=== PATIENT | female | born 1960 | race Caucasian/White ===

== ENCOUNTER 2020-10-01 12:59 | Inpatient (IN) ==
[2020-10-01] MEDS ORDERED: IOPAMIDOL 100 ML BOTTLE IV ONE (13:00)
--- NOTE | 2020-10-01 13:47 | Emergency Department Note ---
HPI <Marguerite Breaux PA-C - Last Filed: 10/01/20 21:28> General Chief complaint: Abdominal Pain Stated complaint: Abdominal Pain Time Seen by Provider: 10/01/20 13:38 Source: patient Mode of arrival: wheelchair Limitations: no limitations History of Present Illness HPI Narrative: Narrative: This patient presents with a complaint of right upper abdominal pain beginning this morning. She reports she woke up this morning and noted the discomfort. She is not had anything to eat or drink today and is unsure if it would worsen with eating or drinking. Is been persistently in the right upper quadrant. Pain does not radiate. She has not been nauseated or had vomiting. She does endorse some constipation but was able to have 2 small bowel movements today. She reports they were very firm stools. She is not had any blood in her stool. She been without fevers or chills. She has experienced this pain intermittently in the past but it is only been brief and has resolved. Related Data Home Medications Medication Instructions Recorded Confirmed gabapentin 600 mg tablet 600 mg PO TID 05/09/20 10/01/20 buprenorphine 8 mg-naloxone 2 mg 1 tab SUBLINGUAL QDAY 07/01/20 10/01/20 sublingual tablet phentermine 15 mg capsule 15 mg PO QDAY 07/01/20 10/01/20 duloxetine [Cymbalta] 60 mg PO DAILY 10/01/20 10/01/20 meloxicam 15 mg PO DAILY 10/01/20 10/01/20 omeprazole 20 mg PO DAILY 10/01/20 10/01/20 Allergies Allergy/AdvReac Type Severity Reaction Status Date / Time No Known Drug Allergies Allergy Unverified 10/02/20 01:57 Review of Systems <Marguerite Breaux PA-C - Last Filed: 10/01/20 21:28> ROS ROS Narrative: Narrative: Pertinent positives and negatives as noted in HPI. All other systems reviewed and negative. PFSH <Marguerite Breaux PA-C - Last Filed: 10/01/20 21:28> Narrative Patient History Narrative: Narrative: Medical/Surgical/Family History All Active Problems (Updated 10/02/20 @ 16:56 by Genoveva Casper MD) Cholelithiasis with cholecystitis (Acute) Acute pancreatitis (Acute) Radiculopathy of lumbar region (Acute) Spondylosis without myelopathy or radiculopathy, lumbosacral region (Acute) Spondylosis without myelopathy or radiculopathy, lumbar region (Acute) Lumbar spondylosis (Chronic) Leg pain, bilateral (Chronic) Chronic pain (Chronic) Hepatitis C (Chronic) Depression (Chronic) Anxiety (Chronic) Difficulty walking (Chronic) Fracture (Chronic) Painful swelling of joint (Chronic) Arthritis (Chronic) Heart burn (Chronic) SOB (shortness of breath) (Chronic) Chronic cough (Chronic) Ringing in ears (Chronic) Acid reflux (Chronic) RLS (restless legs syndrome) (Chronic) COPD (chronic obstructive pulmonary disease) (Chronic) Low back pain (Chronic) Back pain (Chronic) Medical History Acid reflux Anxiety Arthritis Back pain Chronic cough Chronic pain COPD (chronic obstructive pulmonary disease) Depression Difficulty walking Fracture Heart burn Hepatitis C Leg pain, bilateral Low back pain Lumbar spondylosis Painful swelling of joint Ringing in ears RLS (restless legs syndrome) SOB (shortness of breath) Spondylosis without myelopathy or radiculopathy, lumbar region Spondylosis without myelopathy or radiculopathy, lumbosacral region Surgical History History of hysterectomy Family History Mother High blood pressure Father Arthritis Brother Chronic pain Drug abuse Sister Chronic pain Family/Other Alcohol abuse Social History Smoking Status: Current every day smoker Alcohol Intake Frequency: a few times a week Substance Use: other Exam <Marguerite Breaux PA-C - Last Filed: 10/01/20 21:28> Narrative Narrative: Narrative: General Limitations: no limitations Course <Marguerite Breaux PA-C - Last Filed: 10/01/20 21:28> Course Course Narrative: Labs ordered and reviewed EKG shows sinus rhythm at a rate of 75. Crest complexes are narrow and irregular nose. No ST elevation or depression. T waves are noted to be inverted in V1, V3 and flattened in lead III. There is no comparison EKG. Chest x-ray is without acute changes to my review. Radiology does note an 11 mm nodule in the left upper chest and recommends follow-up CT as an outpatient. Lipase elevated above 3000 Troponin negative Ultrasound of the gallbladder is significant for gallstones with some dilation of common bile duct at 1.2 cm. No stone is seen in the common bile duct. No pericholecystic fluid or findings consistent with cholecystitis. CT the abdomen pelvis with contrast are significant for common bile duct measuring 1.2 cm with distention at the ampulla Vater of 1.3 cm. No stone is seen within the common bile duct, however there are also not stone seen in the gallbladder. Patient's work-up thus far is concerning for gallstone pancreatitis. There are no gastroenterology services at this hospital and consult is made with administrative support assistant Dr. Gibbs at [facility]. He advises that he will take the patient to his service, however he would not perform an ERCP unless there was indication after 48 hours. He would monitor the patient in conjunction with the hospitalist service for pancreatitis symptoms and improvement before determining if ERCP was necessary. He would then consult with surgery regarding cholecystectomy after the pancreatitis has improved. Given that information it seems unnecessary to transfer the patient all the way to [place] at this time. I discussed the patient at that time with Dr. Casper, general surgeon here at [facility], to his service to observe her for her pancreatitis. In the event she develops symptoms concerning for obstruction of the common bile duct, he will reach out to gastroenterology for an ERCP if necessary. Tech and orders are placed for the patient to be transferred to [facility]Sur unit for observation of pancreatitis. Patient does take Suboxone chronically. She did have her Suboxone with her and is given her typical dose while here in the emergency department. She and family are counseled that she will be treated with medications from the inpatient pharmacy after she is transferred out of the emergency department. She does have some increase in discomfort and is given Levsin in addition to her home Suboxone as well as her gabapentin which she typically takes 3 times daily. Vital Signs Vital signs: Vital Signs Temperature 97.7 F 10/01/20 13:00 Pulse Rate 66 10/01/20 13:00 Respiratory Rate 18 10/01/20 13:00 Blood Pressure 135/75 10/01/20 13:00 Pulse Oximetry (%) 96 10/01/20 13:00 Temperature 98.1 F 10/02/20 23:53 Pulse Rate 104 H 10/02/20 23:53 Respiratory Rate 24 H 10/02/20 23:53 Blood Pressure 91/67 10/02/20 23:53 Pulse Oximetry (%) 90 10/02/20 23:53 <Modesto Hernandez MD - Last Filed: 10/03/20 01:06> Vital Signs Vital signs: Vital Signs Temperature 97.7 F 10/01/20 13:00 Pulse Rate 66 10/01/20 13:00 Respiratory Rate 18 10/01/20 13:00 Blood Pressure 135/75 10/01/20 13:00 Pulse Oximetry (%) 96 10/01/20 13:00 Temperature 98.1 F 10/02/20 23:53 Pulse Rate 104 H 10/02/20 23:53 Respiratory Rate 24 H 10/02/20 23:53 Blood Pressure 91/67 10/02/20 23:53 Pulse Oximetry (%) 90 10/02/20 23:53 MDM <Marguerite Breaux PA-C - Last Filed: 10/01/20 21:28> MDM Narrative Medical decision making narrative: Narrative: Lab Data Result diagrams: 10/02/20 05:08 10/02/20 05:08 Labs: Lab Results 10/01/20 10/01/20 10/01/20 Range/Units 13:48 13:48 13:48 WBC 10.0 (4.5-11.0) K/mcL RBC 4.67 (3.59-5.38) M/mcL Hgb 14.7 (11.2-15.7) g/dL Hct 43.2 (34.1-44.9) % POC Hct 45 (36-48) % MCV 92.5 (80.0-100.0) fL MCH 31.5 (26.0-34.0) pg MCHC 34.0 (31.0-36.0) g/dL RDW 12.9 (11.5-14.5) % Plt Count 208 (140-440) K/mcL MPV 12.5 H (7.4-10.4) fL Neut % (Auto) 77.9 (38.0-78.0) % Lymph % (Auto) 13.8 L (15.5-49.0) % [place] % (Auto) 5.7 (1.0-12.0) % Eos % (Auto) 2.3 (0.0-7.0) % Baso % (Auto) 0.3 (0.0-2.0) % Lymph # (Auto) 1.38 L (1.50-4.80) K/mcL [place] # (Auto) 0.57 (0.10-0.90) K/mcL Eos # (Auto) 0.23 (0.00-0.70) K/mcL Baso # (Auto) 0.03 (0.00-0.30) K/mcL Absolute Neutrophils 7.78 (1.80-8.00) K/mcL POC Sodium 139 (133-145) mEq/L Sodium 135 (133-145) mmol/L POC Potassium 4.0 (3.3-5.1) mEql/L Potassium 3.9 (3.3-5.1) mmol/L POC Chloride 101 (96-108) mEq/L Chloride 98 (96-108) mmol/L Carbon Dioxide 27 (22-30) mmol/L POC Total CO2 29 (22-30) mmol/L Anion Gap 10.0 (8.0-16.0) POC BUN 13 (6-20) mg/dL BUN 12 (6-20) mg/dL Creatinine 0.8 (0.6-1.1) mg/dL POC Creatinine 0.7 (0.6-1.2) mg/dL GFR Calculation 81 Glucose 139 H (70-105) mg/dL POC Glucose 138 H (70-105) mg/dL Calcium 9.3 (8.6-10.4) mg/dL POC WB Ioniz Calcium 1.20 (1.16-1.32) mmEq/L Total Bilirubin 0.5 (0.1-1.0) mg/dL AST 62 H (<32) U/L ALT 48 H (<40) U/L Alkaline Phosphatase 71 (39-117) U/L Troponin T < 0.01 (<0.03) ng/mL Total Protein 7.1 (5.9-8.4) gm/dL Albumin 4.1 (3.2-5.2) gm/dL Globulin 3.0 (2.2-3.7) gm/dL Albumin/Globulin Ratio 1.4 (1.0-2.3) Lipase > 3000 H (7-60) U/L ED POC Tests ED POC Tests: HUYEN - SARS Antigen Negative <Modesto Hernandez MD - Last Filed: 10/03/20 01:06> Lab Data Labs: Lab Results 10/01/20 10/01/20 10/01/20 Range/Units 13:48 13:48 13:48 WBC 10.0 (4.5-11.0) K/mcL RBC 4.67 (3.59-5.38) M/mcL Hgb 14.7 (11.2-15.7) g/dL Hct 43.2 (34.1-44.9) % POC Hct 45 (36-48) % MCV 92.5 (80.0-100.0) fL MCH 31.5 (26.0-34.0) pg MCHC 34.0 (31.0-36.0) g/dL RDW 12.9 (11.5-14.5) % Plt Count 208 (140-440) K/mcL MPV 12.5 H (7.4-10.4) fL Neut % (Auto) 77.9 (38.0-78.0) % Lymph % (Auto) 13.8 L (15.5-49.0) % [place] % (Auto) 5.7 (1.0-12.0) % Eos % (Auto) 2.3 (0.0-7.0) % Baso % (Auto) 0.3 (0.0-2.0) % Lymph # (Auto) 1.38 L (1.50-4.80) K/mcL [place] # (Auto) 0.57 (0.10-0.90) K/mcL Eos # (Auto) 0.23 (0.00-0.70) K/mcL Baso # (Auto) 0.03 (0.00-0.30) K/mcL Absolute Neutrophils 7.78 (1.80-8.00) K/mcL POC Sodium 139 (133-145) mEq/L Sodium 135 (133-145) mmol/L POC Potassium 4.0 (3.3-5.1) mEql/L Potassium 3.9 (3.3-5.1) mmol/L POC Chloride 101 (96-108) mEq/L Chloride 98 (96-108) mmol/L Carbon Dioxide 27 (22-30) mmol/L POC Total CO2 29 (22-30) mmol/L Anion Gap 10.0 (8.0-16.0) POC BUN 13 (6-20) mg/dL BUN 12 (6-20) mg/dL Creatinine 0.8 (0.6-1.1) mg/dL POC Creatinine 0.7 (0.6-1.2) mg/dL GFR Calculation 81 Glucose 139 H (70-105) mg/dL POC Glucose 138 H (70-105) mg/dL Calcium 9.3 (8.6-10.4) mg/dL POC WB Ioniz Calcium 1.20 (1.16-1.32) mmEq/L Total Bilirubin 0.5 (0.1-1.0) mg/dL AST 62 H (<32) U/L ALT 48 H (<40) U/L Alkaline Phosphatase 71 (39-117) U/L Troponin T < 0.01 (<0.03) ng/mL Total Protein 7.1 (5.9-8.4) gm/dL Albumin 4.1 (3.2-5.2) gm/dL Globulin 3.0 (2.2-3.7) gm/dL Albumin/Globulin Ratio 1.4 (1.0-2.3) Lipase > 3000 H (7-60) U/L ED POC Tests ED POC Tests: HUYEN - SARS Antigen Negative Discharge Plan Patient/Caregiver Discharge Instructions Pt seen by [employer]ATIONS SPECIALIST/PA only: Yes Clinical Impression: Acute pancreatitis Qualifiers: Pancreatitis type: unspecified pancreatitis type Acute pancreatitis complication: no infection or necrosis Qualified Code(s): K85.90 - Acute pancreatitis without necrosis or infection, unspecified Patient Disposition: Xfer As Outpt/Obs ([facility]) Condition: Fair Discharge Date/Time: 10/01/20 21:30
[2020-10-01 14:10] LABS: POC Blood Urea Nitrogen 13 mg/dL (6-20); POC CO2 29 mmol/L (22-30); POC Chloride 101 mEq/L (96-108); POC Creatinine 0.7 mg/dL (0.6-1.2); POC Glucose, Random 138 mg/dL (70-105); POC Hematocrit 45 % (36-48); POC Sodium 139 mEq/L (133-145)
--- NOTE | 2020-10-01 14:21 | XRay Report ---
HISTORY: Smoker, right upper quadrant pain FINDINGS: There is an 11 mm nodule in the left upper thorax, lateral to the left upper hilum. The lungs are otherwise clear and normally expanded. There is no evidence of emphysema, pneumonia or pleural effusion. No adenopathy is detected. The heart size is normal. IMPRESSION: Left upper lobe nodule. Chest CT is recommended for further workup. Interpreted and Authenticated by: Maynor Cheema 10/01/20
--- NOTE | 2020-10-01 14:39 | Ultrasound Report ---
History: Right upper quadrant pain for one day FINDINGS: The liver is normal in size and homogeneous. Layering posteriorly within the lumen of the gallbladder there are two contiguous calcified stones. They measure six and 7 mm in greatest dimension. Gallbladder wall is 2 mm in thickness and the patient was nontender while scanning over the gallbladder. Intrahepatic ducts are nondilated. Proximal common bile duct is 12 mm. This tapers to 8 mm the distal end. There is no obvious stone or mass in or adjacent to the distal common bile duct. The head and body of the pancreas are normal without evidence of inflammation or dilatation of the duct. The tail is obscured. No ascites is present. IMPRESSION: Cholelithiasis Abnormally dilated extrahepatic bile ducts. This raises the possibility of a nonvisualized stone in the distal duct. Interpreted and Authenticated by: Maynor Cheema 10/01/20
[2020-10-01 14:46] LABS: Basophils # (Auto) 0.03 K/mcL (0.00-0.30); Basophils % (Auto) 0.3 % (0.0-2.0); Eosinophils # (Auto) 0.23 K/mcL (0.00-0.70); Eosinophils % (Auto) 2.3 % (0.0-7.0); Hematocrit 43.2 % (34.1-44.9); Hemoglobin 14.7 g/dL (11.2-15.7); Lymphocytes # (Auto) 1.38 K/mcL (1.50-4.80); Lymphocytes % (Auto) 13.8 % (15.5-49.0); Mean Cell Volume 92.5 fL (80.0-100.0); Mean Platelet Volume 12.5 fL (7.4-10.4); Monocytes # (Auto) 0.57 K/mcL (0.10-0.90); Monocytes % (Auto) 5.7 % (1.0-12.0); Neutrophils % (Auto) 77.9 % (38.0-78.0); Platelet Count 208 K/mcL (140-440); RBC 4.67 M/mcL (3.59-5.38); Red Cell Distribution Width 12.9 % (11.5-14.5)
[2020-10-01 15:11] LABS: ALT/SGPT 48 U/L (<40); AST/SGOT 62 U/L (<32); Albumin 4.1 gm/dL (3.2-5.2); Albumin/Globulin Ratio 1.4 (1.0-2.3); Alkaline Phosphatase 71 U/L (39-117); Bilirubin,Total 0.5 mg/dL (0.1-1.0); Blood Urea Nitrogen 12 mg/dL (6-20); Calcium 9.3 mg/dL (8.6-10.4); Carbon Dioxide 27 mmol/L (22-30); Chloride 98 mmol/L (96-108); Glomerular Filtration Rate 81; Glucose 139 mg/dL (70-105)
--- NOTE | 2020-10-01 17:21 | Cat Scan Report ---
History: Right upper quadrant pain TECHNIQUE: The patient was imaged following injection of intravenous nonionic contrast scanning during the portal venous phase from the diaphragm through the symphysis pubis. Sagittal and coronal reformats were created. The radiation exposure was limited using dose reduction technology. FINDINGS: There are small linear opacities inferiorly medially in the lingula and right middle lobe. These may be scar or discoid atelectasis. The lung bases are otherwise clear. The liver is normal in size. There is moderate dilatation of both the intra and extrahepatic bile ducts. Common hepatic duct measures 1.2 cm. In the head of the pancreas, bile duct is 8 mm. There is no evidence of a stone or mass in or adjacent to the distal common bile duct. On the preceding ultrasound there are two small echogenic structures within the lumen of the gallbladder. These are not seen on CT indicating they are cholesterol stones. Mild fatty infiltration is present in the liver. There is no evidence of a liver mass. Gallbladder is mildly distended but the wall is thin and there is no surrounding inflammation. There are no gallstones. Superior to the neck of the pancreas there is a small pocket of fluid which measures 7 x 14 mm in size. The adjacent pancreas appears normal without evidence of acute pancreatitis. There is no pancreatic mass or dilatation of the duct. Spleen is normal in size and homogeneous. The adrenals and kidneys are normal. Aorta is normal in caliber. Moderate amount calcified plaque is present in the distal aorta and common iliac arteries. Inferior vena cava is normal. There is no adenopathy or ascites in the abdomen or pelvis. The bowel pattern is normal. The appendix is noninflamed. There are old mild compression fractures involving the superior endplates from T9 through L1. IMPRESSION: Dilated intra and extrahepatic bile ducts are of undetermined etiology. Mildly distended gallbladder but without evidence of calcified gallstones or inflammation Small nonspecific pocket of fluid above the neck of the pancreas. Although this could be due to pancreatitis, the pancreatic parenchyma does not appear edematous. Marguerite Breaux was called with the results Interpreted and Authenticated by: Maynor Cheema 10/01/20
[2020-10-01] MEDS ORDERED: KETOROLAC 15 MG/ML VIAL IV ONE (18:55)
[2020-10-01] MEDS ORDERED: NICOTINE 21 MG PATCH TOPICAL ONE (19:40)
[2020-10-01] MEDS ORDERED: ONDANSETRON 4 MG/2 ML VIAL IV PRN ×2 (21:04→21:38)
[2020-10-01] MEDS ORDERED: 0.9 % SODIUM CHLORIDE 1,000 ML BAG IV SCH (21:15)
[2020-10-01] MEDS ORDERED: HYDROmorphone 0.5 MG/0.5 ML SYRINGE IV PRN (21:17)
[2020-10-01] MEDS ORDERED: HYOSCYAMINE SULFATE 0.125 MG TABLET SL ONE (21:20)
[2020-10-01] MEDS ORDERED: ZOLPIDEM 5 MG TABLET PO PRN (21:38)
[2020-10-01] MEDS ORDERED: PROMETHAZINE 25 MG/ML VIAL IV PRN (21:38)
[2020-10-01] MEDS ORDERED: ACETAMINOPHEN 1,000 MG/100 ML BAG IV PRN (21:44)
[2020-10-01] MEDS: HYDROmorphone 1 MG/ML SYRINGE IV PRN (21:52)
[2020-10-01] MEDS: 0.9 % SODIUM CHLORIDE 1,000 ML IV SCH (21:52)
[2020-10-01] MEDS: GABAPENTIN 300 MG CAPSULE PO ONE ×2 (21:53→21:57)
[2020-10-01] MEDS: 0.9 % SODIUM CHLORIDE 10 ML SYRINGE IV SCH (21:54)
[2020-10-02] MEDS: HYDROmorphone 1 MG/ML SYRINGE IV PRN ×6 (01:26→15:53)
[2020-10-02] MEDS: 0.9 % SODIUM CHLORIDE 1,000 ML IV SCH ×2 (05:56→15:17)
[2020-10-02] MEDS: 0.9 % SODIUM CHLORIDE 10 ML SYRINGE IV SCH ×3 (05:57→21:00)
[2020-10-02 06:55] LABS: Hemoglobin 14.7 g/dL (11.2-15.7); Mean Cell Volume 94.5 fL (80.0-100.0); Mean Corpuscular HGB Conc 32.7 g/dL (31.0-36.0); Mean Platelet Volume 12.5 fL (7.4-10.4); Platelet Count 173 K/mcL (140-440); RBC 4.76 M/mcL (3.59-5.38); Red Cell Distribution Width 13.2 % (11.5-14.5); WBC 8.6 K/mcL (4.5-11.0)
[2020-10-02 07:12] LABS: ALT/SGPT 127 U/L (<40); AST/SGOT 150 U/L (<32); Albumin 3.4 gm/dL (3.2-5.2); Albumin/Globulin Ratio 1.1 (1.0-2.3); Alkaline Phosphatase 84 U/L (39-117); Bilirubin,Direct 3.3 mg/dL (<0.3); Blood Urea Nitrogen 16 mg/dL (6-20); Calcium 8.8 mg/dL (8.6-10.4); Carbon Dioxide 21 mmol/L (22-30); Chloride 103 mmol/L (96-108); Globulin 3.2 gm/dL (2.2-3.7); Glomerular Filtration Rate 81; Glucose 123 mg/dL (70-105); Lactate Dehydrogenase 295 U/L (135-225); Phosphorous 0.9 mg/dL (2.5-4.5); Triglycerides 69 mg/dL (<150); Uric Acid 6.1 mg/dL (2.5-8.0)
[2020-10-02] MEDS: PANTOPRAZOLE 40 MG TABLET PO SCH (07:37)
[2020-10-02 07:47] LABS: Band Neutrophils % 25 % (0-10); Lymphocytes % 3 % (15-49); Monocytes % (Manual) 2 % (1-12); Platelet Estimate NORMAL (Normal); RBC Morphology NORMAL (Normal); Segmented Neutrophils % 70 % (38-78)
[2020-10-02] MEDS: DOCUSATE SODIUM 100 MG CAPSULE PO SCH ×2 (09:25→20:55)
[2020-10-02] MEDS ORDERED: LORazepam 2 MG/ML VIAL IV PRN (11:53)
[2020-10-02] MEDS ORDERED: KETOROLAC 30 MG/ML VIAL IV ONE (11:54)
--- NOTE | 2020-10-02 13:21 | Magnetic Resonance Report ---
History: Right upper quadrant pain, dilated bile ducts and possible pancreatitis TECHNIQUE: Multiplanar imaging was performed using multiple pulse sequences. 3-D reconstructions of the bile ducts was created. FINDINGS: There is mild dilatation of the intrahepatic ducts. Common hepatic duct measures up to 11 mm. In the head of the pancreas the common bile duct ranges from 6 to 7 mm. This tapers to normal caliber at the ampulla. There is no evidence of stone or tumor at the ampulla. Bile ducts have a smooth contour with no thickening of the wall. The gallbladder appears normal with no wall thickening or stone. There may be a small right-sided pleural effusion. This was not seen on yesterday's CT scan. On the axial fat sat T2-weighted views there appears to be fluid in the peritoneal space around the liver, epigastrium right anterior pararenal space and anterior to the pancreas. Small right-sided pleural effusion has developed. No fluid was seen in these locations on yesterday's CT scan. There is mild edema in the mid body of the pancreas. The pancreatic duct is nondilated. IMPRESSION: Pancreatitis IMPRESSION: Stable dilatation of the intra and extrahepatic bile ducts. Etiology is undetermined. Interpreted and Authenticated by: Maynor Cheema 10/02/20
[2020-10-02] MEDS: GABAPENTIN 300 MG CAPSULE PO SCH ×2 (15:32→20:55)
--- NOTE | 2020-10-02 16:49 | General Surg History&Physical ---
HPI History of Present Illness Patient information: Note initiated : 10/02/20 at 4:42 pm Service Date, if different from initiated Date: [10/01/2020] Patient: Elida Russell 60 y/o F admitted on 10/01/20 for Abdominal Pain. Chief Complaint: [] Chief complaint: Acute pancreatitis History of present illness: Ms. Russell is a 60 year old F admitted for evaluation of acute onset of right upper quadrant epigastric and left upper quadrant pain. She had associated nausea but no vomiting. Pain persisted at home for few hours before she was seen in the emergency room. When evaluated in the emergency room she was in severe distress and had a lipase of 3000. Her bilirubin and alkaline phosphatase were normal and her BUN and creatinine were also normal. Upper abdominal ultrasound showed 2 intraluminal gallstones with mild gallbladder distention but without thickening of the gallbladder wall or pericholecystic fluid. On CT there was a suggestion of peripancreatic fluid with dilation of the common hepatic ducts and intrahepatic ducts however the intrahepatic ducts and common bile duct were normal on ultrasound. Patient is admitted and will have follow-up MRCP while we wait for her amylase and lipase to trend down. She has not had similar symptoms in the past. She denies elevated lipids and she does not use alcohol. Constitutional Constitutional: Present excessive sweating, fatigue, malaise and weight gain Respiratory Respiratory: Present cough, dyspnea on exertion, wheezing and chest congestion Gastrointestinal Gastrointestinal: Present abdominal pain, constipation, cramping, heartburn and nausea Hematologic/Lymphatic Hematologic/Lymphatic: Absent easy bleeding, easy bruising and lymphadenopathy PFSH PFSH All Active Problems (Updated 10/02/20 @ 16:56 by Genoveva Casper MD) Cholelithiasis with cholecystitis (Acute) Acute pancreatitis (Acute) Radiculopathy of lumbar region (Acute) Spondylosis without myelopathy or radiculopathy, lumbosacral region (Acute) Spondylosis without myelopathy or radiculopathy, lumbar region (Acute) Lumbar spondylosis (Chronic) Leg pain, bilateral (Chronic) Chronic pain (Chronic) Hepatitis C (Chronic) Depression (Chronic) Anxiety (Chronic) Difficulty walking (Chronic) Fracture (Chronic) Painful swelling of joint (Chronic) Arthritis (Chronic) Heart burn (Chronic) SOB (shortness of breath) (Chronic) Chronic cough (Chronic) Ringing in ears (Chronic) Acid reflux (Chronic) RLS (restless legs syndrome) (Chronic) COPD (chronic obstructive pulmonary disease) (Chronic) Low back pain (Chronic) Back pain (Chronic) Medical History Acid reflux Anxiety Arthritis Back pain Chronic cough Chronic pain COPD (chronic obstructive pulmonary disease) Depression Difficulty walking Fracture Heart burn Hepatitis C Leg pain, bilateral Low back pain Lumbar spondylosis Painful swelling of joint Ringing in ears RLS (restless legs syndrome) SOB (shortness of breath) Spondylosis without myelopathy or radiculopathy, lumbar region Spondylosis without myelopathy or radiculopathy, lumbosacral region Surgical History History of hysterectomy Family History Mother High blood pressure Father Arthritis Brother Chronic pain Drug abuse Sister Chronic pain Family/Other Alcohol abuse Social History household members: spouse marital status: education level: high school occupational status: retired smoking status: Current every day smoker tobacco type: cigarettes per day: 20 p ack-years: 50 alcohol intake frequency: a few times a week substance use type: other MEDS/ALLERGIES Home Medications and Allergies Home Medications Medication Instructions Recorded Confirmed Type gabapentin 600 mg tablet 600 mg PO TID 05/09/20 10/01/20 History buprenorphine 8 mg-naloxone 2 mg 1 tab SUBLINGUAL QDAY 07/01/20 10/01/20 History sublingual tablet phentermine 15 mg capsule 15 mg PO QDAY 07/01/20 10/01/20 History duloxetine [Cymbalta] 60 mg PO DAILY 10/01/20 10/01/20 History meloxicam 15 mg PO DAILY 10/01/20 10/01/20 History omeprazole 20 mg PO DAILY 10/01/20 10/01/20 History Allergies Allergy/AdvReac Type Severity Reaction Status Date / Time No Known Drug Allergies Allergy Unverified 10/02/20 01:57 Physical Examination Vital Signs Vital signs: Temp Pulse Resp BP Pulse Ox 98.9 F 101 H 20 104/66 90 10/02/20 15:59 10/02/20 15:59 10/02/20 15:59 10/02/20 15:59 10/02/20 15:59 General physical appearance General physical exam: severe distress, severe pain and obese Eyes Eye exam: PERRL and normal ocular movement; negative icteric ENT ENT exam: normal mucosa and no hearing loss Head Head exam IM: Present atraumatic, normal inspection and normocephalic Neck Neck exam: no masses, no bruits, trachea midline, no lymphadenopathy and no venous distension Cardiovascular Cardiovascular exam IM: Present normal rate and rhythm, RRR, +S1 and +S2; Absent JVD and tachycardia Respiratory Respiratory exam: other (Coarse tubular breath sounds with decreased air movement at bases) Abdomen Abdomen: Present tender (Tender in bilateral upper quadrants and epigastrium), guarding (Tenderness to palpation in upper abdomen diffusely) and distended (Moderate diffuse distention) Results Labs Result diagrams: 10/02/20 05:08 10/02/20 05:08 Labs: Abnormal lab results 10/02/20 10/02/20 10/02/20 Range/Units 05:08 05:08 05:23 Hct 45.0 H (34.1-44.9) % MPV 12.5 H (7.4-10.4) fL Band Neutrophils % 25 H (0-10) % Lymphocytes % 3 L (15-49) % Carbon Dioxide 21 L (22-30) mmol/L Glucose 123 H (70-105) mg/dL Phosphorus 0.9 L (2.5-4.5) mg/dL Total Bilirubin 4.0 H (0.1-1.0) mg/dL Direct Bilirubin 3.3 H (<0.3) mg/dL GGT 175 H (5-36) U/L AST 150 H (<32) U/L ALT 127 H (<40) U/L Lactate Dehydrogenase 295 H (135-225) U/L Amylase 1114 H (28-100) U/L Lipase 2083 H (7-60) U/L Diabetes panel 10/02/20 Range/Units 05:08 Sodium 138 (133-145) mmol/L Potassium 4.0 (3.3-5.1) mmol/L Chloride 103 (96-108) mmol/L Carbon Dioxide 21 L (22-30) mmol/L BUN 16 (6-20) mg/dL Creatinine 0.8 (0.6-1.1) mg/dL Glucose 123 H (70-105) mg/dL Calcium 8.8 (8.6-10.4) mg/dL AST 150 H (<32) U/L ALT 127 H (<40) U/L Alkaline Phosphatase 84 (39-117) U/L Total Protein 6.6 (5.9-8.4) gm/dL Albumin 3.4 (3.2-5.2) gm/dL Triglycerides 69 (<150) mg/dL Calcium panel 10/02/20 Range/Units 05:08 Calcium 8.8 (8.6-10.4) mg/dL Phosphorus 0.9 L (2.5-4.5) mg/dL Albumin 3.4 (3.2-5.2) gm/dL Pituitary panel 10/02/20 Range/Units 05:08 Sodium 138 (133-145) mmol/L Potassium 4.0 (3.3-5.1) mmol/L Chloride 103 (96-108) mmol/L Carbon Dioxide 21 L (22-30) mmol/L BUN 16 (6-20) mg/dL Creatinine 0.8 (0.6-1.1) mg/dL Glucose 123 H (70-105) mg/dL Calcium 8.8 (8.6-10.4) mg/dL Adrenal panel 10/02/20 Range/Units 05:08 Sodium 138 (133-145) mmol/L Potassium 4.0 (3.3-5.1) mmol/L Chloride 103 (96-108) mmol/L Carbon Dioxide 21 L (22-30) mmol/L BUN 16 (6-20) mg/dL Creatinine 0.8 (0.6-1.1) mg/dL Glucose 123 H (70-105) mg/dL Calcium 8.8 (8.6-10.4) mg/dL Total Bilirubin 4.0 H (0.1-1.0) mg/dL AST 150 H (<32) U/L ALT 127 H (<40) U/L Alkaline Phosphatase 84 (39-117) U/L Total Protein 6.6 (5.9-8.4) gm/dL Albumin 3.4 (3.2-5.2) gm/dL All other labs normal. A/P Assessment and plan (1) Acute pancreatitis: Status: Acute Qualifiers: Acute pancreatitis complication: no infection or necrosis Pancreatitis type: unspecified pancreatitis type Qualified Code(s): K85.90 - Acute pancreatitis without necrosis or infection, unspecified (2) Cholelithiasis with cholecystitis: Status: Acute (3) Chronic pain: Status: Chronic (4) COPD (chronic obstructive pulmonary disease): Status: Chronic (5) Depression: Status: Chronic Narrative A/P Narrative: Patient is admitted with plans for expectant treatment of her pancreatitis. Present findings do not support common bile duct stone but she will be scheduled for MRCP on 02 October 2020. If MRCP is normal without evidence of common bile duct stone she will continue on nonoperative management. Her gallbladder will be removed after her pancreatitis has improved. She does not need antibiotics at this time. Time Spent With Patient Time: Total time spent is greater than 50% in coordination of care (as documented) at patient's floor/unit and/or counseling patient:
--- NOTE | 2020-10-02 16:59 | General Surgery Progress Note ---
SUBJECTIVE Subjective Patient information: Note initiated : 10/02/20 at 4:58 pm Service Date, if different from initiated Date: [] Patient: Elida Russell 60 y/o F admitted on 10/01/20 for Abdominal Pain. Chief Complaint: [] Principal diagnosis: Acute pancreatitis Interval history: Patient states that her pain is slightly better. She still has nausea and moderate diffuse pain. An MRCP was done earlier and this does not confirm any common bile duct stones. She has had a bump in her bilirubin but her alkaline phosphatase looks okay. She has developed some peritoneal fluid compatible with her severe pancreatitis. Her lipase is 2083 and serum calcium is 8.8. Constitutional Vitals: Vital Signs Temp Pulse Resp BP Pulse Ox 98.9 F 101 H 20 104/66 90 10/02/20 15:59 10/02/20 15:59 10/02/20 15:59 10/02/20 15:59 10/02/20 15:59 Period Temp Pulse Resp BP Sys/Bryant Pulse Ox Last 24 Hr 97.4 F-98.9 F 67-101 18-26 91-144/63-93 90-98 Intake and Output 10/02/20 10/02/20 10/02/20 05:59 13:59 21:59 Intake Total 1000 1000 240 Output Total 375 750 Balance 625 1000 -510 Weight 245 lb 5 oz Patient Weight 10/03/20 05:59 Weight 245 lb 5 oz Intake & Output: Intake & Output 10/02/20 10/02/20 10/02/20 05:59 13:59 21:59 Intake Total 1000 1000 240 Output Total 375 750 Balance 625 1000 -510 Weight 245 lb 5 oz Intake: IV 1000 1000 Sodium Chloride 0.9% 1,000 ml @ 1000 1000 125 mls/hr IV .Q8H [facility] Rx#: [id number] Oral 240 Output: Void Amount 375 750 Other: Urine Appearance Clear Urine Color Dark Twyla Tea Colored Urine Odor Normal Head Head exam: Present atraumatic, normal inspection and normocephalic Eye Eye exam: Present EOMI and scleral icterus (Mild icterus that was not present on yesterday) ENT ENT exam: Present mucous membranes moist, normal exam and normal oropharynx Neck Neck exam: Present full ROM and normal inspection; Absent lymphadenopathy and tenderness Respiratory Respiratory exam: Present rales, rhonchi and wheezes Additional comments: Coarse tubular breath sounds with rhonchi and coarse wheezes; productive cough of clear sputum Cardiovascular Cardiovascular exam: Present RRR, +S1 and +S2; Absent gallop and JVD GI/Abdominal GI/Abdominal exam: Present normal bowel sounds, distended (Moderate diffuse distention) and tenderness (Tenderness with guarding in upper abdomen; slightly improved compared to yesterday) Extremities Exam Extremities exam: Present full ROM and neurovascular intact; Absent normal inspection and pedal edema Neurological Exam Neurological exam: Present alert, normal gait, oriented X3 and reflexes normal Psychiatric Psychiatric exam: Present anxious and flat affect Skin Skin exam: Present intact; Absent petechiae and rash A/P Assessment and plan (1) Acute pancreatitis: Status: Acute Qualifiers: Acute pancreatitis complication: no infection or necrosis Pancreatitis type: unspecified pancreatitis type Qualified Code(s): K85.90 - Acute pancreatitis without necrosis or infection, unspecified (2) Cholelithiasis with cholecystitis: Status: Acute (3) COPD (chronic obstructive pulmonary disease): Status: Chronic Narrative A/P Narrative: Continue present therapy Monitor amylase and lipase LFTs and calcium in the morning Time Spent With Patient Time: Total time spent is greater than 50% in coordination of care (as documented) at patient's floor/unit and/or counseling patient:
[2020-10-02] MEDS: ACETAMINOPHEN 1,000 MG/100 ML BAG IV PRN (19:33)
[2020-10-02] MEDS: fentaNYL 100 MCG/2 ML VIAL IV PRN (20:27)
[2020-10-02] MEDS ORDERED: IPRATROPIUM/ALBUTEROL 3 ML AMPUL.NEB NEB PRN (20:51)
[2020-10-02] MEDS: SENNOSIDES 1 TABLET PO SCH (20:55)
[2020-10-02] MEDS: NICOTINE 21 MG PATCH TOPICAL SCH (20:56)
--- NOTE | 2020-10-02 21:48 | Emergency Department Note ---
ED Note Addendum <Marguerite Breaux PA-C - Last Filed: 10/02/20 21:53> Note Addendum: Vital signs noted General: mild distress. Skin: Warm. Dry. No rash. Normal color. Eyes: PERRL. EOMI. Mouth: Membranes moist. Normal inspection. Neck: Good ROM. No meningeal signs. Supple. Cardiovascular: Regular rate and rhythm. No murmur. Respiratory: No respiratory distress. Breath sounds equal. No wheezing/rales/rhonchi. Gastrointestinal: Abdomen soft. Tenderness to the right upper quadrant. Positive Cali sign. No distention. Normal bowel sounds. No rebound tenderness or guarding. Back: Normal inspection. Extremities: No tenderness. No swelling. No erythema. No edema. Good peripheral pulses x 4 Neurological: No focal neurological deficits observed. Alert. Oriented x 3
[2020-10-03] MEDS: 0.9 % SODIUM CHLORIDE 1,000 ML IV SCH ×4 (01:21→21:29)
[2020-10-03] MEDS: fentaNYL 100 MCG/2 ML VIAL IV PRN (04:07)
[2020-10-03] MEDS: ACETAMINOPHEN 1,000 MG/100 ML BAG IV PRN ×2 (04:09→20:33)
[2020-10-03] MEDS ORDERED: IPRATROPIUM/ALBUTEROL 3 ML AMPUL.NEB NEB ONE (05:29)
[2020-10-03] MEDS: 0.9 % SODIUM CHLORIDE 10 ML SYRINGE IV SCH ×3 (06:10→21:33)
[2020-10-03] MEDS: IPRATROPIUM/ALBUTEROL 3 ML AMPUL.NEB NEB SCH ×5 (06:50→23:04)
[2020-10-03 06:55] LABS: ALT/SGPT 154 U/L (<40); AST/SGOT 146 U/L (<32); Albumin 2.8 gm/dL (3.2-5.2); Albumin/Globulin Ratio 0.8 (1.0-2.3); Alkaline Phosphatase 80 U/L (39-117); Amylase 437 U/L (28-100); Bilirubin,Direct 0.9 mg/dL (<0.3); Bilirubin,Total 1.5 mg/dL (0.1-1.0); Blood Urea Nitrogen 36 mg/dL (6-20); Calcium 8.6 mg/dL (8.6-10.4); Carbon Dioxide 18 mmol/L (22-30); Chloride 101 mmol/L (96-108); Globulin 3.4 gm/dL (2.2-3.7); Glomerular Filtration Rate 38; Glucose 87 mg/dL (70-105); Lactate Dehydrogenase 250 U/L (135-225); Phosphorous 3.3 mg/dL (2.5-4.5); Triglycerides 119 mg/dL (<150)
[2020-10-03] MEDS ORDERED: IPRATROPIUM/ALBUTEROL 3 ML AMPUL.NEB NEB SCH ×2 (07:00)
[2020-10-03] MEDS: PANTOPRAZOLE 40 MG TABLET PO SCH (07:37)
--- NOTE | 2020-10-03 08:05 | XRay Report ---
HISTORY: Severe shortness of breath FINDINGS: Lung volumes are small due to poor inspiration. There are bands of atelectasis bilaterally. There is also a vague alveolar infiltrate in the right lower lobe, extending up to the hilum. No pleural effusion is seen. The heart size is normal. The 11 mm nodule seen in the left upper thorax on the prior chest x-ray done on 10/01/20 is not seen on the current exam. IMPRESSION: Mild right lower lobe pneumonia and discoid atelectasis bilaterally Interpreted and Authenticated by: Maynor Cheema 10/03/20
[2020-10-03 08:49] LABS: Basophils # (Auto) 0.02 K/mcL (0.00-0.30); Basophils % (Auto) 0.2 % (0.0-2.0); Eosinophils # (Auto) 0.23 K/mcL (0.00-0.70); Eosinophils % (Auto) 2.1 % (0.0-7.0); Hematocrit 44.8 % (34.1-44.9); Hemoglobin 14.4 g/dL (11.2-15.7); Lymphocytes # (Auto) 0.69 K/mcL (1.50-4.80); Lymphocytes % (Auto) 6.3 % (15.5-49.0); Mean Cell Volume 95.3 fL (80.0-100.0); Mean Corpuscular HGB Conc 32.1 g/dL (31.0-36.0); Monocytes # (Auto) 0.64 K/mcL (0.10-0.90); Monocytes % (Auto) 5.8 % (1.0-12.0); Neutrophils % (Auto) 85.6 % (38.0-78.0); Platelet Count 129 K/mcL (140-440); Red Cell Distribution Width 13.7 % (11.5-14.5)
[2020-10-03] MEDS: DOCUSATE SODIUM 100 MG CAPSULE PO SCH ×2 (09:22→20:34)
[2020-10-03] MEDS: NICOTINE 21 MG PATCH TOPICAL SCH (09:22)
[2020-10-03] MEDS: DULoxetine 30 MG CAPSULE PO SCH (09:22)
[2020-10-03] MEDS: MELOXICAM 7.5 MG TABLET PO SCH (09:22)
[2020-10-03] MEDS: GABAPENTIN 300 MG CAPSULE PO SCH ×3 (09:22→20:34)
[2020-10-03] MEDS: PHENTERMINE 15 MG PO SCH (09:27)
[2020-10-03] MEDS: BUPRENORPHINE NALOXONE PO SCH (09:55)
--- NOTE | 2020-10-03 16:39 | General Surgery Progress Note ---
SUBJECTIVE Subjective Patient information: Note initiated : 10/03/20 at 4:34 pm Service Date, if different from initiated Date: [] Patient: Elida Russell 60 y/o F admitted on 10/01/20 for Abdominal Pain. Chief Complaint: [] Principal diagnosis: Acute pancreatitis Interval history: Patient is clinically improved. Her pain is much better. She does not have nausea. She has been afebrile. White blood count 11, hemoglobin 14.4, hematocrit 44.8, potassium 5.4, BUN 36, creatinine 1.5, bilirubin 1.5, amylase 437, lipase 262. Chest x-ray shows basilar atelectasis with possible segmental pneumonitis on the right Constitutional Vitals: Vital Signs Temp Pulse Resp BP Pulse Ox 97.7 F 102 H 18 95/63 90 10/03/20 15:47 10/03/20 15:47 10/03/20 15:47 10/03/20 15:47 10/03/20 15:47 Period Temp Pulse Resp BP Sys/Bryant Pulse Ox Last 24 Hr 96.9 F-98.1 F 92-114 16-27 82-109/56-73 90-94 Intake and Output 10/03/20 10/03/20 10/03/20 05:59 13:59 21:59 Intake Total 1400 Balance 1400 Intake & Output: Intake & Output 10/03/20 10/03/20 10/03/20 05:59 13:59 21:59 Intake Total 1400 Balance 1400 Intake: IV 1100 Sodium Chloride 0.9% 1,000 ml @ 1000 125 mls/hr IV .Q8H [facility] Rx#: [id number] Oral 300 Other: Urine Color Uretheral (Servin) Tea Colored Head Head exam: Present atraumatic, normal inspection and normocephalic Eye Eye exam: Present EOMI and scleral icterus (Mild icterus that was not present on yesterday) ENT ENT exam: Present mucous membranes moist, normal exam and normal oropharynx Neck Neck exam: Present full ROM and normal inspection; Absent lymphadenopathy and tenderness Respiratory Respiratory exam: Present rales, rhonchi and wheezes Additional comments: Coarse tubular breath sounds with rhonchi and coarse wheezes; productive cough of clear sputum Cardiovascular Cardiovascular exam: Present RRR, +S1 and +S2; Absent gallop and JVD GI/Abdominal GI/Abdominal exam: Present normal bowel sounds, distended (Moderate diffuse distention) and tenderness (Tenderness with guarding in upper abdomen; slightly improved compared to yesterday) Extremities Exam Extremities exam: Present full ROM and neurovascular intact; Absent normal inspection and pedal edema Neurological Exam Neurological exam: Present alert, normal gait, oriented X3 and reflexes normal Psychiatric Psychiatric exam: Present anxious and flat affect Skin Skin exam: Present intact; Absent petechiae and rash A/P Assessment and plan (1) Acute pancreatitis: Status: Acute Qualifiers: Acute pancreatitis complication: no infection or necrosis Pancreatitis type: unspecified pancreatitis type Qualified Code(s): K85.90 - Acute pancreatitis without necrosis or infection, unspecified (2) Cholelithiasis with cholecystitis: Status: Acute (3) COPD (chronic obstructive pulmonary disease): Status: Chronic (4) Atelectasis of both lungs: Status: Acute Narrative A/P Narrative: Continue on present therapy Chest x-ray in the morning Continue to follow-up labs Time Spent With Patient Time: Total time spent is greater than 50% in coordination of care (as documented) at patient's floor/unit and/or counseling patient:
[2020-10-03] MEDS: SENNOSIDES 1 TABLET PO SCH (20:34)
[2020-10-04] MEDS: ACETAMINOPHEN 1,000 MG/100 ML BAG IV PRN ×2 (03:12→22:22)
[2020-10-04] MEDS: IPRATROPIUM/ALBUTEROL 3 ML AMPUL.NEB NEB SCH ×6 (03:38→22:58)
[2020-10-04] MEDS: 0.9 % SODIUM CHLORIDE 1,000 ML IV SCH ×4 (05:57→21:11)
[2020-10-04] MEDS: 0.9 % SODIUM CHLORIDE 10 ML SYRINGE IV SCH ×3 (05:57→21:09)
[2020-10-04 07:15] LABS: Basophils # (Auto) 0.09 K/mcL (0.00-0.30); Basophils % (Auto) 1.2 % (0.0-2.0); Eosinophils # (Auto) 0.05 K/mcL (0.00-0.70); Eosinophils % (Auto) 0.7 % (0.0-7.0); Hematocrit 35.7 % (34.1-44.9); Hemoglobin 12.3 g/dL (11.2-15.7); Lymphocytes # (Auto) 0.58 K/mcL (1.50-4.80); Lymphocytes % (Auto) 7.9 % (15.5-49.0); Mean Cell Volume 91.5 fL (80.0-100.0); Mean Corpuscular HGB Conc 34.5 g/dL (31.0-36.0); Mean Platelet Volume 13.1 fL (7.4-10.4); Monocytes # (Auto) 0.38 K/mcL (0.10-0.90); Monocytes % (Auto) 5.2 % (1.0-12.0); Platelet Count 98 K/mcL (140-440); Red Cell Distribution Width 13.9 % (11.5-14.5); WBC 7.3 K/mcL (4.5-11.0)
[2020-10-04 07:38] LABS: ALT/SGPT 92 U/L (<40); AST/SGOT 66 U/L (<32); Albumin 2.4 gm/dL (3.2-5.2); Albumin/Globulin Ratio 0.8 (1.0-2.3); Alkaline Phosphatase 117 U/L (39-117); Bilirubin,Direct 0.5 mg/dL (<0.3); Bilirubin,Total 0.8 mg/dL (0.1-1.0); Blood Urea Nitrogen 36 mg/dL (6-20); Calcium 8.3 mg/dL (8.6-10.4); Carbon Dioxide 21 mmol/L (22-30); Chloride 99 mmol/L (96-108); Globulin 3.2 gm/dL (2.2-3.7); Glomerular Filtration Rate 62; Glucose 85 mg/dL (70-105); Lactate Dehydrogenase 259 U/L (135-225); Phosphorous 3.2 mg/dL (2.5-4.5); Triglycerides 158 mg/dL (<150)
[2020-10-04] MEDS: PANTOPRAZOLE 40 MG TABLET PO SCH (07:55)
[2020-10-04] MEDS: GABAPENTIN 300 MG CAPSULE PO SCH ×3 (09:54→21:09)
[2020-10-04] MEDS: MELOXICAM 7.5 MG TABLET PO SCH (09:55)
[2020-10-04] MEDS: DOCUSATE SODIUM 100 MG CAPSULE PO SCH ×2 (09:55→21:09)
[2020-10-04] MEDS: DULoxetine 30 MG CAPSULE PO SCH (09:55)
[2020-10-04] MEDS: BUPRENORPHINE NALOXONE PO SCH (09:55)
[2020-10-04] MEDS: NICOTINE 21 MG PATCH TOPICAL SCH (09:55)
[2020-10-04] MEDS: PHENTERMINE 15 MG PO SCH (09:56)
[2020-10-04] MEDS ORDERED: BUTALB/ACETAMINOPHEN/CAFFEINE 1 TABLET PO PRN (12:57)
--- NOTE | 2020-10-04 13:09 | General Surgery Progress Note ---
SUBJECTIVE Subjective Patient information: Note initiated : 10/04/20 at 1:01 pm Service Date, if different from initiated Date: [] Patient: Elida Russell 60 y/o F admitted on 10/01/20 for Abdominal Pain. Chief Complaint: [] Principal diagnosis: Acute pancreatitis Interval history: Patient continues to improve. She has minimal discomfort at this time though she does have some epigastric and left upper quadrant tenderness to palpation. She is having flatus. She denies nausea and is tolerating liquids without difficulty. White blood count 7.3, hemoglobin 12.3, hematocrit 35.7, BUN 36, creatinine 1, calcium 8.3, bilirubin 0.5, alkaline phosphatase 117. Constitutional Vitals: Vital Signs Temp Pulse Resp BP Pulse Ox 97 F 71 18 104/70 93 10/04/20 11:46 10/04/20 11:59 10/04/20 11:59 10/04/20 11:46 10/04/20 11:59 Period Temp Pulse Resp BP Sys/Bryant Pulse Ox Last 24 Hr 97 F-98.5 F 71-102 16-20 80-108/54-70 90-95 Intake and Output 10/03/20 10/04/20 10/04/20 21:59 05:59 13:59 Intake Total 407 600 Output Total 600 750 Balance -193 -150 Weight 255 lb 4.8 oz Intake & Output: Intake & Output 10/03/20 10/04/20 10/04/20 21:59 05:59 13:59 Intake Total 407 600 Output Total 600 750 Balance -193 -150 Weight 255 lb 4.8 oz Intake: IV 407 100 Sodium Chloride 0.9% 1,000 ml @ 307 125 mls/hr IV .Q8H [facility] Rx#: [id number] Oral 500 Output: Urine Catheter Amount 600 750 Other: Urine Appearance Clear Clear Uretheral (Servin) Clear Urine Color Light Twyla Light Twyla Uretheral (Servin) Dark Yellow Urine Odor Uretheral (Servin) Normal Head Head exam: Present atraumatic, normal inspection and normocephalic Eye Eye exam: Present EOMI ENT ENT exam: Present mucous membranes moist, normal exam and normal oropharynx Neck Neck exam: Present full ROM and normal inspection; Absent lymphadenopathy and tenderness Respiratory Respiratory exam: Present rales, rhonchi and wheezes Additional comments: Coarse tubular breath sounds with rhonchi and coarse wheezes; productive cough of clear sputum Cardiovascular Cardiovascular exam: Present RRR, +S1 and +S2; Absent gallop and JVD GI/Abdominal GI/Abdominal exam: Present normal bowel sounds, distended (Moderate diffuse distention) and tenderness (Tenderness with guarding in upper abdomen; slightly improved compared to yesterday) Extremities Exam Extremities exam: Present full ROM and neurovascular intact; Absent normal inspection and pedal edema Neurological Exam Neurological exam: Present alert, normal gait, oriented X3 and reflexes normal Psychiatric Psychiatric exam: Present anxious and flat affect Skin Skin exam: Present intact; Absent petechiae and rash A/P Assessment and plan (1) Acute pancreatitis: Status: Acute Qualifiers: Acute pancreatitis complication: no infection or necrosis Pancreatitis type: unspecified pancreatitis type Qualified Code(s): K85.90 - Acute pancreatitis without necrosis or infection, unspecified (2) Cholelithiasis with cholecystitis: Status: Acute (3) COPD (chronic obstructive pulmonary disease): Status: Chronic (4) Atelectasis of both lungs: Status: Acute Narrative A/P Narrative: Repeat lipase and inpatient panel in a.m. Chest x-ray for follow-up of pneumonia and atelectasis Time Spent With Patient Time: Total time spent is greater than 50% in coordination of care (as documented) at patient's floor/unit and/or counseling patient:
[2020-10-04] MEDS: SENNOSIDES 1 TABLET PO SCH (21:09)
[2020-10-05] MEDS: 0.9 % SODIUM CHLORIDE 10 ML SYRINGE IV SCH ×3 (04:07→21:19)
[2020-10-05] MEDS: IPRATROPIUM/ALBUTEROL 3 ML AMPUL.NEB NEB SCH ×6 (04:27→23:25)
[2020-10-05] MEDS: PANTOPRAZOLE 40 MG TABLET PO SCH (06:55)
[2020-10-05] MEDS: 0.9 % SODIUM CHLORIDE 1,000 ML IV SCH ×2 (06:58→21:15)
[2020-10-05 07:23] LABS: Basophils # (Auto) 0.04 K/mcL (0.00-0.30); Basophils % (Auto) 0.5 % (0.0-2.0); Eosinophils # (Auto) 0.07 K/mcL (0.00-0.70); Eosinophils % (Auto) 0.9 % (0.0-7.0); Hematocrit 35.2 % (34.1-44.9); Hemoglobin 11.8 g/dL (11.2-15.7); Lymphocytes % (Auto) 9.3 % (15.5-49.0); Mean Cell Volume 91.4 fL (80.0-100.0); Mean Corpuscular HGB Conc 33.5 g/dL (31.0-36.0); Mean Platelet Volume 12.7 fL (7.4-10.4); Monocytes # (Auto) 0.69 K/mcL (0.10-0.90); Monocytes % (Auto) 9.1 % (1.0-12.0); Platelet Count 117 K/mcL (140-440); RBC 3.85 M/mcL (3.59-5.38); Red Cell Distribution Width 14.1 % (11.5-14.5); WBC 7.6 K/mcL (4.5-11.0)
[2020-10-05 08:10] LABS: ALT/SGPT 57 U/L (<40); AST/SGOT 35 U/L (<32); Albumin 2.2 gm/dL (3.2-5.2); Albumin/Globulin Ratio 0.6 (1.0-2.3); Alkaline Phosphatase 107 U/L (39-117); Bilirubin,Direct 0.5 mg/dL (<0.3); Bilirubin,Total 0.7 mg/dL (0.1-1.0); Blood Urea Nitrogen 21 mg/dL (6-20); Calcium 8.1 mg/dL (8.6-10.4); Carbon Dioxide 23 mmol/L (22-30); Chloride 100 mmol/L (96-108); Globulin 3.4 gm/dL (2.2-3.7); Glomerular Filtration Rate 70; Glucose 79 mg/dL (70-105); Lactate Dehydrogenase 207 U/L (135-225); Phosphorous 2.5 mg/dL (2.5-4.5); Triglycerides 168 mg/dL (<150); Uric Acid 6.1 mg/dL (2.5-8.0)
[2020-10-05 08:39] LABS: Neutrophils % (Auto) 80.2 % (38.0-78.0)
--- NOTE | 2020-10-05 09:36 | XRay Report ---
HISTORY: Follow-up right-sided pneumonia and atelectasis FINDINGS: There is a moderate-sized alveolar infiltrate in the right lower lobe. There is volume loss and mild elevation of the right diaphragm. A thick band of discoid atelectasis has developed along the left upper heart border. These have both become worse since 10/03/20. This also a subtle infiltrate around the right upper hilum which has improved. Left upper lobe is clear. The heart size is normal. IMPRESSION: Worsening pneumonia/atelectasis in right lower lobe and enlarging band of discoid atelectasis in the left mid thorax Interpreted and Authenticated by: Maynor Cheema 10/05/20
[2020-10-05] MEDS: methylPREDNISolone SOD SUCC 125 MG/2 ML VIAL IV SCH ×2 (09:55→21:17)
[2020-10-05] MEDS: MELOXICAM 7.5 MG TABLET PO SCH (09:56)
[2020-10-05] MEDS: NICOTINE 21 MG PATCH TOPICAL SCH (09:56)
[2020-10-05] MEDS: DOCUSATE SODIUM 100 MG CAPSULE PO SCH ×2 (09:56→21:17)
[2020-10-05] MEDS: DULoxetine 30 MG CAPSULE PO SCH (09:56)
[2020-10-05] MEDS: GABAPENTIN 300 MG CAPSULE PO SCH ×3 (09:56→21:17)
[2020-10-05] MEDS: PHENTERMINE 15 MG PO SCH (09:57)
[2020-10-05] MEDS ORDERED: FUROSEMIDE 40 MG/4 ML VIAL IV ONE (10:04)
--- NOTE | 2020-10-05 10:15 | General Surgery Progress Note ---
SUBJECTIVE Subjective Patient information: Note initiated : 10/05/20 at 10:08 am Service Date, if different from initiated Date: [] Patient: Elida Russell 60 y/o F admitted on 10/01/20 for Abdominal Pain. Chief Complaint: [] Principal diagnosis: Acute pancreatitis Interval history: Patient states that she feels better. She has minimal abdominal pain at this time. She has been afebrile. She denies nausea. She still has chronic cough productive of thick sputum. Her lipase is 15. BNP 3093, white blood count 7.6, hemoglobin 11.8, hematocrit 35.2, potassium 3.7, BUN 21, creatinine 0.9. Constitutional Vitals: Vital Signs Temp Pulse Resp BP Pulse Ox 97 F 82 24 H 90/67 93 10/05/20 08:00 10/05/20 08:00 10/05/20 08:00 10/05/20 08:00 10/05/20 08:00 Period Temp Pulse Resp BP Sys/Bryant Pulse Ox Last 24 Hr 97 F-99.1 F 71-103 14-24 90-104/57-72 90-94 Intake and Output 10/04/20 10/05/20 10/05/20 21:59 05:59 13:59 Intake Total 1600 700 734 Output Total 1750 1000 Balance -150 -300 734 Intake & Output: Intake & Output 10/04/20 10/05/20 10/05/20 21:59 05:59 13:59 Intake Total 1600 700 734 Output Total 1750 1000 Balance -150 -300 734 Intake: IV 1000 100 734 Sodium Chloride 0.9% 1,000 ml @ 1000 734 75 mls/hr IV .[id number] [facility] Rx#: [id number] Oral 200 600 GI Tube Flush 400 Output: Urine Catheter Amount 1750 1000 Other: Urine Appearance Clear Clear Uretheral (Servin) Clear Urine Color Light Twyla Light Twyla Uretheral (Servin) Light Twyla Urine Odor Normal Normal Uretheral (Servin) Normal Stool Size Moderate Stool Color Brown Stool Consistency Dry and Hard # Bowel Movements 1 General appearance: cooperative, no acute distress and obese Head Head exam: Present atraumatic, normal inspection and normocephalic Eye Eye exam: Present EOMI ENT ENT exam: Present mucous membranes moist, normal exam and normal oropharynx Neck Neck exam: Present full ROM and normal inspection; Absent lymphadenopathy and tenderness Respiratory Respiratory exam: Present rales, rhonchi and wheezes Additional comments: Coarse tubular breath sounds with rhonchi and coarse wheezes; productive cough of clear sputum Cardiovascular Cardiovascular exam: Present RRR, +S1 and +S2; Absent gallop and JVD GI/Abdominal GI/Abdominal exam: Present normal bowel sounds, soft and tenderness (No significant tenderness in upper quadrants; mild tenderness in the epigastrium); Absent guarding and rebound Extremities Exam Extremities exam: Present full ROM and neurovascular intact; Absent pedal edema and tenderness Back Exam Back exam: Present full ROM and normal inspection Neurological Exam Neurological exam: Present alert, normal gait and oriented X3; Absent motor sensory deficit Psychiatric Psychiatric exam: Present anxious and flat affect A/P Assessment and plan (1) Acute gallstone pancreatitis: Assessment and plan: Acute pancreatitis has resolved Status: Acute (2) Atelectasis of both lungs: Status: Acute (3) Cholelithiasis with cholecystitis: Status: Acute (4) COPD (chronic obstructive pulmonary disease): Status: Chronic (5) Pneumonitis: Status: Acute Narrative A/P Narrative: Saline lock IV Lasix 40 mg IV x1 Scheduled for laparoscopic cholecystectomy tomorrow Time Spent With Patient Time: Total time spent is greater than 50% in coordination of care (as documented) at patient's floor/unit and/or counseling patient:
[2020-10-05] MEDS: BUDESONIDE 0.5 MG/2 ML AMPUL.NEB NEB SCH ×2 (11:14→20:09)
[2020-10-05] MEDS: BUPRENORPHINE NALOXONE PO SCH (11:56)
[2020-10-05] MEDS ORDERED: BUPRENORPHINE NALOXONE PO SCH (21:00)
[2020-10-05] MEDS: ACETAMINOPHEN 1,000 MG/100 ML BAG IV PRN (21:15)
[2020-10-05] MEDS: SENNOSIDES 1 TABLET PO SCH (21:17)
[2020-10-06] MEDS: IPRATROPIUM/ALBUTEROL 3 ML AMPUL.NEB NEB SCH ×6 (03:57→23:00)
[2020-10-06] MEDS: 0.9 % SODIUM CHLORIDE 10 ML SYRINGE IV SCH ×3 (03:59→21:08)
[2020-10-06] MEDS: BUDESONIDE 0.5 MG/2 ML AMPUL.NEB NEB SCH ×2 (07:16→19:41)
[2020-10-06 08:04] LABS: ALT/SGPT 44 U/L (<40); AST/SGOT 26 U/L (<32); Albumin 2.5 gm/dL (3.2-5.2); Albumin/Globulin Ratio 0.6 (1.0-2.3); Alkaline Phosphatase 93 U/L (39-117); Bilirubin,Direct 0.3 mg/dL (<0.3); Bilirubin,Total 0.5 mg/dL (0.1-1.0); Blood Urea Nitrogen 24 mg/dL (6-20); Calcium 8.8 mg/dL (8.6-10.4); Carbon Dioxide 23 mmol/L (22-30); Chloride 100 mmol/L (96-108); Globulin 3.9 gm/dL (2.2-3.7); Glomerular Filtration Rate 81; Glucose 130 mg/dL (70-105); Lactate Dehydrogenase 255 U/L (135-225); Phosphorous 2.7 mg/dL (2.5-4.5); Triglycerides 177 mg/dL (<150); Uric Acid 7.2 mg/dL (2.5-8.0)
[2020-10-06] MEDS: MELOXICAM 7.5 MG TABLET PO SCH (08:46)
[2020-10-06] MEDS: DOCUSATE SODIUM 100 MG CAPSULE PO SCH ×2 (08:46→21:07)
[2020-10-06] MEDS: GABAPENTIN 300 MG CAPSULE PO SCH ×2 (08:46→16:35)
[2020-10-06] MEDS: PANTOPRAZOLE 40 MG TABLET PO SCH (08:46)
[2020-10-06] MEDS: methylPREDNISolone SOD SUCC 125 MG/2 ML VIAL IV SCH ×2 (08:47→21:07)
[2020-10-06] MEDS: DULoxetine 30 MG CAPSULE PO SCH (08:47)
[2020-10-06] MEDS: PHENTERMINE 15 MG PO SCH (08:50)
[2020-10-06] MEDS ORDERED: SCOPOLAMINE 1 PATCH PATCH TOPICAL PRN ×2 (12:00→16:11)
[2020-10-06] MEDS: 0.9 % SODIUM CHLORIDE 1,000 ML IV SCH ×2 (13:21→16:43)
[2020-10-06] MEDS: NICOTINE 21 MG PATCH TOPICAL SCH (13:21)
[2020-10-06] MEDS ORDERED: PHENYLephrine 1 MG/10 ML SYRINGE (ANEST) ONE (13:37)
[2020-10-06] MEDS ORDERED: MAGNESIUM SULFATE 2 GM/50 ML BAG IV ONE (13:37)
[2020-10-06] MEDS ORDERED: SUGAMMADEX SODIUM 200 MG/2 ML VIAL IV ONE (13:37)
[2020-10-06] MEDS ORDERED: ROCURONIUM 10 MG/ML ML IV ONE (13:37)
[2020-10-06] MEDS ORDERED: KETAMINE 50 MG/ML Syringe (ANEST) ONE (13:37)
[2020-10-06] MEDS ORDERED: GLYCOPYRROLATE 0.2 MG/ML VIAL IV ONE (13:37)
[2020-10-06] MEDS ORDERED: ONDANSETRON 4 MG/2 ML VIAL ONE (13:37)
[2020-10-06] MEDS ORDERED: DEXAMETHASONE 10 MG/ML VIAL ONE (13:37)
[2020-10-06] MEDS ORDERED: LIDOCAINE HCL/PF 100 MG/5 ML SYRINGE IV ONE (13:37)
[2020-10-06] MEDS ORDERED: ceFAZolin 2 GM in DEXTROSE 5% IN WATER 50 ML IV SCH (13:45)
[2020-10-06] MEDS ORDERED: ePHEDrine 50 MG/ML AMPUL IV PRN ×2 (14:10→16:11)
[2020-10-06] MEDS ORDERED: BENZOCAINE/MENTHOL 1 LOZENGE PO PRN (14:10)
[2020-10-06] MEDS ORDERED: METHOCARBAMOL 1,000 MG/10 ML VIAL IV PRN (14:10)
[2020-10-06] MEDS ORDERED: MEPERIDINE 25 MG/ML VIAL IV PRN ×2 (14:10→16:11)
[2020-10-06] MEDS ORDERED: MEPERIDINE 50 MG/ML VIAL IM PRN (14:10)
[2020-10-06] MEDS ORDERED: ONDANSETRON 4 MG/2 ML VIAL IV PRN ×3 (14:10→16:11)
[2020-10-06] MEDS ORDERED: PROMETHAZINE 25 MG/ML VIAL IM PRN (14:10)
[2020-10-06] MEDS ORDERED: IPRATROPIUM/ALBUTEROL 3 ML AMPUL.NEB NEB PRN (14:10)
[2020-10-06] MEDS ORDERED: LACTATED RINGERS 1,000 ML IV SCH (14:15)
[2020-10-06] MEDS: fentaNYL 100 MCG/2 ML VIAL IV PRN ×3 (14:34→14:41)
--- NOTE | 2020-10-06 14:40 | Brief Operative Note ---
Brief Operative Note Date of procedure: 10/06/20 Pre-op diagnosis: BILIARY PANCREATITIS Post-op diagnosis: other (BILIARY PANCREATITIS WITH ACUTE SEVERE CHOLECYSTITIS) Procedure: DIAGNOSTIC LAPAROSCOPY Grafts/Implants: No Anesthesia: GETA Findings: acute severe inflammation of entire upper abdomen with involvement of gallbladder,omentum,colon,stomach ,liver and small bowel;THE INFLAMMATION IS TOO SEVERE TO DO CHOLECYSTECYOMY OPEN OR LAPAROSCOPICALLY AT THIS TIME. HER PANCREATITIS HAS RESOLVED CLINICALLY AND SHE IS NOT SEPTIC SO IT WILL BE SAFER TO ALLOW HER TO CLEAR HER INFECTION AND HAVE A MORE CONTROLLED LAPAROSCOPIC PROCEDURE DONE IN 2-3 WEEK. SHE HAS POOR LUNG FUNCTION AT THIS TIME WITH SOME EARLY PNEUMONITIS. A MAJOR SUBCOSTAL INCISION AT THIS TIME WILL LEAD TO WORSENING PULMONARY FUNCTION AND DETERIOATION Complications: none Surgeon: Genoveva Casper Specimens Removed/Pathology: none sent Condition: stable Disposition: PACU
[2020-10-06] MEDS ORDERED: ACETAMINOPHEN 1,000 MG/100 ML BAG IV PRN (16:11)
[2020-10-06] MEDS ORDERED: BUTALB/ACETAMINOPHEN/CAFFEINE 1 TABLET PO PRN (16:11)
[2020-10-06] MEDS ORDERED: fentaNYL 100 MCG/2 ML VIAL IV PRN (16:11)
[2020-10-06] MEDS ORDERED: ZOLPIDEM 5 MG TABLET PO PRN (16:11)
[2020-10-06] MEDS ORDERED: LORazepam 2 MG/ML VIAL IV PRN (16:11)
[2020-10-06] MEDS ORDERED: IOPAMIDOL 100 ML BOTTLE IV ONE (16:11)
[2020-10-06] MEDS ORDERED: PROMETHAZINE 25 MG/ML VIAL IV PRN (16:11)
[2020-10-06] MEDS: PIPERACILLIN SODIUM/TAZOBACTAM 3.375 GM in DEXTROSE 5% IN WATER 50 ML IV SCH (17:36)
[2020-10-06] MEDS ORDERED: BUPRENORPHINE NALOXONE PO SCH (21:00)
[2020-10-06] MEDS ORDERED: SENNOSIDES 1 TABLET PO SCH (21:00)
[2020-10-06] MEDS ORDERED: GABAPENTIN 300 MG CAPSULE PO SCH (21:00)
[2020-10-06] MEDS ORDERED: 0.9 % SODIUM CHLORIDE 500 ML IV ONE (23:57)
[2020-10-06] MEDS ORDERED: NALOXONE HCL 0.4 MG/ML VIAL IV ONE (23:59)
[2020-10-07] MEDS ORDERED: NALOXONE HCL 0.4 MG/ML VIAL ONE (00:09)
[2020-10-07] MEDS: PIPERACILLIN SODIUM/TAZOBACTAM 3.375 GM in DEXTROSE 5% IN WATER 50 ML IV SCH ×3 (00:58→11:50)
--- NOTE | 2020-10-07 02:02 | XRay Report ---
CLINICAL INFORMATION: INCREASE DROWSY decreased mental status COMPARISON: 10/05/2020 FINDINGS: Heart size, mediastinum and pulmonary vessels are normal. Subsegmental atelectasis again noted in the left midlung. Consolidated atelectasis of the right middle lobe has progressed. Patchy infiltrate in both lower lobes has improved. Small right pleural effusion noted. IMPRESSION: Consolidated atelectasis-right middle lobe. Consider mucous plug in the right middle lobe bronchus Near complete resolution of mild bilateral lower lobe infiltrates Discoid atelectasis left midlung Interpreted and Authenticated by: Teofilo Watt 10/07/20
[2020-10-07] MEDS: IPRATROPIUM/ALBUTEROL 3 ML AMPUL.NEB NEB SCH ×5 (03:25→19:19)
[2020-10-07] MEDS: 0.9 % SODIUM CHLORIDE 10 ML SYRINGE IV SCH ×3 (06:00→20:39)
[2020-10-07] MEDS: 0.9 % SODIUM CHLORIDE 1,000 ML IV SCH ×3 (06:00→22:15)
--- NOTE | 2020-10-07 07:29 | Internal Medicine Consult Note ---
HPI Data of Consult Consult date: 10/07/20 Primary Care Provider: Soo Mcneill Consult Narrative cc:: CC: Genoveva Casper MD Who presented to the ED on the for upper right quadrant and left upper quadrant pain nausea vomiting. Patient was admitted for pancreatitis and concern for gallbladder etiology. On the she had a diagnostic laparoscopy with the findings of severe inflammation of the entire upper abdomen and gallbladder omentum: Stomach liver small bowel inflammation was too severe to do cholecystectomy open or laparoscopically. Is felt that because of the inflammation it was best to allow that to clear and then do a laparoscopic cholecystectomy at a later time. She was noted to have some early pneumonitis. Postprocedural she was anxious and restless in bed. She received 1 mg of Ativan and since then been extremely lethargic and slow to respond temperature is 100.0. He was given Narcan with no response. Chest x-ray was read as atelectasis and mucous plug in the right lobe. Patient noted be wheezy and poor inspiratory effort. Radiology report x-ray shows consolidated atelectasis right middle lobe and to consider mucous plug and that right middle lobe of the bronchus. Report also shows near complete resolution of mild bilateral lower lobe infiltrates. Discoid atelectasis left midlung. Patient now waking up and clinical bed. She is oriented but appears like she is coming out of anesthesia. Denies cough. She has COPD but does not wear oxygen at home. Review of Systems: Pertinent positives as above. Denies headache/fever/chills/nausea/vomiting/chest or abdominal pain/cough/dyspnea/diarrhea. Remaining 10 point review of system reviewed negative PFSH PFSH All Active Problems (Updated 10/05/20 @ 10:13 by Genoveva Casper MD) Pneumonitis (Acute) Acute gallstone pancreatitis (Acute) Atelectasis of both lungs (Acute) Cholelithiasis with cholecystitis (Acute) Acute pancreatitis (Acute) Radiculopathy of lumbar region (Acute) Spondylosis without myelopathy or radiculopathy, lumbosacral region (Acute) Spondylosis without myelopathy or radiculopathy, lumbar region (Acute) Lumbar spondylosis (Chronic) Leg pain, bilateral (Chronic) Chronic pain (Chronic) Hepatitis C (Chronic) Depression (Chronic) Anxiety (Chronic) Difficulty walking (Chronic) Fracture (Chronic) Painful swelling of joint (Chronic) Arthritis (Chronic) Heart burn (Chronic) SOB (shortness of breath) (Chronic) Chronic cough (Chronic) Ringing in ears (Chronic) Acid reflux (Chronic) RLS (restless legs syndrome) (Chronic) COPD (chronic obstructive pulmonary disease) (Chronic) Low back pain (Chronic) Back pain (Chronic) Medical History Acid reflux Anxiety Arthritis Back pain Chronic cough Chronic pain COPD (chronic obstructive pulmonary disease) Depression Difficulty walking Fracture Heart burn Hepatitis C Leg pain, bilateral Low back pain Lumbar spondylosis Painful swelling of joint Ringing in ears RLS (restless legs syndrome) SOB (shortness of breath) Spondylosis without myelopathy or radiculopathy, lumbar region Spondylosis without myelopathy or radiculopathy, lumbosacral region Surgical History History of hysterectomy Family History Mother High blood pressure Father Arthritis Brother Chronic pain Drug abuse Sister Chronic pain Family/Other Alcohol abuse Social History household members: spouse marital status: education level: high school occupational status: retired smoking status: Current every day smoker tobacco type: cigarettes per day: 20 pack-years: 50 alcohol intake frequency: a few times a week substance use type: other MEDS/ALLERGIES Home Medications and Allergies Home Medications Medication Instructions Recorded Confirmed Type gabapentin 600 mg tablet 600 mg PO TID 05/09/20 10/01/20 History buprenorphine 8 mg-naloxone 2 mg 1 tab SUBLINGUAL QDAY 07/01/20 10/01/20 History sublingual tablet phentermine 15 mg capsule 15 mg PO QDAY 07/01/20 10/01/20 History duloxetine [Cymbalta] 60 mg PO DAILY 10/01/20 10/01/20 History meloxicam 15 mg PO DAILY 10/01/20 10/01/20 History omeprazole 20 mg PO DAILY 10/01/20 10/01/20 History Allergies Allergy/AdvReac Type Severity Reaction Status Date / Time No Known Drug Allergies Allergy Unverified 10/02/20 01:57 EXAM Constitutional Vitals: Temp Pulse Resp BP Pulse Ox 98.5 F 92 H 12 97/68 91 10/07/20 06:54 10/07/20 06:54 10/07/20 06:54 10/07/20 06:54 10/07/20 06:54 Exam: General: Awake, appears little agitated and trying to get out of bed, obese Eyes/N/T: EOMI, PERRL, Head/Neck: neck supple, normocephalic atraumatic CV: RRR, No murmurs, normal s1/s2 Pulm: Diminished b/l with mild rales/rhonchi, no wheezing Abd: soft, nontender, +BS x4 Ext: no clubbing/cyanosis, b/l LE edema Neuro: alert, no focal deficits, moves all extremities, CN 2-12 grossly intact, symmetrical strength b/l upper/lower, sensations intact b/l upper/lower Skin: warm/dry DATA Data Completed and Pending Labs: Labs from last 24 hours 10/07/20 10/06/20 05:49 05:56 Sodium 133 Potassium 3.7 Chloride 100 Carbon Dioxide 23 Anion Gap 10.0 BUN 24 H Creatinine 0.8 GFR Calculation 81 Glucose 130 H Uric Acid 7.2 Calcium 8.8 Phosphorus 2.7 Magnesium 2.2 Total Bilirubin 0.5 Direct Bilirubin 0.3 H GGT 64 H AST 26 ALT 44 H Alkaline Phosphatase 93 Lactate Dehydrogenase 255 H Total Protein 6.4 Albumin 2.5 L Globulin 3.9 H Albumin/Globulin Ratio 0.6 L Triglycerides 177 H Lipase Pending A/P Narrative A/P Narrative: A: *Acute hypoxic respitory failure: 2/2 atelectasis/possible mucous plug/poor respiratory effort -on 3-4L NC *Atelectasis/possible mucous plugging right, improvement in bilateral lower lobe infiltrate: - *Encephalopathy (lethargy): 2/2 anesthesia from procedure and overnight Ativan + other -no co2 retention on abg *Biliary pancreatitis: *COPD (not on home O2): *Depression: *GERD: *Obesity: P: -Hold sedation, pulmonary toilet / cpt -IS/Acapella, IH's, nebs, RT -hold sedation, -hold gabapentin for now given sedation and restart when pt alert and awake -Surgery for eventual laparoscopic cholecystectomy, on zosyn -lasix x1, hold IVF for now - -ppx: scd / ppi Time Spent With Patient Time: Total time spent is greater than 50% in coordination of care (as documented) at patient's floor/unit and/or counseling patient:
[2020-10-07] MEDS ORDERED: PANTOPRAZOLE 40 MG TABLET PO SCH (07:30)
[2020-10-07] MEDS: 0.9 % SODIUM CHLORIDE 250 ML IV ONE ×2 (07:44→08:05)
[2020-10-07] MEDS: BUDESONIDE 0.5 MG/2 ML AMPUL.NEB NEB SCH ×2 (08:01→19:19)
[2020-10-07 08:28] LABS: ALT/SGPT 31 U/L (<40); AST/SGOT 29 U/L (<32); Albumin 2.6 gm/dL (3.2-5.2); Albumin/Globulin Ratio 0.7 (1.0-2.3); Alkaline Phosphatase 97 U/L (39-117); Bilirubin,Direct 0.3 mg/dL (<0.3); Bilirubin,Total 0.6 mg/dL (0.1-1.0); Blood Urea Nitrogen 32 mg/dL (6-20); Calcium 8.6 mg/dL (8.6-10.4); Carbon Dioxide 23 mmol/L (22-30); Chloride 98 mmol/L (96-108); Globulin 3.8 gm/dL (2.2-3.7); Glomerular Filtration Rate 55; Glucose 126 mg/dL (70-105); Lactate Dehydrogenase 265 U/L (135-225); Phosphorous 3.3 mg/dL (2.5-4.5); Triglycerides 152 mg/dL (<150); Uric Acid 7.1 mg/dL (2.5-8.0)
[2020-10-07 08:34] LABS: Hematocrit 37.6 % (34.1-44.9); Hemoglobin 12.7 g/dL (11.2-15.7); Mean Cell Volume 90.6 fL (80.0-100.0); Mean Corpuscular HGB Conc 33.8 g/dL (31.0-36.0); Platelet Count 171 K/mcL (140-440); RBC 4.15 M/mcL (3.59-5.38); WBC 22.3 K/mcL (4.5-11.0)
[2020-10-07] MEDS: DOCUSATE SODIUM 100 MG CAPSULE PO SCH ×2 (08:44→20:37)
[2020-10-07] MEDS ORDERED: MELOXICAM 7.5 MG TABLET PO SCH (09:00)
[2020-10-07] MEDS ORDERED: DULoxetine 30 MG CAPSULE PO SCH (09:00)
[2020-10-07] MEDS ORDERED: PHENTERMINE 15 MG PO SCH (09:00)
--- NOTE | 2020-10-07 09:46 | Ultrasound Report ---
CLINICAL INFORMATION: Bilateral leg swelling COMPARISON: None. FINDINGS: The entire deep venous system, in both lower extremities including the common femoral, superficial femoral, popliteal and paired trifurcation calf veins are easily compressible and show normal venous blood flow on color and spectral Doppler. No evidence of thrombus IMPRESSION: Negative exam - no evidence of deep vein thrombosis in both lower extremities. Interpreted and Authenticated by: Teofilo Watt 10/07/20
[2020-10-07 09:54] LABS: Anisocytosis 1+ (None Seen); Band Neutrophils % 40 % (0-10); Lymphocytes % 5 % (15-49); Monocytes % (Manual) 4 % (1-12); Myelocytes % 1 %; Platelet Estimate NORMAL (Normal); RBC Morphology ABNORMAL (Normal); Segmented Neutrophils % 50 % (38-78)
[2020-10-07 09:55] LABS: Appearance,Urine HAZY (Clear); Bilirubin,Urine Negative (Negative); Color,Urine YELLOW; Culture Indicated,Urine No; Glucose,Urine (UA) Negative (Negative); Ketones,Urine Negative (Negative); Leukocyte Esterase,Urine Negative /ug (Negative); Nitrate,Urine Negative (Negative); Protein,Urine Negative (Negative); Specific Gravity,Urine 1.026 (1.000-1.035); Urine Blood Negative (Negative); Urobilinogen,Urine Negative
[2020-10-07] MEDS ORDERED: NICOTINE 21 MG PATCH TOPICAL SCH (10:00)
[2020-10-07] MEDS ORDERED: FUROSEMIDE 40 MG/4 ML VIAL IV ONE (10:15)
[2020-10-07] MEDS ORDERED: ALBUMIN HUMAN 12.5 GM/50 ML BAG IV ONE (10:15)
[2020-10-07] MEDS: methylPREDNISolone SOD SUCC 125 MG/2 ML VIAL IV SCH ×2 (11:12→20:37)
--- NOTE | 2020-10-07 13:38 | General Surgery Progress Note ---
SUBJECTIVE Subjective Patient information: Note initiated : 10/07/20 at 1:31 pm Service Date, if different from initiated Date: [] Patient: Elida Russell 60 y/o F admitted on 10/01/20 for Abdominal Pain. Chief Complaint: [] Principal diagnosis: Acute pancreatitis;Respiratory failure Interval history: Patient has had progressive respiratory insufficiency. She is still very somnolent and resistant to participating in her care. She is requiring increasing FiO2 in order to maintain her sats above 88%. She is informed she may need to have intubation to improve pulmonary toilet but she is doesn't seem to be too concerned about this. White blood count 22.3, hemoglobin 12.7, hematocrit 37.6, potassium 3.7, creatinine 1.1, BUN 32, phosphorus 3.3. Lipase is 21. Earlier today blood gas showed pH 7.36, PCO2 47, PO2 69. Lower extremity ultrasound was done for DVT and this is negative for DVT. Constitutional Vitals: Vital Signs Temp Pulse Resp BP Pulse Ox 98.2 F 86 20 113/75 90 10/07/20 12:00 10/07/20 12:10 10/07/20 12:10 10/07/20 12:00 10/07/20 12:52 Period Temp Pulse Resp BP Sys/Bryant Pulse Ox Last 24 Hr 97.0 F-100 F 66-104 - 95-180/64-151 78-100 Intake and Output 10/06/20 10/07/20 10/07/20 21:59 05:59 13:59 Intake Total 1000 50 1500 Output Total 405 550 15 Balance 595 -500 1485 Weight 260 lb 6 oz Intake & Output: Intake & Output 10/06/20 10/07/20 10/07/20 21:59 05:59 13:59 Intake Total 1000 50 1500 Output Total 405 550 15 Balance 595 -500 1485 Weight 260 lb 6 oz Intake: IV 442 23 3017 Sodium Chloride 0.9% 1,000 ml @ 1000 75 mls/hr IV .[id number] SAVANAH Rx#: [id number] Sodium Chloride 0.9% 250 ml @ 250 Wide Open IV BOLUS ONE Rx#: [id number] Zosyn 3.375 gm In Dextrose 5% 50 50 100 in Water 50 ml @ 100 mls/hr IV Q6H SAVANAH Rx#:[id number] Ancef 2 gm In Dextrose 5% in 50 Water 50 ml @ 100 mls/hr IV PREOP SAVANAH Rx#:[id number] Oral 200 IV - Manual Only 700 Output: Urine Catheter Amount 400 550 15 Estimated Blood Loss 5 Other: Meal Dinner Percent of Meal Consumed 0% Feeding Ability Assist with Tray Set Up Urine Appearance Clear Clear Clear Uretheral (Servin) Clear Clear Urine Color Bright Yellow Dark Yellow Bright Yellow Uretheral (Servin) Dark Yellow Bright Yellow Urine Odor Normal Strong ENT ENT exam: Present normal exam, normal external ear exam and normal oropharynx Neck Neck exam: Present full ROM and normal inspection; Absent tenderness Respiratory Respiratory exam: Present decreased breath sounds, rales, rhonchi and wheezes Additional comments: Patient has significant hypoventilation. She has significant coarse rhonchi and coarse wheezes in both lung [place]. Ventilatory effort is very poor. Cardiovascular Cardiovascular exam: Present RRR, +S1 and +S2; Absent gallop and JVD Extremities Exam Extremities exam: Present full ROM and neurovascular intact; Absent pedal edema and tenderness Neurological Exam Neurological exam: Present alert, normal gait and oriented X3; Absent motor sensory deficit A/P Assessment and plan (1) Acute gallstone pancreatitis: Assessment and plan: Acute pancreatitis has resolved Status: Acute (2) Atelectasis of both lungs: Status: Acute (3) Cholelithiasis with cholecystitis: Status: Acute (4) COPD (chronic obstructive pulmonary disease): Status: Chronic (5) Pneumonitis: Status: Acute Narrative A/P Narrative: Increase chest physiotherapy May need BiPAP or possible intubation for better pulmonary toilet to try to relieve atelectasis and lung collapse from mucous plugging This was discussed with her and he states that he understands Time Spent With Patient Time: Total time spent is greater than 50% in coordination of care (as documented) at patient's floor/unit and/or counseling patient:
[2020-10-07] MEDS ORDERED: 0.9 % SODIUM CHLORIDE 1,000 ML IV SCH (14:45)
[2020-10-07] MEDS ORDERED: ALBUMIN HUMAN 25 GM/100 ML BAG IV SCH (15:00)
[2020-10-07] MEDS ORDERED: PROMETHAZINE 25 MG/ML VIAL IV PRN (16:32)
[2020-10-07] MEDS ORDERED: ACETAMINOPHEN 1,000 MG/100 ML BAG IV PRN (16:32)
[2020-10-07] MEDS ORDERED: DEXAMETHASONE 10 MG/ML VIAL ONE (16:32)
[2020-10-07] MEDS ORDERED: PHENYLephrine 1 MG/10 ML SYRINGE (ANEST) ONE (16:32)
[2020-10-07] MEDS ORDERED: IOPAMIDOL 100 ML BOTTLE IV ONE ×2 (16:32→18:13)
[2020-10-07] MEDS ORDERED: ONDANSETRON 4 MG/2 ML VIAL IV PRN (16:32)
[2020-10-07] MEDS ORDERED: GLYCOPYRROLATE 0.2 MG/ML VIAL IV ONE (16:32)
[2020-10-07] MEDS ORDERED: PIPERACILLIN SODIUM/TAZOBACTAM 3.375 GM in DEXTROSE 5% IN WATER 50 ML IV SCH (18:00)
[2020-10-07] MEDS: ALBUMIN HUMAN 25 GM/100 ML BAG IV SCH ×2 (18:38→20:36)
[2020-10-07] MEDS ORDERED: ALBUMIN HUMAN 25 GM/100 ML BAG IV ONE ×3 (18:40→20:00)
--- NOTE | 2020-10-07 18:48 | Cat Scan Report ---
CLINICAL INFORMATION: Elevated white blood cell count. Recent attempted cholecystectomy COMPARISON: Abdomen and pelvic CT 10/01/2020 TECHNIQUE: Enteric contrast was utilized. 80 cc of Isovue-370 were injected intravenously, and 50 seconds later, 0.625 mm helical slices were obtained from the lung apices through the subtrochanteric regions of the femurs. Following reconstruction, 2.5 mm sagittal, coronal and axial reformatted images were processed and reviewed at multiple windows and levels. 7 mm MIP reconstructions were obtained through the lungs to optimize nodule detection.The exam was performed using radiation dose optimization techniques including, but not limited to, automated exposure control, adjustment of the mA and/or kV according to patient size and use of iterative reconstruction technique. FINDINGS: Pulmonary parenchymal windows show moderate groundglass infiltrate in the left upper lobe. A 12 mm nodule seen in the superior segment left lower lobe on image 66. There is densely consolidated atelectasis of the entire right lower lobe. The central portion of the atelectatic lung is low-attenuation which could indicate necrosis. Mild patchy infiltrate is seen throughout the left lower lobe Small right pleural effusion is noted. Mediastinal windows show the heart is grossly normal in size and configuration. Fibrofatty plaque present in the visualized coronary arteries. The central pulmonary arteries are mildly enlarged: The main pulmonary diameter 3.4 cm suggesting pulmonary hypertension. There is no evidence of pulmonary embolus. Thoracic aorta is also normal diameter and well-opacified. There is no adenopathy in the mediastinal, hilar or axillary regions. Esophagus is grossly normal. The thyroid is unremarkable. Abdominal images show 3.1 cm low-attenuation lesion in the medial segment of the left hepatic lobe and 1.4 cm lesion in the lateral segment left hepatic lobe which are both new from the preoperative CT one week ago. Given the rapid development, these could represent abscesses. The gallbladder is intact with mild diffuse wall thickening digesting cholecystitis. Moderate inflammation or edema in the periportal fat with a small amount of ascites in the perihepatic region. Minimal free air is also noted within the ascites-presumably related to recent surgery. Both kidneys, adrenal glands, spleen, pancreas and aorta, including aortic branches are normal in size, configuration and attenuation without focal lesion. Pelvic images show normal urinary bladder. Hysterectomy changes noted. Right ovary is grossly normal. Small amount of free fluid also noted in the deep true pelvis. The stomach, small bowel, appendix region and large bowel are grossly normal. Bone windows show no osseous abnormality throughout the chest, abdomen or pelvis. IMPRESSION: Moderate groundglass infiltrate-left upper lobe likely pneumonia. Small patchy infiltrate posterior left lower lobe. Complete densely consolidated right lower lobe atelectasis with low-attenuation centrally which may indicate necrosis.. Small right pleural effusion noted. 12 mm pulmonary nodule in the superior segment left lower lobe. Chronicity unknown. Consider CT-guided biopsy the patient will return the acute illness Mild gallbladder wall thickening and fluid in the pericholecystic region including the kayce hepatis. A small amount of ascites in the perihepatic region. This could all be stigmata of persistent cholecystitis. Minimal free intraperitoneal air likely reflects recent surgery New 3.1 cm low-attenuation lesion in the medial segment left hepatic lobe and a new 14 mm lesion lateral segment left hepatic lobe. Given the acute development over the past week, these could represent small abscesses. Interpreted and Authenticated by: Teofilo Watt 10/07/20
[2020-10-07] MEDS ORDERED: SENNOSIDES 1 TABLET PO SCH (21:00)
[2020-10-07] MEDS ORDERED: BUPRENORPHINE NALOXONE PO SCH (21:00)
[2020-10-07] MEDS: MEROPENEM 1 GM in 0.9 % SODIUM CHLORIDE 50 ML IV SCH (22:14)
[2020-10-08] MEDS: metroNIDAZOLE 500 MG/100 ML BAG IV SCH ×4 (00:10→18:08)
[2020-10-08] MEDS: IPRATROPIUM/ALBUTEROL 3 ML AMPUL.NEB NEB SCH ×4 (00:44→11:01)
[2020-10-08] MEDS: MEROPENEM 1 GM in 0.9 % SODIUM CHLORIDE 50 ML IV SCH ×3 (05:13→22:40)
[2020-10-08] MEDS: 0.9 % SODIUM CHLORIDE 10 ML SYRINGE IV SCH (05:52)
[2020-10-08] MEDS ORDERED: PANTOPRAZOLE 40 MG TABLET PO SCH (07:30)
[2020-10-08] MEDS: BUDESONIDE 0.5 MG/2 ML AMPUL.NEB NEB SCH (08:35)
[2020-10-08 08:36] LABS: ALT/SGPT 19 U/L (<40); AST/SGOT 22 U/L (<32); Alkaline Phosphatase 61 U/L (39-117); Bilirubin,Direct < 0.2 mg/dL (0-0.3); Bilirubin,Total 0.4 mg/dL (0.1-1.0); Blood Urea Nitrogen 26 mg/dL (6-20); Calcium 8.6 mg/dL (8.6-10.4); Carbon Dioxide 26 mmol/L (22-30); Chloride 105 mmol/L (96-108); Glomerular Filtration Rate 95; Glucose 109 mg/dL (70-105); Lactate Dehydrogenase 237 U/L (135-225); Phosphorous 2.8 mg/dL (2.5-4.5); Triglycerides 106 mg/dL (<150); Uric Acid 5.6 mg/dL (2.5-8.0)
[2020-10-08] MEDS ORDERED: DULoxetine 30 MG CAPSULE PO SCH (09:00)
[2020-10-08] MEDS ORDERED: PHENTERMINE 15 MG PO SCH (09:00)
[2020-10-08 09:30] LABS: Hematocrit 32.6 % (34.1-44.9); Hemoglobin 10.7 g/dL (11.2-15.7); Mean Cell Volume 91.1 fL (80.0-100.0); Mean Corpuscular HGB Conc 32.8 g/dL (31.0-36.0); Platelet Count 98 K/mcL (140-440); RBC 3.58 M/mcL (3.59-5.38); Red Cell Distribution Width 14.9 % (11.5-14.5); WBC 18.6 K/mcL (4.5-11.0)
[2020-10-08] MEDS: DOCUSATE SODIUM 100 MG CAPSULE PO SCH (09:53)
[2020-10-08] MEDS: methylPREDNISolone SOD SUCC 125 MG/2 ML VIAL IV SCH (09:54)
[2020-10-08] MEDS ORDERED: NICOTINE 21 MG PATCH TOPICAL SCH (10:00)
[2020-10-08 10:18] LABS: Band Neutrophils % 11 % (0-10); Lymphocytes % 9 % (15-49); Monocytes % (Manual) 4 % (1-12); Platelet Estimate DECREASED (Normal); RBC Morphology NORMAL (Normal); Segmented Neutrophils % 76 % (38-78); Toxic Granulation 2+ (None Seen)
--- NOTE | 2020-10-08 11:23 | Internal Med Progress Note ---
SUBJECTIVE Subjective Patient information: Note initiated : 10/08/20 at 11:18 am Service Date, if different from initiated Date: [] Patient: Elida Russell 60 y/o F admitted on 10/01/20 for Abdominal Pain. Chief Complaint: [Acute biliary pancreatitis, acute respiratory failure] Who presented to the ED on the for upper right quadrant and left upper quadrant pain nausea vomiting. Patient was admitted for pancreatitis and concern for gallbladder etiology. On the she had a diagnostic laparoscopy with the findings of severe inflammation of the entire upper abdomen and gallbladder omentum: Stomach liver small bowel inflammation was too severe to do cholecystectomy open or laparoscop ically. Is felt that because of the inflammation it was best to allow that to clear and then do a laparoscopic cholecystectomy at a later time. She was noted to have some early pneumonitis. Postprocedural she was anxious and restless in bed. She received 1 mg of Ativan and since then been extremely lethargic and slow to respond temperature is 100.0. He was given Narcan with no response. Chest x-ray was read as atelectasis and mucous plug in the right lobe. Patient noted be wheezy and poor inspiratory effort. Radiology report x-ray shows consolidated atelectasis right middle lobe and to consider mucous plug and that right middle lobe of the bronchus. Report also shows near complete resolution of mild bilateral lower lobe infiltrates. Discoid atelectasis left midlung. Patient now waking up and clinical bed. She is oriented but appears like she is coming out of anesthesia. Denies cough. She has COPD but does not wear oxygen at home. 10/08: Being transferred to PCU with initiation of BiPAP overnight. Been switched to 2L nasal cannula oxygen tonight. Afebrile overnight. Denies confusion or pain currently. Denies nausea, vomiting, diarrhea, or constipation. Denies fever, chills, or sweating. Principal diagnosis: Acute pancreatitis;Respiratory failure Constitutional Vitals: Vital Signs Temp Pulse Resp BP Pulse Ox 36.6 C 76 16 109/68 96 10/08/20 08:01 10/08/20 11:12 10/08/20 10:02 10/08/20 10:02 10/08/20 11:12 Period Temp Pulse Resp BP Sys/Bryant Pulse Ox Last 24 Hr 35.9 C-36.8 C 53-89 10-28 91-113/58-77 78-99 Intake and Output 10/07/20 10/08/20 10/08/20 21:59 05:59 13:59 Intake Total 200 350 100 Output Total 1670 240 120 Balance -1470 110 -20 Weight 113.081 kg Intake & Output: Intake & Output 10/07/20 10/08/20 10/08/20 21:59 05:59 13:59 Intake Total 200 350 100 Output Total 1670 240 120 Balance -1470 110 -20 Weight 113.081 kg Intake: IV 200 350 100 Merrem 1 gm In Sodium Chloride 100 0.9% 50 ml @ 100 mls/hr IV Q8H [facility] Rx#:[id number] Zosyn 3.375 gm In Dextrose 5% 50 in Water 50 ml @ 100 mls/hr IV Q6H [facility] Rx#:[id number] Output: Urine Catheter Amount 1670 240 120 Other: Urine Appearance Clear Clear Clear Uretheral (Servin) Clear Urine Color Bright Yellow Dark Yellow Bright Yellow Uretheral (Servin) Bright Yellow General appearance: cooperative and no acute distress Head Head exam: Present atraumatic and normocephalic Eye Eye exam: Present EOMI and PERRL ENT ENT exam: Present mucous membranes moist, normal exam and normal external ear exam Additional comments: Nasal cannula in place. Neck Neck exam: Present normal inspection; Absent lymphadenopathy, tenderness and thyromegaly Respiratory Respiratory exam: Absent accessory muscle use, respiratory distress and wheezes Cardiovascular Cardiovascular exam: Present normal rate and rhythm; Absent JVD GI/Abdominal GI/Abdominal exam: Present normal bowel sounds and soft; Absent organomegaly and tenderness Extremities Exam Extremities exam: Present full ROM, normal capillary refill and normal inspection; Absent tenderness Neurological Exam Neurological exam: Present alert, CN II-XII intact and oriented X3; Absent motor sensory deficit Psychiatric Psychiatric exam: Present normal affect and normal mood; Absent anxious and depressed Skin Skin exam: Present dry and intact OBJ DATA Labs CBC & Chem 7: 10/08/20 04:53 10/08/20 07:48 Labs: Abnormal Lab Results 10/08/20 10/08/20 10/07/20 07:48 04:53 07:51 WBC 18.6 H RBC 3.58 L Hgb 10.7 L Hct 32.6 L RDW 14.9 H Plt Count 98 L MPV 13.0 H Band Neutrophils % 11 H Lymphocytes % 9 L Vacuolated Neuts 1+ A Toxic Granulation 2+ A Platelet Estimate Decreased A RBC Morphology Anisocytosis BUN 26 H Glucose 109 H Direct Bilirubin GGT 41 H ALT Lactate Dehydrogenase 237 H Albumin 3.0 L Globulin Albumin/Globulin Ratio Triglycerides Urine Appearance Hazy A 10/07/20 10/07/20 10/06/20 05:49 05:49 05:56 WBC 22.3 H RBC Hgb Hct RDW 15.0 H Plt Count MPV 12.0 H Band Neutrophils % 40 H Lymphocytes % 5 L Vacuolated Neuts Toxic Granulation Platelet Estimate RBC Morphology Abnormal A Anisocytosis 1+ A BUN 32 H 24 H Glucose 126 H 130 H Direct Bilirubin 0.3 H 0.3 H GGT 64 H 64 H ALT 44 H Lactate Dehydrogenase 265 H 255 H Albumin 2.6 L 2.5 L Globulin 3.8 H 3.9 H Albumin/Globulin Ratio 0.7 L 0.6 L Triglycerides 152 H 177 H Urine Appearance Meds: Medications Albuterol/Ipratropium (Ipratropium/Albuterol 3 Ml Ampul.Neb) 3 ml NEB Q4 [facility] Last Admin: 10/08/20 11:01 Dose: 3 ml Documented by: Budesonide (Budesonide 0.5 Mg/2 Ml Ampul.Neb) 0.5 mg NEB Q12 [facility] Last Admin: 10/08/20 08:35 Dose: 0.5 mg Documented by: Docusate Sodium (Docusate Sodium 100 Mg Capsule) 100 mg PO BID [facility] [place] Last Admin: 10/08/20 09:53 Dose: 100 mg Documented by: Duloxetine HCl (Duloxetine 30 Mg Capsule) 60 mg PO DAILY [facility] Last Admin: 10/08/20 09:53 Dose: 60 mg Documented by: Acetaminophen (Ofirmev) 1,000 mg in 100 mls @ 200 mls/hr IV Q6HP PRN; Protocol PRN Reason: Per Pain Protocol/Fever > 101 Sodium Chloride (Sodium Chloride 0.9%) 1,000 mls @ 75 mls/hr IV .[id number] [facility] Last Admin: 10/07/20 22:15 Dose: 75 mls/hr Documented by: Meropenem 1 gm/ Sodium (Chloride) 50 mls @ 100 mls/hr IV Q8H [facility]; Protocol Last Infusion: 10/08/20 05:45 Dose: Infused Documented by: Metronidazole (Flagyl) 500 mg in 100 mls @ 100 mls/hr IV Q6H [facility]; Protocol Last Infusion: 10/08/20 06:55 Dose: Infused Documented by: Albumin Human (Buminate) 25 gm in 100 mls @ 200 mls/hr IV Q2 [facility] Methylprednisolone Sodium Succinate (Methylprednisolone Sod Succ 125 Mg/2 Ml Vial) 62.5 mg IV Q12 [facility] Last Admin: 10/08/20 09:54 Dose: 62.5 mg Documented by: Nicotine (Nicotine 21 Mg Patch) 21 mg TOPICAL DAILY@1000 [facility] Last Admin: 10/08/20 09:54 Dose: 21 mg Documented by: Ondansetron HCl (Ondansetron 4 Mg/2 Ml Vial) 4 mg IV Q6HP PRN PRN Reason: Nausea And Vomiting Pantoprazole Sodium (Pantoprazole 40 Mg Tablet) 40 mg PO QAMAC [facility] Last Admin: 10/08/20 07:54 Dose: 40 mg Documented by: Buprenorphine- Naloxone 8 Mg-2 Mg Sublingual Film 0.5 dose PO [facility] Last Admin: 10/07/20 20:39 Dose: Not Given Documented by: Phentermine 15 Mg (Capsule) 1 dose PO DAILY [facility] Last Admin: 10/08/20 09:53 Dose: Not Given Documented by: Promethazine HCl (Promethazine 25 Mg/Ml Vial) 12.5 mg IV Q6HP PRN PRN Reason: Nausea And Vomiting Senna (Sennosides 1 Tablet) 2 tab PO [facility] Last Admin: 10/07/20 20:37 Dose: Not Given Documented by: Sodium Chloride (0.9 % Sodium Chloride 10 Ml Syringe) 10 ml IV Q8 [facility] Last Admin: 10/08/20 05:52 Dose: 10 ml Documented by: A/P Assessment and plan (1) Acute gallstone pancreatitis: Status: Acute (2) Atelectasis of both lungs: Status: Acute (3) Cholelithiasis with cholecystitis: Status: Acute (4) COPD (chronic obstructive pulmonary disease): Status: Chronic (5) Depression: Status: Chronic (6) Anxiety: Status: Chronic Narrative A/P Narrative: Assessment and Plans: 1. Acute respiratory failure with hypercapnia and hypoxemia: Hold sedatives and narcotics for now Supplemental oxygen titrate to acvhieve spo2 >92% 2. Biliary pancreatitis: Dr. Casper primary team, no surgery for now. Antibiotics Flagyl and Meropenem for now. Consider elective surgery (laparoscopic vs open) cholecystectomy in a few weeks 3. h/o COPD, stable: Continue bronchodilators as needed for SOB or wheezing from home regimen Pulmicort 4. Depression: Continue Cymbalta 5. GERD: Continue oral PPI from home regimen GI ppx: Continue oral PPI from home regimen DVT ppx: SCDs Code status: Full Prognosis: guarded Disposition: inpatient med surg Time Spent With Patient Time: Total time spent is greater than 50% in coordination of care (as documented) at patient's floor/unit and/or counseling patient: Total time spent with greater than 50% in coordination of care (as documented) at patient's floor/unit and/or counseling patient:: 25 - 35 minutes
--- NOTE | 2020-10-08 11:28 | XRay Report ---
CLINICAL INFORMATION: Follow-up resp distres, somnolence, bipap COMPARISON: 10/07/[address] 10/07/2020 FINDINGS: Mild cardiomegaly is unchanged. Mediastinum is unremarkable. Consolidated right lower lobe atelectasis again appreciated. Moderate left mid and upper lung infiltrate unchanged CT yesterday. Moderate right perihilar infiltrate has progressed. Pulmonary vessels are difficult to assess are likely normal. Small right pleural effusion noted IMPRESSION: Moderate left/upper lung infiltrate new from prior plain film but unchanged from CT. Dense consolidated atelectasis in the entire right lower lobe. Small right perihilar infiltrate-new Small right pleural effusion Interpreted and Authenticated by: Teofilo Watt 10/08/20
[2020-10-08] MEDS: ALBUMIN HUMAN 25 GM/100 ML BAG IV SCH ×4 (11:32→18:08)
--- NOTE | 2020-10-08 12:45 | General Surgery Progress Note ---
SUBJECTIVE Subjective Patient information: Note initiated : 10/08/20 at 12:42 pm Service Date, if different from initiated Date: [] Patient: Elida Russell 60 y/o F admitted on 10/01/20 for Abdominal Pain. Chief Complaint: [] Principal diagnosis: Acute pancreatitis;Respiratory failure; mental status change. Interval history: Patient is clinically improved. She is much more alert. She answers questions appropriately. She is cooperating some with her care. Her oxygen saturations are stable on 1 L/min with pH 7.42, PCO2 43, PO2 66, oxygen saturation 93%. Her white blood count is down to 18.6. Hemoglobin is 10.7 and hematocrit 32.6. Chest x-ray still shows right lower lobe consolidation and hilar infiltrate and probable left upper lobe infiltrate. Constitutional Vitals: Vital Signs Temp Pulse Resp BP Pulse Ox 97.8 F 76 16 109/68 96 10/08/20 08:01 10/08/20 11:12 10/08/20 10:02 10/08/20 10:02 10/08/20 11:12 Period Temp Pulse Resp BP Sys/Bryant Pulse Ox Last 24 Hr 96.7 F-98.0 F 53-89 10-28 91-113/58-77 90-99 Intake and Output 10/07/20 10/08/20 10/08/20 21:59 05:59 13:59 Intake Total 200 350 200 Output Total 1670 240 120 Balance -1470 110 80 Weight 249 lb 4.8 oz Intake & Output: Intake & Output 10/07/20 10/08/20 10/08/20 21:59 05:59 13:59 Intake Total 200 350 200 Output Total 1670 240 120 Balance -1470 110 80 Weight 249 lb 4.8 oz Intake: IV 200 350 200 Merrem 1 gm In Sodium Chloride 100 0.9% 50 ml @ 100 mls/hr IV Q8H [facility] Rx#:[id number] Zosyn 3.375 gm In Dextrose 5% 50 in Water 50 ml @ 100 mls/hr IV Q6H [facility] Rx#:[id number] Output: Urine Catheter Amount 1670 240 120 Other: Urine Appearance Clear Clear Clear Uretheral (Servin) Clear Urine Color Bright Yellow Dark Yellow Bright Yellow Uretheral (Servin) Bright Yellow Eye Eye exam: Present EOMI ENT ENT exam: Present mucous membranes moist, normal exam and normal external ear exam Additional comments: Nasal cannula in place. Neck Neck exam: Present normal inspection; Absent lymphadenopathy, tenderness and thyromegaly Respiratory Respiratory exam: Present decreased breath sounds, rales, rhonchi and wheezes Additional comments: Patient has better ventilatory effort with clear breath sounds. She still has some rhonchi and rales. Cardiovascular Cardiovascular exam: Present RRR, +S1 and +S2; Absent gallop and JVD Extremities Exam Extremities exam: Present full ROM, normal capillary refill and normal inspection; Absent tenderness Psychiatric Psychiatric exam: Present anxious and flat affect A/P Assessment and plan (1) Acute gallstone pancreatitis: Assessment and plan: Acute pancreatitis has resolved Status: Acute (2) Atelectasis of both lungs: Status: Acute (3) Cholelithiasis with cholecystitis: Status: Acute (4) COPD (chronic obstructive pulmonary disease): Status: Chronic (5) Pneumonitis: Status: Acute Narrative A/P Narrative: Patient will be continued on present therapy Follow-up chest x-ray in the morning Albumin 25 g every 6 hours x4 Continue IV antibiotics Continue vigorous pulmonary toilet including BiPAP Time Spent With Patient Time: Total time spent is greater than 50% in coordination of care (as documented) at patient's floor/unit and/or counseling patient:
[2020-10-08] MEDS: ACETAMINOPHEN 1,000 MG/100 ML BAG IV PRN (13:22)
[2020-10-08] MEDS ORDERED: ONDANSETRON 4 MG/2 ML VIAL IV PRN (13:35)
[2020-10-08] MEDS ORDERED: 0.9 % SODIUM CHLORIDE 50 ML IV SCH (13:45)
[2020-10-08] MEDS: 0.9 % SODIUM CHLORIDE 1,000 ML IV SCH (16:29)
[2020-10-08] MEDS ORDERED: methylPREDNISolone SOD SUCC 125 MG/2 ML VIAL IV SCH (21:00)
[2020-10-08] MEDS ORDERED: BUDESONIDE 0.5 MG/2 ML AMPUL.NEB NEB SCH (21:00)
[2020-10-08] MEDS ORDERED: SENNOSIDES 1 TABLET PO SCH (21:00)
[2020-10-08] MEDS ORDERED: LORazepam 2 MG/ML VIAL IV ONE (22:29)
[2020-10-08] MEDS ORDERED: GABAPENTIN 300 MG CAPSULE PO ONE (22:30)
[2020-10-08] MEDS ORDERED: diphenhydrAMINE 50 MG/ML VIAL IV ONE (22:30)
[2020-10-08] MEDS ORDERED: LORazepam 2 MG/ML VIAL ONE (22:35)
[2020-10-08] MEDS ORDERED: diphenhydrAMINE 50 MG/ML VIAL ONE (22:35)
[2020-10-08] MEDS ORDERED: GABAPENTIN 300 MG CAPSULE ONE (22:38)
[2020-10-09] MEDS: metroNIDAZOLE 500 MG/100 ML BAG IV SCH ×5 (00:23→23:32)
[2020-10-09] MEDS: ACETAMINOPHEN 1,000 MG/100 ML BAG IV PRN (02:08)
[2020-10-09] MEDS: MEROPENEM 1 GM in 0.9 % SODIUM CHLORIDE 50 ML IV SCH ×3 (05:47→21:49)
[2020-10-09] MEDS: 0.9 % SODIUM CHLORIDE 10 ML SYRINGE IV SCH (05:47)
--- NOTE | 2020-10-09 06:53 | XRay Report ---
CLINICAL INFORMATION: Pnemonitis and atelectasis COMPARISON: None. FINDINGS: Mild cardiomegaly is unchanged. Mediastinum is unremarkable. Completely consolidated right lower lobe atelectasis again noted. Moderate left mid and upper lung infiltrate is improved considerably. Moderate right perihilar infiltrate is also better aerated. Pulmonary vessels areunremarkable. Small right pleural effusion is unchanged. IMPRESSION: Marked improvement in left lung infiltrate-nearly resolved. Dense consolidated atelectasis of the entire right lower lobe-stable. Small right perihilar infiltrate-improved Small right pleural effusion Interpreted and Authenticated by: Teofilo Watt 10/09/20
[2020-10-09] MEDS ORDERED: PANTOPRAZOLE 40 MG TABLET PO SCH (07:30)
[2020-10-09 08:11] LABS: Basophils # (Auto) 0.12 K/mcL (0.00-0.30); Basophils % (Auto) 0.5 % (0.0-2.0); Eosinophils # (Auto) 0 K/mcL (0.00-0.70); Eosinophils % (Auto) 0 % (0.0-7.0); Hematocrit 32.3 % (34.1-44.9); Hemoglobin 10.4 g/dL (11.2-15.7); Lymphocytes # (Auto) 0.77 K/mcL (1.50-4.80); Lymphocytes % (Auto) 3.4 % (15.5-49.0); Mean Cell Volume 93.6 fL (80.0-100.0); Mean Corpuscular HGB Conc 32.2 g/dL (31.0-36.0); Monocytes % (Auto) 2.2 % (1.0-12.0); Platelet Count 159 K/mcL (140-440); RBC 3.45 M/mcL (3.59-5.38); Red Cell Distribution Width 15.2 % (11.5-14.5)
[2020-10-09] MEDS ORDERED: GLYCOPYRROLATE 0.2 MG/ML VIAL IV ONE (08:37)
[2020-10-09] MEDS ORDERED: IOPAMIDOL 100 ML BOTTLE IV ONE ×2 (08:37)
[2020-10-09] MEDS ORDERED: PHENYLephrine 1 MG/10 ML SYRINGE (ANEST) ONE (08:37)
[2020-10-09] MEDS ORDERED: ALBUMIN HUMAN 25 GM/100 ML BAG IV ONE ×2 (08:37)
[2020-10-09] MEDS ORDERED: DEXAMETHASONE 10 MG/ML VIAL ONE (08:37)
[2020-10-09] MEDS: DULoxetine 30 MG CAPSULE PO SCH (08:54)
[2020-10-09 08:56] LABS: ALT/SGPT 22 U/L (<40); AST/SGOT 34 U/L (<32); Albumin 3.7 gm/dL (3.2-5.2); Albumin/Globulin Ratio 1.3 (1.0-2.3); Alkaline Phosphatase 102 U/L (39-117); Bilirubin,Total 0.6 mg/dL (0.1-1.0); Blood Urea Nitrogen 26 mg/dL (6-20); Calcium 8.6 mg/dL (8.6-10.4); Carbon Dioxide 24 mmol/L (22-30); Chloride 104 mmol/L (96-108); Globulin 2.8 gm/dL (2.2-3.7); Glomerular Filtration Rate 95; Glucose 93 mg/dL (70-105)
[2020-10-09] MEDS ORDERED: methylPREDNISolone SOD SUCC 125 MG/2 ML VIAL IV SCH (09:00)
[2020-10-09 09:09] LABS: Neutrophils % (Auto) 93.9 % (38.0-78.0)
[2020-10-09] MEDS: BUDESONIDE 0.5 MG/2 ML AMPUL.NEB NEB SCH ×2 (09:45→19:18)
[2020-10-09] MEDS: ONDANSETRON 4 MG/2 ML VIAL IV PRN (09:57)
[2020-10-09] MEDS: 0.9 % SODIUM CHLORIDE 1,000 ML IV SCH ×2 (09:57→12:22)
[2020-10-09] MEDS: PHENTERMINE 15 MG PO SCH (12:03)
[2020-10-09] MEDS: NICOTINE 21 MG PATCH TOPICAL SCH (12:10)
--- NOTE | 2020-10-09 13:18 | General Surgery Progress Note ---
SUBJECTIVE Subjective Patient information: Note initiated : 10/09/20 at 1:08 pm Service Date, if different from initiated Date: [] Patient: Elida Russell 60 y/o F admitted on 10/01/20 for Abdominal Pain. Chief Complaint: [] Principal diagnosis: Acute pancreatitis;Respiratory failure; mental status change. Interval history: Patient is clinically better. She is much more alert and aware. She is somewhat agitated but is fully oriented and cooperates with all instructions. She has been afebrile. White blood count 23,000, hemoglobin 10.4, hematocrit 32.3, potassium 3.4, BUN 26, creatinine 0.7, albumin 3.7. Chest x-ray shows much improved aeration in the left lung field with persistent consolidation of the right lower lobe but clearing of the infiltrate in the right hilum. Constitutional Vitals: Vital Signs Temp Pulse Resp BP Pulse Ox 98.0 F 63 22 144/86 92 10/09/20 12:00 10/09/20 12:57 10/09/20 12:57 10/09/20 12:00 10/09/20 12:57 Period Temp Pulse Resp BP Sys/Bryant Pulse Ox Last 24 Hr 96.0 F-98.1 F 57-97 14-40 115-149/63-112 89-100 Intake and Output 10/08/20 10/09/20 10/09/20 21:59 05:59 13:59 Intake Total 1930 250 Output Total 950 510 Balance 980 -260 Weight 252 lb 14.4 oz Intake & Output: Intake & Output 10/08/20 10/09/20 10/09/20 21:59 05:59 13:59 Intake Total 1930 250 Output Total 950 510 Balance 980 -260 Weight 252 lb 14.4 oz Intake: IV 1450 250 Sodium Chloride 0.9% 1,000 ml @ 1000 75 mls/hr IV .[id number] [facility] Rx#: [id number] Merrem 1 gm In Sodium Chloride 50 50 0.9% 50 ml @ 100 mls/hr IV Q8H [facility] Rx#:[id number] Oral 480 Output: Urine Catheter Amount 950 510 Other: Meal Dinner Percent of Meal Consumed 0% Urine Appearance Clear Clear Uretheral (Servin) Clear Clear Urine Color Dark Yellow Dark Yellow Uretheral (Servin) Dark Yellow Bright Yellow Urine Odor Normal Stool Size Moderate Stool Color Brown Stool Consistency Formed Head Head exam: Present atraumatic, normal inspection and normocephalic Eye Eye exam: Present EOMI, normal appearance and PERRL Pupils: Present normal accommodation ENT ENT exam: Present mucous membranes moist, normal exam and normal external ear exam Neck Neck exam: Present full ROM; Absent tenderness Respiratory Additional comments: Decreased breath sounds bilaterally but much more diminished on the right lower lobe; volume of expansion on the left is very good. Bibasilar rales but decreased wheezes and rhonchi Cardiovascular Cardiovascular exam: Present normal rate and rhythm, RRR, +S1 and +S2; Absent JVD GI/Abdominal GI/Abdominal exam: Present normal bowel sounds and soft Extremities Exam Extremities exam: Present full ROM and neurovascular intact Neurological Exam Neurological exam: Present alert, normal gait and oriented X3 Psychiatric Psychiatric exam: Present agitated, anxious and depressed A/P Assessment and plan (1) Acute gallstone pancreatitis: Assessment and plan: Acute pancreatitis has resolved Status: Acute (2) Atelectasis of both lungs: Status: Acute (3) Cholelithiasis with cholecystitis: Status: Acute (4) COPD (chronic obstructive pulmonary disease): Status: Chronic (5) Pneumonitis: Status: Acute Narrative A/P Narrative: Patient will be continued on present medications. Her Cymbalta will be added to reduce her agitation. Chest x-ray will be repeated in the morning. Solu-Medrol is discontinued. The elevated white blood count is probably related to her IV steroid therapy. There is no evidence of ongoing sepsis at this time. Time Spent With Patient Time: Total time spent is greater than 50% in coordination of care (as documented) at patient's floor/unit and/or counseling patient:
--- NOTE | 2020-10-09 14:58 | Internal Med Progress Note ---
SUBJECTIVE Subjective Patient information: Note initiated : 10/09/20 at 2:57 pm Service Date, if different from initiated Date: [] Patient: Elida Russell 60 y/o F admitted on 10/01/20 for Abdominal Pain. Chief Complaint: [Acute biliary pancreatitis, acute respiratory failur] Principal diagnosis: Acute pancreatitis;Respiratory failure; mental status change. Interval history: Who presented to the ED on the for upper right quadrant and left upper quadrant pain nausea vomiting. Patient was admitted for pancreatitis and concern for gallbladder etiology. On the she had a diagnostic laparoscopy with the findings of severe inflammation of the entire upper abdomen and gallbladder omentum: Stomach liver small bowel inflammation was too severe to do cholecystectomy open or laparoscopically. Is felt that because of the inflammation it was best to allow that to clear and then do a laparoscopic cholecystectomy at a later time. She was noted to have some early pneumonitis. Postprocedural she was anxious and restless in bed. She received 1 mg of Ativan and since then been extremely lethargic and slow to respond temperature is 100.0. He was given Narcan with no response. Chest x-ray was read as atelectasis and mucous plug in the right lobe. Patient noted be wheezy and poor inspiratory effort. Radiology report x-ray shows consolidated atelectasis right middle lobe and to consider mucous plug and that right middle lobe of the bronchus. Report also shows near complete resolution of mild bilateral lower lobe infiltrates. Discoid atelectasis left midlung. Patient now waking up and clinical bed. She is oriented but appears like she is coming out of anesthesia. Denies cough. She has COPD but does not wear oxygen at home. 10/08: Being transferred to PCU with initiation of BiPAP overnight. Been switched to 2L nasal cannula oxygen tonight. Afebrile overnight. Denies confusion or pain currently. Denies nausea, vomiting, diarrhea, or constipation. Denies fever, chills, or sweating. 10/09: Being transferred back to med surg from PCU last night. Been on 2-3L oxygen via oxymask overnight and this morning. c/o restless leg. c/o anxiety. c/o SOB. c/o RUQ and LUQ abdominal pain. Denies fever or chills. Denies nausea or vomiting. Constitutional Vitals: Vital Signs Temp Pulse Resp BP Pulse Ox 36.7 C 63 22 144/86 92 10/09/20 12:00 10/09/20 12:57 10/09/20 12:57 10/09/20 12:00 10/09/20 12:57 Period Temp Pulse Resp BP Sys/Bryant Pulse Ox Last 24 Hr 35.6 C-36.7 C 57-97 18-40 124-149/63-112 89-100 Intake and Output 10/09/20 10/09/20 10/09/20 05:59 13:59 21:59 Intake Total 250 100 50 Output Total 510 Balance -260 100 50 Intake & Output: Intake & Output 10/09/20 10/09/20 10/09/20 05:59 13:59 21:59 Intake Total 250 100 50 Output Total 510 Balance -260 100 50 Intake: IV 250 100 50 Merrem 1 gm In Sodium Chloride 50 50 0.9% 50 ml @ 100 mls/hr IV Q8H [facility] Rx#:[id number] Output: Urine Catheter Amount 510 Other: Urine Appearance Clear Uretheral (Servin) Clear Urine Color Dark Yellow Uretheral (Servin) Bright Yellow General appearance: cooperative and mild distress Head Head exam: Present atraumatic and normocephalic Eye Eye exam: Present EOMI and PERRL ENT ENT exam: Present mucous membranes moist, normal exam and normal external ear exam Additional comments: Oxymask in place Neck Neck exam: Present normal inspection; Absent lymphadenopathy, tenderness and thyromegaly Respiratory Respiratory exam: Present rhonchi and wheezes; Absent accessory muscle use and respiratory distress Cardiovascular Cardiovascular exam: Present normal rate and rhythm; Absent JVD GI/Abdominal GI/Abdominal exam: Present normal bowel sounds, soft and tenderness; Absent or ganomegaly Extremities Exam Extremities exam: Present full ROM, normal capillary refill and normal inspection; Absent tenderness Neurological Exam Neurological exam: Present alert, CN II-XII intact and oriented X3; Absent motor sensory deficit Psychiatric Psychiatric exam: Present normal affect and normal mood; Absent anxious and depressed Skin Skin exam: Present dry and intact OBJ DATA Labs CBC & Chem 7: 10/09/20 05:07 10/09/20 05:07 Labs: Abnormal Lab Results 10/09/20 10/09/20 10/08/20 05:07 05:07 07:48 WBC 23.0 H RBC 3.45 L Hgb 10.4 L Hct 32.3 L RDW 15.2 H Plt Count MPV 12.0 H Neut % (Auto) 93.9 H Lymph % (Auto) 3.4 L Lymph # (Auto) 0.77 L Band Neutrophils % Lymphocytes % Absolute Neutrophils 21.57 H Vacuolated Neuts Toxic Granulation Platelet Estimate RBC Morphology Anisocytosis BUN 26 H 26 H Glucose 109 H Direct Bilirubin GGT 41 H AST 34 H Lactate Dehydrogenase 237 H Albumin 3.0 L Globulin Albumin/Globulin Ratio Triglycerides Urine Appearance 10/08/20 10/07/20 10/07/20 04:53 07:51 05:49 WBC 18.6 H RBC 3.58 L Hgb 10.7 L Hct 32.6 L RDW 14.9 H Plt Count 98 L MPV 13.0 H Neut % (Auto) Lymph % (Auto) Lymph # (Auto) Band Neutrophils % 11 H Lymphocytes % 9 L Absolute Neutrophils Vacuolated Neuts 1+ A Toxic Granulation 2+ A Platelet Estimate Decreased A RBC Morphology Anisocytosis BUN 32 H Glucose 126 H Direct Bilirubin 0.3 H GGT 64 H AST Lactate Dehydrogenase 265 H Albumin 2.6 L Globulin 3.8 H Albumin/Globulin Ratio 0.7 L Triglycerides 152 H Urine Appearance Hazy A 10/07/20 05:49 WBC 22.3 H RBC Hgb Hct RDW 15.0 H Plt Count MPV 12.0 H Neut % (Auto) Lymph % (Auto) Lymph # (Auto) Band Neutrophils % 40 H Lymphocytes % 5 L Absolute Neutrophils Vacuolated Neuts Toxic Granulation Platelet Estimate RBC Morphology Abnormal A Anisocytosis 1+ A BUN Glucose Direct Bilirubin GGT AST Lactate Dehydrogenase Albumin Globulin Albumin/Globulin Ratio Triglycerides Urine Appearance Meds: Medications Budesonide (Budesonide 0.5 Mg/2 Ml Ampul.Neb) 0.5 mg NEB Q12 [facility] Last Admin: 10/09/20 09:45 Dose: 0.5 mg Documented by: Duloxetine HCl (Duloxetine 30 Mg Capsule) 60 mg PO DAILY [facility] Last Admin: 10/09/20 08:54 Dose: 60 mg Documented by: Gabapentin (Gabapentin 300 Mg Capsule) 600 mg PO BID [facility] Sodium Chloride (Sodium Chloride 0.9%) 1,000 mls @ 75 mls/hr IV .[id number] [facility] Last Admin: 10/09/20 09:57 Dose: 75 mls/hr Documented by: Acetaminophen (Ofirmev) 1,000 mg in 100 mls @ 200 mls/hr IV Q6HP PRN; Protocol PRN Reason: Pain Stop: 10/12/20 12:45 Meropenem 1 gm/ Sodium (Chloride) 50 mls @ 100 mls/hr IV Q8H [facility]; Protocol Last Infusion: 10/09/20 14:34 Dose: Infused Documented by: Metronidazole (Flagyl) 500 mg in 100 mls @ 100 mls/hr IV Q6H [facility]; Protocol Last Infusion: 10/09/20 13:10 Dose: Infused Documented by: Nicotine (Nicotine 21 Mg Patch) 21 mg TOPICAL DAILY@1000 [facility] Last Admin: 10/09/20 12:10 Dose: 21 mg Documented by: Ondansetron HCl (Ondansetron 4 Mg/2 Ml Vial) 4 mg IV Q6HP PRN PRN Reason: Nausea And Vomiting Last Admin: 10/09/20 09:57 Dose: 4 mg Documented by: Pantoprazole Sodium (Pantoprazole 40 Mg Tablet) [facility] Phentermine 15 Mg (Capsule) 1 dose PO DAILY [facility] Last Admin: 10/09/20 12:03 Dose: Not Given Documented by: Senna (Sennosides 1 Tablet) 2 tab PO HS [facility] A/P Assessment and plan (1) Acute gallstone pancreatitis: Status: Acute (2) Atelectasis of both lungs: Status: Acute (3) Cholelithiasis with cholecystitis: Status: Acute (4) COPD (chronic obstructive pulmonary disease): Status: Chronic (5) Depression: Status: Chronic (6) Anxiety: Status: Chronic Narrative A/P Narrative: Assessment and Plans: 1. Acute respiratory failure with hypercapnia and hypoxemia: Hold sedatives and narcotics for now Supplemental oxygen titrate to acvhieve spo2 >92% DuoNEB NEB q4hr PRN wheezing or SOB Okay to give one time dose of Suboxone from home regimen and see how patient re spond 2. Biliary pancreatitis: Dr. Casper primary team, no surgery for now. Antibiotics Flagyl and Meropenem for now. Consider elective surgery (laparoscopic vs open) cholecystectomy in a few weeks 3. h/o COPD, stable: DuoNEB NEB q4hr PRN wheezing or SOB Pulmicort 4. Depression: Continue Cymbalta 5. GERD: Continue oral PPI from home regimen GI ppx: Continue oral PPI from home regimen DVT ppx: SCDs Code status: Full Prognosis: guarded Disposition: inpatient med surg Time Spent With Patient Time: Total time spent is greater than 50% in coordination of care (as documented) at patient's floor/unit and/or counseling patient: Total time spent with greater than 50% in coordination of care (as documented) at patient's floor/unit and/or counseling patient:: 25 - 35 minutes
[2020-10-09] MEDS ORDERED: BUPRENORPHINE/NALOXONE 4MG/1MG ORAL FILM SL ONE (15:31)
[2020-10-09] MEDS: SENNOSIDES 1 TABLET PO SCH (21:51)
[2020-10-09] MEDS: GABAPENTIN 300 MG CAPSULE PO SCH (21:52)
[2020-10-10] MEDS: 0.9 % SODIUM CHLORIDE 1,000 ML IV SCH ×3 (04:38→22:34)
[2020-10-10] MEDS: MEROPENEM 1 GM in 0.9 % SODIUM CHLORIDE 50 ML IV SCH ×3 (05:33→22:35)
[2020-10-10] MEDS: metroNIDAZOLE 500 MG/100 ML BAG IV SCH ×4 (06:06→23:41)
[2020-10-10 06:55] LABS: Basophils # (Auto) 0.09 K/mcL (0.00-0.30); Basophils % (Auto) 0.5 % (0.0-2.0); Eosinophils # (Auto) 0.03 K/mcL (0.00-0.70); Eosinophils % (Auto) 0.2 % (0.0-7.0); Hematocrit 33.5 % (34.1-44.9); Hemoglobin 11.4 g/dL (11.2-15.7); Lymphocytes # (Auto) 1.42 K/mcL (1.50-4.80); Lymphocytes % (Auto) 7.3 % (15.5-49.0); Mean Cell Volume 89.8 fL (80.0-100.0); Mean Platelet Volume 11.6 fL (7.4-10.4); Monocytes # (Auto) 1.18 K/mcL (0.10-0.90); Monocytes % (Auto) 6.1 % (1.0-12.0); Platelet Count 201 K/mcL (140-440); RBC 3.73 M/mcL (3.59-5.38); Red Cell Distribution Width 15.2 % (11.5-14.5); WBC 19.5 K/mcL (4.5-11.0)
[2020-10-10] MEDS: PANTOPRAZOLE 40 MG TABLET PO SCH (07:06)
[2020-10-10 07:39] LABS: ALT/SGPT 24 U/L (<40); AST/SGOT 29 U/L (<32); Albumin 3.1 gm/dL (3.2-5.2); Alkaline Phosphatase 59 U/L (39-117); Bilirubin,Total 0.5 mg/dL (0.1-1.0); Blood Urea Nitrogen 27 mg/dL (6-20); Calcium 8.6 mg/dL (8.6-10.4); Carbon Dioxide 28 mmol/L (22-30); Chloride 107 mmol/L (96-108); Glomerular Filtration Rate 81; Glucose 78 mg/dL (70-105)
[2020-10-10 07:50] LABS: Neutrophils % (Auto) 85.9 % (38.0-78.0)
[2020-10-10] MEDS: BUDESONIDE 0.5 MG/2 ML AMPUL.NEB NEB SCH ×2 (08:02→21:33)
[2020-10-10] MEDS: IPRATROPIUM/ALBUTEROL 3 ML AMPUL.NEB NEB PRN (08:03)
[2020-10-10] MEDS ORDERED: DULoxetine 30 MG CAPSULE PO SCH (09:00)
--- NOTE | 2020-10-10 09:03 | XRay Report ---
CLINICAL INFORMATION: Pnemonitis and atelectasis COMPARISON: None. FINDINGS: Mild cardiomegaly is unchanged. Mediastinum is unremarkable. Completely consolidated right lower lobe atelectasis again noted. Left lung infiltrates have resolved. Small right parahilar infiltrate continues to improve. Pulmonary are unremarkable. Small right pleural effusion is unchanged. IMPRESSION: Resolution of left lung infiltrate.. Dense consolidated atelectasis of the entire right lower lobe-stable. Small right perihilar infiltrate-improved Small right pleural effusion Interpreted and Authenticated by: Teofilo Watt 10/10/20
[2020-10-10] MEDS: GABAPENTIN 300 MG CAPSULE PO SCH ×2 (10:08→21:52)
[2020-10-10] MEDS: DULoxetine 30 MG CAPSULE PO SCH (10:08)
[2020-10-10] MEDS: PHENTERMINE 15 MG PO SCH (10:09)
[2020-10-10] MEDS: NICOTINE 21 MG PATCH TOPICAL SCH (10:10)
--- NOTE | 2020-10-10 13:39 | Internal Med Progress Note ---
SUBJECTIVE Subjective Patient information: Note initiated : 10/10/20 at 1:36 pm Service Date, if different from initiated Date: [] Patient: Elida Russell 60 y/o F admitted on 10/01/20 for Abdominal Pain. Chief Complaint: [] Principal diagnosis: Acute pancreatitis;Respiratory failure; mental status change. Interval history: Who presented to the ED on the for upper right quadrant and left upper quadrant pain nausea vomiting. Patient was admitted for pancreatitis and concern for gallbladder etiology. On the she had a diagnostic laparoscopy with the findings of severe inflammation of the entire upper abdomen and gallbladder omentum: Stomach liver small bowel inflammation was too severe to do cholecystectomy open or laparoscopically. Is felt that because of the inflammation it was best to allow that to clear and then do a laparoscopic cholecystectomy at a later time. She was noted to have some early pneumonitis. Postprocedural she was anxious and restless in bed. She received 1 mg of Ativan and since then been extremely lethargic and slow to respond temperature is 100.0. He was given Narcan with no response. Chest x-ray was read as atelectasis and mucous plug in the right lobe. Patient noted be wheezy and poor inspiratory effort. Radiology report x-ray shows consolidated atelectasis right middle lobe and to consider mucous plug and that right middle lobe of the bronchus. Report also shows near complete resolution of mild bilateral lower lobe infiltrates. Discoid atelectasis left midlung. Patient now waking up and clinical bed. She is oriented but appears like she is coming out of anesthesia. Denies cough. She has COPD but does not wear oxygen at home. 10/08: Being transferred to PCU with initiation of BiPAP overnight. Been switched to 2L nasal cannula oxygen tonight. Afebrile overnight. Denies confusion or pain currently. Denies nausea, vomiting, diarrhea, or constipation. Denies fever, chills, or sweating. 10/09: Being transferred back to med surg from PCU last night. Been on 2-3L oxygen via oxymask overnight and this morning. c/o restless leg. c/o anxiety. c/o SOB. c/o RUQ and LUQ abdominal pain. Denies fever or chills. Denies nausea or vomiting. 10/10: Been on 2L oxygen overnight. Tolerating Suboxone SL without overly sedated or dyspnea/respiratory failure. Denies SOB. Denies fever or chills. c/o mild RUQ and LUQ abdominal pain. Denies nausea or vomiting. Denies leg restless. Constitutional Vitals: Vital Signs Temp Pulse Resp BP Pulse Ox 36.2 C 63 16 135/83 97 10/10/20 11:55 10/10/20 11:55 10/10/20 11:55 10/10/20 11:55 10/10/20 11:55 Period Temp Pulse Resp BP Sys/Bryant Pulse Ox Last 24 Hr 35.5 C-36.7 C 52-72 13-24 112-147/70-90 91-100 Intake and Output 10/09/20 10/10/20 10/10/20 21:59 05:59 13:59 Intake Total 950 1700 150 Output Total 640 650 Balance 310 1050 150 Weight 115.031 kg Intake & Output: Intake & Output 10/09/20 10/10/20 10/10/20 21:59 05:59 13:59 Intake Total 950 1700 150 Output Total 640 650 Balance 310 1050 150 Weight 115.031 kg Intake: IV 150 1150 150 Sodium Chloride 0.9% 1,000 ml @ 1000 75 mls/hr IV .[id number] [facility] Rx#: [id number] Merrem 1 gm In Sodium Chloride 50 50 50 0.9% 50 ml @ 100 mls/hr IV Q8H [facility] Rx#:[id number] Oral 800 550 Output: Urine Catheter Amount 640 650 Other: Urine Appearance Clear Clear Uretheral (Servin) Clear Urine Color Dark Twyla Dark Yellow Uretheral (Servin) Bright Yellow General appearance: cooperative and no acute distress Head Head exam: Present atraumatic and normocephalic Eye Eye exam: Present EOMI and PERRL ENT ENT exam: Present mucous membranes moist, normal exam and normal external ear exam Additional comments: Oxygen mask in place Neck Neck exam: Present normal inspection; Absent lymphadenopathy, tenderness and thyromegaly Respiratory Respiratory exam: Absent accessory muscle use, respiratory distress and wheezes Cardiovascular Cardiovascular exam: Present normal rate and rhythm; Absent JVD GI/Abdominal GI/Abdominal exam: Present normal bowel sounds, soft and tenderness; Absent organomegaly Extremities Exam Extremities exam: Present full ROM, normal capillary refill and normal inspection; Absent tenderness Neurological Exam Neurological exam: Present alert, CN II-XII intact and oriented X3; Absent motor sensory deficit Psychiatric Psychiatric exam: Present normal affect and normal mood; Absent anxious and depressed Skin Skin exam: Present dry and intact OBJ DATA Labs CBC & Chem 7: 10/10/20 05:59 10/10/20 05:59 Labs: Abnormal Lab Results 10/10/20 10/10/20 10/09/20 05:59 05:59 05:07 WBC 19.5 H RBC Hgb Hct 33.5 L RDW 15.2 H Plt Count MPV 11.6 H Neut % (Auto) 85.9 H Lymph % (Auto) 7.3 L Lymph # (Auto) 1.42 L Cassia # (Auto) 1.18 H Band Neutrophils % Lymphocytes % Absolute Neutrophils 16.76 H Vacuolated Neuts Toxic Granulation Platelet Estimate BUN 27 H 26 H Glucose GGT AST 34 H Lactate Dehydrogenase Albumin 3.1 L 10/09/20 10/08/20 10/08/20 05:07 07:48 04:53 WBC 23.0 H 18.6 H RBC 3.45 L 3.58 L Hgb 10.4 L 10.7 L Hct 32.3 L 32.6 L RDW 15.2 H 14.9 H Plt Count 98 L MPV 12.0 H 13.0 H Neut % (Auto) 93.9 H Lymph % (Auto) 3.4 L Lymph # (Auto) 0.77 L Cassia # (Auto) Band Neutrophils % 11 H Lymphocytes % 9 L Absolute Neutrophils 21.57 H Vacuolated Neuts 1+ A Toxic Granulation 2+ A Platelet Estimate Decreased A BUN 26 H Glucose 109 H GGT 41 H AST Lactate Dehydrogenase 237 H Albumin 3.0 L Meds: Medications Albuterol/Ipratropium (Ipratropium/Albuterol 3 Ml Ampul.Neb) 3 ml NEB Q4HP PRN PRN Reason: Shortness Of Breath Last Admin: 10/10/20 08:03 Dose: 3 ml Documented by: Budesonide (Budesonide 0.5 Mg/2 Ml Ampul.Neb) 0.5 mg NEB Q12 [facility] Last Admin: 10/10/20 08:02 Dose: 0.5 mg Documented by: Duloxetine HCl (Duloxetine 30 Mg Capsule) 60 mg PO DAILY [facility] Last Admin: 10/10/20 10:08 Dose: 60 mg Documented by: Gabapentin (Gabapentin 300 Mg Capsule) 600 mg PO BID [facility] Last Admin: 10/10/20 10:08 Dose: 600 mg Documented by: Sodium Chloride (Sodium Chloride 0.9%) 1,000 mls @ 75 mls/hr IV .[id number] [facility] Last Admin: 10/10/20 04:38 Dose: 75 mls/hr Documented by: Acetaminophen (Ofirmev) 1,000 mg in 100 mls @ 200 mls/hr IV Q6HP PRN; Protocol PRN Reason: Pain Stop: 10/12/20 12:45 Meropenem 1 gm/ Sodium (Chloride) 50 mls @ 100 mls/hr IV Q8H [facility]; Protocol Last Infusion: 10/10/20 06:06 Dose: Infused Documented by: Metronidazole (Flagyl) 500 mg in 100 mls @ 100 mls/hr IV Q6H [facility]; Protocol Last Admin: 10/10/20 12:01 Dose: 100 mls/hr Documented by: Nicotine (Nicotine 21 Mg Patch) 21 mg TOPICAL DAILY@1000 [facility] Last Admin: 10/10/20 10:10 Dose: 21 mg Documented by: Ondansetron HCl (Ondansetron 4 Mg/2 Ml Vial) 4 mg IV Q6HP PRN PRN Reason: Nausea And Vomiting Last Admin: 10/09/20 09:57 Dose: 4 mg Documented by: Pantoprazole Sodium (Pantoprazole 40 Mg Tablet) 40 mg PO QAMAC [facility] Last Admin: 10/10/20 07:06 Dose: 40 mg Documented by: Phentermine 15 Mg (Capsule) 1 dose PO DAILY [facility] Last Admin: 10/10/20 10:09 Dose: Not Given Documented by: Senna (Sennosides 1 Tablet) 2 tab PO HS [facility] Last Admin: 10/09/20 21:51 Dose: 2 tab Documented by: A/P Assessment and plan (1) Acute gallstone pancreatitis: Status: Acute (2) Atelectasis of both lungs: Status: Acute (3) Cholelithiasis with cholecystitis: Status: Acute (4) COPD (chronic obstructive pulmonary disease): Status: Chronic (5) Depression: Status: Chronic (6) Anxiety: Status: Chronic Narrative A/P Narrative: Assessment and Plans: 1. Acute respiratory failure with hypercapnia and hypoxemia: Hold sedatives and narcotics for now Supplemental oxygen titrate to acvhieve spo2 >92% DuoNEB NEB q4hr PRN wheezing or SOB Okay to continue Suboxone from home regimen 2. Biliary pancreatitis: Dr. Casper primary team, no surgery for now. Antibiotics Flagyl and Meropenem for now. Consider elective surgery (laparoscopic vs open) cholecystectomy in a few weeks 3. h/o COPD, stable: DuoNEB NEB q4hr PRN wheezing or SOB Pulmicort 4. Depression: Continue Cymbalta 5. GERD: Continue oral PPI from home regimen GI ppx: Continue oral PPI from home regimen DVT ppx: SCDs Code status: Full Prognosis: stable Disposition: inpatient med surg Time Spent With Patient Time: Total time spent is greater than 50% in coordination of care (as documented) at patient's floor/unit and/or counseling patient:
--- NOTE | 2020-10-10 13:44 | Internal Med Progress Note ---
SUBJECTIVE Subjective Patient information: Note initiated : 10/09/20 at 8:30 am Service Date, if different from initiated Date: [] Patient: Elida Russell 60 y/o F admitted on 10/01/20 for Abdominal Pain. Chief Complaint: [] Principal diagnosis: Acute pancreatitis;Respiratory failure; mental status change. Interval history: Who presented to the ED on the for upper right quadrant and left upper quadrant pain nausea vomiting. Patient was admitted for pancreatitis and concern for gallbladder etiology. On the she had a diagnostic laparoscopy with the findings of severe inflammation of the entire upper abdomen and gallbladder omentum: Stomach liver small bowel inflammation was too severe to do cholecystectomy open or laparoscopically. Is felt that because of the inflammation it was best to allow that to clear and then do a laparoscopic cholecystectomy at a later time. She was noted to have some early pneumonitis. Postprocedural she was anxious and restless in bed. She received 1 mg of Ativan and since then been extremely lethargic and slow to respond temperature is 100.0. He was given Narcan with no response. Chest x-ray was read as atelectasis and mucous plug in the right lobe. Patient noted be wheezy and poor inspiratory effort. Radiology report x-ray shows consolidated atelectasis right middle lobe and to consider mucous plug and that right middle lobe of the bronchus. Report also shows near complete resolution of mild bilateral lower lobe infiltrates. Discoid atelectasis left midlung. Patient now waking up and clinical bed. She is oriented but appears like she is coming out of anesthesia. Denies cough. She has COPD but does not wear oxygen at home. 10/08: Being transferred to PCU with initiation of BiPAP overnight. Been switched to 2L nasal cannula oxygen tonight. Afebrile overnight. Denies confusion or pain currently. Denies nausea, vomiting, diarrhea, or constipation. Denies fever, chills, or sweating. 10/09: Being transferred back to med surg from PCU last night. Been on 2-3L oxygen via oxymask overnight and this morning. c/o restless leg. c/o anxiety. c/o SOB. c/o RUQ and LUQ abdominal pain. Denies fever or chills. Denies nausea or vomiting. 10/10: Been on 2L oxygen overnight. Tolerating Suboxone SL without overly sedated or dyspnea/respiratory failure. Denies SOB. Denies fever or chills. c/o mild RUQ and LUQ abdominal pain. Denies nausea or vomiting. Denies leg restless. Constitutional Vitals: Vital Signs Temp Pulse Resp BP Pulse Ox 36.3 C 60 25 H 142/98 99 10/09/20 04:01 10/09/20 04:48 10/09/20 04:48 10/09/20 04:33 10/09/20 04:48 Period Temp Pulse Resp BP Sys/Bryant Pulse Ox Last 24 Hr 36.1 C-36.7 C 60-97 14-40 101-149/61-112 89-100 Intake and Output 10/08/20 10/09/20 10/09/20 21:59 05:59 13:59 Intake Total 1930 250 Output Total 950 510 Balance 980 -260 Weight 114.714 kg Intake & Output: Intake & Output 10/08/20 10/09/20 10/09/20 21:59 05:59 13:59 Intake Total 1930 250 Output Total 950 510 Balance 980 -260 Weight 114.714 kg Intake: IV 1450 250 Sodium Chloride 0.9% 1,000 ml @ 1000 75 mls/hr IV .[id number] [facility] Rx#: [id number] Merrem 1 gm In Sodium Chloride 50 50 0.9% 50 ml @ 100 mls/hr IV Q8H [facility] Rx#:[id number] Oral 480 Output: Urine Catheter Amount 950 510 Other: Meal Dinner Percent of Meal Consumed 0% Urine Appearance Clear Clear Uretheral (Servin) Clear Urine Color Dark Yellow Dark Yellow Uretheral (Servin) Dark Yellow Urine Odor Normal Stool Size Moderate Stool Color Brown Stool Consistency Formed OBJ DATA Labs CBC & Chem 7: 10/10/20 05:59 10/10/20 05:59 Labs: Abnormal Lab Results 10/09/20 10/08/20 10/08/20 05:07 07:48 04:53 WBC 23.0 H 18.6 H RBC 3.45 L 3.58 L Hgb 10.4 L 10.7 L Hct 32.3 L 32.6 L RDW 15.2 H 14.9 H Plt Count 98 L MPV 12.0 H 13.0 H Neut % (Auto) 93.9 H Lymph % (Auto) 3.4 L Lymph # (Auto) 0.77 L Band Neutrophils % 11 H Lymphocytes % 9 L Absolute Neutrophils 21.57 H Vacuolated Neuts 1+ A Toxic Granulation 2+ A Platelet Estimate Decreased A RBC Morphology Anisocytosis BUN 26 H Glucose 109 H Direct Bilirubin GGT 41 H Lactate Dehydrogenase 237 H Albumin 3.0 L Globulin Albumin/Globulin Ratio Triglycerides Urine Appearance 10/07/20 10/07/20 10/07/20 07:51 05:49 05:49 WBC 22.3 H RBC Hgb Hct RDW 15.0 H Plt Count MPV 12.0 H Neut % (Auto) Lymph % (Auto) Lymph # (Auto) Band Neutrophils % 40 H Lymphocytes % 5 L Absolute Neutrophils Vacuolated Neuts Toxic Granulation Platelet Estimate RBC Morphology Abnormal A Anisocytosis 1+ A BUN 32 H Glucose 126 H Direct Bilirubin 0.3 H GGT 64 H Lactate Dehydrogenase 265 H Albumin 2.6 L Globulin 3.8 H Albumin/Globulin Ratio 0.7 L Triglycerides 152 H Urine Appearance Hazy A Meds: Medications Budesonide (Budesonide 0.5 Mg/2 Ml Ampul.Neb) 0.5 mg NEB Q12 [facility] Last Admin: 10/08/20 20:02 Dose: 0.5 mg Documented by: Duloxetine HCl (Duloxetine 30 Mg Capsule) 60 mg PO DAILY [facility] Last Admin: 10/08/20 09:53 Dose: 60 mg Documented by: Acetaminophen (Ofirmev) 1,000 mg in 100 mls @ 200 mls/hr IV Q6HP PRN; Protocol PRN Reason: Pain Stop: 10/12/20 12:45 Last Infusion: 10/09/20 04:26 Dose: Infused Documented by: Sodium Chloride (Sodium Chloride 0.9%) 1,000 mls @ 75 mls/hr IV .[id number] [facility] Last Admin: 10/08/20 16:29 Dose: 75 mls/hr Documented by: Metronidazole (Flagyl) 500 mg in 100 mls @ 100 mls/hr IV Q6H [facility]; Protocol Last Admin: 10/09/20 06:54 Dose: 100 mls/hr Documented by: Meropenem 1 gm/ Sodium (Chloride) 50 mls @ 100 mls/hr IV Q8H [facility]; Protocol Last Admin: 10/09/20 05:47 Dose: 100 mls/hr Documented by: Methylprednisolone Sodium Succinate (Methylprednisolone Sod Succ 125 Mg/2 Ml V ial) 62.5 mg IV Q12 [facility] Last Admin: 10/08/20 22:40 Dose: 62.5 mg Documented by: Nicotine (Nicotine 21 Mg Patch) 21 mg TOPICAL DAILY@1000 [facility] Last Admin: 10/08/20 09:54 Dose: 21 mg Documented by: Ondansetron HCl (Ondansetron 4 Mg/2 Ml Vial) 4 mg IV Q6HP PRN PRN Reason: Nausea And Vomiting Last Admin: 10/09/20 04:28 Dose: 4 mg Documented by: Pantoprazole Sodium (Pantoprazole 40 Mg Tablet) 40 mg PO QAMAC [facility] Last Admin: 10/09/20 06:54 Dose: 40 mg Documented by: Phentermine 15 Mg (Capsule) 1 dose PO DAILY [facility] Last Admin: 10/08/20 09:53 Dose: Not Given Documented by: Senna (Sennosides 1 Tablet) 2 tab PO HS [facility] Last Admin: 10/08/20 22:39 Dose: 2 tab Documented by: A/P Assessment and plan (1) Acute gallstone pancreatitis: Status: Acute (2) Atelectasis of both lungs: Status: Acute (3) Cholelithiasis with cholecystitis: Status: Acute (4) COPD (chronic obstructive pulmonary disease): Status: Chronic (5) Depression: Status: Chronic (6) Anxiety: Status: Chronic Narrative A/P Narrative: Assessment and Plans: 1. Acute respiratory failure with hypercapnia and hypoxemia: Hold sedatives and narcotics for now Supplemental oxygen titrate to acvhieve spo2 >92% DuoNEB NEB q4hr PRN wheezing or SOB Okay to continue Suboxone from home regimen 2. Biliary pancreatitis: Dr. Casper primary team, no surgery for now. Antibiotics Flagyl and Meropenem for now. Consider elective surgery (laparoscopic vs open) cholecystectomy in a few weeks 3. h/o COPD, stable: DuoNEB NEB q4hr PRN wheezing or SOB Pulmicort 4. Depression: Continue Cymbalta 5. GERD: Continue oral PPI from home regimen GI ppx: Continue oral PPI from home regimen DVT ppx: SCDs Code status: Full Prognosis: stable Disposition: inpatient med surg Time Spent With Patient Time: Total time spent is greater than 50% in coordination of care (as documented) at patient's floor/unit and/or counseling patient:
--- NOTE | 2020-10-10 13:55 | General Surgery Progress Note ---
SUBJECTIVE Subjective Patient information: Note initiated : 10/10/20 at 1:48 pm Service Date, if different from initiated Date: [] Patient: Elida Russell 60 y/o F admitted on 10/01/20 for Abdominal Pain. Chief Complaint: [] Principal diagnosis: Acute pancreatitis;Respiratory failure; mental status change. Interval history: Patient is significantly improved today. She is bright alert and aware. She answers questions appropriately. She complains of mild upper abdominal pain but she has not had nausea. Her ventilatory effort is much improved compared to yesterday. She still does not perform well on her inspirometer. Her O2 saturations have been about 93% on 3 L O2. White blood count 19.5, hemoglobin 11.4, hematocrit 33.5, potassium 4.8, BUN 27, creatinine 0.8, LFTs are normal Constitutional Vitals: Vital Signs Temp Pulse Resp BP Pulse Ox 97.1 F 63 16 135/83 97 10/10/20 11:55 10/10/20 11:55 10/10/20 11:55 10/10/20 11:55 10/10/20 11:55 Period Temp Pulse Resp BP Sys/Bryant Pulse Ox Last 24 Hr 96 F-98.1 F 52-72 13-24 112-147/70-90 91-100 Intake and Output 10/09/20 10/10/20 10/10/20 21:59 05:59 13:59 Intake Total 950 1700 250 Output Total 640 650 Balance 310 1050 250 Weight 253 lb 9.6 oz Intake & Output: Intake & Output 10/09/20 10/10/20 10/10/20 21:59 05:59 13:59 Intake Total 950 1700 250 Output Total 640 650 Balance 310 1050 250 Weight 253 lb 9.6 oz Intake: IV 150 1150 250 Sodium Chloride 0.9% 1,000 ml @ 1000 75 mls/hr IV .[id number] [facility] Rx#: [id number] Merrem 1 gm In Sodium Chloride 50 50 50 0.9% 50 ml @ 100 mls/hr IV Q8H [facility] Rx#:[id number] Oral 800 550 Output: Urine Catheter Amount 640 650 Other: Urine Appearance Clear Clear Uretheral (Servin) Clear Urine Color Dark Twyla Dark Yellow Uretheral (Servin) Bright Yellow Head Head exam: Present atraumatic, normal inspection and normocephalic Eye Eye exam: Present EOMI, normal appearance and PERRL Pupils: Present normal accommodation ENT ENT exam: Present mucous membranes moist, normal exam and normal external ear exam Neck Neck exam: Present full ROM; Absent tenderness Respiratory Respiratory exam: Present decreased breath sounds (Significant decreased breath sounds on the right base but full clear breath sounds on the left; no rhonchi wheezes or rales) Cardiovascular Cardiovascular exam: Present normal rate and rhythm, RRR, +S1 and +S2; Absent JVD GI/Abdominal GI/Abdominal exam: Present normal bowel sounds, soft, distended and tenderness (Very mild upper abdominal tenderness); Absent guarding Extremities Exam Extremities exam: Present full ROM and neurovascular intact; Absent calf tenderness, joint swelling, pedal edema and tenderness Neurological Exam Neurological exam: Present alert, normal gait and oriented X3; Absent motor sensory deficit Psychiatric Psychiatric exam: Present anxious and normal affect A/P Assessment and plan (1) Acute gallstone pancreatitis: Assessment and plan: Acute pancreatitis has resolved Status: Acute (2) Atelectasis of both lungs: Status: Acute (3) Cholelithiasis with cholecystitis: Status: Acute (4) COPD (chronic obstructive pulmonary disease): Status: Chronic (5) Pneumonitis: Status: Acute Narrative A/P Narrative: Gallstone pancreatitis has resolved Atelectasis of the left lung has resolved but she still has atelectasis of the right base Respiratory status is improved Time Spent With Patient Time: Total time spent is greater than 50% in coordination of care (as documented) at patient's floor/unit and/or counseling patient:
[2020-10-10] MEDS: SENNOSIDES 1 TABLET PO SCH (21:52)
[2020-10-10] MEDS: ACETAMINOPHEN 1,000 MG/100 ML BAG IV PRN (21:53)
[2020-10-10] MEDS: ONDANSETRON 4 MG/2 ML VIAL IV PRN (22:38)
[2020-10-11] MEDS: 0.9 % SODIUM CHLORIDE 1,000 ML IV SCH ×2 (00:42→16:00)
[2020-10-11] MEDS: MEROPENEM 1 GM in 0.9 % SODIUM CHLORIDE 50 ML IV SCH ×3 (05:59→22:10)
--- NOTE | 2020-10-11 07:03 | XRay Report ---
CLINICAL INFORMATION: Pnemonitis and atelectasis COMPARISON: None. FINDINGS: Mild cardiomegaly is unchanged. Pulmonary vasculature and mediastinum are unremarkable. Completely consolidated right lower lobe atelectasis again noted. Left lung infiltrate has completely resolved. Small right parahilar infiltrate Is unchanged from yesterday. Small right pleural effusion is unchanged. IMPRESSION: Complete resolution of left lung infiltrate.. Dense consolidated atelectasis of the entire right lower lobe-stable. Small right perihilar infiltrate-stable Small right pleural effusion Interpreted and Authenticated by: Teofilo Watt 10/11/20
[2020-10-11 08:17] LABS: Basophils % (Auto) 0.4 % (0.0-2.0); Eosinophils # (Auto) 0.12 K/mcL (0.00-0.70); Eosinophils % (Auto) 0.5 % (0.0-7.0); Hematocrit 33.9 % (34.1-44.9); Hemoglobin 11.1 g/dL (11.2-15.7); Lymphocytes # (Auto) 0.94 K/mcL (1.50-4.80); Lymphocytes % (Auto) 3.7 % (15.5-49.0); Mean Cell Volume 90.6 fL (80.0-100.0); Mean Corpuscular HGB Conc 32.7 g/dL (31.0-36.0); Mean Platelet Volume 11.4 fL (7.4-10.4); Monocytes # (Auto) 0.99 K/mcL (0.10-0.90); Monocytes % (Auto) 3.9 % (1.0-12.0); Neutrophils % (Auto) 91.5 % (38.0-78.0); Platelet Count 217 K/mcL (140-440); RBC 3.74 M/mcL (3.59-5.38); Red Cell Distribution Width 14.7 % (11.5-14.5); WBC 25.1 K/mcL (4.5-11.0)
[2020-10-11 08:38] LABS: ALT/SGPT 32 U/L (<40); AST/SGOT 45 U/L (<32); Albumin 2.7 gm/dL (3.2-5.2); Alkaline Phosphatase 63 U/L (39-117); Bilirubin,Total 0.5 mg/dL (0.1-1.0); Blood Urea Nitrogen 14 mg/dL (6-20); Calcium 7.7 mg/dL (8.6-10.4); Carbon Dioxide 26 mmol/L (22-30); Chloride 99 mmol/L (96-108); Globulin 2.8 gm/dL (2.2-3.7); Glomerular Filtration Rate 106; Glucose 88 mg/dL (70-105)
[2020-10-11] MEDS: BUDESONIDE 0.5 MG/2 ML AMPUL.NEB NEB SCH ×2 (09:40→20:38)
[2020-10-11] MEDS: IPRATROPIUM/ALBUTEROL 3 ML AMPUL.NEB NEB PRN ×2 (09:42→20:38)
--- NOTE | 2020-10-11 09:42 | General Surgery Progress Note ---
SUBJECTIVE Subjective Patient information: Note initiated : 10/11/20 at 9:40 am Service Date, if different from initiated Date: [] Patient: Elida Russell 60 y/o F admitted on 10/01/20 for Abdominal Pain. Chief Complaint: [] Principal diagnosis: Acute pancreatitis;Respiratory failure; mental status change. Interval history: Patient reports feeling much better today, she is alert, conversational and says that she is feeling better. She does report minimal continued right upper quadrant abdominal pain. She does report ambulating yesterday. Her white count is slightly elevated today. She has been maintaining saturations in the ninety on 4 L of nasal cannula Constitutional Vitals: Vital Signs Temp Pulse Resp BP Pulse Ox 96.8 F L 60 20 126/74 96 10/11/20 07:04 10/11/20 07:04 10/11/20 07:04 10/11/20 07:04 10/11/20 07:04 Period Temp Pulse Resp BP Sys/Bryant Pulse Ox Last 24 Hr 96.8 F-98.2 F 60-75 - 115-139/74-83 93-97 Intake and Output 10/10/20 10/11/20 10/11/20 21:59 05:59 13:59 Intake Total 1150 1550 Output Total 750 900 Balance 400 650 Weight 255 lb Intake & Output: Intake & Output 10/10/20 10/11/20 10/11/20 21:59 05:59 13:59 Intake Total 1150 1550 Output Total 750 900 Balance 400 650 Weight 255 lb Intake: IV 1150 250 Sodium Chloride 0.9% 1,000 ml @ 1000 75 mls/hr IV .[id number] [facility] Rx#: [id number] Merrem 1 gm In Sodium Chloride 50 50 0.9% 50 ml @ 100 mls/hr IV Q8H [facility] Rx#:[id number] Oral 1300 Output: Urine Catheter Amount 750 900 Other: Meal Breakfast Percent of Meal Consumed 75% Feeding Ability Independent Urine Appearance Clear Sediment Urine Color Dark Yellow Light Twyla Uretheral (Servin) Dark Yellow Dark Yellow Stool Size Copious Stool Color Brown Stool Consistency Loose # Bowel Movements 1 # of times incontinent of 1 Bowels General appearance: cooperative and no acute distress Respiratory Respiratory exam: Absent accessory muscle use, chest wall tenderness and respiratory distress GI/Abdominal GI/Abdominal exam: Present soft and tenderness (Mild tenderness in the right upp er quadrant); Absent distended A/P Narrative A/P Narrative: Slightly increased white blood cell count to twenty-five today, however chest x-ray shows stable right-sided consolidation, complete resolution of the left-sided consolidation. Patient reports she feels better. Encourage ambulation, continue to wean oxygen as possible. Aggressive pulmonary toilet. Time Spent With Patient Time: Total time spent is greater than 50% in coordination of care (as documented) at patient's floor/unit and/or counseling patient:
[2020-10-11] MEDS: DULoxetine 30 MG CAPSULE PO SCH (10:09)
[2020-10-11] MEDS: GABAPENTIN 300 MG CAPSULE PO SCH ×2 (10:09→20:31)
[2020-10-11] MEDS: metroNIDAZOLE 500 MG/100 ML BAG IV SCH ×4 (10:09→23:31)
[2020-10-11] MEDS: PHENTERMINE 15 MG PO SCH (10:10)
[2020-10-11] MEDS: PANTOPRAZOLE 40 MG TABLET PO SCH (10:10)
[2020-10-11] MEDS: NICOTINE 21 MG PATCH TOPICAL SCH (10:10)
--- NOTE | 2020-10-11 13:02 | Internal Med Progress Note ---
SUBJECTIVE Subjective Patient information: Note initiated : 10/11/20 at 12:59 pm Service Date, if different from initiated Date: [] Patient: Elida Russell 60 y/o F admitted on 10/01/20 for Abdominal Pain. Chief Complaint: [] Principal diagnosis: Acute pancreatitis;Respiratory failure; mental status change. Interval history: Who presented to the ED on the for upper right quadrant and left upper quadrant pain nausea vomiting. Patient was admitted for pancreatitis and concern for gallbladder etiology. On the she had a diagnostic laparoscopy with the findings of severe inflammation of the entire upper abdomen and gallbladder omentum: Stomach liver small bowel inflammation was too severe to do cholecystectomy open or laparoscopically. Is felt that because of the inflammation it was best to allow that to clear and then do a laparoscopic cholecystectomy at a later time. She was noted to have some early pneumonitis. Postprocedural she was anxious and restless in bed. She received 1 mg of Ativan and since then been extremely lethargic and slow to respond temperature is 100.0. He was given Narcan with no response. Chest x-ray was read as atelectasis and mucous plug in the right lobe. Patient noted be wheezy and poor inspiratory effort. Radiology report x-ray shows consolidated atelectasis right middle lobe and to consider mucous plug and that right middle lobe of the bronchus. Report also shows near complete resolution of mild bilateral lower lobe infiltrates. Discoid atelectasis left midlung. Patient now waking up and clinical bed. She is oriented but appears like she is coming out of anesthesia. Denies cough. She has COPD but does not wear oxygen at home. 10/08: Being transferred to PCU with initiation of BiPAP overnight. Been switched to 2L nasal cannula oxygen tonight. Afebrile overnight. Denies confusion or pain currently. Denies nausea, vomiting, diarrhea, or constipation. Denies fever, chills, or sweating. 10/09: Being transferred back to med surg from PCU last night. Been on 2-3L oxygen via oxymask overnight and this morning. c/o restless leg. c/o anxiety. c/o SOB. c/o RUQ and LUQ abdominal pain. Denies fever or chills. Denies nausea or vomiting. 10/10: Been on 2L oxygen overnight. Tolerating Suboxone SL without overly sedated or dyspnea/respiratory failure. Denies SOB. Denies fever or chills. c/o mild RUQ and LUQ abdominal pain. Denies nausea or vomiting. Denies leg restless. 10/11: Been on between 2-4L/min oxygen overnight. c/o abdominal distention and e xcessive gas. Denies abdominal pain. Denies nausea/vomiting. Had 2 episode of bowel incontinence this morning. Denies SOB. Denies anxiety. Constitutional Vitals: Vital Signs Temp Pulse Resp BP Pulse Ox 36.1 C 64 18 130/77 97 10/11/20 11:45 10/11/20 11:45 10/11/20 11:45 10/11/20 11:45 10/11/20 11:45 Period Temp Pulse Resp BP Sys/Bryant Pulse Ox Last 24 Hr 36.0 C-36.8 C 60-75 16-24 115-139/74-80 93-98 Intake and Output 10/10/20 10/11/20 10/11/20 21:59 05:59 13:59 Intake Total 1150 1550 150 Output Total 750 900 Balance 400 650 150 Weight 115.666 kg Intake & Output: Intake & Output 10/10/20 10/11/20 10/11/20 21:59 05:59 13:59 Intake Total 1150 1550 150 Output Total 750 900 Balance 400 650 150 Weight 115.666 kg Intake: IV 1150 250 150 Sodium Chloride 0.9% 1,000 ml @ 1000 75 mls/hr IV .[id number] [facility] Rx#: [id number] Merrem 1 gm In Sodium Chloride 50 50 50 0.9% 50 ml @ 100 mls/hr IV Q8H [facility] Rx#:[id number] Oral 1300 Output: Urine Catheter Amount 750 900 Other: Meal Breakfast Percent of Meal Consumed 75% Feeding Ability Independent Urine Appearance Clear Sediment Urine Color Dark Yellow Light Twyla Uretheral (Servin) Dark Yellow Dark Yellow Stool Size Copious Stool Color Brown Stool Consistency Loose # Bowel Movements 1 # of times incontinent of 1 Bowels General appearance: cooperative and no acute distress Head Head exam: Present atraumatic and normocephalic Eye Eye exam: Present EOMI and PERRL ENT ENT exam: Present mucous membranes moist, normal exam and normal external ear exam Additional comments: Nasal cannula in place Neck Neck exam: Present normal inspection; Absent lymphadenopathy, tenderness and thyromegaly Respiratory Respiratory exam: Absent accessory muscle use, respiratory distress and wheezes Cardiovascular Cardiovascular exam: Present normal rate and rhythm; Absent JVD GI/Abdominal GI/Abdominal exam: Present normal bowel sounds and soft; Absent organomegaly and tenderness Extremities Exam Extremities exam: Present full ROM, normal capillary refill and normal inspection; Absent tenderness Neurological Exam Neurological exam: Present alert, CN II-XII intact and oriented X3; Absent motor sensory deficit Psychiatric Psychiatric exam: Present normal affect and normal mood; Absent anxious and depressed Skin Skin exam: Present dry and intact OBJ DATA Labs CBC & Chem 7: 10/11/20 06:38 10/11/20 06:37 Labs: Abnormal Lab Results 10/11/20 10/11/20 10/10/20 06:38 06:37 05:59 WBC 25.1 H RBC Hgb 11.1 L Hct 33.9 L RDW 14.7 H MPV 11.4 H Neut % (Auto) 91.5 H Lymph % (Auto) 3.7 L Lymph # (Auto) 0.94 L [place] # (Auto) 0.99 H Absolute Neutrophils 22.94 H BUN 27 H Creatinine 0.5 L Calcium 7.7 L AST 45 H Total Protein 5.5 L Albumin 2.7 L 3.1 L 10/10/20 10/09/20 10/09/20 05:59 05:07 05:07 WBC 19.5 H 23.0 H RBC 3.45 L Hgb 10.4 L Hct 33.5 L 32.3 L RDW 15.2 H 15.2 H MPV 11.6 H 12.0 H Neut % (Auto) 85.9 H 93.9 H Lymph % (Auto) 7.3 L 3.4 L Lymph # (Auto) 1.42 L 0.77 L [place] # (Auto) 1.18 H Absolute Neutrophils 16.76 H 21.57 H BUN 26 H Creatinine Calcium AST 34 H Total Protein Albumin Meds: Medications Albuterol/Ipratropium (Ipratropium/Albuterol 3 Ml Ampul.Neb) 3 ml NEB Q4HP PRN PRN Reason: Shortness Of Breath Last Admin: 10/11/20 09:42 Dose: 3 ml Documented by: Budesonide (Budesonide 0.5 Mg/2 Ml Ampul.Neb) 0.5 mg NEB Q12 [facility] Last Admin: 10/11/20 09:40 Dose: 0.5 mg Documented by: Duloxetine HCl (Duloxetine 30 Mg Capsule) 60 mg PO DAILY [facility] Last Admin: 10/11/20 10:09 Dose: 60 mg Documented by: Gabapentin (Gabapentin 300 Mg Capsule) 600 mg PO BID [facility] Last Admin: 10/11/20 10:09 Dose: 600 mg Documented by: Sodium Chloride (Sodium Chloride 0.9%) 1,000 mls @ 75 mls/hr IV .[id number] [facility] Last Admin: 10/11/20 00:42 Dose: Not Given Documented by: Acetaminophen (Ofirmev) 1,000 mg in 100 mls @ 200 mls/hr IV Q6HP PRN; Protocol PRN Reason: Pain Stop: 10/12/20 12:45 Last Infusion: 10/10/20 22:25 Dose: Infused Documented by: Meropenem 1 gm/ Sodium (Chloride) 50 mls @ 100 mls/hr IV Q8H [facility]; Protocol Last Infusion: 10/11/20 06:29 Dose: Infused Documented by: Metronidazole (Flagyl) 500 mg in 100 mls @ 100 mls/hr IV Q6H [facility]; Protocol Last Infusion: 10/11/20 11:09 Dose: Infused Documented by: Nicotine (Nicotine 21 Mg Patch) 21 mg TOPICAL DAILY@1000 [facility] Last Admin: 10/11/20 10:10 Dose: 21 mg Documented by: Ondansetron HCl (Ondansetron 4 Mg/2 Ml Vial) 4 mg IV Q6HP PRN PRN Reason: Nausea And Vomiting Last Admin: 10/10/20 22:38 Dose: 4 mg Documented by: Pantoprazole Sodium (Pantoprazole 40 Mg Tablet) 40 mg PO QAMAC [facility] Last Admin: 10/11/20 10:10 Dose: 40 mg Documented by: Phentermine 15 Mg (Capsule) 1 dose PO DAILY [facility] Last Admin: 10/11/20 10:10 Dose: Not Given Documented by: Senna (Sennosides 1 Tablet) 2 tab PO HS [facility] Last Admin: 10/10/20 21:52 Dose: 2 tab Documented by: A/P Assessment and plan (1) Acute gallstone pancreatitis: Status: Acute (2) Atelectasis of both lungs: Status: Acute (3) Cholelithiasis with cholecystitis: Status: Acute (4) COPD (chronic obstructive pulmonary disease): Status: Chronic (5) Depression: Status: Chronic (6) Anxiety: Status: Chronic Narrative A/P Narrative: Assessment and Plans: 1. Acute respiratory failure with hypercapnia and hypoxemia: Hold sedatives and narcotics for now Supplemental oxygen titrate to acvhieve spo2 >92% DuoNEB NEB q4hr PRN wheezing or SOB Okay to continue Suboxone from home regimen 2. Biliary pancreatitis: Dr. Casper primary team, no surgery for now. Antibiotics Flagyl and Meropenem for now. Consider elective surgery (laparoscopic vs open) cholecystectomy in a few weeks 3. h/o COPD, stable: DuoNEB NEB q4hr PRN wheezing or SOB Pulmicort 4. Depression: Continue Cymbalta 5. GERD: Continue oral PPI from home regimen 6. Excessive bowel gas: Simethicone PRN excessive gas GI ppx: Continue oral PPI from home regimen DVT ppx: SCDs Code status: Full Prognosis: stable Disposition: inpatient med surg Time Spent With Patient Time: Total time spent is greater than 50% in coordination of care (as documented) at patient's floor/unit and/or counseling patient:
[2020-10-11] MEDS: ACETAMINOPHEN 1,000 MG/100 ML BAG IV PRN (19:07)
[2020-10-11] MEDS: SENNOSIDES 1 TABLET PO SCH (20:30)
[2020-10-12] MEDS: ACETAMINOPHEN 1,000 MG/100 ML BAG IV PRN (02:19)
[2020-10-12] MEDS: MEROPENEM 1 GM in 0.9 % SODIUM CHLORIDE 50 ML IV SCH ×3 (05:49→22:19)
[2020-10-12] MEDS: 0.9 % SODIUM CHLORIDE 1,000 ML IV SCH ×2 (05:59→14:42)
[2020-10-12] MEDS: metroNIDAZOLE 500 MG/100 ML BAG IV SCH ×4 (07:23→23:53)
[2020-10-12] MEDS: BUDESONIDE 0.5 MG/2 ML AMPUL.NEB NEB SCH ×2 (08:05→20:27)
--- NOTE | 2020-10-12 09:37 | General Surgery Progress Note ---
SUBJECTIVE Subjective Patient information: Note initiated : 10/12/20 at 9:35 am Service Date, if different from initiated Date: [] Patient: Elida Russell 60 y/o F admitted on 10/01/20 for Abdominal Pain. Chief Complaint: [] Principal diagnosis: Acute pancreatitis;Respiratory failure; mental status change. Interval history: Patient feels much better today, is maintaining sats in the 90% on 2 to 3 L of nasal cannula. She has been out of bed a little bit and is much more oriented. She is requesting to go home at this time. Constitutional Vitals: Vital Signs Temp Pulse Resp BP Pulse Ox 96.9 F L 75 20 125/80 97 10/12/20 07:24 10/12/20 08:07 10/12/20 08:07 10/12/20 07:24 10/12/20 09:09 Period Temp Pulse Resp BP Sys/Bryant Pulse Ox Last 24 Hr 96.9 F-98.4 F 64-75 14-24 109-130/70-81 91-98 Intake and Output 10/11/20 10/12/20 10/12/20 21:59 05:59 13:59 Intake Total 1350 1470 290 Output Total 900 1250 Balance 450 220 290 Weight 266 lb 4 oz Intake & Output: Intake & Output 10/11/20 10/12/20 10/12/20 21:59 05:59 13:59 Intake Total 1350 1470 290 Output Total 900 1250 Balance 450 220 290 Weight 266 lb 4 oz Intake: Nourishment/Supplement quantity 240 (ml) IV 1350 250 50 Sodium Chloride 0.9% 1,000 ml @ 1000 75 mls/hr IV .[id number] [facility] Rx#: [id number] Merrem 1 gm In Sodium Chloride 50 50 50 0.9% 50 ml @ 100 mls/hr IV Q8H [facility] Rx#:[id number] Oral 1220 Output: Urine Catheter Amount 900 1250 Other: Meal Breakfast Percent of Meal Consumed 75% Urine Appearance Clear Sediment Uretheral (Servin) Sediment Sediment Urine Color Dark Yellow Dark Yellow Uretheral (Servin) Dark Yellow Dark Yellow General appearance: cooperative and no acute distress Respiratory Additional comments: Patient is able speak full sentences without shortness of breath. GI/Abdominal GI/Abdominal exam: Present soft; Absent distended and tenderness A/P Narrative A/P Narrative: Patient is much improved from abdominal pain standpoint, her abdominal pain is essentially resolved. Pulmonary status is much improved, she is maintaining greater 90% O2 saturations on 2 to 3 L of nasal cannula. Patient is requesting to go home at this time. Plan: DC Servin catheter, encourage ambulation. Labs are still pending, will remove Servin and if she does well likely home tomorrow. Time Spent With Patient Time: Total time spent is greater than 50% in coordination of care (as documented) at patient's floor/unit and/or counseling patient:
[2020-10-12] MEDS: PANTOPRAZOLE 40 MG TABLET PO SCH (09:48)
[2020-10-12] MEDS: GABAPENTIN 300 MG CAPSULE PO SCH ×2 (09:48→21:04)
[2020-10-12] MEDS: DULoxetine 30 MG CAPSULE PO SCH (09:48)
[2020-10-12] MEDS: PHENTERMINE 15 MG PO SCH (09:49)
[2020-10-12] MEDS: NICOTINE 21 MG PATCH TOPICAL SCH (09:49)
[2020-10-12 10:08] LABS: Basophils # (Auto) 0.06 K/mcL (0.00-0.30); Basophils % (Auto) 0.3 % (0.0-2.0); Eosinophils # (Auto) 0.13 K/mcL (0.00-0.70); Eosinophils % (Auto) 0.7 % (0.0-7.0); Hematocrit 33.2 % (34.1-44.9); Hemoglobin 11.1 g/dL (11.2-15.7); Lymphocytes # (Auto) 1.02 K/mcL (1.50-4.80); Lymphocytes % (Auto) 5.4 % (15.5-49.0); Mean Cell Volume 90.2 fL (80.0-100.0); Mean Corpuscular HGB Conc 33.4 g/dL (31.0-36.0); Mean Platelet Volume 12.3 fL (7.4-10.4); Monocytes # (Auto) 1.07 K/mcL (0.10-0.90); Monocytes % (Auto) 5.7 % (1.0-12.0); Neutrophils % (Auto) 87.9 % (38.0-78.0); Platelet Count 231 K/mcL (140-440); RBC 3.68 M/mcL (3.59-5.38); Red Cell Distribution Width 14.6 % (11.5-14.5); WBC 18.8 K/mcL (4.5-11.0)
[2020-10-12 10:22] LABS: ALT/SGPT 34 U/L (<40); AST/SGOT 37 U/L (<32); Albumin 2.3 gm/dL (3.2-5.2); Albumin/Globulin Ratio 0.8 (1.0-2.3); Alkaline Phosphatase 103 U/L (39-117); Bilirubin,Total 0.5 mg/dL (0.1-1.0); Blood Urea Nitrogen 7 mg/dL (6-20); Calcium 7.6 mg/dL (8.6-10.4); Carbon Dioxide 29 mmol/L (22-30); Chloride 100 mmol/L (96-108); Globulin 2.8 gm/dL (2.2-3.7); Glomerular Filtration Rate 106; Glucose 98 mg/dL (70-105)
--- NOTE | 2020-10-12 12:31 | Internal Med Progress Note ---
SUBJECTIVE Subjective Patient information: Note initiated : 10/12/20 at 12:25 pm Service Date, if different from initiated Date: [] Patient: Elida Russell 60 y/o F admitted on 10/01/20 for Abdominal Pain. Chief Complaint: [acute respiratory failure with hypoxia] Principal diagnosis: Acute pancreatitis;Respiratory failure; mental status change. Interval history: Who presented to the ED on the for upper right quadrant and left upper quadrant pain nausea vomiting. Patient was admitted for pancreatitis and concern for gallbladder etiology. On the she had a diagnostic laparoscopy with the findings of severe inf lammation of the entire upper abdomen and gallbladder omentum: Stomach liver small bowel inflammation was too severe to do cholecystectomy open or laparoscopically. Is felt that because of the inflammation it was best to allow that to clear and then do a laparoscopic cholecystectomy at a later time. She was noted to have some early pneumonitis. Postprocedural she was anxious and restless in bed. She received 1 mg of Ativan and since then been extremely lethargic and slow to respond temperature is 100.0. He was given Narcan with no response. Chest x-ray was read as atelectasis and mucous plug in the right lobe. Patient noted be wheezy and poor inspiratory effort. Radiology report x-ray shows consolidated atelectasis right middle lobe and to consider mucous plug and that right middle lobe of the bronchus. Report also shows near complete resolution of mild bilateral lower lobe infiltrates. Discoid atelectasis left midlung. Patient now waking up and clinical bed. She is oriented but appears like she is coming out of anesthesia. Denies cough. She has COPD but does not wear oxygen at home. 10/08: Being transferred to PCU with initiation of BiPAP overnight. Been switched to 2L nasal cannula oxygen tonight. Afebrile overnight. Denies confusion or pain currently. Denies nausea, vomiting, diarrhea, or constipation. Denies fever, chills, or sweating. 10/09: Being transferred back to med surg from PCU last night. Been on 2-3L oxygen via oxymask overnight and this morning. c/o restless leg. c/o anxiety. c/o SOB. c/o RUQ and LUQ abdominal pain. Denies fever or chills. Denies nausea or vomiting. 10/10: Been on 2L oxygen overnight. Tolerating Suboxone SL without overly sedated or dyspnea/respiratory failure. Denies SOB. Denies fever or chills. c/o mild RUQ and LUQ abdominal pain. Denies nausea or vomiting. Denies leg restless. 10/11: Been on between 2-4L/min oxygen overnight. c/o abdominal distention and excessive gas. Denies abdominal pain. Denies nausea/vomiting. Had 2 episode of bowel incontinence this morning. Denies SOB. Denies anxiety. 10/12: Afebrile overnight. Been on between 2-3L/min oxygen overnight. c/o abdominal distention and excessive gas. c/o 8/10 RUQ and LUQ abdominal pain, sharp. Denies nausea/vomiting. Good appetite. Denies SOB. Denies anxiety. Constitutional Vitals: Vital Signs Temp Pulse Resp BP Pulse Ox 36.1 C 68 18 132/77 94 10/12/20 11:16 10/12/20 11:16 10/12/20 11:16 10/12/20 11:16 10/12/20 11:16 Period Temp Pulse Resp BP Sys/Bryant Pulse Ox Last 24 Hr 36.1 C-36.9 C 65-75 14-20 109-132/70-81 91-97 Intake and Output 10/11/20 10/12/20 10/12/20 21:59 05:59 13:59 Intake Total 1350 1470 390 Output Total 900 1250 Balance 450 220 390 Weight 120.769 kg Intake & Output: Intake & Output 10/11/20 10/12/20 10/12/20 21:59 05:59 13:59 Intake Total 1350 1470 390 Output Total 900 1250 Balance 450 220 390 Weight 120.769 kg Intake: Nourishment/Supplement quantity 240 (ml) IV 1350 250 150 Sodium Chloride 0.9% 1,000 ml @ 1000 75 mls/hr IV .[id number] [facility] Rx#: [id number] Merrem 1 gm In Sodium Chloride 50 50 50 0.9% 50 ml @ 100 mls/hr IV Q8H [facility] Rx#:[id number] Oral 1220 Output: Urine Catheter Amount 900 1250 Other: Meal Breakfast Percent of Meal Consumed 75% Urine Appearance Clear Sediment Uretheral (Servin) Sediment Sediment Urine Color Dark Yellow Dark Yellow Uretheral (Servin) Dark Yellow Dark Yellow General appearance: cooperative and no acute distress Head Head exam: Present atraumatic and normocephalic Eye Eye exam: Present EOMI and PERRL ENT ENT exam: Present mucous membranes moist, normal exam and normal external ear exam Additional comments: Nasal cannula in place Neck Neck exam: Present normal inspection; Absent lymphadenopathy, tenderness and thyromegaly Respiratory Respiratory exam: Absent accessory muscle use, respiratory distress and wheezes Cardiovascular Cardiovascular exam: Present normal rate and rhythm; Absent JVD GI/Abdominal GI/Abdominal exam: Present normal bowel sounds, soft and tenderness; Absent organomegaly Extremities Exam Extremities exam: Present full ROM, normal capillary refill and normal inspection; Absent tenderness Neurological Exam Neurological exam: Present alert, CN II-XII intact and oriented X3; Absent motor sensory deficit Psychiatric Psychiatric exam: Present normal affect and normal mood; Absent anxious and depressed Skin Skin exam: Present dry and intact OBJ DATA Labs CBC & Chem 7: 10/12/20 05:22 10/12/20 05:22 Labs: Abnormal Lab Results 10/12/20 10/12/20 10/11/20 05:22 05:22 06:38 WBC 18.8 H 25.1 H Hgb 11.1 L 11.1 L Hct 33.2 L 33.9 L RDW 14.6 H 14.7 H MPV 12.3 H 11.4 H Neut % (Auto) 87.9 H 91.5 H Lymph % (Auto) 5.4 L 3.7 L Lymph # (Auto) 1.02 L 0.94 L [place] # (Auto) 1.07 H 0.99 H Absolute Neutrophils 16.54 H 22.94 H Potassium 3.1 L BUN Creatinine 0.5 L Calcium 7.6 L AST 37 H Total Protein 5.1 L Albumin 2.3 L Albumin/Globulin Ratio 0.8 L 10/11/20 10/10/20 10/10/20 06:37 05:59 05:59 WBC 19.5 H Hgb Hct 33.5 L RDW 15.2 H MPV 11.6 H Neut % (Auto) 85.9 H Lymph % (Auto) 7.3 L Lymph # (Auto) 1.42 L [place] # (Auto) 1.18 H Absolute Neutrophils 16.76 H Potassium BUN 27 H Creatinine 0.5 L Calcium 7.7 L AST 45 H Total Protein 5.5 L Albumin 2.7 L 3.1 L Albumin/Globulin Ratio Meds: Medications Albuterol/Ipratropium (Ipratropium/Albuterol 3 Ml Ampul.Neb) 3 ml NEB Q4HP PRN PRN Reason: Shortness Of Breath Last Admin: 10/11/20 20:38 Dose: 3 ml Documented by: Budesonide (Budesonide 0.5 Mg/2 Ml Ampul.Neb) 0.5 mg NEB Q12 [facility] Last Admin: 10/12/20 08:05 Dose: 0.5 mg Documented by: Duloxetine HCl (Duloxetine 30 Mg Capsule) 60 mg PO DAILY [facility] Last Admin: 10/12/20 09:48 Dose: 60 mg Documented by: Gabapentin (Gabapentin 300 Mg Capsule) 600 mg PO BID [facility] Last Admin: 10/12/20 09:48 Dose: 600 mg Documented by: Sodium Chloride (Sodium Chloride 0.9%) 1,000 mls @ 75 mls/hr IV .[id number] [facility] Last Admin: 10/12/20 05:59 Dose: Not Given Documented by: Acetaminophen (Ofirmev) 1,000 mg in 100 mls @ 200 mls/hr IV Q6HP PRN; Protocol PRN Reason: Pain Stop: 10/12/20 12:45 Last Infusion: 10/12/20 02:50 Dose: Infused Documented by: Meropenem 1 gm/ Sodium (Chloride) 50 mls @ 100 mls/hr IV Q8H [facility]; Protocol Last Infusion: 10/12/20 06:19 Dose: Infused Documented by: Metronidazole (Flagyl) 500 mg in 100 mls @ 100 mls/hr IV Q6H [facility]; Protocol Last Admin: 10/12/20 12:12 Dose: 100 mls/hr Documented by: Potassium Chloride 20 meq/ (Dextrose) 260 mls @ 130 mls/hr IV ONCE ONE Stop: 10/12/20 14:59 Nicotine (Nicotine 21 Mg Patch) 21 mg TOPICAL DAILY@1000 [facility] Last Admin: 10/12/20 09:49 Dose: 21 mg Documented by: Ondansetron HCl (Ondansetron 4 Mg/2 Ml Vial) 4 mg IV Q6HP PRN PRN Reason: Nausea And Vomiting Last Admin: 10/10/20 22:38 Dose: 4 mg Documented by: Pantoprazole Sodium (Pantoprazole 40 Mg Tablet) 40 mg PO QAMAC [facility] Last Admin: 10/12/20 09:48 Dose: 40 mg Documented by: Phentermine 15 Mg (Capsule) 1 dose PO DAILY [facility] Last Admin: 10/12/20 09:49 Dose: Not Given Documented by: Senna (Sennosides 1 Tablet) 2 tab PO HS [facility] Last Admin: 10/11/20 20:30 Dose: 2 tab Documented by: Simethicone (Simethicone 80 Mg Tab.Chew) 80 mg CHEWED QIDP PRN PRN Reason: Dyspepsia A/P Assessment and plan (1) Acute gallstone pancreatitis: Status: Acute (2) Atelectasis of both lungs: Status: Acute (3) Cholelithiasis with cholecystitis: Status: Acute (4) COPD (chronic obstructive pulmonary disease): Status: Chronic (5) Depression: Status: Chronic (6) Anxiety: Status: Chronic (7) Hypokalemia: Status: Acute Narrative A/P Narrative: Assessment and Plans: 1. Acute respiratory failure with hypercapnia and hypoxemia: Hold sedatives and narcotics for now Supplemental oxygen titrate to acvhieve spo2 >92% DuoNEB NEB q4hr PRN wheezing or SOB Okay to continue Suboxone from home regimen 2. Biliary pancreatitis: Dr. Casper primary team, no surgery for now. Antibiotics Flagyl and Meropenem for now. Consider elective surgery (laparoscopic vs open) cholecystectomy in a few weeks 3. h/o COPD, stable: DuoNEB NEB q4hr PRN wheezing or SOB Pulmicort 4. Depression: Continue Cymbalta 5. GERD: Continue oral PPI from home regimen 6. Excessive bowel gas: Simethicone PRN excessive gas 7. Hypokalemia: Potassium replacement as per protocol CMP in the morning to trend serum potassium level, repeat replacement as needed Also check serum Mg level and replace as needed GI ppx: Continue oral PPI from home regimen DVT ppx: SCDs Code status: Full Prognosis: stable Disposition: inpatient med surg Time Spent With Patient Time: Total time spent is greater than 50% in coordination of care (as documented) at patient's floor/unit and/or counseling patient: Total time spent with greater than 50% in coordination of care (as documented) at patient's floor/unit and/or counseling patient:: 25 - 35 minutes
[2020-10-12] MEDS ORDERED: POTASSIUM CHLORIDE 20 MEQ in DEXTROSE 5% IN WATER 250 ML IV ONE (13:00)
--- NOTE | 2020-10-12 13:19 | XRay Report ---
CLINICAL INFORMATION: Pnemonitis and atelectasis COMPARISON: None. FINDINGS: Mild cardiomegaly is unchanged. Pulmonary vasculature and mediastinum are unremarkable. Completely consolidated right lower lobe atelectasis again noted. . Small right parahilar infiltrate is unchanged. The left lung is clear. Small right pleural effusion is unchanged. IMPRESSION: Dense consolidated atelectasis of the entire right lower lobe-stable. Small right perihilar infiltrate-stable Small right pleural effusion Interpreted and Authenticated by: Teofilo Watt 10/12/20
[2020-10-12] MEDS: SIMETHICONE 80 MG TAB.CHEW CHEWED PRN ×2 (15:43→21:03)
[2020-10-12] MEDS ORDERED: NON FORMULARY MEDICATION 1 DOSE MISCELL SL SCH (21:00)
[2020-10-12] MEDS: SENNOSIDES 1 TABLET PO SCH (21:03)
[2020-10-12] MEDS: IPRATROPIUM/ALBUTEROL 3 ML AMPUL.NEB NEB PRN (23:57)
[2020-10-13] MEDS: MEROPENEM 1 GM in 0.9 % SODIUM CHLORIDE 50 ML IV SCH ×3 (05:44→21:51)
[2020-10-13] MEDS: metroNIDAZOLE 500 MG/100 ML BAG IV SCH ×3 (06:30→18:05)
[2020-10-13 07:23] LABS: Basophils # (Auto) 0.05 K/mcL (0.00-0.30); Basophils % (Auto) 0.3 % (0.0-2.0); Eosinophils # (Auto) 0.25 K/mcL (0.00-0.70); Eosinophils % (Auto) 1.5 % (0.0-7.0); Hematocrit 34.6 % (34.1-44.9); Hemoglobin 11.8 g/dL (11.2-15.7); Lymphocytes # (Auto) 1.25 K/mcL (1.50-4.80); Lymphocytes % (Auto) 7.3 % (15.5-49.0); Mean Cell Volume 89.4 fL (80.0-100.0); Mean Corpuscular HGB Conc 34.1 g/dL (31.0-36.0); Mean Platelet Volume 11.5 fL (7.4-10.4); Monocytes # (Auto) 1.35 K/mcL (0.10-0.90); Monocytes % (Auto) 7.8 % (1.0-12.0); Neutrophils % (Auto) 83.1 % (38.0-78.0); Platelet Count 303 K/mcL (140-440); RBC 3.87 M/mcL (3.59-5.38); Red Cell Distribution Width 14.8 % (11.5-14.5); WBC 17.2 K/mcL (4.5-11.0)
[2020-10-13] MEDS: IPRATROPIUM/ALBUTEROL 3 ML AMPUL.NEB NEB PRN ×2 (08:03→20:08)
[2020-10-13] MEDS: BUDESONIDE 0.5 MG/2 ML AMPUL.NEB NEB SCH ×2 (08:03→20:08)
[2020-10-13 08:12] LABS: ALT/SGPT 30 U/L (<40); AST/SGOT 31 U/L (<32); Albumin 2.4 gm/dL (3.2-5.2); Albumin/Globulin Ratio 0.7 (1.0-2.3); Alkaline Phosphatase 93 U/L (39-117); Bilirubin,Total 0.5 mg/dL (0.1-1.0); Blood Urea Nitrogen 4 mg/dL (6-20); Calcium 7.9 mg/dL (8.6-10.4); Carbon Dioxide 32 mmol/L (22-30); Chloride 97 mmol/L (96-108); Globulin 3.4 gm/dL (2.2-3.7); Glomerular Filtration Rate 100; Glucose 120 mg/dL (70-105)
[2020-10-13] MEDS: PHENTERMINE 15 MG PO SCH (09:11)
[2020-10-13] MEDS: PANTOPRAZOLE 40 MG TABLET PO SCH (09:12)
[2020-10-13] MEDS: DULoxetine 30 MG CAPSULE PO SCH (09:12)
[2020-10-13] MEDS: GABAPENTIN 300 MG CAPSULE PO SCH ×2 (09:12→21:39)
[2020-10-13] MEDS ORDERED: MAGNESIUM SULFATE 2 GM/50 ML BAG IV ONE (09:46)
[2020-10-13] MEDS ORDERED: POTASSIUM CHLORIDE 20 MEQ TABLET PO ONE (09:47)
--- NOTE | 2020-10-13 10:57 | Internal Med Progress Note ---
SUBJECTIVE Subjective Patient information: Note initiated : 10/13/20 at 10:53 am Service Date, if different from initiated Date: [] Patient: Elida Russell 60 y/o F admitted on 10/01/20 for Abdominal Pain. Chief Complaint: [acute respiratory failure] Principal diagnosis: Acute pancreatitis;Respiratory failure; mental status change. Interval history: Who presented to the ED on the for upper right quadrant and left upper quadrant pain nausea vomiting. Patient was admitted for pancreatitis and concern for gallbladder etiology. On the she had a diagnostic laparoscopy with the findings of severe inflammation of the entire upper abdomen and gallbladder omentum: Stomach liver small bowel inflammation was too severe to do cholecystectomy open or laparoscopically. Is felt that because of the inflammation it was best to allow that to clear and then do a laparoscopic cholecystectomy at a later time. She was noted to have some early pneumonitis. Postprocedural she was anxious and restless in bed. She received 1 mg of Ativan and since then been extremely lethargic and slow to respond temperature is 100.0. He was given Narcan with no response. Chest x-ray was read as atelectasis and mucous plug in the right lobe. Patient noted be wheezy and poor inspiratory effort. Radiology report x-ray shows consolidated atelectasis right middle lobe and to consider mucous plug and that right middle lobe of the bronchus. Report also shows near complete resolution of mild bilateral lower lobe infiltrates. Disc oid atelectasis left midlung. Patient now waking up and clinical bed. She is oriented but appears like she is coming out of anesthesia. Denies cough. She has COPD but does not wear oxygen at home. 10/08: Being transferred to PCU with initiation of BiPAP overnight. Been switched to 2L nasal cannula oxygen tonight. Afebrile overnight. Denies confusion or pain currently. Denies nausea, vomiting, diarrhea, or constipation. Denies fever, chills, or sweating. 10/09: Being transferred back to med surg from PCU last night. Been on 2-3L oxygen via oxymask overnight and this morning. c/o restless leg. c/o anxiety. c/o SOB. c/o RUQ and LUQ abdominal pain. Denies fever or chills. Denies nausea or vomiting. 10/10: Been on 2L oxygen overnight. Tolerating Suboxone SL without overly sedated or dyspnea/respiratory failure. Denies SOB. Denies fever or chills. c/o mild RUQ and LUQ abdominal pain. Denies nausea or vomiting. Denies leg restless. 10/11: Been on between 2-4L/min oxygen overnight. c/o abdominal distention and excessive gas. Denies abdominal pain. Denies nausea/vomiting. Had 2 episode of bowel incontinence this morning. Denies SOB. Denies anxiety. 10/12: Afebrile overnight. Been on between 2-3L/min oxygen overnight. c/o abdominal distention and excessive gas. c/o 09/23 RUQ and LUQ abdominal pain, sharp. Denies nausea/vomiting. Good appetite. Denies SOB. Denies anxiety. 10/13: Afebrile overnight. Tolerating room air. Denies abdominal distention and excessive gas. Mild RUQ and LUQ abdominal pain. Denies nausea/vomiting. Good appetite. Denies SOB. Denies anxiety. Constitutional Vitals: Vital Signs Temp Pulse Resp BP Pulse Ox 36.7 C 90 16 115/68 92 10/13/20 08:00 10/13/20 08:04 10/13/20 08:04 10/13/20 08:00 10/13/20 08:04 Period Temp Pulse Resp BP Sys/Bryant Pulse Ox Last 24 Hr 35.9 C-37.0 C 65-90 16-24 113-132/68-77 92-97 Intake and Output 10/12/20 10/13/20 10/13/20 21:59 05:59 13:59 Intake Total 1210 350 150 Output Total 1150 750 Balance 1210 -800 -600 Weight 122.425 kg Intake & Output: Intake & Output 10/12/20 10/13/20 10/13/20 21:59 05:59 13:59 Intake Total 1210 350 150 Output Total 1150 750 Balance 1210 -800 -600 Weight 122.425 kg Intake: IV 410 150 150 Merrem 1 gm In Sodium Chloride 50 50 50 0.9% 50 ml @ 100 mls/hr IV Q8H [facility] Rx#:[id number] Potassium Chloride 20 Meq In 260 Dextrose 5% in Water 250 ml @ 130 mls/hr IV ONCE ONE Rx#: [id number] Oral 800 200 Output: Void Amount 1150 750 Other: Urine Appearance Clear Urine Color Dark Yellow Dark Yellow Dark Yellow Urine Odor Normal # Voids 1 General appearance: cooperative and no acute distress Head Head exam: Present atraumatic and normocephalic Eye Eye exam: Present EOMI and PERRL ENT ENT exam: Present mucous membranes moist, normal exam and normal external ear exam Neck Neck exam: Present normal inspection; Absent lymphadenopathy, tenderness and thyromegaly Respiratory Respiratory exam: Absent accessory muscle use, respiratory distress and wheezes Cardiovascular Cardiovascular exam: Present normal rate and rhythm; Absent JVD GI/Abdominal GI/Abdominal exam: Present normal bowel sounds, soft and tenderness; Absent organomegaly Extremities Exam Extremities exam: Present full ROM, normal capillary refill and normal in spection; Absent tenderness Neurological Exam Neurological exam: Present alert, CN II-XII intact and oriented X3; Absent motor sensory deficit Psychiatric Psychiatric exam: Present normal affect and normal mood; Absent anxious and depressed Skin Skin exam: Present dry and intact OBJ DATA Labs CBC & Chem 7: 10/13/20 06:19 10/13/20 06:19 Labs: Abnormal Lab Results 10/13/20 10/13/20 10/12/20 06:19 06:19 05:22 WBC 17.2 H Hgb Hct RDW 14.8 H MPV 11.5 H Neut % (Auto) 83.1 H Lymph % (Auto) 7.3 L Lymph # (Auto) 1.25 L [place] # (Auto) 1.35 H Absolute Neutrophils 14.33 H Potassium 3.0 L 3.1 L Carbon Dioxide 32 H Anion Gap 5.0 L BUN 4 L Creatinine 0.5 L Glucose 120 H Calcium 7.9 L 7.6 L AST 37 H Total Protein 5.8 L 5.1 L Albumin 2.4 L 2.3 L Albumin/Globulin Ratio 0.7 L 0.8 L 10/12/20 10/11/20 10/11/20 05:22 06:38 06:37 WBC 18.8 H 25.1 H Hgb 11.1 L 11.1 L Hct 33.2 L 33.9 L RDW 14.6 H 14.7 H MPV 12.3 H 11.4 H Neut % (Auto) 87.9 H 91.5 H Lymph % (Auto) 5.4 L 3.7 L Lymph # (Auto) 1.02 L 0.94 L [place] # (Auto) 1.07 H 0.99 H Absolute Neutrophils 16.54 H 22.94 H Potassium Carbon Dioxide Anion Gap BUN Creatinine 0.5 L Glucose Calcium 7.7 L AST 45 H Total Protein 5.5 L Albumin 2.7 L Albumin/Globulin Ratio Meds: Medications Albuterol/Ipratropium (Ipratropium/Albuterol 3 Ml Ampul.Neb) 3 ml NEB Q4HP PRN PRN Reason: Shortness Of Breath Last Admin: 10/13/20 08:03 Dose: 3 ml Documented by: Budesonide (Budesonide 0.5 Mg/2 Ml Ampul.Neb) 0.5 mg NEB Q12 [facility] Last Admin: 10/13/20 08:03 Dose: 0.5 mg Documented by: Duloxetine HCl (Duloxetine 30 Mg Capsule) 60 mg PO DAILY [facility] Last Admin: 10/13/20 09:12 Dose: 60 mg Documented by: Gabapentin (Gabapentin 300 Mg Capsule) 600 mg PO BID [facility] Last Admin: 10/13/20 09:12 Dose: 600 mg Documented by: Meropenem 1 gm/ Sodium (Chloride) 50 mls @ 100 mls/hr IV Q8H [facility]; Protocol Last Infusion: 10/13/20 06:35 Dose: Infused Documented by: Metronidazole (Flagyl) 500 mg in 100 mls @ 100 mls/hr IV Q6H [facility]; Protocol Last Infusion: 10/13/20 08:54 Dose: Infused Documented by: Magnesium Sulfate (Magnesium Sulfate) 2 gm in 50 mls @ 25 mls/hr IV ONCE ONE Stop: 10/13/20 11:45 Nicotine (Nicotine 21 Mg Patch) 21 mg TOPICAL DAILY@1000 [facility] Last Admin: 10/12/20 09:49 Dose: 21 mg Documented by: Ondansetron HCl (Ondansetron 4 Mg/2 Ml Vial) 4 mg IV Q6HP PRN PRN Reason: Nausea And Vomiting Last Admin: 10/10/20 22:38 Dose: 4 mg Documented by: Pantoprazole Sodium (Pantoprazole 40 Mg Tablet) 40 mg PO QAMAC [facility] Last Admin: 10/13/20 09:12 Dose: 40 mg Documented by: Phentermine 15 Mg (Capsule) 1 dose PO DAILY [facility] Last Admin: 10/13/20 09:11 Dose: Not Given Documented by: Buprenorphine- Naloxone 8 Mg-2 Mg Sublingual Film 0.5 dose PO HS [facility] Senna (Sennosides 1 Tablet) 2 tab PO HS [facility] Last Admin: 10/12/20 21:03 Dose: 2 tab Documented by: Simethicone (Simethicone 80 Mg Tab.Chew) 80 mg CHEWED QIDP PRN PRN Reason: Dyspepsia Last Admin: 10/12/20 21:03 Dose: 80 mg Documented by: A/P Assessment and plan (1) Acute gallstone pancreatitis: Status: Acute (2) Atelectasis of both lungs: Status: Acute (3) Cholelithiasis with cholecystitis: Status: Acute (4) COPD (chronic obstructive pulmonary disease): Status: Chronic (5) Depression: Status: Chronic (6) Anxiety: Status: Chronic (7) Hypokalemia: Status: Acute Narrative A/P Narrative: Assessment and Plans: 1. Acute respiratory failure with hypercapnia and hypoxemia: Hold sedatives and narcotics for now Now tolerating room air DuoNEB NEB q4hr PRN wheezing or SOB Okay to continue Suboxone from home regimen 2. Biliary pancreatitis: Dr. Casper primary team, no surgery for now. Antibiotics Flagyl and Meropenem for now. Consider elective surgery (laparoscopic vs open) cholecystectomy in a few weeks CT abdomen pelvis today 3. h/o COPD, stable: DuoNEB NEB q4hr PRN wheezing or SOB Pulmicort 4. Depression: Continue Cymbalta 5. GERD: Continue oral PPI from home regimen 6. Excessive bowel gas: Simethicone PRN excessive gas 7. Hypokalemia/hypomagnesemia: Potassium replacement as per protocol CMP in the morning to trend serum potassium level, repeat replacement as needed Also check serum Mg level and replace as needed GI ppx: Continue oral PPI from home regimen DVT ppx: SCDs Code status: Full Prognosis: stable Disposition: inpatient med surg SINCE RESPIRATORY FAILURE IS RESOLVED, WILL SIGN OFF AT THIS POINT. PLEASE FEEL FREE TO RECONSULT IF ANY NEW ISSUE(S) ARISE. Time Spent With Patient Time: Total time spent is greater than 50% in coordination of care (as documented) at patient's floor/unit and/or counseling patient:
[2020-10-13] MEDS: NICOTINE 21 MG PATCH TOPICAL SCH (10:59)
[2020-10-13] MEDS ORDERED: IOPAMIDOL 100 ML BOTTLE IV ONE (13:43)
--- NOTE | 2020-10-13 14:20 | Cat Scan Report ---
History: Abdominal pain, pulmonary infiltrate, inflammation the pancreas TECHNIQUE: The patient was imaged following oral and intravenous contrast scanning from the thoracic inlet to the symphysis pubis. Sagittal and coronal reformats were created of the chest and abdomen along with axial MIPS images of the chest. The radiation exposure was limited using dose reduction technology. FINDINGS:. CHEST: There is a large right-sided pleural effusion. There is complete atelectasis of the right lower lobe and the right middle lobe. These have become worse since prior CT done on 10/07/20. Minor compressive atelectasis is present posteriorly in the right upper lobe. There are small patchy groundglass alveolar infiltrates in the left upper lobe. The superior segment left lower lobe there is a stable 1.2 cm pulmonary nodule. Tiny left-sided pleural effusion is present. The heart size is normal. No pericardial effusion is present. The central pulmonary arteries are normal without evidence of emboli. Centrally within the liver near the boundary left and right lobes there is a 3.7 x 3.9 cm lesion. It has a low-attenuation peripheral component and a high attenuation 1 cm central component. This has enlarged since a prior CT done at 10/07/20. At that time it measured 3.1 cm. There is edema/fluid in the kayce hepatis. There small amount of ascites is present. There is fluid in the right upper quadrant and small amount of fluid deep in the pelvis. There is inflammation in or around the head and body and tail the pancreas. The pancreatitis has become worse since 10/07/20. Pancreatic duct is nondilated. The gallbladder is contracted. The bile ducts are nondilated. The spleen, adrenals and kidneys are normal. There is no hydronephrosis. Oral contrast has passed through stomach and small intestine to the distal ileum. The wall of the antrum of the stomach as well as the second portion the duodenum are thickened and inflamed. This may be secondary inflammation from the pancreatitis. There is air within the urinary bladder. Was the patient recently catheterized? Subcutaneous edema is present along the lateral abdominal wall bilaterally. This has become worse. Aorta and inferior vena cava are normal. There are scattered calcified plaques in the iliac arteries. No adenopathy is present.. IMPRESSION: Enlarging right-sided pleural effusion causing complete atelectasis of the right middle lobe and right lower lobe Subtle infiltrate in the left upper lobe Stable pulmonary nodule left lower lobe Enlarging low-attenuation lesion near the boundary between left and right lobes of the liver. This may be a liver abscess Worsening pancreatitis with secondary inflammation of the distal stomach and proximal duodenum Interpreted and Authenticated by: Maynor Cheema 10/13/20
[2020-10-13] MEDS ORDERED: diphenhydrAMINE 25 MG CAPSULE PO PRN (14:43)
--- NOTE | 2020-10-13 15:31 | General Surgery Progress Note ---
SUBJECTIVE Subjective Patient information: Note initiated : 10/13/20 at 3:23 pm Service Date, if different from initiated Date: [] Patient: Elida Russell 60 y/o F admitted on 10/01/20 for Abdominal Pain. Chief Complaint: [] Principal diagnosis: Acute pancreatitis;Respiratory failure; mental status change. Interval history: Patient continues to improve. She has much improved respiratory status and is able to maintain oxygen saturations above 90% on room air. She is able to ambulate to the area of the cafeteria with standby assistance without severe dyspnea. Mentally she is much more alert and aware. She carries on a normal conversation and answers questions appropriately. White blood count is down to 17,000. CT suggests that there is an inflammatory lesion of the medial aspect of the right lobe of the liver suspicious for possible abscess. There is the anticipated inflammation of the stomach and the head of the pancreas from previous pancreatitis. This appears to be stable. Patient's abdominal pain is much improved and she is not requiring any significant analgesics at this time. CT of the lung confirms atelectasis and right lower lobe consolidation from probable mucous plug. I have consulted Dr. Alva for possible diagnostic bronchoscopy. Hopefully this can be done within the next day or so. Constitutional Vitals: Vital Signs Temp Pulse Resp BP Pulse Ox 98.2 F 72 24 H 127/84 92 10/13/20 12:00 10/13/20 12:00 10/13/20 12:00 10/13/20 12:00 10/13/20 12:00 Period Temp Pulse Resp BP Sys/Bryant Pulse Ox Last 24 Hr 96.6 F-98.6 F 65-90 16-24 113-127/68-84 92-97 Intake and Output 10/13/20 10/13/20 10/13/20 05:59 13:59 21:59 Intake Total 350 1246 50 Output Total 1150 750 Balance -800 496 50 Intake & Output: Intake & Output 10/13/20 10/13/20 10/13/20 05:59 13:59 21:59 Intake Total 350 1246 50 Output Total 1150 750 Balance -800 496 50 Intake: IV 150 300 50 Merrem 1 gm In Sodium Chloride 50 50 50 0.9% 50 ml @ 100 mls/hr IV Q8H [facility] Rx#:[id number] Oral 200 946 Output: Void Amount 1150 750 Other: Urine Color Dark Yellow Dark Yellow Urine Odor Normal Head Head exam: Present atraumatic, normal inspection and normocephalic Eye Eye exam: Present EOMI, normal appearance and PERRL Pupils: Present normal accommodation ENT ENT exam: Present mucous membranes moist, normal exam and normal external ear exam Neck Neck exam: Present normal inspection; Absent lymphadenopathy, tenderness and thyromegaly Respiratory Respiratory exam: Present decreased breath sounds (Significant decreased breath sounds on the right base but full clear breath sounds on the left; no rhonchi wheezes or rales) Cardiovascular Cardiovascular exam: Present normal rate and rhythm, RRR, +S1 and +S2; Absent JVD GI/Abdominal GI/Abdominal exam: Present normal bowel sounds, soft, distended and tenderness (Very mild upper abdominal tenderness); Absent guarding Extremities Exam Extremities exam: Present full ROM and neurovascular intact; Absent calf tenderness, joint swelling, pedal edema and tenderness Neurological Exam Neurological exam: Present alert, normal gait and oriented X3; Absent motor sensory deficit Psychiatric Psychiatric exam: Present anxious and normal affect Skin Additional comments: Partially confluent erythematous patchy nonraised blanching rash primarily of the posterior trunk and flank regions. There is no pruritic component. A/P Assessment and plan (1) Acute gallstone pancreatitis: Status: Acute (2) Pneumonitis: Status: Acute (3) Cholelithiasis with cholecystitis: Status: Acute (4) Atelectasis of both lungs: Status: Acute (5) COPD (chronic obstructive pulmonary disease): Status: Chronic Narrative A/P Narrative: Continue present therapy with antibiotics Consult pulmonology for possible bronchoscopy Potential discharge in 1 to 2 days Time Spent With Patient Time: Total time spent is greater than 50% in coordination of care (as documented) at patient's floor/unit and/or counseling patient:
[2020-10-13] MEDS ORDERED: BUPRENORPHINE NALOXONE PO SCH ×2 (21:00)
[2020-10-13] MEDS ORDERED: BUPRENORPHINE/NALOXONE 4MG/1MG ORAL FILM SL SCH (21:00)
[2020-10-13] MEDS: SENNOSIDES 1 TABLET PO SCH (21:45)
[2020-10-14] MEDS: metroNIDAZOLE 500 MG/100 ML BAG IV SCH ×3 (00:09→11:45)
[2020-10-14] MEDS: MEROPENEM 1 GM in 0.9 % SODIUM CHLORIDE 50 ML IV SCH ×3 (06:24→21:27)
[2020-10-14 06:41] LABS: Basophils # (Auto) 0.06 K/mcL (0.00-0.30); Basophils % (Auto) 0.3 % (0.0-2.0); Eosinophils # (Auto) 0.24 K/mcL (0.00-0.70); Eosinophils % (Auto) 1.3 % (0.0-7.0); Hematocrit 37.6 % (34.1-44.9); Hemoglobin 12.7 g/dL (11.2-15.7); Lymphocytes # (Auto) 0.47 K/mcL (1.50-4.80); Lymphocytes % (Auto) 2.5 % (15.5-49.0); Mean Cell Volume 89.3 fL (80.0-100.0); Mean Corpuscular HGB Conc 33.8 g/dL (31.0-36.0); Mean Platelet Volume 11.3 fL (7.4-10.4); Monocytes # (Auto) 1.33 K/mcL (0.10-0.90); Monocytes % (Auto) 7.2 % (1.0-12.0); Neutrophils % (Auto) 88.7 % (38.0-78.0); Platelet Count 340 K/mcL (140-440); RBC 4.21 M/mcL (3.59-5.38); Red Cell Distribution Width 15.1 % (11.5-14.5); WBC 18.5 K/mcL (4.5-11.0)
[2020-10-14] MEDS: PANTOPRAZOLE 40 MG TABLET PO SCH (06:43)
[2020-10-14 07:32] LABS: ALT/SGPT 26 U/L (<40); AST/SGOT 29 U/L (<32); Albumin 2.7 gm/dL (3.2-5.2); Albumin/Globulin Ratio 0.7 (1.0-2.3); Alkaline Phosphatase 109 U/L (39-117); Bilirubin,Total 0.7 mg/dL (0.1-1.0); Blood Urea Nitrogen 4 mg/dL (6-20); Calcium 7.9 mg/dL (8.6-10.4); Carbon Dioxide 30 mmol/L (22-30); Chloride 94 mmol/L (96-108); Globulin 3.7 gm/dL (2.2-3.7); Glomerular Filtration Rate 100; Glucose 95 mg/dL (70-105)
[2020-10-14] MEDS ORDERED: ACETAMINOPHEN 500 MG TABLET PO PRN ×2 (08:56→09:00)
[2020-10-14] MEDS: BUDESONIDE 0.5 MG/2 ML AMPUL.NEB NEB SCH ×2 (09:05→19:24)
[2020-10-14] MEDS: IPRATROPIUM/ALBUTEROL 3 ML AMPUL.NEB NEB PRN ×3 (09:05→23:33)
[2020-10-14] MEDS: PHENTERMINE 15 MG PO SCH (10:04)
[2020-10-14] MEDS: DULoxetine 30 MG CAPSULE PO SCH ×2 (10:27→10:33)
[2020-10-14] MEDS: NICOTINE 21 MG PATCH TOPICAL SCH (10:32)
[2020-10-14] MEDS: HYDROCORTISONE CRM 1% TUBE 30GM TOPICAL SCH ×2 (10:33→21:28)
[2020-10-14] MEDS: GABAPENTIN 300 MG CAPSULE PO SCH ×2 (10:33→21:28)
--- NOTE | 2020-10-14 12:29 | General Surgery Progress Note ---
SUBJECTIVE Subjective Patient information: Note initiated : 10/14/20 at 12:25 pm Service Date, if different from initiated Date: [] Patient: Elida Russell 60 y/o F admitted on 10/01/20 for Abdominal Pain. Chief Complaint: [] Principal diagnosis: Acute pancreatitis;Respiratory failure; mental status change. Interval history: Patient is stable except for atelectasis right lower lobe. She had some fever today which was treated with Tylenol. She still has elevated white count at 18,000. She denies abdominal pain. Patient will be started on Mucomyst with albuterol every 6 hours to try to break up her mucus plugging. She will also receive humidified oxygen. Constitutional Vitals: Vital Signs Temp Pulse Resp BP Pulse Ox 99.9 F H 80 18 129/73 90 10/14/20 11:46 10/14/20 08:55 10/14/20 08:55 10/14/20 08:00 10/14/20 08:55 Period Temp Pulse Resp BP Sys/Bryant Pulse Ox Last 24 Hr 97.3 F-101.4 F 70-88 18-24 103-143/64-80 86-95 Intake and Output 10/13/20 10/14/20 10/14/20 21:59 05:59 13:59 Intake Total 550 1000 1840 Output Total 500 Balance 50 1000 1840 Weight 271 lb 9.6 oz Intake & Output: Intake & Output 10/13/20 10/14/20 10/14/20 21:59 05:59 13:59 Intake Total 550 1000 1840 Output Total 500 Balance 50 1000 1840 Weight 271 lb 9.6 oz Intake: IV 150 100 200 Merrem 1 gm In Sodium Chloride 50 100 0.9% 50 ml @ 100 mls/hr IV Q8H [facility] Rx#:[id number] Oral 051 580 7723 Output: Void Amount 500 Other: Meal Dinner Breakfast Percent of Meal Consumed 25% 100% Feeding Ability Assist with Tray Set Up Urine Color Dark Yellow Stool Size Small Small Moderate Stool Color Brown Brown Brown Yellow Stool Consistency Liquid Liquid Watery Loose Loose Loose # Voids 1 1 1 # Bowel Movements 1 1 1 Head Head exam: Present atraumatic, normal inspection and normocephalic Eye Eye exam: Present EOMI, normal appearance and PERRL Pupils: Present normal accommodation ENT ENT exam: Present mucous membranes moist and normal oropharynx Neck Neck exam: Present normal inspection; Absent lymphadenopathy, tenderness and thyromegaly Cardiovascular Cardiovascular exam: Present normal rate and rhythm, RRR, +S1 and +S2; Absent JVD GI/Abdominal GI/Abdominal exam: Present normal bowel sounds, soft, distended and tenderness (Very mild upper abdominal tenderness); Absent guarding Extremities Exam Extremities exam: Present full ROM and neurovascular intact; Absent calf tenderness, joint swelling, pedal edema and tenderness Back Exam Back exam: Present full ROM and normal inspection Neurological Exam Neurological exam: Present alert, normal gait and oriented X3; Absent motor sensory deficit Psychiatric Psychiatric exam: Present anxious and normal affect Skin Additional comments: Partially confluent erythematous patchy nonraised blanching rash primarily of the posterior trunk and flank regions. There is no pruritic component. A/P Assessment and plan (1) Acute gallstone pancreatitis: Status: Acute (2) Pneumonitis: Status: Acute (3) Cholelithiasis with cholecystitis: Status: Acute (4) Atelectasis of both lungs: Status: Acute (5) COPD (chronic obstructive pulmonary disease): Status: Chronic Narrative A/P Narrative: Add Mucomyst with albuterol every 6 hours Follow-up chest x-ray tomorrow Continue IV antibiotics Time Spent With Patient Time: Total time spent is greater than 50% in coordination of care (as documented) at patient's floor/unit and/or counseling patient:
[2020-10-14] MEDS ORDERED: ACETYLCYSTEINE 800 MG/4 ML VIAL NEB SCH ×4 (13:00→19:00)
[2020-10-14 13:56] LABS: INR 1.3 (0.9-1.1); Prothrombin Time 16.8 sec (11.9-14.5)
--- NOTE | 2020-10-14 14:56 | XRay Report ---
HISTORY: Post right-sided thoracentesis FINDINGS: There is no pneumothorax following the preceding right-side thoracentesis. There has been partial reaeration of the right lower lobe. The right middle lobe still appears consolidated. There is a residual small right-sided pleural effusion. Most but not all of fluid was drained. Left lung is clear. IMPRESSION: Improving aeration of the right lung following thoracentesis Interpreted and Authenticated by: Maynor Cheema 10/14/20
--- NOTE | 2020-10-14 15:22 | Ultrasound Report ---
CLINICAL INFORMATION: Right-sided pleural effusion, pancreatitis TECHNIQUE: The procedure and risks were explained and the patient consented. A moderate volume of pleural fluid was localized posteriorly in the right lower thorax. The overlying skin was prepped with ChloraPrep then anesthetized with 1% lidocaine. Using ultrasound guidance a multi sidehole drainage catheter was inserted into the pleural space. 1.2 L of dark brandi-colored fluid was removed. Fluid was sent to the laboratory for analysis. Most but not all the fluid was drained. She tolerated the procedure well without complication. IMPRESSION: Successful right-sided thoracentesis removing 1.2 L of fluid Interpreted and Authenticated by: Maynor Cheema 10/14/20
--- NOTE | 2020-10-14 16:46 | Consultation ---
DATE OF CONSULTATION: 10/14/2020 HISTORY OF PRESENT ILLNESS: The patient is a 60-year-old female who indicates that after a long time of back trouble she started having some abdominal discomfort and pains. She was subsequently evaluated in the emergency room on 10/02/2020 and admitted to observation. She was found by laboratory evaluations and imaging to have probable pancreatitis and biliary tree dilation. She was seen in consultation by Dr. Casper on 10/03/2020. The patient's condition was addressed with antibiotic therapy and conservative management initially. The patient had at presentation bilateral basilar atelectasis, plus/minus a right infiltrate. Subsequent inpatient hospitalization, required additional medical therapy of atelectasis and CT scan of the abdomen and subsequently abdomen, chest and pelvis demonstrated a large right pleural effusion with atelectasis of the right lower lobe. The patient has undergone thoracentesis earlier today with lab results pending at this time, but about 1.2 liters of pleural fluid were removed. At this time, the patient is having discomfort secondary to pleural reapproximation but is conversational. The patient reports smoking until the day prior to surgery, approximately 40 pack-years. She indicates that she has had her last cigarette and she is encouraged to follow through on that as she will likely be withdrawn from nicotine prior to her discharge from the hospital. She reports a well childhood. She denies known exposure to tuberculosis or previous PPD skin testing. 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 There is a lab cross in the home. She denies being a significantly allergic person. She describes chronic cough consistent with chronic bronchitis. I find no pulmonary function study testing in the record at this time. Systems review is negative for cardiac disease. She reports siblings with cardiac disease who are older. She reports that she had rheumatoid arthritis, previously affecting her proximal interphalangeal joints and ''knuckles.'' She has not had therapy for that in some time, and it has been relatively quiescent. Laboratory data demonstrates the presence of elevated amylase and lipase consistent with her diagnosis of pancreatitis. Imaging shows bibasilar atelectasis, worse on the right, which subsequently is known to have been due to a complicating effusion. ASSESSMENT AND PLAN: The initial impression is that of significant tobacco-related chronic obstructive pulmonary disease with pain-induced bilateral atelectasis of the lower lobes of the lungs and a sympathetic pleural effusion to her pancreatic/abdominal process. Results on that fluid are still pending at this time. Removal of pleural fluid, accompanied by rigorous flutter valve and incentive spirometry to help expand her right lower lung would seem prudent at this time, as well as cool mist high-flow oxygen and Mucomyst to try and keep any airway secretions thin. Agree with antibiotics to cover possible anaerobic bacterial infections in this process, although it is not clear that the lungs are primarily infected at this time. Unfortunately, I am leaving town through the holiday weekend, and hopefully the conservative measures will be able to keep her lungs open without need to consider bronchoscopy for a persistent mucus plug once compression under pleural fluid is improved. Usually aggressive conservative measures are adequate to keep the airways open with proper pain control, incentive spirometry, and flutter valve and as mentioned above. Thank you for the opportunity to participate in the care of this pleasant patient. KJShadi:nitin Job ID: [id number] Doc ID: [id number] Saji Alva MD Addendum 10/15/2020 11:20 AM: Remote computer review; The patient's pleural Fluid studies are available. . The findings are mixed with an elevated LDH but normal fluid protein ratio. The elevated LDH may be due to hemolysis ( 50K RBC in the fluid). Glucose reported 132. The fluid is likely transudative. Continued thoracentesis as required and appropriate antibiotic coverage for any organisms that might be identified would be prudent. I don't see initial culture report. . Continue airway clearance maneuvers such as flutter valve and IS and CPT (at least Q4 hours coordinated with pain control); along with cool mist high flow O2 and mucolytics are recommended and hopefully adequate to expand the lung... Saji SANCHEZ
[2020-10-14 17:54] LABS: Appearance,Pleural Fluid Hazy; Color,Pleural Fluid Yellow; Lymphocytes,Pleural Fluid 3 %; Monocytes,Pleural Fluid 10 %; Neutrophils,Pleural Fluid 87 %; Nucleated Cells,Pleural Fld 3033 /cumm; RBC,Pleural Fluid <50,000 /cumm
[2020-10-14 18:12] LABS: Amylase,Pleural Fluid 33 U/L; Glucose,Pleural Fluid 132 mg/dL
[2020-10-14 18:18] LABS: LDH,Pleural Fluid 369 U/L (<122)
[2020-10-14] MEDS: ACETYLCYSTEINE 800 MG/4 ML VIAL NEB SCH ×2 (19:25→23:33)
[2020-10-14] MEDS ORDERED: PATIENTS OWN MEDICATION 1 DOSE MISCELL PO SCH (21:00)
[2020-10-14] MEDS: SENNOSIDES 1 TABLET PO SCH (21:42)
[2020-10-15] MEDS: MEROPENEM 1 GM in 0.9 % SODIUM CHLORIDE 50 ML IV SCH ×3 (05:28→22:36)
[2020-10-15] MEDS: ACETYLCYSTEINE 800 MG/4 ML VIAL NEB SCH ×4 (05:56→22:34)
[2020-10-15] MEDS: PANTOPRAZOLE 40 MG TABLET PO SCH (07:42)
--- NOTE | 2020-10-15 08:12 | XRay Report ---
HISTORY: Short of breath, follow-up right sided pleural effusion and atelectasis FINDINGS: There is a small to moderate size right-sided pleural effusion. This has partially reaccumulated following yesterday's thoracentesis. There is still significant atelectasis in the right middle and right lower lobes. This has become somewhat worse following yesterday's thoracentesis but is less severe than it had been on 10/12/20. A nodule is again seen centrally in the left lung. This is a chronic finding. The left lung is otherwise clear. The heart size is normal. There is no pulmonary vascular congestion. IMPRESSION: Atelectasis in the right lower thorax with a slowly reaccumulating right-side pleural effusion Interpreted and Authenticated by: Maynor Cheema 10/15/20
[2020-10-15] MEDS: IPRATROPIUM/ALBUTEROL 3 ML AMPUL.NEB NEB PRN ×2 (08:20→12:22)
[2020-10-15] MEDS: BUDESONIDE 0.5 MG/2 ML AMPUL.NEB NEB SCH ×3 (08:20→22:33)
[2020-10-15] MEDS: DULoxetine 30 MG CAPSULE PO SCH (08:38)
[2020-10-15] MEDS: GABAPENTIN 300 MG CAPSULE PO SCH ×2 (08:39→22:34)
[2020-10-15] MEDS: HYDROCORTISONE CRM 1% TUBE 30GM TOPICAL SCH ×2 (08:39→22:34)
[2020-10-15] MEDS: PHENTERMINE 15 MG PO SCH (08:39)
[2020-10-15 08:48] LABS: Basophils # (Auto) 0.05 K/mcL (0.00-0.30); Basophils % (Auto) 0.3 % (0.0-2.0); Hematocrit 35.3 % (34.1-44.9); Hemoglobin 11.5 g/dL (11.2-15.7); Lymphocytes # (Auto) 0.94 K/mcL (1.50-4.80); Lymphocytes % (Auto) 6.4 % (15.5-49.0); Mean Cell Volume 90.7 fL (80.0-100.0); Mean Corpuscular HGB Conc 32.6 g/dL (31.0-36.0); Mean Platelet Volume 11.1 fL (7.4-10.4); Monocytes # (Auto) 1.48 K/mcL (0.10-0.90); Neutrophils % (Auto) 81.3 % (38.0-78.0); Platelet Count 362 K/mcL (140-440); RBC 3.89 M/mcL (3.59-5.38); Red Cell Distribution Width 14.9 % (11.5-14.5); WBC 14.8 K/mcL (4.5-11.0)
[2020-10-15] MEDS: NICOTINE 21 MG PATCH TOPICAL SCH (10:54)
--- NOTE | 2020-10-15 11:01 | General Surgery Progress Note ---
SUBJECTIVE Subjective Patient information: Note initiated : 10/15/20 at 10:50 am Service Date, if different from initiated Date: [] Patient: Elida Russell 60 y/o F admitted on 10/01/20 for Abdominal Pain. Chief Complaint: [] Principal diagnosis: Acute pancreatitis; right lung atelectasis; right pleural effusion Interval history: Patient continues to improve. She had thoracentesis yesterday with removal of 1200 cc of fluid. This fluid had white cells and red cells but no bacteria seen. Maximum temperature has been 99.3. She has much improved ventilation and decrease shortness of breath. White blood count is down to 14.8. Serum lipase is 31. Chest x-ray today shows some reaccumulation of fluid but still improved from previously. 61 Constitutional Vitals: Vital Signs Temp Pulse Resp BP Pulse Ox 99.3 F H 52 L 18 101/60 92 10/15/20 08:00 10/15/20 08:20 10/15/20 08:20 10/15/20 08:00 10/15/20 08:20 Period Temp Pulse Resp BP Sys/Bryant Pulse Ox Last 24 Hr 98.6 F-99.9 F 52-118 16-22 92-116/60-66 92-97 Intake and Output 10/14/20 10/15/20 10/15/20 21:59 05:59 13:59 Intake Total 1920 600 50 Balance 1920 600 50 Weight 271 lb 14.4 oz Intake & Output: Intake & Output 10/14/20 10/15/20 10/15/20 21:59 05:59 13:59 Intake Total 1920 600 50 Balance 1920 600 50 Weight 271 lb 14.4 oz Intake: IV 100 50 Merrem 1 gm In Sodium Chloride 100 50 0.9% 50 ml @ 100 mls/hr IV Q8H [facility] Rx#:[id number] Oral 1820 600 Other: Meal Dinner Percent of Meal Consumed 100% Feeding Ability Independent Urine Color Dark Yellow Urine Odor Normal Stool Size Moderate Stool Color Brown Stool Consistency Watery Loose # Voids 1 1 # Bowel Movements 1 Head Head exam: Present atraumatic, normal inspection and normocephalic Eye Eye exam: Present EOMI, normal appearance and PERRL Pupils: Present normal accommodation ENT ENT exam: Present mucous membranes moist and normal oropharynx Neck Neck exam: Present normal inspection; Absent lymphadenopathy, tenderness and thyromegaly Respiratory Respiratory exam: Present decreased breath sounds (Significant decreased breath sounds on the right base but full clear breath sounds on the left; no rhonchi wheezes or rales) Cardiovascular Cardiovascular exam: Present normal rate and rhythm, RRR, +S1 and +S2; Absent JVD GI/Abdominal GI/Abdominal exam: Present normal bowel sounds, soft, distended and tenderness (Very mild upper abdominal tenderness); Absent guarding Extremities Exam Extremities exam: Present full ROM and neurovascular intact; Absent calf tenderness, joint swelling, pedal edema and tenderness Neurological Exam Neurological exam: Present alert, normal gait and oriented X3; Absent motor sensory deficit Psychiatric Psychiatric exam: Present anxious and normal affect Skin Additional comments: Partially confluent erythematous patchy nonraised blanching rash primarily of the posterior trunk and flank regions. There is no pruritic component. A/P Assessment and plan (1) Pneumonitis: Status: Acute (2) Atelectasis of both lungs: Status: Acute (3) COPD (chronic obstructive pulmonary disease): Status: Chronic Narrative A/P Narrative: Continue Mucomyst with albuterol every 6 hours Follow-up chest x-ray tomorrow Continue IV antibiotics Time Spent With Patient Time: Total time spent is greater than 50% in coordination of care (as documented) at patient's floor/unit and/or counseling patient:
[2020-10-15 17:29] LABS: ALT/SGPT 21 U/L (<40); AST/SGOT 34 U/L (<32); Albumin 2.6 gm/dL (3.2-5.2); Albumin/Globulin Ratio 0.7 (1.0-2.3); Alkaline Phosphatase 69 U/L (39-117); Bilirubin,Direct < 0.2 mg/dL (0-0.3); Bilirubin,Total 0.5 mg/dL (0.1-1.0); Blood Urea Nitrogen 5 mg/dL (6-20); Calcium 7.8 mg/dL (8.6-10.4); Carbon Dioxide 30 mmol/L (22-30); Chloride 93 mmol/L (96-108); Globulin 3.5 gm/dL (2.2-3.7); Glomerular Filtration Rate 106; Glucose 101 mg/dL (70-105); Lactate Dehydrogenase 418 U/L (135-225); Phosphorous 2.1 mg/dL (2.5-4.5); Triglycerides 108 mg/dL (<150); Uric Acid 2.8 mg/dL (2.5-8.0)
[2020-10-15] MEDS ORDERED: METOPROLOL TARTRATE 5 MG/5 ML VIAL IV PRN (17:32)
[2020-10-15] MEDS ORDERED: IOPAMIDOL 100 ML BOTTLE IV ONE ×5 (19:50→23:30)
[2020-10-15] MEDS ORDERED: METOPROLOL TARTRATE 5 MG/5 ML VIAL IV ONE (20:20)
[2020-10-15] MEDS ORDERED: BUPRENORPHINE/NALOXONE 4MG/1MG ORAL FILM SL SCH (21:00)
[2020-10-15] MEDS ORDERED: ADENOSINE 3 MG/ML VIAL IV ONE ×2 (21:25→21:49)
[2020-10-15 21:31] LABS: Thyroid Stimulating Hormone 11.98 uIU/mL (0.27-5.01)
[2020-10-15] MEDS ORDERED: fentaNYL 100 MCG/2 ML VIAL IV ONE ×2 (22:04→22:12)
[2020-10-15] MEDS ORDERED: MIDAZOLAM 2 MG/2 ML VIAL IV ONE (22:05)
[2020-10-15] MEDS ORDERED: MIDAZOLAM 2 MG/2 ML VIAL ONE (22:13)
--- NOTE | 2020-10-15 22:14 | Event Note ---
Event Note Event Note: pt with persistent tachycardia 140's-150 today. ekg appeared to have some sinus tach complexes but was difficult to read given the rate and there were some suspicious findings on ekg. Pt has thus had several doses of IV lopressor without effect. We then gave adenosine 6mg which appeared to reveal atrial flutter. given the recent timeframe of the tachyarrhythmia and no history of the same we opted to make an attempt at converting her back to sinus since she is within the timeframe. We used conscious sedation with fentanyl and versed and she converted first time at 50 joules with synchronized cardioversion. We moved her back to the pcu for the night for close monitoring.
[2020-10-15] MEDS: SENNOSIDES 1 TABLET PO SCH (22:34)
[2020-10-15] MEDS ORDERED: HEPARIN 5,000 UNIT/ML VIAL SQ ONE (23:02)
[2020-10-15] MEDS ORDERED: HEPARIN 5,000 UNIT/ML VIAL ONE (23:09)
[2020-10-15] MEDS ORDERED: GLYCOPYRROLATE 0.2 MG/ML VIAL IV ONE (23:30)
[2020-10-15] MEDS ORDERED: ONDANSETRON 4 MG/2 ML VIAL IV PRN (23:30)
[2020-10-15] MEDS ORDERED: diphenhydrAMINE 25 MG CAPSULE PO PRN (23:30)
[2020-10-15] MEDS ORDERED: PHENYLephrine 1 MG/10 ML SYRINGE (ANEST) IV ONE (23:30)
[2020-10-15] MEDS ORDERED: DEXAMETHASONE 10 MG/ML VIAL IV ONE (23:30)
[2020-10-16] MEDS: ACETYLCYSTEINE 800 MG/4 ML VIAL NEB SCH ×4 (00:23→18:28)
[2020-10-16] MEDS: MEROPENEM 1 GM in 0.9 % SODIUM CHLORIDE 50 ML IV SCH ×4 (05:38→21:30)
[2020-10-16] MEDS: ACETAMINOPHEN 500 MG TABLET PO PRN ×2 (07:29→15:00)
[2020-10-16] MEDS: PANTOPRAZOLE 40 MG TABLET PO SCH (07:30)
--- NOTE | 2020-10-16 07:31 | Internal Med Progress Note ---
SUBJECTIVE Subjective Patient information: Note initiated : 10/16/20 at 7:22 am Service Date, if different from initiated Date: [] Patient: Elida Russell 60 y/o F admitted on 10/01/20 for Abdominal Pain. Chief Complaint: [] Principal diagnosis: Acute pancreatitis; right lung atelectasis; right pleural effusion Interval history: Who presented to the ED on the for upper right quadrant and left upper quadrant pain nausea vomiting. Patient was admitted for pancreatitis and concern for gallbladder etiology. On the she had a diagnostic laparoscopy with the findings of severe inflammation of the entire upper abdomen and gallbladder omentum: Stomach liver small bowel inflammation was too severe to do cholecystectomy open or laparoscopically. Is felt that because of the inflammation it was best to allow that to clear and then do a laparoscopic cholecystectomy at a later time. She was noted to have some early pneumonitis. Postprocedural she was anxious and restless in bed. She received 1 mg of Ativan and since then been extremely lethargic and slow to respond temperature is 100.0. He was given Narcan with no response. Chest x-ray was read as atelectasis and mucous plug in the right lobe. Patient noted be wheezy and poor inspiratory effort. Radiology report x-ray shows consolidated atelectasis right middle lobe and to consider mucous plug and that right middle lobe of the bronchus. Report also shows near complete resolution of mild bilateral lower lobe infiltrates. Discoid atelectasis left midlung. Patient now waking up and clinical bed. She is oriented but appears like she is coming out of anesthesia. Denies cough. She has COPD but does not wear oxygen at home. 10/08: Being transferred to PCU with initiation of BiPAP overnight. Been switched to 2L nasal cannula oxygen tonight. Afebrile overnight. Denies confusion or pain currently. Denies nausea, vomiting, diarrhea, or constipation. Denies fever, chills, or sweating. 10/09: Being transferred back to med surg from PCU last night. Been on 2-3L oxygen via oxymask overnight and this morning. c/o restless leg. c/o anxiety. c/o SOB. c/o RUQ and LUQ abdominal pain. Denies fever or chills. Denies nausea or vomiting. 10/10: Been on 2L oxygen overnight. Tolerating Suboxone SL without overly sedated or dyspnea/respiratory failure. Denies SOB. Denies fever or chills. c/o mild RUQ and LUQ abdominal pain. Denies nausea or vomiting. Denies leg restless. 10/11: Been on between 2-4L/min oxygen overnight. c/o abdominal distention and excessive gas. Denies abdominal pain. Denies nausea/vomiting. Had 2 episode of bowel incontinence this morning. Denies SOB. Denies anxiety. 10/12: Afebrile overnight. Been on between 2-3L/min oxygen overnight. c/o abdominal distention and excessive gas. c/o / RUQ and LUQ abdominal pain, sharp. Denies nausea/vomiting. Good appetite. Denies SOB. Denies anxiety. 10/13: Afebrile overnight. Tolerating room air. Denies abdominal distention and excessive gas. Mild RUQ and LUQ abdominal pain. Denies nausea/vomiting. Good appetite. Denies SOB. Denies anxiety. 10/15 Event Note: pt with persistent tachycardia 140's-150 today. ekg appeared to have some sinus tach complexes but was difficult to read given the rate and there were some suspicious findings on ekg. Pt has thus had several doses of IV lopressor without effect. We then gave adenosine 6mg which appeared to reveal atrial flutter. given the recent timeframe of the tachyarrhythmia and no history of the same we opted to make an attempt at converting her back to sinus since she is within the timeframe. We used conscious sedation with fentanyl and versed and she converted first time at 50 joules with synchronized cardioversion. We moved her back to the pcu for the night for close monitoring. 10/16 Patient is sinus rhythm and feeling fine today. No overnight events. Has occasional productive cough and shortness of breath Review of Systems: denies headache/fever/chills/nausea/vomiting/chest or abdominal pain/diarrhea. Otherwise see above. Constitutional Vitals: Vital Signs Temp Pulse Resp BP Pulse Ox 99.2 F H 82 20 121/71 96 10/16/20 06:01 10/16/20 05:01 10/16/20 06:01 10/16/20 06:01 10/16/20 05:01 Period Temp Pulse Resp BP Sys/Bryant Pulse Ox Last 24 Hr 97.9 F-99.4 F 52-149 16-31 96-123/56-80 92-96 Intake and Output 10/15/20 10/16/20 10/16/20 21:59 05:59 13:59 Intake Total 1090 450 150 Output Total 1650 325 175 Balance -560 125 -25 Weight 122.969 kg Intake & Output: Intake & Output 10/15/20 10/16/20 10/16/20 21:59 05:59 13:59 Intake Total 1090 450 150 Output Total 1650 325 175 Balance -560 125 -25 Weight 122.969 kg Intake: IV 50 50 50 Merrem 1 gm In Sodium Chloride 50 50 50 0.9% 50 ml @ 100 mls/hr IV Q8H [facility] Rx#:[id number] Oral 1040 400 100 Output: Void Amount 1650 325 175 Other: Meal Dinner Percent of Meal Consumed 75% Feeding Ability Independent Urine Appearance Clear Clear Clear Urine Color Bright Yellow Dark Yellow Dark Yellow Urine Odor Strong Strong # Voids 1 Exam: General: Awake, no acute distress, obese Eyes/N/T: EOMI, , Head/Neck: neck supple, CV: RRR, No murmurs, Pulm: Diminished b/l R>L with mild rales/rhonchi, no wheezing Abd: soft, nontender, +BS x4 Ext: no clubbing/cyanosis, b/l LE edema Neuro: alert, no focal deficits, moves all extremities, Skin: warm/dry Head Head exam: Present atraumatic and normal inspection Eye Eye exam: Present normal appearance ENT ENT exam: Present mucous membranes moist, normal exam and normal external ear exam Neck Neck exam: Present normal inspection Respiratory Respiratory exam: Present normal respiratory exam Cardiovascular Cardiovascular exam: Present normal rate and rhythm GI/Abdominal GI/Abdominal exam: Present normal bowel sounds Back Exam Back exam: Present normal inspection Neurological Exam Neurological exam: Present alert and oriented X3 Skin Skin exam: Present intact and warm OBJ DATA Labs CBC & Chem 7: 10/15/20 08:12 10/15/20 08:12 Labs: Abnormal Lab Results 10/15/20 10/15/20 10/15/20 20:06 08:12 08:12 WBC 14.8 H RDW 14.9 H MPV 11.1 H Neut % (Auto) 81.3 H Lymph % (Auto) 6.4 L Lymph # (Auto) 0.94 L [place] # (Auto) 1.48 H Absolute Neutrophils 12.03 H PT INR Potassium Chloride 93 L Carbon Dioxide Anion Gap BUN 5 L Creatinine 0.5 L Glucose Calcium 7.8 L Phosphorus 2.1 L GGT 63 H AST 34 H Lactate Dehydrogenase 418 H Total Protein Albumin 2.6 L Albumin/Globulin Ratio 0.7 L TSH 11.98 H Pleural LDH 10/14/20 10/14/20 10/14/20 15:00 13:10 05:49 WBC RDW MPV Neut % (Auto) Lymph % (Auto) Lymph # (Auto) [place] # (Auto) Absolute Neutrophils PT 16.8 H INR 1.3 H Potassium Chloride 94 L Carbon Dioxide Anion Gap BUN 4 L Creatinine Glucose Calcium 7.9 L Phosphorus GGT AST Lactate Dehydrogenase Total Protein Albumin 2.7 L Albumin/Globulin Ratio 0.7 L TSH Pleural LDH 369 H 10/14/20 10/13/20 10/13/20 05:49 06:19 06:19 WBC 18.5 H 17.2 H RDW 15.1 H 14.8 H MPV 11.3 H 11.5 H Neut % (Auto) 88.7 H 83.1 H Lymph % (Auto) 2.5 L 7.3 L Lymph # (Auto) 0.47 L 1.25 L Huntington # (Auto) 1.33 H 1.35 H Absolute Neutrophils 16.37 H 14.33 H PT INR Potassium 3.0 L Chloride Carbon Dioxide 32 H Anion Gap 5.0 L BUN 4 L Creatinine Glucose 120 H Calcium 7.9 L Phosphorus GGT AST Lactate Dehydrogenase Total Protein 5.8 L Albumin 2.4 L Albumin/Globulin Ratio 0.7 L TSH Pleural LDH Meds: Medications Acetaminophen (Acetaminophen 500 Mg Tablet) 1,000 mg PO Q6HP PRN; Protocol PRN Reason: Per Pain Protocol Acetylcysteine (Acetylcysteine 800 Mg/4 Ml Vial) 600 mg NEB Q6 [facility] Last Admin: 10/16/20 00:23 Dose: Not Given Documented by: Albuterol/Ipratropium (Ipratropium/Albuterol 3 Ml Ampul.Neb) 3 ml NEB Q4HP PRN PRN Reason: Shortness Of Breath Budesonide (Budesonide 0.5 Mg/2 Ml Ampul.Neb) 0.5 mg NEB Q12 [facility] Buprenorphine HCl (Buprenorphine/Naloxone 4mg/1mg Oral Film) 0.5 each SL HS [facility] Diphenhydramine HCl (Diphenhydramine 25 Mg Capsule) 50 mg PO Q6HP PRN PRN Reason: Allergic Symptoms Duloxetine HCl (Duloxetine 30 Mg Capsule) 60 mg PO DAILY [facility] Gabapentin (Gabapentin 300 Mg Capsule) 600 mg PO BID [facility] Hydrocortisone (Hydrocortisone Crm 1% Tube 30gm) 1 dose TOPICAL BID [facility] Meropenem 1 gm/ Sodium (Chloride) 50 mls @ 100 mls/hr IV Q8H [facility]; Protocol Last Infusion: 10/16/20 06:30 Dose: Infused Documented by: Metoprolol Tartrate (Metoprolol Tartrate 5 Mg/5 Ml Vial) 5 mg IV Q4HP PRN PRN Reason: Tachyarrhythmias Nicotine (Nicotine 21 Mg Patch) 21 mg TOPICAL DAILY@1000 [facility] Ondansetron HCl (Ondansetron 4 Mg/2 Ml Vial) 4 mg IV Q6HP PRN PRN Reason: Nausea And Vomiting Pantoprazole Sodium (Pantoprazole 40 Mg Tablet) 40 mg PO QAMAC [facility] Phentermine 15 Mg (Capsule) 1 dose PO DAILY [facility] Senna (Sennosides 1 Tablet) 2 tab PO HS [facility] Simethicone (Simethicone 80 Mg Tab.Chew) 80 mg CHEWED QIDP PRN PRN Reason: Dyspepsia A/P Narrative A/P Narrative: A: *Single episode of AFlutter 2:1 (10/15): converted with single shock 50j synchronized cardioversion -no history of same. *Acute hypoxic respitory failure: 2/2 atelectasis/mucous plug/poor respiratory effort/pleural effusion -on 2L NC *Atelectasis/mucous plugging right/Pleural effusion appearing transudative -Thora 1200cc (10/14) -seen by Dr. Alva *Biliary pancreatitis w/pseudocyst: per Dr. Casper, eventual surgery *COPD (not on home O2): *Depression: *GERD: *Obesity: *Electrolyte imbalance: Replete as needed P: -IS/Acapella/CPT per RT -caution with sedating meds -Surgery for eventual laparoscopic cholecystectomy, on abx -cont IH's - -ppx: heparin / ppi Time Spent With Patient Time: Total time spent is greater than 50% in coordination of care (as doc umented) at patient's floor/unit and/or counseling patient:
[2020-10-16] MEDS: HYDROCORTISONE CRM 1% TUBE 30GM TOPICAL SCH ×2 (07:46→21:30)
--- NOTE | 2020-10-16 08:02 | Cat Scan Report ---
History: Pancreatitis, tachycardia, abdominal pain, pleural effusion, atelectasis TECHNIQUE: Intravenous nonionic contrast was injected. Arterial phase images were acquired through the chest. Sagittal, coronal and axial MIPS images were created. Delayed excretory phase images were obtained of the abdomen and pelvis. Sagittal and coronal reformats were created. Radiation exposure was limited using dose reduction technology. FINDINGS: CHEST: The pulmonary arteries are normal without evidence of emboli. The aorta is normal in caliber with no plaque formation dissection. The heart is normal in size and contour. There are no coronary artery plaques. There is a small to moderate size layering pleural effusion on the right. There is also small amount of loculated fluid laterally in the right apex. There is moderate atelectasis in the right middle and right lower lobes. Underlying pneumonia cannot be excluded. There is no lung abscess. Tiny layering left-sided pleural effusion is present. Thin bands of discoid atelectasis are present in the posterior basal segment left lower lobe. There is a subtle streaky infiltrate anteriorly in the superior segment of the lingula. Several reactive lymph nodes are present in the mediastinum and both umair. The largest mediastinal lymph node is in the pretracheal retrocaval space and measures 9 x 14 mm. Abdomen and pelvis: Centrally in the liver near the boundary is left and right lobes there is a 3.5 x 4.2 cm low-attenuation lesion. Centrally there is a 1.3 cm solid structure with intermediate attenuation. This lesion measured 3.7 x 3.9 cm on 10/13/20 and was 3.1 cm on 10/07/20. There is edema in the portal hepatus. The spleen is normal in size and homogeneous. Patient still has active pancreatitis with inflammation and multiple pancreatic pseudocysts adjacent to the pancreas. There is an enlarging pseudocyst in the right upper quadrant below the liver and anterior to the hepatic flexure. It measures 6 x 15 cm. It measured 5 x 12 cm on 10/13/20. There is also significant inflammation of the adjacent omental fat to the right of midline in the epigastrium. The inflammation of the has also progressed. There is a moderate amount of fluid surrounding the gallbladder. The gallbladder is become more contracted. There are no stones. The bile ducts are nondilated. The adrenals and kidneys are normal. There is no inflammation of the kidneys and no hydronephrosis. There is retained oral contrast in the large intestine following the prior CT scan. Small intestine is nondistended. Patient has developed abnormal thickening of the wall of the descending and sigmoid colon. This causing narrowing and distortion of the lumen, most notably in the mid sigmoid colon. The wall measures up to 11 mm. There are no diverticula. There is no evidence of fistula or pericolonic abscess. Small amount of free fluid is seen deep in the pelvis. The uterus is been removed. Neither ovary is visualized. There is gas in the urinary bladder. Was the patient recently catheterized? Moderate subcutaneous edema is present in the abdominal wall bilaterally. This is stable. IMPRESSION: No evidence of pulmonary emboli Small to moderate size right-sided pleural effusion which is slowly reaccumulating following the recent thoracentesis. Moderate atelectasis in the right middle and right lower lobe Slowly enlarging low-attenuation lesion centrally in the liver which could be a liver abscess Acute pancreatitis with enlarging pseudocysts in the right upper quadrant and inflammation of the omental fat in the right epigastrium New onset colitis in the descending and sigmoid colon Dr. Weston was called with the report Interpreted and Authenticated by: Maynor Cheema 10/16/20
[2020-10-16] MEDS ORDERED: ALBUMIN HUMAN 12.5 GM/50 ML BAG IV ONE (08:12)
[2020-10-16] MEDS ORDERED: FUROSEMIDE 40 MG/4 ML VIAL IV ONE (08:12)
[2020-10-16] MEDS: BUDESONIDE 0.5 MG/2 ML AMPUL.NEB NEB SCH ×2 (08:36→18:28)
[2020-10-16] MEDS: IPRATROPIUM/ALBUTEROL 3 ML AMPUL.NEB NEB PRN ×2 (08:37→18:28)
[2020-10-16] MEDS ORDERED: GABAPENTIN 300 MG CAPSULE PO SCH (09:00)
[2020-10-16] MEDS: HEPARIN 5,000 UNIT/ML VIAL SQ SCH ×3 (09:35→21:53)
[2020-10-16] MEDS: DULoxetine 30 MG CAPSULE PO SCH (09:38)
[2020-10-16] MEDS: PHENTERMINE 15 MG PO SCH (09:57)
[2020-10-16] MEDS ORDERED: NICOTINE 21 MG PATCH TOPICAL SCH (10:00)
[2020-10-16 10:13] LABS: Basophils # (Auto) 0.04 K/mcL (0.00-0.30); Basophils % (Auto) 0.2 % (0.0-2.0); Eosinophils # (Auto) 0.06 K/mcL (0.00-0.70); Eosinophils % (Auto) 0.3 % (0.0-7.0); Hematocrit 32.3 % (34.1-44.9); Hemoglobin 11.2 g/dL (11.2-15.7); Lymphocytes % (Auto) 2.9 % (15.5-49.0); Mean Cell Volume 88.5 fL (80.0-100.0); Mean Corpuscular HGB Conc 34.7 g/dL (31.0-36.0); Mean Platelet Volume 11.5 fL (7.4-10.4); Monocytes # (Auto) 0.79 K/mcL (0.10-0.90); Monocytes % (Auto) 4.6 % (1.0-12.0); Platelet Count 362 K/mcL (140-440); RBC 3.65 M/mcL (3.59-5.38); Red Cell Distribution Width 14.9 % (11.5-14.5); WBC 17.2 K/mcL (4.5-11.0)
[2020-10-16 10:16] LABS: Free T4 (Free Thyroxine) 0.72 ng/dL (0.93-1.70)
--- NOTE | 2020-10-16 12:18 | General Surgery Progress Note ---
SUBJECTIVE Subjective Patient information: Note initiated : 10/16/20 at 12:04 pm Service Date, if different from initiated Date: [] Patient: Elida Russell 60 y/o F admitted on 10/01/20 for Abdominal Pain. Chief Complaint: [] Principal diagnosis: Acute pancreatitis; right lung atelectasis; right pleural effusion Interval history: Patient appears to be clinically stable. She had supraventricular tachycardia last evening. This was felt to be atrial flutter. It did not respond to medical management so she had sedation with cardioversion. This was successful and she is now in sinus rhythm with a heart rate of 76. She has had intermittent temperature elevations 101 degrees. Her white blood count is 17.2 and hemoglobin is 11.2. On the CT that was done last evening it shows that the fluid collection in the right upper quadrant liver lesion is larger. Discussed this with radiology and they will make arrangements to have both areas drain tomorrow after her heparin is held. Oxygenation has been good. She does not appear to be in any respiratory compromise. Constitutional Vitals: Vital Signs Temp Pulse Resp BP Pulse Ox 101.2 F H 75 16 87/56 92 10/16/20 08:01 10/16/20 10:01 10/16/20 10:01 10/16/20 10:01 10/16/20 10:01 Period Temp Pulse Resp BP Sys/Byrant Pulse Ox Last 24 Hr 97.9 F-101.2 F 60-149 16-31 87-152/56-108 89-96 Intake and Output 10/15/20 10/16/20 10/16/20 21:59 05:59 13:59 Intake Total 1090 450 200 Output Total 1650 325 875 Balance -560 125 -675 Weight 271 lb 1.6 oz Intake & Output: Intake & Output 10/15/20 10/16/20 10/16/20 21:59 05:59 13:59 Intake Total 1090 450 200 Output Total 1650 325 875 Balance -560 125 -675 Weight 271 lb 1.6 oz Intake: IV 50 50 100 Merrem 1 gm In Sodium Chloride 50 50 50 0.9% 50 ml @ 100 mls/hr IV Q8H [facility] Rx#:[id number] Oral 1040 400 100 Output: Void Amount 1650 325 875 Other: Meal Dinner Percent of Meal Consumed 75% Feeding Ability Independent Urine Appearance Clear Clear Clear Urine Color Bright Yellow Dark Yellow Pale Urine Odor Strong Strong # Voids 1 Head Head exam: Present atraumatic and normal inspection Eye Eye exam: Present EOMI, normal appearance and PERRL Pupils: Present normal accommodation ENT ENT exam: Present mucous membranes moist and normal oropharynx Neck Neck exam: Present normal inspection; Absent lymphadenopathy, tenderness and thyromegaly Respiratory Respiratory exam: Present decreased breath sounds (Significant decreased breath sounds on the right base but full clear breath sounds on the left; no rhonchi wheezes or rales) Cardiovascular Cardiovascular exam: Present normal rate and rhythm, RRR, +S1 and +S2; Absent JVD GI/Abdominal GI/Abdominal exam: Present normal bowel sounds, soft, distended and tenderness (Very mild upper abdominal tenderness); Absent guarding Extremities Exam Extremities exam: Present full ROM and neurovascular intact; Absent calf tenderness, joint swelling, pedal edema and tenderness Neurological Exam Neurological exam: Present alert, normal gait and oriented X3; Absent motor sensory deficit Psychiatric Psychiatric exam: Present anxious and normal affect Skin Additional comments: Partially confluent erythematous patchy nonraised blanching rash primarily of the posterior trunk and flank regions. There is no pruritic component. A/P Assessment and plan (1) Pneumonitis: Status: Acute (2) Acute gallstone pancreatitis: Status: Acute (3) Recurrent right pleural effusion: Status: Acute (4) Abscess, hepatic: Status: Acute (5) Cholelithiasis with cholecystitis: Status: Acute Narrative A/P Narrative: Continue present antibiotics Scheduled for aspiration of the right upper quadrant fluid collection in the hepatic fluid collection tomorrow Alter antibiotic regimen based on culture and sensitivity from the fluid colle ctions Time Spent With Patient Time: Total time spent is greater than 50% in coordination of care (as documented) at patient's floor/unit and/or counseling patient:
[2020-10-16 12:33] LABS: ALT/SGPT 18 U/L (<40); AST/SGOT 26 U/L (<32); Albumin 2.4 gm/dL (3.2-5.2); Albumin/Globulin Ratio 0.7 (1.0-2.3); Alkaline Phosphatase 69 U/L (39-117); Bilirubin,Direct < 0.2 mg/dL (0-0.3); Bilirubin,Total 0.5 mg/dL (0.1-1.0); Blood Urea Nitrogen 5 mg/dL (6-20); Carbon Dioxide 29 mmol/L (22-30); Chloride 92 mmol/L (96-108); Globulin 3.4 gm/dL (2.2-3.7); Glomerular Filtration Rate 106; Glucose 111 mg/dL (70-105); Lactate Dehydrogenase 311 U/L (135-225); Phosphorous 2.3 mg/dL (2.5-4.5); Triglycerides 137 mg/dL (<150); Uric Acid 2.6 mg/dL (2.5-8.0)
[2020-10-16] MEDS: ADENOSINE 3 MG/ML VIAL IV ONE ×2 (12:33→17:17)
[2020-10-16] MEDS: METOPROLOL TARTRATE 5 MG/5 ML VIAL IV PRN ×2 (12:35→12:41)
[2020-10-16] MEDS ORDERED: DILTIAZEM 25 MG/5 ML VIAL IV ONE (12:51)
[2020-10-16] MEDS ORDERED: POTASSIUM CHLORIDE 20 MEQ in DEXTROSE 5% IN WATER 250 ML IV ONE (12:56)
[2020-10-16] MEDS ORDERED: POTASSIUM CHLORIDE 20 MEQ TABLET PO ONE (12:56)
[2020-10-16] MEDS ORDERED: MAGNESIUM SULFATE 2 GM/50 ML BAG IV ONE ×2 (12:56→13:00)
[2020-10-16] MEDS ORDERED: DILTIAZEM 125 MG in DEXTROSE 5% IN WATER 100 ML IV SCH (13:00)
[2020-10-16] MEDS ORDERED: METOPROLOL TARTRATE 25 MG TABLET PO ONE (14:01)
[2020-10-16 15:34] LABS: Band Neutrophils % 15 % (0-10); Lymphocytes % 2 % (15-49); Monocytes % (Manual) 6 % (1-12); Platelet Estimate NORMAL (Normal); RBC Morphology NORMAL (Normal); Segmented Neutrophils % 77 % (38-78)
--- NOTE | 2020-10-16 15:49 | Non-GYN Cytology Report ---
Non Adoption Services Manager Cytology NG Diagnosis PLEURAL FLUID, RIGHT, THORACENTESIS: --- REACTIVE MESOTHELIAL CELLS WITH ACUTE INFLAMMATION. --- NO ATYPICAL OR MALIGNANT CELLS IDENTIFIED. (RLF) NG Micro Description ThinPrep, cytospin and cell block slides are examined and demonstrate reactive mesothelial cells, macrophages, numerous neutrophils and a few lymphocytes. No atypical or malignant cells are identified. NG Gross Description Received 1100 mL cloudy orange fluid. Electronically Signed Terra Manuel MD, FCAP Electronically Signed 10/16/2020 15:48
[2020-10-16] MEDS ORDERED: FUROSEMIDE 20 MG/2 ML VIAL IV ONE (16:31)
[2020-10-16] MEDS: SIMETHICONE 80 MG TAB.CHEW CHEWED PRN (19:11)
[2020-10-16] MEDS: METOPROLOL TARTRATE 25 MG TABLET PO SCH (21:29)
[2020-10-16] MEDS: SENNOSIDES 1 TABLET PO SCH (21:29)
[2020-10-16] MEDS: BUPRENORPHINE/NALOXONE 4MG/1MG ORAL FILM SL SCH (21:32)
[2020-10-16] MEDS: 0.9 % SODIUM CHLORIDE 10 ML SYRINGE IV SCH (21:35)
[2020-10-17] MEDS: ACETYLCYSTEINE 800 MG/4 ML VIAL NEB SCH ×6 (01:36→23:36)
[2020-10-17] MEDS: IPRATROPIUM/ALBUTEROL 3 ML AMPUL.NEB NEB PRN ×4 (01:36→23:35)
[2020-10-17] MEDS: 0.9 % SODIUM CHLORIDE 10 ML SYRINGE IV SCH ×4 (05:27→21:18)
[2020-10-17] MEDS: MEROPENEM 1 GM in 0.9 % SODIUM CHLORIDE 50 ML IV SCH ×3 (05:27→21:17)
[2020-10-17] MEDS: BUDESONIDE 0.5 MG/2 ML AMPUL.NEB NEB SCH ×3 (07:38→19:01)
[2020-10-17 07:49] LABS: ALT/SGPT 20 U/L (<40); AST/SGOT 29 U/L (<32); Albumin 2.3 gm/dL (3.2-5.2); Albumin/Globulin Ratio 0.7 (1.0-2.3); Alkaline Phosphatase 55 U/L (39-117); Bilirubin,Direct < 0.2 mg/dL (0-0.3); Bilirubin,Total 0.5 mg/dL (0.1-1.0); Blood Urea Nitrogen 6 mg/dL (6-20); Calcium 7.6 mg/dL (8.6-10.4); Carbon Dioxide 30 mmol/L (22-30); Chloride 90 mmol/L (96-108); Globulin 3.3 gm/dL (2.2-3.7); Glomerular Filtration Rate 100; Glucose 84 mg/dL (70-105); Lactate Dehydrogenase 351 U/L (135-225); Phosphorous 2.5 mg/dL (2.5-4.5); Triglycerides 139 mg/dL (<150); Uric Acid 2.7 mg/dL (2.5-8.0)
--- NOTE | 2020-10-17 08:00 | Internal Med Progress Note ---
SUBJECTIVE Subjective Patient information: Note initiated : 10/17/20 at 7:53 am Service Date, if different from initiated Date: [] Patient: Elida Russell 60 y/o F admitted on 10/01/20 for Abdominal Pain. Chief Complaint: [] Principal diagnosis: Acute pancreatitis; right lung atelectasis; right pleural effusion Interval history: Who presented to the ED on the for upper right quadrant and left upper quadrant pain nausea vomiting. Patient was admitted for pancreatitis and concern for gallbladder etiology. On the she had a diagnostic laparoscopy with the findings of severe inflammation of the entire upper abdomen and gallbladder omentum: Stomach liver small bowel inflammation was too severe to do cholecystectomy open or laparoscopically. Is felt that because of the inflammation it was best to allow that to clear and then do a laparoscopic cholecystectomy at a later time. She was noted to have some early pneumonitis. Postprocedural she was anxious and restless in bed. She received 1 mg of Ativan and since then been extremely lethargic and slow to respond temperature is 100.0. He was given Narcan with no response. Chest x-ray was read as atelectasis and mucous plug in the right lobe. Patient noted be wheezy and poor inspiratory effort. Radiology report x-ray shows consolidated atelectasis right middle lobe and to consider mucous plug and that right middle lobe of the bronchus. Report also shows near complete resolution of mild bilateral lower lobe infiltrates. Discoid atelectasis left midlung. Patient now waking up and clinical bed. She is oriented but appears like she is coming out of anesthesia. Denies cough. She has COPD but does not wear oxygen at home. 10/08: Being transferred to PCU with initiation of BiPAP overnight. Been switched to 2L nasal cannula oxygen tonight. Afebrile overnight. Denies confusion or pain currently. Denies nausea, vomiting, diarrhea, or constipation. Denies fever, chills, or sweating. 10/09: Being transferred back to med surg from PCU last night. Been on 2-3L oxygen via oxymask overnight and this morning. c/o restless leg. c/o anxiety. c/o SOB. c/o RUQ and LUQ abdominal pain. Denies fever or chills. Denies nausea or vomiting. 10/10: Been on 2L oxygen overnight. Tolerating Suboxone SL without overly sedated or dyspnea/respiratory failure. Denies SOB. Denies fever or chills. c/o mild RUQ and LUQ abdominal pain. Denies nausea or vomiting. Denies leg restless. 10/11: Been on between 2-4L/min oxygen overnight. c/o abdominal distention and excessive gas. Denies abdominal pain. Denies nausea/vomiting. Had 2 episode of bowel incontinence this morning. Denies SOB. Denies anxiety. 10/12: Afebrile overnight. Been on between 2-3L/min oxygen overnight. c/o abdominal distention and excessive gas. c/o / RUQ and LUQ abdominal pain, sharp. Denies nausea/vomiting. Good appetite. Denies SOB. Denies anxiety. 10/13: Afebrile overnight. Tolerating room air. Denies abdominal distention and excessive gas. Mild RUQ and LUQ abdominal pain. Denies nausea/vomiting. Good appetite. Denies SOB. Denies anxiety. 10/15 Event Note: pt with persistent tachycardia 140's-150 today. ekg appeared to have some sinus tach complexes but was difficult to read given the rate and there were some suspicious findings on ekg. Pt has thus had several doses of IV lopressor without effect. We then gave adenosine 6mg which appeared to reveal atrial flutter. given the recent timeframe of the tachyarrhythmia and no history of the same we opted to make an attempt at converting her back to sinus since she is within the timeframe. We used conscious sedation with fentanyl and versed and she converted first time at 50 joules with synchronized cardioversion. We moved her back to the pcu for the night for close monitoring. 10/16 Patient is sinus rhythm and feeling fine today. No overnight events. Has occasional productive cough and shortness of breath pt went into afib/flutter rvr, asymptomatic rates 140-170's. She flipped back and forth multiple times between sinus and tachyarrhythmia. Tried lopressor IV x2, then switched to dilt bolus/gtt but converted back before started Mildly low potassium and low magnesium noted on labs today. will replete potassium and magnesium. 10/17 pt do undergo drainage of liver, concern for infection. 10/18. Bandemia Patient states she feels little better today. Leukocytosis resolved today. Bandemia improved. Had good urine output from Lasix yesterday. Currently on room air with sats 89- 92. Mild hyponatremia on a.m. labs. Review of Systems: denies headache/fever/chills/nausea/vomiting/chest or abdominal pain/diarrhea. Otherwise see above. Constitutional Vitals: Vital Signs Temp Pulse Resp BP Pulse Ox 97.9 F 66 13 104/67 96 10/17/20 07:18 10/17/20 07:29 10/17/20 07:29 10/17/20 07:22 10/17/20 07:29 Period Temp Pulse Resp BP Sys/Bryant Pulse Ox Last 24 Hr 97.8 F-101.2 F 65-89 10- 87-152/56-108 89-98 Intake and Output 10/16/20 10/17/20 10/17/20 21:59 05:59 13:59 Intake Total 1640 50 Output Total 550 350 Balance 1090 -300 Weight 117.798 kg Intake & Output: Intake & Output 10/16/20 10/17/20 10/17/20 21:59 05:59 13:59 Intake Total 1640 50 Output Total 550 350 Balance 1090 -300 Weight 117.798 kg Intake: Nourishment/Supplement quantity 240 (ml) IV 360 50 Merrem 1 gm In Sodium Chloride 50 50 0.9% 50 ml @ 100 mls/hr IV Q8H [facility] Rx#:[id number] Potassium Chloride 20 Meq In 260 Dextrose 5% in Water 250 ml @ 130 mls/hr IV ONCE ONE Rx#: [id number] Oral 1040 Output: Void Amount 550 350 Other: Meal Dinner Percent of Meal Consumed 75% Feeding Ability Independent Nourishment/Supplement name ensure clear Urine Appearance Clear Clear Urine Color Bright Yellow Bright Yellow Urine Odor Normal Normal Exam: General: Awake, no acute distress, obese Eyes/N/T: EOMI, , Head/Neck: neck supple, CV: RRR, No murmurs, Pulm: Diminished b/l R>L with improving rales/rhonchi, no wheezing Abd: soft, nontender, +BS x4 Ext: no clubbing/cyanosis, b/l LE edema 1-2+ Neuro: alert, no focal deficits, moves all extremities, Skin: warm/dry OBJ DATA Labs CBC & Chem 7: 10/17/20 05:33 10/17/20 05:33 Labs: Abnormal Lab Results 10/17/20 10/16/20 10/16/20 05:33 08:35 08:33 WBC Hct RDW MPV Neut % (Auto) Lymph % (Auto) Lymph # (Auto) [place] # (Auto) Band Neutrophils % 15 H Lymphocytes % 2 L Absolute Neutrophils PT INR Sodium 130 L Chloride 90 L BUN Creatinine Glucose Calcium 7.6 L Phosphorus Magnesium GGT 42 H AST Lactate Dehydrogenase 351 H Total Protein 5.6 L Albumin 2.3 L Albumin/Globulin Ratio 0.7 L TSH Free T4 0.72 L Pleural LDH 10/16/20 10/16/20 10/15/20 08:33 08:33 20:06 WBC 17.2 H Hct 32.3 L RDW 14.9 H MPV 11.5 H Neut % (Auto) 92.0 H Lymph % (Auto) 2.9 L Lymph # (Auto) 0.50 L [place] # (Auto) Band Neutrophils % Lymphocytes % Absolute Neutrophils 15.81 H PT INR Sodium Chloride 92 L BUN 5 L Creatinine 0.5 L Glucose 111 H Calcium 8.0 L Phosphorus 2.3 L Magnesium 1.4 L GGT 50 H AST Lactate Dehydrogenase 311 H Total Protein 5.8 L Albumin 2.4 L Albumin/Globulin Ratio 0.7 L TSH 11.98 H Free T4 Pleural LDH 10/15/20 10/15/20 10/14/20 08:12 08:12 15:00 WBC 14.8 H Hct RDW 14.9 H MPV 11.1 H Neut % (Auto) 81.3 H Lymph % (Auto) 6.4 L Lymph # (Auto) 0.94 L [place] # (Auto) 1.48 H Band Neutrophils % Lymphocytes % Absolute Neutrophils 12.03 H PT INR Sodium Chloride 93 L BUN 5 L Creatinine 0.5 L Glucose Calcium 7.8 L Phosphorus 2.1 L Magnesium GGT 63 H AST 34 H Lactate Dehydrogenase 418 H Total Protein Albumin 2.6 L Albumin/Globulin Ratio 0.7 L TSH Free T4 Pleural LDH 369 H 10/14/20 13:10 WBC Hct RDW MPV Neut % (Auto) Lymph % (Auto) Lymph # (Auto) [place] # (Auto) Band Neutrophils % Lymphocytes % Absolute Neutrophils PT 16.8 H INR 1.3 H Sodium Chloride BUN Creatinine Glucose Calcium Phosphorus Magnesium GGT AST Lactate Dehydrogenase Total Protein Albumin Albumin/Globulin Ratio TSH Free T4 Pleural LDH Meds: Medications Acetaminophen (Acetaminophen 500 Mg Tablet) 1,000 mg PO Q6HP PRN; Protocol PRN Reason: Per Pain Protocol Last Admin: 10/17/20 00:00 Dose: 1,000 mg Documented by: Acetylcysteine (Acetylcysteine 800 Mg/4 Ml Vial) 600 mg NEB Q6 [facility] Last Admin: 10/17/20 07:36 Dose: Not Given Documented by: Albuterol/Ipratropium (Ipratropium/Albuterol 3 Ml Ampul.Neb) 3 ml NEB Q4HP PRN PRN Reason: Shortness Of Breath Last Admin: 10/17/20 01:36 Dose: 3 ml Documented by: Budesonide (Budesonide 0.5 Mg/2 Ml Ampul.Neb) 0.5 mg NEB Q12 [facility] Last Admin: 10/17/20 07:38 Dose: Not Given Documented by: Buprenorphine HCl (Buprenorphine/Naloxone 4mg/1mg Oral Film) 0.5 each SL [facility] Last Admin: 10/16/20 21:32 Dose: 0.5 each Documented by: Diphenhydramine HCl (Diphenhydramine 25 Mg Capsule) 50 mg PO Q6HP PRN PRN Reason: Allergic Symptoms Last Admin: 10/17/20 04:45 Dose: 50 mg Documented by: Duloxetine HCl (Duloxetine 30 Mg Capsule) 60 mg PO DAILY [facility] Last Admin: 10/16/20 09:38 Dose: 60 mg Documented by: Heparin Sodium (Porcine) (Heparin 5,000 Unit/Ml Vial) 5,000 unit SQ Q12 [facility] Last Admin: 10/16/20 21:53 Dose: Not Given Documented by: Hydrocortisone (Hydrocortisone Crm 1% Tube 30gm) 1 dose TOPICAL BID [facility] Last Admin: 10/16/20 21:30 Dose: 1 dose Documented by: Meropenem 1 gm/ Sodium (Chloride) 50 mls @ 100 mls/hr IV Q8H [facility]; Protocol Last Admin: 10/17/20 05:27 Dose: 100 mls/hr Documented by: Diltiazem HCl 125 mg/ Dextrose 125 mls @ 5 mls/hr IV Q24H [facility]; Protocol Metoprolol Tartrate (Metoprolol Tartrate 5 Mg/5 Ml Vial) 5 mg IV Q4HP PRN PRN Reason: Tachyarrhythmias Last Admin: 10/16/20 12:41 Dose: 5 mg Documented by: Metoprolol Tartrate (Metoprolol Tartrate 25 Mg Tablet) 25 mg PO BID [facility] Last Admin: 10/16/20 21:29 Dose: 25 mg Documented by: Nicotine (Nicotine 21 Mg Patch) 21 mg TOPICAL DAILY@1000 [facility] Last Admin: 10/16/20 09:34 Dose: 21 mg Documented by: Ondansetron HCl (Ondansetron 4 Mg/2 Ml Vial) 4 mg IV Q6HP PRN PRN Reason: Nausea And Vomiting Pantoprazole Sodium (Pantoprazole 40 Mg Tablet) 40 mg PO QAMAC [facility] Last Admin: 10/16/20 07:30 Dose: 40 mg Documented by: Phentermine 15 Mg (Capsule) 1 dose PO DAILY [facility] Last Admin: 10/16/20 09:57 Dose: Not Given Documented by: Senna (Sennosides 1 Tablet) 2 tab PO HS [facility] Last Admin: 10/16/20 21:29 Dose: 2 tab Documented by: Simethicone (Simethicone 80 Mg Tab.Chew) 80 mg CHEWED QIDP PRN PRN Reason: Dyspepsia Last Admin: 10/16/20 19:11 Dose: 80 mg Documented by: Sodium Chloride (0.9 % Sodium Chloride 10 Ml Syringe) 10 ml IV Q8 [facility] Last Admin: 10/17/20 05:27 Dose: 10 ml Documented by: A/P Narrative A/P Narrative: A: *Fluid collection in abdomen: concern for infection, drainage today *Tachyarrhythmia 2:1 (10/15): appeared to be Fib/Flutter (no history of) -converted first time with single shock 50j synchronized cardioversion; following day had brief episode and given lopressor x2 and eventually converted back *Acute hypoxic respitory failure: 2/2 atelectasis/mucous plug/poor respiratory effort/pleural effusion -on RA this morning maintaining sats *Atelectasis/mucous plugging right/Pleural effusion appearing transudative -Thora 1200cc (10/14) -seen by Dr. Alva *Biliary pancreatitis w/pseudocyst: per Dr. Casper, eventual surgery *COPD (not on home O2): *Depression: *GERD: *Obesity: *Hypomagnesemia/kalemia: Replete as needed P: -cont lopressor bid -fluid collection drainage today by Rads, -IS/Acapella/CPT per RT -caution with sedating meds -Surgery for eventual laparoscopic cholecystectomy, on abx -cont IH's -prn lasix for volume overload -pcp to follow up thyroid labs outpt after acute illness resolved. -ppx: heparin / ppi Time Spent With Patient Time: Total time spent is greater than 50% in coordination of care (as documented) at patient's floor/unit and/or counseling patient:
[2020-10-17 08:51] LABS: Hematocrit 31.6 % (34.1-44.9); Hemoglobin 10.6 g/dL (11.2-15.7); Mean Cell Volume 88.8 fL (80.0-100.0); Mean Corpuscular HGB Conc 33.5 g/dL (31.0-36.0); Mean Platelet Volume 12.1 fL (7.4-10.4); Platelet Count 134 K/mcL (140-440); RBC 3.56 M/mcL (3.59-5.38); Red Cell Distribution Width 14.6 % (11.5-14.5); WBC 9.7 K/mcL (4.5-11.0)
[2020-10-17 09:00] LABS: Anisocytosis 1+ (None Seen); Band Neutrophils % 7 % (0-10); Eosinophils % (Manual) 3 % (0-7); Hypochromasia 1+ (None Seen); Lymphocytes % 10 % (15-49); Metamyelocytes % 1 %; Monocytes % (Manual) 3 % (1-12); Platelet Estimate DECREASED (Normal); RBC Morphology ABNORMAL (Normal); Segmented Neutrophils % 76 % (38-78)
[2020-10-17] MEDS ORDERED: ALBUMIN HUMAN 12.5 GM/50 ML BAG IV ONE (09:03)
[2020-10-17] MEDS ORDERED: FUROSEMIDE 40 MG/4 ML VIAL IV ONE (09:03)
[2020-10-17] MEDS ORDERED: MAGNESIUM SULFATE 2 GM/50 ML BAG IV ONE (09:04)
[2020-10-17] MEDS: HEPARIN 5,000 UNIT/ML VIAL SQ SCH ×2 (09:22→21:16)
[2020-10-17] MEDS: PANTOPRAZOLE 40 MG TABLET PO SCH (09:29)
[2020-10-17] MEDS: METOPROLOL TARTRATE 25 MG TABLET PO SCH ×2 (09:29→21:16)
[2020-10-17] MEDS: DULoxetine 30 MG CAPSULE PO SCH (09:29)
[2020-10-17] MEDS ORDERED: POTASSIUM CHLORIDE 20 MEQ TABLET PO PRN (10:12)
[2020-10-17] MEDS ORDERED: MAGNESIUM SULFATE 2 GM/50 ML BAG IV PRN (10:12)
[2020-10-17] MEDS ORDERED: POTASSIUM CHLORIDE 40 MEQ in DEXTROSE 5% IN WATER 500 ML IV PRN (10:12)
[2020-10-17] MEDS ORDERED: DILTIAZEM 125 MG in DEXTROSE 5% IN WATER 100 ML IV PRN (10:15)
[2020-10-17] MEDS: HYDROCORTISONE CRM 1% TUBE 30GM TOPICAL SCH ×2 (10:19→21:10)
--- NOTE | 2020-10-17 10:40 | General Surgery Progress Note ---
SUBJECTIVE Subjective Patient information: Note initiated : 10/17/20 at 10:38 am Service Date, if different from initiated Date: [] Patient: Elida Russell 60 y/o F admitted on 10/01/20 for Abdominal Pain. Chief Complaint: [] Principal diagnosis: Acute pancreatitis; right lung atelectasis; right pleural effusion;rash Interval history: Patient is doing well. She is bright and alert oriented x3. She carries on rational conversation and answers questions appropriately. She has no complaints of discomfort. She does complain of itching from her rash which is now essentially total body. She does not have any respiratory difficulty and her oxygen saturations are good even on room air. Heart rate is regular and controlled between 68 and 74. Potassium 3.5, BUN 6, creatinine 0.6, magnesium 1.6, white blood count 9.7, hemoglobin 10.6, hematocrit 31.6. Patient will have aspiration of the hepatic fluid pocket as well as the right upper quadrant encapsulated fluid pocket later this morning. Constitutional Vitals: Vital Signs Temp Pulse Resp BP Pulse Ox 97.9 F 65 12 115/70 97 10/17/20 09:54 10/17/20 09:54 10/17/20 09:54 10/17/20 09:01 10/17/20 09:54 Period Temp Pulse Resp BP Sys/Bryant Pulse Ox Last 24 Hr 97.3 F-100.4 F 65-74 10-29 93-115/58-74 89-98 Intake and Output 10/16/20 10/17/20 10/17/20 21:59 05:59 13:59 Intake Total 1640 100 50 Output Total 550 350 425 Balance 1090 -250 -375 Weight 259 lb 11.2 oz Intake & Output: Intake & Output 10/16/20 10/17/20 10/17/20 21:59 05:59 13:59 Intake Total 1640 100 50 Output Total 550 350 425 Balance 1090 -250 -375 Weight 259 lb 11.2 oz Intake: Nourishment/Supplement quantity 240 (ml) IV 360 100 50 Merrem 1 gm In Sodium Chloride 50 100 0.9% 50 ml @ 100 mls/hr IV Q8H [facility] Rx#:[id number] Potassium Chloride 20 Meq In 260 Dextrose 5% in Water 250 ml @ 130 mls/hr IV ONCE ONE Rx#: [id number] Oral 1040 Output: Void Amount 550 350 425 Other: Meal Dinner Breakfast Percent of Meal Consumed 75% NPO Feeding Ability Independent Nourishment/Supplement name ensure clear Urine Appearance Clear Clear Clear Urine Color Bright Yellow Bright Yellow Light Twyla Urine Odor Normal Normal Normal Head Head exam: Present atraumatic and normal inspection Eye Eye exam: Present EOMI, normal appearance and PERRL Pupils: Present normal accommodation ENT ENT exam: Present mucous membranes moist and normal oropharynx Neck Neck exam: Present normal inspection; Absent lymphadenopathy, tenderness and t hyromegaly Respiratory Respiratory exam: Present decreased breath sounds (Significant decreased breath sounds on the right base but full clear breath sounds on the left; no rhonchi wheezes or rales) Cardiovascular Cardiovascular exam: Present normal rate and rhythm, RRR, +S1 and +S2; Absent JVD GI/Abdominal GI/Abdominal exam: Present normal bowel sounds, soft, distended and tenderness (Very mild upper abdominal tenderness); Absent guarding Extremities Exam Extremities exam: Present full ROM and neurovascular intact; Absent calf tenderness, joint swelling, pedal edema and tenderness Back Exam Back exam: Present full ROM and normal inspection Neurological Exam Neurological exam: Present alert, normal gait and oriented X3; Absent motor sensory deficit Psychiatric Psychiatric exam: Present anxious and normal affect Skin Additional comments: Partially confluent erythematous patchy nonraised blanching rash primarily of the posterior trunk and flank regions. There is no pruritic component. A/P Assessment and plan (1) Pneumonitis: Status: Acute (2) Acute gallstone pancreatitis: Status: Acute (3) Recurrent right pleural effusion: Status: Acute (4) Abscess, hepatic: Status: Acute (5) Cholelithiasis with cholecystitis: Status: Acute Narrative A/P Narrative: Proceed with aspiration of hepatic and right upper quadrant fluid collections for culture and Gram stain Replace magnesium Start Benadryl and Solu-Medrol for her rash. Time Spent With Patient Time: Total time spent is greater than 50% in coordination of care (as documented) at patient's floor/unit and/or counseling patient:
[2020-10-17] MEDS ORDERED: diphenhydrAMINE 50 MG/ML VIAL IV SCH (11:00)
[2020-10-17] MEDS: NICOTINE 14 MG PATCH TOPICAL SCH (12:37)
[2020-10-17] MEDS: PHENTERMINE 15 MG PO SCH (12:38)
--- NOTE | 2020-10-17 12:50 | Ultrasound Report ---
Abscess drainage x2 HISTORY: Pancreatitis with intrahepatic abscess and complex pancreatic pseudocyst in the right upper quadrant which may be infected TECHNIQUE: The first drainage procedure was performed of the large loculated fluid collection in the peritoneal space beneath the right lobe of the liver. Fluid collection was localized with ultrasound. The fluid is complex and contains both semisolid and more clear fluid. The overlying skin in the right upper quadrant was prepped with Betadine and then anesthetized with 1% lidocaine. Using ultrasound guidance a Yueh needle was inserted. Thick dark brandi-colored fluid was removed. A tract was then dilated. Using ultrasound guidance a 14 Dominican multi sidehole pigtail catheter was inserted into the cavity. This was secured to the skin surface. 360 cc of pus was then aspirated and sent to the laboratory for culture. The catheter was secured to the skin surface and connected to a drainage bulb. She tolerated the procedure well without complication. TECHNIQUE: The second abscess was localized centrally in the liver. The overlying skin was reprepped with Betadine and then anesthetized with 1% lidocaine. A 16-gauge Angiocath catheter was then inserted into the center of the lesion. 4 cc of dark blood was removed and sent to laboratory for culture. The liver lesion is probably solid and I was unable to drain more fluid. Since it is predominantly solid, there is no indication to insert a pigtail catheter. IMPRESSION: Successful insertion of a 14 Dominican pigtail catheter into a loculated abscess pocket beneath the right lobe of the liver, removing 360 cc of pus. Successful aspiration of 4 cc of bloody fluid from the intrahepatic lesion Interpreted and Authenticated by: Maynor Cheema 10/17/20
[2020-10-17] MEDS: SIMETHICONE 80 MG TAB.CHEW CHEWED PRN (13:16)
[2020-10-17] MEDS: ACETAMINOPHEN 500 MG TABLET PO PRN ×3 (14:15→23:59)
[2020-10-17 14:58] LABS: Basophils # (Auto) 0.02 K/mcL (0.00-0.30); Basophils % (Auto) 0.2 % (0.0-2.0); Eosinophils # (Auto) 0.13 K/mcL (0.00-0.70); Eosinophils % (Auto) 1.1 % (0.0-7.0); Hematocrit 31.6 % (34.1-44.9); Hemoglobin 10.7 g/dL (11.2-15.7); Lymphocytes # (Auto) 0.93 K/mcL (1.50-4.80); Lymphocytes % (Auto) 7.8 % (15.5-49.0); Mean Cell Volume 90.8 fL (80.0-100.0); Mean Corpuscular HGB Conc 33.9 g/dL (31.0-36.0); Mean Platelet Volume 12.3 fL (7.4-10.4); Monocytes # (Auto) 0.83 K/mcL (0.10-0.90); Neutrophils % (Auto) 83.9 % (38.0-78.0); Platelet Count 357 K/mcL (140-440); RBC 3.48 M/mcL (3.59-5.38); Red Cell Distribution Width 15.1 % (11.5-14.5); WBC 11.9 K/mcL (4.5-11.0)
[2020-10-17 15:12] LABS: ALT/SGPT 19 U/L (<40); AST/SGOT 33 U/L (<32); Albumin 2.1 gm/dL (3.2-5.2); Albumin/Globulin Ratio 0.5 (1.0-2.3); Alkaline Phosphatase 65 U/L (39-117); Bilirubin,Direct < 0.2 mg/dL (0-0.3); Bilirubin,Total 0.5 mg/dL (0.1-1.0); Blood Urea Nitrogen 6 mg/dL (6-20); Calcium 7.8 mg/dL (8.6-10.4); Carbon Dioxide 33 mmol/L (22-30); Chloride 92 mmol/L (96-108); Globulin 3.9 gm/dL (2.2-3.7); Glomerular Filtration Rate 100; Glucose 69 mg/dL (70-105); Lactate Dehydrogenase 408 U/L (135-225); Phosphorous 2.2 mg/dL (2.5-4.5); Triglycerides 153 mg/dL (<150); Uric Acid 2.5 mg/dL (2.5-8.0)
--- NOTE | 2020-10-17 20:30 | EKG ---
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
[2020-10-17] MEDS: methylPREDNISolone SOD SUCC 125 MG/2 ML VIAL IV SCH (21:16)
[2020-10-17] MEDS: SENNOSIDES 1 TABLET PO SCH (21:16)
[2020-10-17] MEDS: BUPRENORPHINE/NALOXONE 4MG/1MG ORAL FILM SL SCH (21:18)
[2020-10-18] MEDS: 0.9 % SODIUM CHLORIDE 10 ML SYRINGE IV SCH ×3 (05:25→21:01)
[2020-10-18] MEDS: MEROPENEM 1 GM in 0.9 % SODIUM CHLORIDE 50 ML IV SCH ×3 (05:27→21:00)
[2020-10-18] MEDS: ACETYLCYSTEINE 800 MG/4 ML VIAL NEB SCH ×3 (06:02→18:36)
[2020-10-18] MEDS: IPRATROPIUM/ALBUTEROL 3 ML AMPUL.NEB NEB PRN ×3 (06:02→18:36)
--- NOTE | 2020-10-18 06:31 | XRay Report ---
CLINICAL INFORMATION: F/u pneumonia and atelectasis COMPARISON: 10/15/2020 FINDINGS: Heart size, mediastinum and pulmonary vessels are normal. Moderate infiltrate/atelectasis in the right mid and lower lung shows improved aeration. Right pleural effusion has also decreased-now small. IMPRESSION: Moderate infiltrate/atelectasis in the right mid and lower lung with small effusion decreasing Interpreted and Authenticated by: Teofilo Watt 10/18/20
[2020-10-18] MEDS: BUDESONIDE 0.5 MG/2 ML AMPUL.NEB NEB SCH ×2 (07:29→18:36)
--- NOTE | 2020-10-18 08:11 | Internal Med Progress Note ---
SUBJECTIVE Subjective Patient information: Note initiated : 10/18/20 at 8:02 am Service Date, if different from initiated Date: [] Patient: Elida Russell 60 y/o F admitted on 10/01/20 for Abdominal Pain. Chief Complaint: [] Principal diagnosis: Acute pancreatitis; right lung atelectasis; right pleural effusion;rash Interval history: Who presented to the ED on the for upper right quadrant and left upper quadrant pain nausea vomiting. Patient was admitted for pancreatitis and concern for gallbladder etiology. On the she had a diagnostic laparoscopy with the findings of severe inflammation of the entire upper abdomen and gallbladder omentum: Stomach liver small bowel inflammation was too severe to do cholecystectomy open or laparoscopically. Is felt that because of the inflammation it was best to allow that to clear and then do a laparoscopic cholecystectomy at a later time. She was noted to have some early pneumonitis. Postprocedural she was anxious and restless in bed. She received 1 mg of Ativan and since then been extremely lethargic and slow to respond temperature is 100.0. He was given Narcan with no response. Chest x-ray was read as atelectasis and mucous plug in the right lobe. Patient noted be wheezy and poor inspiratory effort. Radiology report x-ray shows consolidated atelectasis right middle lobe and to consider mucous plug and that right middle lobe of the bronchus. Report also shows near complete resolution of mild bilateral lower lobe infiltrates. Discoid atelectasis left midlung. Patient now waking up and clinical bed. She is oriented but appears like she is coming out of anesthesia. Denies cough. She has COPD but does not wear oxygen at home. 10/08: Being transferred to PCU with initiation of BiPAP overnight. Been switched to 2L nasal cannula oxygen tonight. Afebrile overnight. Denies confusion or pain currently. Denies nausea, vomiting, diarrhea, or constipation. Denies fever, chills, or sweating. 10/09: Being transferred back to med surg from PCU last night. Been on 2-3L oxygen via oxymask overnight and this morning. c/o restless leg. c/o anxiety. c/o SOB. c/o RUQ and LUQ abdominal pain. Denies fever or chills. Denies nausea or vomiting. 10/10: Been on 2L oxygen overnight. Tolerating Suboxone SL without overly sedated or dyspnea/respiratory failure. Denies SOB. Denies fever or chills. c/o mild RUQ and LUQ abdominal pain. Denies nausea or vomiting. Denies leg restless. 10/11: Been on between 2-4L/min oxygen overnight. c/o abdominal distention and excessive gas. Denies abdominal pain. Denies nausea/vomiting. Had 2 episode of bowel incontinence this morning. Denies SOB. Denies anxiety. 10/12: Afebrile overnight. Been on between 2-3L/min oxygen overnight. c/o abdominal distention and excessive gas. c/o 8/10 RUQ and LUQ abdominal pain, sharp. Denies nausea/vomiting. Good appetite. Denies SOB. Denies anxiety. 10/13: Afebrile overnight. Tolerating room air. Denies abdominal distention and excessive gas. Mild RUQ and LUQ abdominal pain. Denies nausea/vomiting. Good appetite. Denies SOB. Denies anxiety. 10/15 Event Note: pt with persistent tachycardia 140's-150 today. ekg appeared to have some sinus tach complexes but was difficult to read given the rate and there were some suspicious findings on ekg. Pt has thus had several doses of IV lopressor without effect. We then gave adenosine 6mg which appeared to reveal atrial flutter. given the recent timeframe of the tachyarrhythmia and no history of the same we opted to make an attempt at converting her back to sinus since she is within the timeframe. We used conscious sedation with fentanyl and versed and she converted first time at 50 joules with synchronized cardiover amadou. We moved her back to the pcu for the night for close monitoring. 10/16 Patient is sinus rhythm and feeling fine today. No overnight events. Has occasional productive cough and shortness of breath pt went into afib/flutter rvr, asymptomatic rates 140-170's. She flipped back and forth multiple times between sinus and tachyarrhythmia. Tried lopressor IV x2, then switched to dilt bolus/gtt but converted back before started Mildly low potassium and low magnesium noted on labs today. will replete potassium and magnesium. 10/17 pt do undergo drainage of liver, concern for infection. 10/18 Patient states she feels little better today. Leukocytosis resolved today. Bandemia improved. Had good urine output from Lasix yesterday. Currently on room air with sats 89- 92. Mild hyponatremia on a.m. labs. 10/19 Patient continues to feel better. Had drainage of fluid collection in abdomen y esterday. Bandemia resolved yesterday. Currently on room air. Ambulating in [place] with PT. Pending chemistry. Has cough. Denies shortness of breath. Review of Systems: denies headache/fever/chills/nausea/vomiting/chest or abdominal pain/diarrhea. Otherwise see above. Constitutional Vitals: Vital Signs Temp Pulse Resp BP Pulse Ox 97.0 F 56 L 15 117/63 95 10/18/20 04:01 10/18/20 07:29 10/18/20 07:29 10/18/20 06:01 10/18/20 07:29 Period Temp Pulse Resp BP Sys/Bryant Pulse Ox Last 24 Hr 97.0 F-100.8 F 56-83 11-20 99-126/60-80 90-98 Intake and Output 10/17/20 10/18/20 10/18/20 21:59 05:59 13:59 Intake Total 50 340 Output Total 685 750 Balance -635 -410 Weight 113.988 kg Intake & Output: Intake & Output 10/17/20 10/18/20 10/18/20 21:59 05:59 13:59 Intake Total 50 340 Output Total 685 750 Balance -635 -410 Weight 113.988 kg Intake: IV 50 100 Merrem 1 gm In Sodium Chloride 50 100 0.9% 50 ml @ 100 mls/hr IV Q8H [facility] Rx#:[id number] Oral 240 Output: Drainage 85 25 Right Abdomen FARIBA Drain 85 25 Drainage 25 Right Abdomen FARIBA Drain 25 Void Amount 600 700 Other: Urine Appearance Clear Clear Urine Color Bright Yellow Bright Yellow Urine Odor Normal Normal Exam: General: Awake, no acute distress, obese Eyes/N/T: EOMI, , Head/Neck: neck supple, CV: RRR, No murmurs, Pulm: Diminished b/l R>L with improving rales/rhonchi, no wheezing Abd: soft, nontender, +BS x4 Ext: no clubbing/cyanosis, b/l LE edema 1-2+ Neuro: alert, no focal deficits, moves all extremities, Skin: warm/dry OBJ DATA Labs CBC & Chem 7: 10/17/20 09:32 10/17/20 09:32 Labs: Abnormal Lab Results 10/17/20 10/17/20 10/17/20 09:32 09:32 06:37 WBC 11.9 H RBC 3.48 L Hgb 10.7 L Hct 31.6 L RDW 15.1 H Plt Count MPV 12.3 H Neut % (Auto) 83.9 H Lymph % (Auto) 7.8 L Lymph # (Auto) 0.93 L Craig # (Auto) Band Neutrophils % Lymphocytes % 10 L Absolute Neutrophils 10.00 H Platelet Estimate Decreased A RBC Morphology Abnormal A Hypochromasia 1+ A Anisocytosis 1+ A Sodium 132 L Chloride 92 L Carbon Dioxide 33 H Anion Gap 7.0 L BUN Creatinine Glucose 69 L Calcium 7.8 L Phosphorus 2.2 L Magnesium GGT 44 H AST 33 H Lactate Dehydrogenase 408 H Total Protein Albumin 2.1 L Globulin 3.9 H Albumin/Globulin Ratio 0.5 L Triglycerides 153 H Procalcitonin TSH Free T4 10/17/20 10/17/20 10/17/20 05:33 05:33 05:33 WBC RBC 3.56 L Hgb 10.6 L Hct 31.6 L RDW 14.6 H Plt Count 134 L MPV 12.1 H Neut % (Auto) Lymph % (Auto) Lymph # (Auto) Craig # (Auto) Band Neutrophils % Lymphocytes % Absolute Neutrophils Platelet Estimate RBC Morphology Hypochromasia Anisocytosis Sodium 130 L Chloride 90 L Carbon Dioxide Anion Gap BUN Creatinine Glucose Calcium 7.6 L Phosphorus Magnesium GGT 42 H AST Lactate Dehydrogenase 351 H Total Protein 5.6 L Albumin 2.3 L Globulin Albumin/Globulin Ratio 0.7 L Triglycerides Procalcitonin 0.14 H TSH Free T4 10/16/20 10/16/20 10/16/20 08:35 08:33 08:33 WBC RBC Hgb Hct RDW Plt Count MPV Neut % (Auto) Lymph % (Auto) Lymph # (Auto) Craig # (Auto) Band Neutrophils % 15 H Lymphocytes % 2 L Absolute Neutrophils Platelet Estimate RBC Morphology Hypochromasia Anisocytosis Sodium Chloride 92 L Carbon Dioxide Anion Gap BUN 5 L Creatinine 0.5 L Glucose 111 H Calcium 8.0 L Phosphorus 2.3 L Magnesium 1.4 L GGT 50 H AST Lactate Dehydrogenase 311 H Total Protein 5.8 L Albumin 2.4 L Globulin Albumin/Globulin Ratio 0.7 L Triglycerides Procalcitonin TSH Free T4 0.72 L 10/16/20 10/15/20 10/15/20 08:33 20:06 08:12 WBC 17.2 H RBC Hgb Hct 32.3 L RDW 14.9 H Plt Count MPV 11.5 H Neut % (Auto) 92.0 H Lymph % (Auto) 2.9 L Lymph # (Auto) 0.50 L Craig # (Auto) Band Neutrophils % Lymphocytes % Absolute Neutrophils 15.81 H Platelet Estimate RBC Morphology Hypochromasia Anisocytosis Sodium Chloride 93 L Carbon Dioxide Anion Gap BUN 5 L Creatinine 0.5 L Glucose Calcium 7.8 L Phosphorus 2.1 L Magnesium GGT 63 H AST 34 H Lactate Dehydrogenase 418 H Total Protein Albumin 2.6 L Globulin Albumin/Globulin Ratio 0.7 L Triglycerides Procalcitonin TSH 11.98 H Free T4 10/15/20 08:12 WBC 14.8 H RBC Hgb Hct RDW 14.9 H Plt Count MPV 11.1 H Neut % (Auto) 81.3 H Lymph % (Auto) 6.4 L Lymph # (Auto) 0.94 L Craig # (Auto) 1.48 H Band Neutrophils % Lymphocytes % Absolute Neutrophils 12.03 H Platelet Estimate RBC Morphology Hypochromasia Anisocytosis Sodium Chloride Carbon Dioxide Anion Gap BUN Creatinine Glucose Calcium Phosphorus Magnesium GGT AST Lactate Dehydrogenase Total Protein Albumin Globulin Albumin/Globulin Ratio Triglycerides Procalcitonin TSH Free T4 Meds: Medications Acetaminophen (Acetaminophen 500 Mg Tablet) 1,000 mg PO Q6HP PRN; Protocol PRN Reason: Per Pain Protocol Last Admin: 10/17/20 23:59 Dose: 1,000 mg Documented by: Acetylcysteine (Acetylcysteine 800 Mg/4 Ml Vial) 600 mg NEB Q6 [facility] Last Admin: 10/18/20 06:02 Dose: 600 mg Documented by: Albuterol/Ipratropium (Ipratropium/Albuterol 3 Ml Ampul.Neb) 3 ml NEB Q4HP PRN PRN Reason: Shortness Of Breath Last Admin: 10/18/20 06:02 Dose: 3 ml Documented by: Budesonide (Budesonide 0.5 Mg/2 Ml Ampul.Neb) 0.5 mg NEB Q12 [facility] Last Admin: 10/18/20 07:29 Dose: 0.5 mg Documented by: Buprenorphine HCl (Buprenorphine/Naloxone 4mg/1mg Oral Film) 0.5 each SL HS [facility] Last Admin: 10/17/20 21:18 Dose: Not Given Documented by: Diphenhydramine HCl (Diphenhydramine 50 Mg/Ml Vial) 50 mg IV Q6HP [facility] Last Admin: 10/17/20 14:16 Dose: 50 mg Documented by: Duloxetine HCl (Duloxetine 30 Mg Capsule) 60 mg PO DAILY [facility] Last Admin: 10/17/20 09:29 Dose: 60 mg Documented by: Heparin Sodium (Porcine) (Heparin 5,000 Unit/Ml Vial) 5,000 unit SQ Q12 [facility] Last Admin: 10/17/20 21:16 Dose: 5,000 unit Documented by: Hydrocortisone (Hydrocortisone Crm 1% Tube 30gm) 1 dose TOPICAL BID [facility] Last Admin: 10/17/20 21:10 Dose: 1 dose Documented by: Meropenem 1 gm/ Sodium (Chloride) 50 mls @ 100 mls/hr IV Q8H [facility]; Protocol Last Infusion: 10/18/20 05:59 Dose: Infused Documented by: Diltiazem HCl 125 mg/ Dextrose 125 mls @ 5 mls/hr IV Q24HP PRN; Protocol PRN Reason: TITRATE TO KEEP HR <110 AND SB Potassium Chloride 40 meq/ (Dextrose) 520 mls @ 130 mls/hr IV UD PRN PRN Reason: Potassium < 3 Magnesium Sulfate (Magnesium Sulfate) 2 gm in 50 mls @ 50 mls/hr IV UD PRN PRN Reason: Magnesium </= 1.6 Methylprednisolone Sodium Succinate (Methylprednisolone Sod Succ 125 Mg/2 Ml Vial) 62.5 mg IV Q12 [facility] Last Admin: 10/17/20 21:16 Dose: 62.5 mg Documented by: Metoprolol Tartrate (Metoprolol Tartrate 5 Mg/5 Ml Vial) 5 mg IV Q4HP PRN PRN Reason: Tachyarrhythmias Last Admin: 10/16/20 12:41 Dose: 5 mg Documented by: Metoprolol Tartrate (Metoprolol Tartrate 25 Mg Tablet) 25 mg PO BID [facility] Last Admin: 10/17/20 21:16 Dose: 25 mg Documented by: Nicotine (Nicotine 14 Mg Patch) 14 mg TOPICAL DAILY@1000 [facility] Last Admin: 10/17/20 12:37 Dose: 14 mg Documented by: Ondansetron HCl (Ondansetron 4 Mg/2 Ml Vial) 4 mg IV Q6HP PRN PRN Reason: Nausea And Vomiting Pantoprazole Sodium (Pantoprazole 40 Mg Tablet) 40 mg PO QAMAC [facility] Last Admin: 10/17/20 09:29 Dose: 40 mg Documented by: Phentermine 15 Mg (Capsule) 1 dose PO DAILY [facility] Last Admin: 10/17/20 12:38 Dose: Not Given Documented by: Potassium Chloride (Potassium Chloride 20 Meq Tablet) 40 meq PO UD PRN PRN Reason: Potssium is 3-3.5 Last Admin: 10/17/20 13:08 Dose: 40 meq Documented by: Senna (Sennosides 1 Tablet) 2 tab PO HS [facility] Last Admin: 10/17/20 21:16 Dose: 2 tab Documented by: Simethicone (Simethicone 80 Mg Tab.Chew) 80 mg CHEWED QIDP PRN PRN Reason: Dyspepsia Last Admin: 10/17/20 13:16 Dose: 80 mg Documented by: Sodium Chloride (0.9 % Sodium Chloride 10 Ml Syringe) 10 ml IV Q8 [facility] Last Admin: 10/18/20 05:25 Dose: 10 ml Documented by: A/P Narrative A/P Narrative: A: *RUQ peritoneal abscess: s/p aspiration (10/17) 360cc purulent fluid *Tachyarrhythmia 2:1 (10/15): appeared to be Fib/Flutter (no history of) -converted first time with single shock 50j synchronized cardioversion; following day had brief episode and given lopressor x2 and eventually converted back *Acute hypoxic respitory failure: 2/2 atelectasis/mucous plug/poor respiratory effort/pleural effusion -on 0-1 L NC *Atelectasis/mucous plugging right/Pleural effusion appearing transudative -Thora 1200cc (10/14) -seen by Dr. Alva *Biliary pancreatitis w/pseudocyst: per Dr. Casper, eventual surgery *COPD (not on home O2): *Tobacco abuse: *Depression: *GERD: *Obesity: *Hypomagnesemia/kalemia: Replete as needed P: -pending abscess culture and stain -cont lopressor bid -IS/Acapella/CPT per RT -caution with sedating meds -Surgery for eventual laparoscopic cholecystectomy in several weeks, on abx -cont IH's -prn lasix for volume overload -pcp to follow up thyroid labs outpt after acute illness resolved -Smoking cessation counseling -ppx: heparin / ppi Time Spent With Patient Time: Total time spent is greater than 50% in coordination of care (as document ed) at patient's floor/unit and/or counseling patient:
[2020-10-18] MEDS ORDERED: NEUTRA PHOS 1 PACKET PO SCH ×2 (09:00→21:00)
[2020-10-18] MEDS ORDERED: METOPROLOL TARTRATE 25 MG TABLET PO SCH (09:00)
[2020-10-18] MEDS: PHENTERMINE 15 MG PO SCH (09:06)
[2020-10-18] MEDS: methylPREDNISolone SOD SUCC 125 MG/2 ML VIAL IV SCH ×2 (09:22→20:57)
[2020-10-18] MEDS: PANTOPRAZOLE 40 MG TABLET PO SCH (09:23)
[2020-10-18] MEDS: ACETAMINOPHEN 500 MG TABLET PO PRN (09:23)
[2020-10-18] MEDS: HEPARIN 5,000 UNIT/ML VIAL SQ SCH ×2 (09:23→21:00)
[2020-10-18] MEDS: NICOTINE 14 MG PATCH TOPICAL SCH (09:24)
[2020-10-18] MEDS: DULoxetine 30 MG CAPSULE PO SCH (09:24)
[2020-10-18] MEDS: HYDROCORTISONE CRM 1% TUBE 30GM TOPICAL SCH ×2 (09:24→20:54)
[2020-10-18] MEDS ORDERED: FUROSEMIDE 40 MG/4 ML VIAL IV ONE (10:08)
[2020-10-18] MEDS ORDERED: ALBUMIN HUMAN 12.5 GM/50 ML BAG IV ONE (10:08)
[2020-10-18 10:49] LABS: Basophils # (Auto) 0.02 K/mcL (0.00-0.30); Basophils % (Auto) 0.2 % (0.0-2.0); Eosinophils # (Auto) 0 K/mcL (0.00-0.70); Eosinophils % (Auto) 0 % (0.0-7.0); Hematocrit 33.5 % (34.1-44.9); Hemoglobin 11.3 g/dL (11.2-15.7); Lymphocytes # (Auto) 0.68 K/mcL (1.50-4.80); Lymphocytes % (Auto) 6.9 % (15.5-49.0); Mean Corpuscular HGB Conc 33.7 g/dL (31.0-36.0); Mean Platelet Volume 11.5 fL (7.4-10.4); Monocytes # (Auto) 0.21 K/mcL (0.10-0.90); Monocytes % (Auto) 2.1 % (1.0-12.0); Neutrophils % (Auto) 90.8 % (38.0-78.0); Platelet Count 366 K/mcL (140-440); RBC 3.68 M/mcL (3.59-5.38); Red Cell Distribution Width 15.2 % (11.5-14.5); WBC 9.8 K/mcL (4.5-11.0)
[2020-10-18 11:12] LABS: ALT/SGPT 20 U/L (<40); AST/SGOT 20 U/L (<32); Albumin 2.8 gm/dL (3.2-5.2); Albumin/Globulin Ratio 0.7 (1.0-2.3); Alkaline Phosphatase 104 U/L (39-117); Bilirubin,Direct < 0.2 mg/dL (0-0.3); Bilirubin,Total 0.4 mg/dL (0.1-1.0); Blood Urea Nitrogen 9 mg/dL (6-20); Calcium 8.6 mg/dL (8.6-10.4); Carbon Dioxide 29 mmol/L (22-30); Chloride 90 mmol/L (96-108); Globulin 4.2 gm/dL (2.2-3.7); Glomerular Filtration Rate 100; Glucose 189 mg/dL (70-105); Lactate Dehydrogenase 315 U/L (135-225); Phosphorous 2.2 mg/dL (2.5-4.5); Triglycerides 157 mg/dL (<150); Uric Acid 2.9 mg/dL (2.5-8.0)
--- NOTE | 2020-10-18 13:23 | General Surgery Progress Note ---
SUBJECTIVE Subjective Patient information: Note initiated : 10/18/20 at 1:17 pm Service Date, if different from initiated Date: [] Patient: Elida Russell 60 y/o F admitted on 10/01/20 for Abdominal Pain. Chief Complaint: [] Principal diagnosis: Acute pancreatitis; right lung atelectasis; right pleural effusion;rash Interval history: Patient continues to do well. She is bright and alert and jovial. She does not have any major discomfort. She denies any shortness of breath or chest discomfort. She has not had any tachycardia or feel any palpitations. She is afebrile. White blood count 9.8, hemoglobin 11.3, hematocrit 33.5. Metabolic panel is normal. Cultures on the liver abscess shows no growth and Gram stain only shows a few segmented neutrophils. Gram stain on the fluid from the cystic lesion on the right upper quadrant shows no white cells no organisms. Cultures revealed no growth. Her rash is stable and her itching is controlled with the Benadryl and Solu-Medrol. Constitutional Vitals: Vital Signs Temp Pulse Resp BP Pulse Ox 97.5 F 69 20 98/68 94 10/18/20 12:01 10/18/20 12:01 10/18/20 12:01 10/18/20 12:01 10/18/20 12:01 Period Temp Pulse Resp BP Sys/Bryant Pulse Ox Last 24 Hr 96.2 F-99.9 F 56-69 11-20 96-125/49-80 90-98 Intake and Output 10/17/20 10/18/20 10/18/20 21:59 05:59 13:59 Intake Total 50 340 50 Output Total 685 750 650 Balance -635 -410 -600 Weight 251 lb 4.8 oz Intake & Output: Intake & Output 10/17/20 10/18/20 10/18/20 21:59 05:59 13:59 Intake Total 50 340 50 Output Total 685 750 650 Balance -635 -410 -600 Weight 251 lb 4.8 oz Intake: IV 50 100 50 Merrem 1 gm In Sodium Chloride 50 100 0.9% 50 ml @ 100 mls/hr IV Q8H [facility] Rx#:[id number] Oral 240 Output: Drainage 85 25 Right Abdomen FARIBA Drain 85 25 Drainage 25 Right Abdomen FARIBA Drain 25 Void Amount 600 700 Urine/Stool Mix 250 Stool 400 Other: Meal Breakfast Percent of Meal Consumed 100% Feeding Ability Independent Urine Appearance Clear Clear Urine Color Bright Yellow Bright Yellow Urine Odor Normal Normal # Bowel Movements 1 Eye Eye exam: Present EOMI, normal appearance and PERRL Pupils: Present normal accommodation ENT ENT exam: Present mucous membranes moist and normal oropharynx Neck Neck exam: Present normal inspection; Absent lymphadenopathy, tenderness and thyromegaly Respiratory Respiratory exam: Present decreased breath sounds (Significant decreased breath sounds on the right base but full clear breath sounds on the left; no rhonchi wheezes or rales) Cardiovascular Cardiovascular exam: Present normal rate and rhythm, RRR, +S1 and +S2; Absent JVD GI/Abdominal GI/Abdominal exam: Present normal bowel sounds, soft, distended and tenderness (Very mild upper abdominal tenderness); Absent guarding Extremities Exam Extremities exam: Present full ROM and neurovascular intact; Absent calf tenderness, joint swelling, pedal edema and tenderness Back Exam Back exam: Present full ROM and normal inspection Neurological Exam Neurological exam: Present alert, normal gait and oriented X3; Absent motor sensory deficit Psychiatric Psychiatric exam: Present anxious and normal affect Skin Additional comments: Partially confluent erythematous patchy nonraised blanching rash primarily of the posterior trunk and flank regions. There is no pruritic component. A/P Assessment and plan (1) Abscess, hepatic: Status: Acute (2) Recurrent right pleural effusion: Status: Acute (3) Pneumonitis: Status: Acute (4) Acute gallstone pancreatitis: Status: Acute (5) Atelectasis of both lungs: Status: Acute (6) Cholelithiasis with cholecystitis: Status: Acute (7) COPD (chronic obstructive pulmonary disease): Status: Chronic Narrative A/P Narrative: Patient has made significant improvement. Her white blood count is normal and she is now afebrile. Aspirations from both the hepatic lesion in the right upper quadrant fluid collection has no growth in spite of the purulence of the fluid. The growth may be suppressed by her antibiotics. Patient is stable for transfer to regular medical floor with plans for discharge in about 48 hours if she remains stable. Time Spent With Patient Time: Total time spent is greater than 50% in coordination of care (as documented) at patient's floor/unit and/or counseling patient:
[2020-10-18] MEDS ORDERED: diphenhydrAMINE 50 MG/ML VIAL IV SCH (14:00)
[2020-10-18] MEDS: diphenhydrAMINE 50 MG/ML VIAL IV SCH ×2 (14:08→20:58)
[2020-10-18] MEDS ORDERED: GLYCOPYRROLATE 0.2 MG/ML VIAL IV ONE (14:09)
[2020-10-18] MEDS ORDERED: METOPROLOL TARTRATE 5 MG/5 ML VIAL IV PRN (14:09)
[2020-10-18] MEDS ORDERED: SIMETHICONE 80 MG TAB.CHEW CHEWED PRN (14:09)
[2020-10-18] MEDS ORDERED: POTASSIUM CHLORIDE 20 MEQ TABLET PO PRN (14:09)
[2020-10-18] MEDS ORDERED: PHENYLephrine 1 MG/10 ML SYRINGE (ANEST) IV ONE (14:09)
[2020-10-18] MEDS ORDERED: IOPAMIDOL 100 ML BOTTLE IV ONE ×4 (14:09)
[2020-10-18] MEDS ORDERED: DILTIAZEM 125 MG in DEXTROSE 5% IN WATER 100 ML IV PRN (14:09)
[2020-10-18] MEDS ORDERED: ACETAMINOPHEN 500 MG TABLET PO PRN (14:09)
[2020-10-18] MEDS ORDERED: MAGNESIUM SULFATE 2 GM/50 ML BAG IV PRN (14:09)
[2020-10-18] MEDS ORDERED: DEXAMETHASONE 10 MG/ML VIAL IV ONE (14:09)
[2020-10-18] MEDS ORDERED: POTASSIUM CHLORIDE 40 MEQ in DEXTROSE 5% IN WATER 500 ML IV PRN (14:09)
[2020-10-18] MEDS ORDERED: ONDANSETRON 4 MG/2 ML VIAL IV PRN (14:09)
[2020-10-18] MEDS: BUPRENORPHINE/NALOXONE 4MG/1MG ORAL FILM SL SCH (20:57)
[2020-10-18] MEDS: METOPROLOL TARTRATE 25 MG TABLET PO SCH (20:59)
[2020-10-18] MEDS: SENNOSIDES 1 TABLET PO SCH (20:59)
[2020-10-18] MEDS ORDERED: METOCLOPRAMIDE 10 MG/2 ML VIAL ONE (23:15)
[2020-10-19] MEDS: ACETYLCYSTEINE 800 MG/4 ML VIAL NEB SCH ×4 (00:02→20:03)
[2020-10-19] MEDS: diphenhydrAMINE 50 MG/ML VIAL IV SCH ×4 (02:11→22:25)
[2020-10-19] MEDS: MEROPENEM 1 GM in 0.9 % SODIUM CHLORIDE 50 ML IV SCH ×3 (05:31→22:24)
[2020-10-19] MEDS: 0.9 % SODIUM CHLORIDE 10 ML SYRINGE IV SCH ×3 (05:32→22:58)
[2020-10-19] MEDS: BUDESONIDE 0.5 MG/2 ML AMPUL.NEB NEB SCH ×2 (07:13→20:03)
--- NOTE | 2020-10-19 07:42 | Internal Med Progress Note ---
SUBJECTIVE Subjective Patient information: Note initiated : 10/19/20 at 7:38 am Service Date, if different from initiated Date: [] Patient: Elida Russell 60 y/o F admitted on 10/01/20 for Abdominal Pain. Chief Complaint: [] Principal diagnosis: Acute pancreatitis; right lung atelectasis; right pleural effusion;rash Interval history: Who presented to the ED on the for upper right quadrant and left upper quadrant pain nausea vomiting. Patient was admitted for pancreatitis and concern for gallbladder etiology. On the she had a diagnostic laparoscopy with the findings of severe inflammation of the entire upper abdomen and gallbladder omentum: Stomach liver small bowel inflammation was too severe to do cholecystectomy open or laparoscopically. Is felt that because of the inflammation it was best to allow that to clear and then do a laparoscopic cholecystectomy at a later time. She was noted to have some early pneumonitis. Postprocedural she was anxious and restless in bed. She received 1 mg of Ativan and since then been extremely lethargic and slow to respond temperature is 100.0. He was given Narcan with no response. Chest x-ray was read as atelectasis and mucous plug in the right lobe. Patient noted be wheezy and poor inspiratory effort. Radiology report x-ray shows consolidated atelectasis right middle lobe and to consider mucous plug and that right middle lobe of the bronchus. Report also shows near complete resolution of mild bilateral lower lobe infiltrates. Discoid atelectasis left midlung. Patient now waking up and clinical bed. She is oriented but appears like she is coming out of anesthesia. Denies cough. She has COPD but does not wear oxygen at home. 10/08: Being transferred to PCU with initiation of BiPAP overnight. Been switched to 2L nasal cannula oxygen tonight. Afebrile overnight. Denies confusion or pain currently. Denies nausea, vomiting, diarrhea, or constipation. Denies fever, chills, or sweating. 10/09: Being transferred back to med surg from PCU last night. Been on 2-3L oxygen via oxymask overnight and this morning. c/o restless leg. c/o anxiety. c/o SOB. c/o RUQ and LUQ abdominal pain. Denies fever or chills. Denies nausea or vomiting. 10/10: Been on 2L oxygen overnight. Tolerating Suboxone SL without overly sedated or dyspnea/respiratory failure. Denies SOB. Denies fever or chills. c/o mild RUQ and LUQ abdominal pain. Denies nausea or vomiting. Denies leg restless. 10/11: Been on between 2-4L/min oxygen overnight. c/o abdominal distention and excessive gas. Denies abdominal pain. Denies nausea/vomiting. Had 2 episode of bowel incontinence this morning. Denies SOB. Denies anxiety. 10/12: Afebrile overnight. Been on between 2-3L/min oxygen overnight. c/o abdominal distention and excessive gas. c/o 8/10 RUQ and LUQ abdominal pain, sharp. Denies nausea/vomiting. Good appetite. Denies SOB. Denies anxiety. 10/13: Afebrile overnight. Tolerating room air. Denies abdominal distention and excessive gas. Mild RUQ and LUQ abdominal pain. Denies nausea/vomiting. Good appetite. Denies SOB. Denies anxiety. 10/15 Event Note: pt with persistent tachycardia 140's-150 today. ekg appeared to have some sinus tach complexes but was difficult to read given the rate and there were some suspicious findings on ekg. Pt has thus had several doses of IV lopressor without effect. We then gave adenosine 6mg which appeared to reveal atrial flutter. given the recent timeframe of the tachyarrhythmia and no history of the same we opted to make an attempt at converting her back to sinus since she is within the timeframe. We used conscious sedation with fentanyl and versed and she converted first time at 50 joules with synchronized cardiover amadou. We moved her back to the pcu for the night for close monitoring. 10/16 Patient is sinus rhythm and feeling fine today. No overnight events. Has occasional productive cough and shortness of breath pt went into afib/flutter rvr, asymptomatic rates 140-170's. She flipped back and forth multiple times between sinus and tachyarrhythmia. Tried lopressor IV x2, then switched to dilt bolus/gtt but converted back before started Mildly low potassium and low magnesium noted on labs today. will replete potassium and magnesium. 10/17 pt do undergo drainage of liver, concern for infection. 10/18 Patient states she feels little better today. Leukocytosis resolved today. Bandemia improved. Had good urine output from Lasix yesterday. Currently on room air with sats 89- 92. Mild hyponatremia on a.m. labs. 10/19 Patient continues to feel better. Had drainage of fluid collection in abdomen y esterday. Bandemia resolved yesterday. Currently on room air. Ambulating in [place] with PT. Pending chemistry. Has cough. Denies shortness of breath. 10/20 States poor sleep last night from to being in drainage bulb, but otherwise no new complaints. Patient on room air. Sodium stable. Review of Systems: denies headache/fever/chills/nausea/vomiting/chest or abdominal pain/diarrhea. Otherwise see above. Constitutional Vitals: Vital Signs Temp Pulse Resp BP Pulse Ox 98.2 F 69 20 98/64 93 10/19/20 04:00 10/19/20 07:13 10/19/20 07:13 10/19/20 04:00 10/19/20 07:13 Period Temp Pulse Resp BP Sys/Bryant Pulse Ox Last 24 Hr 96.2 F-98.2 F 69-80 16-22 91-101/49-68 91-96 Intake and Output 10/18/20 10/19/20 10/19/20 21:59 05:59 13:59 Intake Total 960 50 Output Total 365 10 Balance 595 -10 50 Weight 111.357 kg Intake & Output: Intake & Output 10/18/20 10/19/20 10/19/20 21:59 05:59 13:59 Intake Total 960 50 Output Total 365 10 Balance 595 -10 50 Weight 111.357 kg Intake: Nourishment/Supplement quantity 240 (ml) IV 100 50 Merrem 1 gm In Sodium Chloride 100 50 0.9% 50 ml @ 100 mls/hr IV Q8H [facility] Rx#:[id number] Oral 620 Output: Drainage 15 10 Right Abdomen FARIBA Drain 15 10 Urine/Stool Mix 350 Other: Meal Dinner Percent of Meal Consumed 75% Feeding Ability Independent # Voids 2 # Bowel Movements 1 Exam: General: Awake, no acute distress, obese Eyes/N/T: EOMI, , Head/Neck: neck supple, CV: RRR, No murmurs, Pulm: Diminished b/l R>L with improving rales/rhonchi, no wheezing Abd: soft, nontender, +BS x4 Ext: no clubbing/cyanosis, b/l LE edema 1-2+ Neuro: alert, no focal deficits, moves all extremities, Skin: warm/dry OBJ DATA Labs CBC & Chem 7: 10/19/20 06:35 10/19/20 06:35 Labs: Abnormal Lab Results 10/18/20 10/18/20 10/17/20 09:50 09:50 09:32 WBC RBC Hgb Hct 33.5 L RDW 15.2 H Plt Count MPV 11.5 H Neut % (Auto) 90.8 H Lymph % (Auto) 6.9 L Lymph # (Auto) 0.68 L Band Neutrophils % Lymphocytes % Absolute Neutrophils 8.88 H Platelet Estimate RBC Morphology Hypochromasia Anisocytosis Sodium 129 L 132 L Chloride 90 L 92 L Carbon Dioxide 33 H Anion Gap 7.0 L BUN Creatinine Glucose 189 H 69 L Calcium 7.8 L Phosphorus 2.2 L 2.2 L Magnesium GGT 45 H 44 H AST 33 H Lactate Dehydrogenase 315 H 408 H Total Protein Albumin 2.8 L 2.1 L Globulin 4.2 H 3.9 H Albumin/Globulin Ratio 0.7 L 0.5 L Triglycerides 157 H 153 H Procalcitonin Free T4 10/17/20 10/17/20 10/17/20 09:32 06:37 05:33 WBC 11.9 H RBC 3.48 L Hgb 10.7 L Hct 31.6 L RDW 15.1 H Plt Count MPV 12.3 H Neut % (Auto) 83.9 H Lymph % (Auto) 7.8 L Lymph # (Auto) 0.93 L Band Neutrophils % Lymphocytes % 10 L Absolute Neutrophils 10.00 H Platelet Estimate Decreased A RBC Morphology Abnormal A Hypochromasia 1+ A Anisocytosis 1+ A Sodium Chloride Carbon Dioxide Anion Gap BUN Creatinine Glucose Calcium Phosphorus Magnesium GGT AST Lactate Dehydrogenase Total Protein Albumin Globulin Albumin/Globulin Ratio Triglycerides Procalcitonin 0.14 H Free T4 10/17/20 10/17/20 10/16/20 05:33 05:33 08:35 WBC RBC 3.56 L Hgb 10.6 L Hct 31.6 L RDW 14.6 H Plt Count 134 L MPV 12.1 H Neut % (Auto) Lymph % (Auto) Lymph # (Auto) Band Neutrophils % Lymphocytes % Absolute Neutrophils Platelet Estimate RBC Morphology Hypochromasia Anisocytosis Sodium 130 L Chloride 90 L Carbon Dioxide Anion Gap BUN Creatinine Glucose Calcium 7.6 L Phosphorus Magnesium GGT 42 H AST Lactate Dehydrogenase 351 H Total Protein 5.6 L Albumin 2.3 L Globulin Albumin/Globulin Ratio 0.7 L Triglycerides Procalcitonin Free T4 0.72 L 10/16/20 10/16/20 10/16/20 08:33 08:33 08:33 WBC 17.2 H RBC Hgb Hct 32.3 L RDW 14.9 H Plt Count MPV 11.5 H Neut % (Auto) 92.0 H Lymph % (Auto) 2.9 L Lymph # (Auto) 0.50 L Band Neutrophils % 15 H Lymphocytes % 2 L Absolute Neutrophils 15.81 H Platelet Estimate RBC Morphology Hypochromasia Anisocytosis Sodium Chloride 92 L Carbon Dioxide Anion Gap BUN 5 L Creatinine 0.5 L Glucose 111 H Calcium 8.0 L Phosphorus 2.3 L Magnesium 1.4 L GGT 50 H AST Lactate Dehydrogenase 311 H Total Protein 5.8 L Albumin 2.4 L Globulin Albumin/Globulin Ratio 0.7 L Triglycerides Procalcitonin Free T4 Meds: Medications Acetaminophen (Acetaminophen 500 Mg Tablet) 1,000 mg PO Q6HP PRN; Protocol PRN Reason: Per Pain Protocol Acetylcysteine (Acetylcysteine 800 Mg/4 Ml Vial) 600 mg NEB Q6 [facility] Last Admin: 10/19/20 05:31 Dose: 600 mg Documented by: Albuterol/Ipratropium (Ipratropium/Albuterol 3 Ml Ampul.Neb) 3 ml NEB Q4HP PRN PRN Reason: Shortness Of Breath Last Admin: 10/18/20 18:36 Dose: 3 ml Documented by: Budesonide (Budesonide 0.5 Mg/2 Ml Ampul.Neb) 0.5 mg NEB Q12 [facility] Last Admin: 10/19/20 07:13 Dose: 0.5 mg Documented by: Buprenorphine HCl (Buprenorphine/Naloxone 4mg/1mg Oral Film) 0.5 each HS [facility] Last Admin: 10/18/20 20:57 Dose: 0.5 each Documented by: Diphenhydramine HCl (Diphenhydramine 50 Mg/Ml Vial) 25 mg IV Q6H [facility] Last Admin: 10/19/20 02:11 Dose: 25 mg Documented by: Duloxetine HCl (Duloxetine 30 Mg Capsule) 60 mg PO DAILY [facility] Heparin Sodium (Porcine) (Heparin 5,000 Unit/Ml Vial) 5,000 unit SQ Q12 [facility] Last Admin: 10/18/20 21:00 Dose: 5,000 unit Documented by: Hydrocortisone (Hydrocortisone Crm 1% Tube 30gm) 1 dose TOPICAL BID [facility] Last Admin: 10/18/20 20:54 Dose: 1 dose Documented by: Magnesium Sulfate (Magnesium Sulfate) 2 gm in 50 mls @ 50 mls/hr IV UD PRN PRN Reason: Magnesium </= 1.6 Meropenem 1 gm/ Sodium (Chloride) 50 mls @ 100 mls/hr IV Q8H [facility]; Protocol Last Infusion: 10/19/20 06:20 Dose: Infused Documented by: Diltiazem HCl 125 mg/ Dextrose 125 mls @ 5 mls/hr IV Q24HP PRN; Protocol PRN Reason: TITRATE TO KEEP HR <110 AND SB Potassium Chloride 40 meq/ (Dextrose) 520 mls @ 130 mls/hr IV UD PRN PRN Reason: Potassium < 3 Methylprednisolone Sodium Succinate (Methylprednisolone Sod Succ 125 Mg/2 Ml Vial) 62.5 mg IV Q12 [facility] Last Admin: 10/18/20 20:57 Dose: 62.5 mg Documented by: Metoprolol Tartrate (Metoprolol Tartrate 25 Mg Tablet) 12.5 mg PO BID [facility] Last Admin: 10/18/20 20:59 Dose: 12.5 mg Documented by: Metoprolol Tartrate (Metoprolol Tartrate 5 Mg/5 Ml Vial) 5 mg IV Q4HP PRN PRN Reason: Tachyarrhythmias Nicotine (Nicotine 14 Mg Patch) 14 mg TOPICAL DAILY@1000 [facility] Ondansetron HCl (Ondansetron 4 Mg/2 Ml Vial) 4 mg IV Q6HP PRN PRN Reason: Nausea And Vomiting Pantoprazole Sodium (Pantoprazole 40 Mg Tablet) 40 mg PO QAMAC [facility] Potassium Chloride (Potassium Chloride 20 Meq Tablet) 40 meq PO UD PRN PRN Reason: Potssium is 3-3.5 Senna (Sennosides 1 Tablet) 2 tab PO HS [facility] Last Admin: 10/18/20 20:59 Dose: 2 tab Documented by: Simethicone (Simethicone 80 Mg Tab.Chew) 80 mg CHEWED QIDP PRN PRN Reason: Dyspepsia Sodium Chloride (0.9 % Sodium Chloride 10 Ml Syringe) 10 ml IV Q8 [facility] Last Admin: 10/19/20 05:32 Dose: 10 ml Documented by: A/P Narrative A/P Narrative: A: *RUQ peritoneal abscess: s/p aspiration (10/17) 360cc purulent fluid -no growth but had been on Abx *Tachyarrhythmia 2:1 (10/15): appeared to be Fib/Flutter (no history of) -converted first time w/single shock 50j synchronized cardioversion; following day had brief episode & given lopressor x2 and eventually converted back -has been sinus since *Acute hypoxic respitory failure: 03/18 atelectasis/mucous plug/poor respiratory effort/pleural effusion -on RA now *Atelectasis/mucous plugging right/Pleural effusion appearing transudative -Thora 1200cc (10/14) -seen by Dr. Alva *Biliary pancreatitis w/pseudocyst: per Dr. Casper, eventual surgery *COPD (not on home O2): *Tobacco abuse: *Depression: *GERD: *Obesity: *Hypomagnesemia/kalemia/natremia: Replete as needed P: -pending abscess culture and stain -cont low-dose lopressor bid -IS/Acapella/CPT per RT -Surgery for eventual laparoscopic cholecystectomy in several weeks, on abx -cont IH's -prn lasix for volume overload -pcp to follow up thyroid labs outpt after acute illness resolved -Smoking cessation counseling -ppx: heparin / ppi Time Spent With Patient Time: Total time spent is greater than 50% in coordination of care (as documented) at patient's floor/unit and/or counseling patient:
[2020-10-19] MEDS: METOPROLOL TARTRATE 25 MG TABLET PO SCH ×2 (08:12→22:10)
[2020-10-19] MEDS: HYDROCORTISONE CRM 1% TUBE 30GM TOPICAL SCH ×2 (08:12→22:31)
[2020-10-19] MEDS: methylPREDNISolone SOD SUCC 125 MG/2 ML VIAL IV SCH ×2 (08:12→22:05)
[2020-10-19] MEDS: HEPARIN 5,000 UNIT/ML VIAL SQ SCH ×2 (08:12→22:07)
[2020-10-19] MEDS: DULoxetine 30 MG CAPSULE PO SCH (08:13)
[2020-10-19] MEDS: PANTOPRAZOLE 40 MG TABLET PO SCH (08:13)
[2020-10-19 09:21] LABS: ALT/SGPT 15 U/L (<40); AST/SGOT 28 U/L (<32); Albumin 2.5 gm/dL (3.2-5.2); Albumin/Globulin Ratio 0.7 (1.0-2.3); Alkaline Phosphatase 71 U/L (39-117); Bilirubin,Direct < 0.2 mg/dL (0-0.3); Bilirubin,Total 0.3 mg/dL (0.1-1.0); Blood Urea Nitrogen 12 mg/dL (6-20); Calcium 8.4 mg/dL (8.6-10.4); Carbon Dioxide 26 mmol/L (22-30); Chloride 95 mmol/L (96-108); Globulin 3.8 gm/dL (2.2-3.7); Glomerular Filtration Rate 106; Glucose 107 mg/dL (70-105); Lactate Dehydrogenase 454 U/L (135-225); Phosphorous 3.2 mg/dL (2.5-4.5); Triglycerides 137 mg/dL (<150)
[2020-10-19] MEDS ORDERED: ALBUMIN HUMAN 12.5 GM/50 ML BAG IV ONE (10:00)
[2020-10-19] MEDS ORDERED: FUROSEMIDE 40 MG/4 ML VIAL IV ONE (10:00)
[2020-10-19] MEDS: NICOTINE 14 MG PATCH TOPICAL SCH (10:27)
[2020-10-19] MEDS: IPRATROPIUM/ALBUTEROL 3 ML AMPUL.NEB NEB PRN ×2 (12:19→20:03)
--- NOTE | 2020-10-19 13:53 | General Surgery Progress Note ---
SUBJECTIVE Subjective Patient information: Note initiated : 10/19/20 at 1:49 pm Service Date, if different from initiated Date: [] Patient: Elida Russell 60 y/o F admitted on 10/01/20 for Abdominal Pain. Chief Complaint: [] Principal diagnosis: Acute pancreatitis; right lung atelectasis; right pleural effusion;rash Interval history: Patient continues to improve. She denies any shortness of breath. She is afebrile. Her abdominal pain is significantly improved. Her total body rash is improved except for new eruptions on her legs. She is presently on Solu-Medrol and Benadryl. The rash on her back and trunk is impr jaspreet. She is having multiple bowel movements and denies nausea. Constitutional Vitals: Vital Signs Temp Pulse Resp BP Pulse Ox 97.8 F 69 20 105/69 94 10/19/20 12:00 10/19/20 12:21 10/19/20 12:21 10/19/20 12:00 10/19/20 12:21 Period Temp Pulse Resp BP Sys/Bryant Pulse Ox Last 24 Hr 97.3 F-98.2 F 63-80 - 91-114/53-72 91-96 Intake and Output 10/18/20 10/19/20 10/19/20 21:59 05:59 13:59 Intake Total 960 1340 Output Total 365 10 815 Balance 595 -10 525 Weight 245 lb 8 oz Intake & Output: Intake & Output 10/18/20 10/19/20 10/19/20 21:59 05:59 13:59 Intake Total 960 1340 Output Total 365 10 815 Balance 595 -10 525 Weight 245 lb 8 oz Intake: Nourishment/Supplement quantity 240 (ml) IV 100 100 Merrem 1 gm In Sodium Chloride 100 50 0.9% 50 ml @ 100 mls/hr IV Q8H [facility] Rx#:[id number] Oral 620 1240 Output: Drainage 15 10 15 Right Abdomen FARIBA Drain 15 10 15 Void Amount 800 Urine/Stool Mix 350 Other: Meal Dinner Breakfast Percent of Meal Consumed 75% 100% Feeding Ability Independent Independent Urine Appearance Clear Urine Color Bright Yellow # Voids 2 # Bowel Movements 1 Eye Eye exam: Present EOMI, normal appearance and PERRL Pupils: Present normal accommodation ENT ENT exam: Present mucous membranes moist and normal oropharynx Neck Neck exam: Present normal inspection; Absent lymphadenopathy, tenderness and thyromegaly Respiratory Respiratory exam: Present decreased breath sounds (Significant decreased breath sounds on the right base but full clear breath sounds on the left; no rhonchi wheezes or rales) Cardiovascular Cardiovascular exam: Present normal rate and rhythm, RRR, +S1 and +S2; Absent JVD Extremities Exam Extremities exam: Present full ROM and neurovascular intact; Absent calf tenderness, joint swelling, pedal edema and tenderness Neurological Exam Neurological exam: Present alert, normal gait and oriented X3; Absent motor sensory deficit Psychiatric Psychiatric exam: Present anxious and normal affect Skin Additional comments: Partially confluent erythematous patchy nonraised blanching rash primarily of the posterior trunk and flank regions. There is no pruritic component. A/P Assessment and plan (1) Abscess, hepatic: Status: Acute (2) Recurrent right pleural effusion: Status: Acute (3) Pneumonitis: Status: Acute (4) Acute gallstone pancreatitis: Status: Acute (5) Atelectasis of both lungs: Status: Acute Narrative A/P Narrative: Continue Solu-Medrol and Benadryl for her rash Chest x-ray in the morning Check CBC tomorrow Possible discharge within 1 to 2 days Time Spent With Patient Time: Total time spent is greater than 50% in coordination of care (as documented) at patient's floor/unit and/or counseling patient:
[2020-10-19 14:36] LABS: Basophils # (Auto) 0.04 K/mcL (0.00-0.30); Basophils % (Auto) 0.2 % (0.0-2.0); Eosinophils # (Auto) 0 K/mcL (0.00-0.70); Eosinophils % (Auto) 0 % (0.0-7.0); Hemoglobin 10.6 g/dL (11.2-15.7); Lymphocytes # (Auto) 1.12 K/mcL (1.50-4.80); Lymphocytes % (Auto) 6.7 % (15.5-49.0); Mean Corpuscular HGB Conc 33.1 g/dL (31.0-36.0); Mean Platelet Volume 11.3 fL (7.4-10.4); Monocytes # (Auto) 0.56 K/mcL (0.10-0.90); Monocytes % (Auto) 3.4 % (1.0-12.0); Neutrophils % (Auto) 89.7 % (38.0-78.0); Platelet Count 419 K/mcL (140-440); RBC 3.48 M/mcL (3.59-5.38); Red Cell Distribution Width 15.4 % (11.5-14.5); WBC 16.7 K/mcL (4.5-11.0)
--- NOTE | 2020-10-19 14:53 | XRay Report ---
CLINICAL INFORMATION: Follow-up atelectasis in right lower lobe pneumon COMPARISON: None. FINDINGS: Heart size, mediastinum and pulmonary vessels are normal. Moderate infiltrate/atelectasis in the right mid and lower lung shows Like progression. Right pleural effusion has also decreased-now small. IMPRESSION: Moderate infiltrate/atelectasis in the right mid and lower lung with small effusion-slight worsening. Consider pulmonary referral for bronchoscopy. Patient may have right middle and/or lower lobe endobronchial obstruction Interpreted and Authenticated by: Teofilo Watt 10/19/20
[2020-10-19] MEDS: BUPRENORPHINE/NALOXONE 4MG/1MG ORAL FILM SL SCH (22:06)
[2020-10-19] MEDS: SENNOSIDES 1 TABLET PO SCH (22:07)
[2020-10-19] MEDS: MELATONIN 3 MG TABLET PO SCH (22:09)
[2020-10-20] MEDS: IPRATROPIUM/ALBUTEROL 3 ML AMPUL.NEB NEB SCH ×4 (01:16→19:25)
[2020-10-20] MEDS: diphenhydrAMINE 50 MG/ML VIAL IV SCH ×4 (03:12→19:23)
[2020-10-20] MEDS: MEROPENEM 1 GM in 0.9 % SODIUM CHLORIDE 50 ML IV SCH ×3 (05:42→21:32)
[2020-10-20] MEDS: 0.9 % SODIUM CHLORIDE 10 ML SYRINGE IV SCH ×3 (05:43→21:34)
[2020-10-20 06:54] LABS: Basophils # (Auto) 0.02 K/mcL (0.00-0.30); Basophils % (Auto) 0.2 % (0.0-2.0); Eosinophils # (Auto) 0.01 K/mcL (0.00-0.70); Eosinophils % (Auto) 0.1 % (0.0-7.0); Hematocrit 28.2 % (34.1-44.9); Hemoglobin 9.4 g/dL (11.2-15.7); Lymphocytes # (Auto) 1.32 K/mcL (1.50-4.80); Lymphocytes % (Auto) 12.5 % (15.5-49.0); Mean Cell Volume 91.6 fL (80.0-100.0); Mean Corpuscular HGB Conc 33.3 g/dL (31.0-36.0); Mean Platelet Volume 11.5 fL (7.4-10.4); Monocytes # (Auto) 0.55 K/mcL (0.10-0.90); Monocytes % (Auto) 5.2 % (1.0-12.0); Platelet Count 351 K/mcL (140-440); RBC 3.08 M/mcL (3.59-5.38); Red Cell Distribution Width 15.4 % (11.5-14.5); WBC 10.6 K/mcL (4.5-11.0)
[2020-10-20] MEDS: BUDESONIDE 0.5 MG/2 ML AMPUL.NEB NEB SCH ×2 (07:09→19:25)
--- NOTE | 2020-10-20 07:26 | Internal Med Progress Note ---
SUBJECTIVE Subjective Patient information: Note initiated : 10/20/20 at 7:25 am Service Date, if different from initiated Date: [] Patient: Elida Russell 60 y/o F admitted on 10/01/20 for Abdominal Pain. Chief Complaint: [] Principal diagnosis: Acute pancreatitis; right lung atelectasis; right pleural effusion;rash Interval history: Who presented to the ED on the for upper right quadrant and left upper quadrant pain nausea vomiting. Patient was admitted for pancreatitis and concern for gallbladder etiology. On the she had a diagnostic laparoscopy with the findings of severe inflammation of the entire upper abdomen and gallbladder omentum: Stomach liver small bowel inflammation was too severe to do cholecystectomy open or laparoscopically. Is felt that because of the inflammation it was best to allow that to clear and then do a laparoscopic cholecystectomy at a later time. She was noted to have some early pneumonitis. Postprocedural she was anxious and restless in bed. She received 1 mg of Ativan and since then been extremely lethargic and slow to respond temperature is 100.0. He was given Narcan with no response. Chest x-ray was read as atelectasis and mucous plug in the right lobe. Patient noted be wheezy and poor inspiratory effort. Radiology report x-ray shows consolidated atelectasis right middle lobe and to consider mucous plug and that right middle lobe of the bronchus. Report also shows near complete resolution of mild bilateral lower lobe infiltrates. Discoid atelectasis left midlung. Patient now waking up and clinical bed. She is oriented but appears like she is coming out of anesthesia. Denies cough. She has COPD but does not wear oxygen at home. 10/08: Being transferred to PCU with initiation of BiPAP overnight. Been switched to 2L nasal cannula oxygen tonight. Afebrile overnight. Denies confusion or pain currently. Denies nausea, vomiting, diarrhea, or constipation. Denies fever, chills, or sweating. 10/09: Being transferred back to med surg from PCU last night. Been on 2-3L oxygen via oxymask overnight and this morning. c/o restless leg. c/o anxiety. c/o SOB. c/o RUQ and LUQ abdominal pain. Denies fever or chills. Denies nausea or vomiting. 10/10: Been on 2L oxygen overnight. Tolerating Suboxone SL without overly sedated or dyspnea/respiratory failure. Denies SOB. Denies fever or chills. c/o mild RUQ and LUQ abdominal pain. Denies nausea or vomiting. Denies leg restless. 10/11: Been on between 2-4L/min oxygen overnight. c/o abdominal distention and excessive gas. Denies abdominal pain. Denies nausea/vomiting. Had 2 episode of bowel incontinence this morning. Denies SOB. Denies anxiety. 10/12: Afebrile overnight. Been on between 2-3L/min oxygen overnight. c/o abdominal distention and excessive gas. c/o 8/10 RUQ and LUQ abdominal pain, sharp. Denies nausea/vomiting. Good appetite. Denies SOB. Denies anxiety. 10/13: Afebrile overnight. Tolerating room air. Denies abdominal distention and excessive gas. Mild RUQ and LUQ abdominal pain. Denies nausea/vomiting. Good appetite. Denies SOB. Denies anxiety. 10/15 Event Note: pt with persistent tachycardia 140's-150 today. ekg appeared to have some sinus tach complexes but was difficult to read given the rate and there were some suspicious findings on ekg. Pt has thus had several doses of IV lopressor without effect. We then gave adenosine 6mg which appeared to reveal atrial flutter. given the recent timeframe of the tachyarrhythmia and no history of the same we opted to make an attempt at converting her back to sinus since she is within the timeframe. We used conscious sedation with fentanyl and versed and she converted first time at 50 joules with synchronized cardiover amadou. We moved her back to the pcu for the night for close monitoring. 10/16 Patient is sinus rhythm and feeling fine today. No overnight events. Has occasional productive cough and shortness of breath pt went into afib/flutter rvr, asymptomatic rates 140-170's. She flipped back and forth multiple times between sinus and tachyarrhythmia. Tried lopressor IV x2, then switched to dilt bolus/gtt but converted back before started Mildly low potassium and low magnesium noted on labs today. will replete potassium and magnesium. 10/17 pt do undergo drainage of liver, concern for infection. 10/18 Patient continues to feel better. Had drainage of fluid collection in abdomen yesterday. Bandemia resolved yesterday. Currently on room air. Ambulating in [place] with PT. Pending chemistry. Has cough. Denies shortness of breath. 10/19 States poor sleep last night from to being in drainage bulb, but otherwise no new complaints. Patient on room air intermittently. Sodium stable. 10/20 Patient feeling better today. On room air. Leukocytosis resolved. Chemistry unremarkable today. Review of Systems: denies headache/fever/chills/nausea/vomiting/chest or abdominal pain/diarrhea. Otherwise see above. Constitutional Vitals: Vital Signs Temp Pulse Resp BP Pulse Ox 97.0 F 60 18 120/72 93 10/20/20 03:37 10/20/20 07:12 10/20/20 07:12 10/20/20 03:37 10/20/20 07:12 Period Temp Pulse Resp BP Sys/Bryant Pulse Ox Last 24 Hr 97.0 F-98.4 F 60-74 14-20 105-131/69-77 90-96 Intake and Output 10/19/20 10/20/20 10/20/20 21:59 05:59 13:59 Intake Total 50 450 50 Output Total 28 Balance 50 422 50 Weight 113.058 kg Intake & Output: Intake & Output 10/19/20 10/20/20 10/20/20 21:59 05:59 13:59 Intake Total 50 450 50 Output Total 28 Balance 50 422 50 Weight 113.058 kg Intake: IV 50 50 50 Merrem 1 gm In Sodium Chloride 50 50 50 0.9% 50 ml @ 100 mls/hr IV Q8H [facility] Rx#:[id number] Oral 400 Output: Drainage 28 Right Abdomen FARIBA Drain 28 Other: Meal Dinner Percent of Meal Consumed 75% Feeding Ability Independent Stool Size Moderate Stool Color Brown Stool Consistency Liquid Exam: General: Awake, no acute distress, obese Eyes/N/T: EOMI, , Head/Neck: neck supple, CV: RRR, No murmurs, Pulm: Diminished b/l R>L with improving rales/rhonchi, no wheezing Abd: soft, nontender, +BS x4 Ext: no clubbing/cyanosis, b/l LE edema 1-2+ Neuro: alert, no focal deficits, moves all extremities, Skin: warm/dry OBJ DATA Labs CBC & Chem 7: 10/20/20 05:51 10/20/20 05:51 Labs: Abnormal Lab Results 10/20/20 10/19/20 10/19/20 05:51 13:35 06:35 WBC 16.7 H RBC 3.08 L 3.48 L Hgb 9.4 L 10.6 L Hct 28.2 L 32.0 L RDW 15.4 H 15.4 H Plt Count MPV 11.5 H 11.3 H Neut % (Auto) 82.0 H 89.7 H Lymph % (Auto) 12.5 L 6.7 L Lymph # (Auto) 1.32 L 1.12 L Lymphocytes % Absolute Neutrophils 8.69 H 14.95 H Platelet Estimate RBC Morphology Hypochromasia Anisocytosis Sodium 131 L Chloride 95 L Carbon Dioxide Anion Gap Creatinine 0.5 L Glucose 107 H Calcium 8.4 L Phosphorus GGT AST Lactate Dehydrogenase 454 H Total Protein Albumin 2.5 L Globulin 3.8 H Albumin/Globulin Ratio 0.7 L Triglycerides Procalcitonin 10/18/20 10/18/20 10/17/20 09:50 09:50 09:32 WBC RBC Hgb Hct 33.5 L RDW 15.2 H Plt Count MPV 11.5 H Neut % (Auto) 90.8 H Lymph % (Auto) 6.9 L Lymph # (Auto) 0.68 L Lymphocytes % Absolute Neutrophils 8.88 H Platelet Estimate RBC Morphology Hypochromasia Anisocytosis Sodium 129 L 132 L Chloride 90 L 92 L Carbon Dioxide 33 H Anion Gap 7.0 L Creatinine Glucose 189 H 69 L Calcium 7.8 L Phosphorus 2.2 L 2.2 L GGT 45 H 44 H AST 33 H Lactate Dehydrogenase 315 H 408 H Total Protein Albumin 2.8 L 2.1 L Globulin 4.2 H 3.9 H Albumin/Globulin Ratio 0.7 L 0.5 L Triglycerides 157 H 153 H Procalcitonin 10/17/20 10/17/20 10/17/20 09:32 06:37 05:33 WBC 11.9 H RBC 3.48 L Hgb 10.7 L Hct 31.6 L RDW 15.1 H Plt Count MPV 12.3 H Neut % (Auto) 83.9 H Lymph % (Auto) 7.8 L Lymph # (Auto) 0.93 L Lymphocytes % 10 L Absolute Neutrophils 10.00 H Platelet Estimate Decreased A RBC Morphology Abnormal A Hypochromasia 1+ A Anisocytosis 1+ A Sodium Chloride Carbon Dioxide Anion Gap Creatinine Glucose Calcium Phosphorus GGT AST Lactate Dehydrogenase Total Protein Albumin Globulin Albumin/Globulin Ratio Triglycerides Procalcitonin 0.14 H 10/17/20 10/17/20 05:33 05:33 WBC RBC 3.56 L Hgb 10.6 L Hct 31.6 L RDW 14.6 H Plt Count 134 L MPV 12.1 H Neut % (Auto) Lymph % (Auto) Lymph # (Auto) Lymphocytes % Absolute Neutrophils Platelet Estimate RBC Morphology Hypochromasia Anisocytosis Sodium 130 L Chloride 90 L Carbon Dioxide Anion Gap Creatinine Glucose Calcium 7.6 L Phosphorus GGT 42 H AST Lactate Dehydrogenase 351 H Total Protein 5.6 L Albumin 2.3 L Globulin Albumin/Globulin Ratio 0.7 L Triglycerides Procalcitonin Meds: Medications Acetaminophen (Acetaminophen 500 Mg Tablet) 1,000 mg PO Q6HP PRN; Protocol PRN Reason: Per Pain Protocol Last Admin: 10/19/20 22:00 Dose: 1,000 mg Documented by: Albuterol/Ipratropium (Ipratropium/Albuterol 3 Ml Ampul.Neb) 3 ml NEB Q4HP PRN PRN Reason: Shortness Of Breath Last Admin: 10/19/20 20:03 Dose: 3 ml Documented by: Albuterol/Ipratropium (Ipratropium/Albuterol 3 Ml Ampul.Neb) 3 ml NEB Q6HRT [facility] Last Admin: 10/20/20 07:09 Dose: 3 ml Documented by: Budesonide (Budesonide 0.5 Mg/2 Ml Ampul.Neb) 0.5 mg NEB Q12 [facility] Last Admin: 10/20/20 07:09 Dose: 0.5 mg Documented by: Buprenorphine HCl (Buprenorphine/Naloxone 4mg/1mg Oral Film) 0.5 each SL HS [facility] Last Admin: 10/19/20 22:06 Dose: 0.5 each Documented by: Diphenhydramine HCl (Diphenhydramine 50 Mg/Ml Vial) 25 mg IV Q6H [facility] Last Admin: 10/20/20 03:12 Dose: 25 mg Documented by: Duloxetine HCl (Duloxetine 30 Mg Capsule) 60 mg PO DAILY [facility] Last Admin: 10/19/20 08:13 Dose: 60 mg Documented by: Heparin Sodium (Porcine) (Heparin 5,000 Unit/Ml Vial) 5,000 unit SQ Q12 [facility] Last Admin: 10/19/20 22:07 Dose: 5,000 unit Documented by: Hydrocortisone (Hydrocortisone Crm 1% Tube 30gm) 1 dose TOPICAL BID [facility] Last Admin: 10/19/20 22:31 Dose: 1 dose Documented by: Magnesium Sulfate (Magnesium Sulfate) 2 gm in 50 mls @ 50 mls/hr IV UD PRN PRN Reason: Magnesium </= 1.6 Meropenem 1 gm/ Sodium (Chloride) 50 mls @ 100 mls/hr IV Q8H [facility]; Protocol Last Infusion: 10/20/20 06:39 Dose: Infused Documented by: Diltiazem HCl 125 mg/ Dextrose 125 mls @ 5 mls/hr IV Q24HP PRN; Protocol PRN Reason: TITRATE TO KEEP HR <110 AND SB Potassium Chloride 40 meq/ (Dextrose) 520 mls @ 130 mls/hr IV UD PRN PRN Reason: Potassium < 3 Melatonin (Melatonin 3 Mg Tablet) 3 mg PO QHS [facility] Last Admin: 10/19/20 22:09 Dose: 3 mg Documented by: Methylprednisolone Sodium Succinate (Methylprednisolone Sod Succ 125 Mg/2 Ml Vial) 40 mg IV Q12 [facility] Last Admin: 10/19/20 22:05 Dose: 40 mg Documented by: Metoprolol Tartrate (Metoprolol Tartrate 25 Mg Tablet) 12.5 mg PO BID [facility] Last Admin: 10/19/20 22:10 Dose: 12.5 mg Documented by: Metoprolol Tartrate (Metoprolol Tartrate 5 Mg/5 Ml Vial) 5 mg IV Q4HP PRN PRN Reason: Tachyarrhythmias Nicotine (Nicotine 14 Mg Patch) 14 mg TOPICAL DAILY@1000 [facility] Last Admin: 10/19/20 10:27 Dose: 14 mg Documented by: Ondansetron HCl (Ondansetron 4 Mg/2 Ml Vial) 4 mg IV Q6HP PRN PRN Reason: Nausea And Vomiting Pantoprazole Sodium (Pantoprazole 40 Mg Tablet) 40 mg PO QAMAC [facility] Last Admin: 10/19/20 08:13 Dose: 40 mg Documented by: Potassium Chloride (Potassium Chloride 20 Meq Tablet) 40 meq PO UD PRN PRN Reason: Potssium is 3-3.5 Senna (Sennosides 1 Tablet) 2 tab PO HS [facility] Last Admin: 10/19/20 22:07 Dose: 2 tab Documented by: Simethicone (Simethicone 80 Mg Tab.Chew) 80 mg CHEWED QIDP PRN PRN Reason: Dyspepsia Sodium Chloride (0.9 % Sodium Chloride 10 Ml Syringe) 10 ml IV Q8 [facility] Last Admin: 10/20/20 05:43 Dose: 10 ml Documented by: A/P Narrative A/P Narrative: A: *RUQ peritoneal abscess: s/p aspiration (10/17) 360cc purulent fluid -no growth but had been on Abx -Leukocytosis resolved *Tachyarrhythmia 2:1 (10/15): appeared to be Fib/Flutter (no history of) -converted first time w/single shock 50j synchronized cardioversion; following day had brief episode & given lopressor x2 and eventually converted back -has been sinus since *Acute hypoxic respitory failure: 2/2 atelectasis/mucous plug/poor respiratory effort/pleural effusion -on RA now *Atelectasis/mucous plugging right/Pleural effusion appearing transudative -Thora 1200cc (10/14) -seen by Dr. Alva *Biliary pancreatitis w/pseudocyst: per Dr. Casper, eventual surgery *COPD (not on home O2): *Tobacco abuse: *Depression: *GERD: *Obesity: *Hypomagnesemia/kalemia/natremia: Replete as needed P: -pending abscess culture and stain -cont low-dose lopressor bid -IS/Acapella/CPT per RT -Surgery for eventual laparoscopic cholecystectomy in several weeks, on abx -cont IH's -prn lasix for volume overload -pcp to follow up thyroid labs outpt after acute illness resolved -Smoking cessation counseling -ppx: heparin / ppi Time Spent With Patient Time: Total time spent is greater than 50% in coordination of care (as documented) at patient's floor/unit and/or counseling patient:
[2020-10-20 07:49] LABS: ALT/SGPT 30 U/L (<40); AST/SGOT 37 U/L (<32); Albumin 2.7 gm/dL (3.2-5.2); Albumin/Globulin Ratio 0.7 (1.0-2.3); Alkaline Phosphatase 61 U/L (39-117); Bilirubin,Direct < 0.2 mg/dL (0-0.3); Bilirubin,Total 0.2 mg/dL (0.1-1.0); Blood Urea Nitrogen 19 mg/dL (6-20); Calcium 8.4 mg/dL (8.6-10.4); Carbon Dioxide 28 mmol/L (22-30); Chloride 96 mmol/L (96-108); Globulin 3.7 gm/dL (2.2-3.7); Glomerular Filtration Rate 100; Glucose 111 mg/dL (70-105); Lactate Dehydrogenase 215 U/L (135-225); Phosphorous 4.3 mg/dL (2.5-4.5); Triglycerides 147 mg/dL (<150); Uric Acid 3.7 mg/dL (2.5-8.0)
[2020-10-20] MEDS: methylPREDNISolone SOD SUCC 125 MG/2 ML VIAL IV SCH ×2 (08:24→20:39)
[2020-10-20] MEDS: HEPARIN 5,000 UNIT/ML VIAL SQ SCH ×2 (08:25→20:38)
[2020-10-20] MEDS: DULoxetine 30 MG CAPSULE PO SCH (08:25)
[2020-10-20] MEDS: METOPROLOL TARTRATE 25 MG TABLET PO SCH ×2 (08:25→20:40)
[2020-10-20] MEDS: PANTOPRAZOLE 40 MG TABLET PO SCH (08:25)
[2020-10-20] MEDS: HYDROCORTISONE CRM 1% TUBE 30GM TOPICAL SCH ×2 (08:26→20:44)
[2020-10-20] MEDS: NICOTINE 14 MG PATCH TOPICAL SCH (11:49)
--- NOTE | 2020-10-20 13:48 | General Surgery Progress Note ---
SUBJECTIVE Subjective Patient information: Note initiated : 10/20/20 at 1:05 pm Service Date, if different from initiated Date: [] Patient: Elida Russell 60 y/o F admitted on 10/01/20 for Abdominal Pain. Chief Complaint: [] Principal diagnosis: Acute pancreatitis; right lung atelectasis; right pleural effusion;rash Interval history: Patient states that she feels better. Her abdominal pain is significantly improved and she is now relatively asymptomatic. She does not have any nausea and she does not have abdominal distention. Her rash has improved since she was started on Solu-Medrol and Benadryl. She denies nausea. She has no shortness of breath and her O2 sats are above 95% on room air. Evaluation of her drain today shows that she has pure bilious drainage which was not present yesterday in the afternoon. This is a new finding must evaluate for either gallbladder or ductal leak. Constitutional Vitals: Vital Signs Temp Pulse Resp BP Pulse Ox 97.5 F 57 L 22 126/69 91 10/20/20 11:58 10/20/20 11:58 10/20/20 11:58 10/20/20 11:58 10/20/20 11:58 Period Temp Pulse Resp BP Sys/Bryant Pulse Ox Last 24 Hr 97.0 F-98.4 F 57-70 14-22 112-131/68-77 90-96 Intake and Output 10/19/20 10/20/20 10/20/20 21:59 05:59 13:59 Intake Total 50 450 730 Output Total 28 Balance 50 422 730 Weight 249 lb 4 oz Intake & Output: Intake & Output 10/19/20 10/20/20 10/20/20 21:59 05:59 13:59 Intake Total 50 450 730 Output Total 28 Balance 50 422 730 Weight 249 lb 4 oz Intake: IV 50 50 50 Merrem 1 gm In Sodium Chloride 50 50 50 0.9% 50 ml @ 100 mls/hr IV Q8H [facility] Rx#:[id number] Oral 400 680 Output: Drainage 28 Right Abdomen FARIBA Drain 28 Other: Meal Dinner Breakfast Percent of Meal Consumed 75% 100% Feeding Ability Independent Independent Urine Color Straw Urine Odor Normal Stool Size Moderate Stool Color Brown Stool Consistency Liquid # Voids 1 Head Head exam: Present atraumatic and normal inspection Eye Eye exam: Present EOMI, normal appearance and PERRL Pupils: Present normal accommodation ENT ENT exam: Present mucous membranes moist and normal oropharynx Neck Neck exam: Present normal inspection; Absent lymphadenopathy, tenderness and thyromegaly Respiratory Respiratory exam: Present decreased breath sounds (Significant decreased breath sounds on the right base but full clear breath sounds on the left; no rhonchi wheezes or rales) Cardiovascular Cardiovascular exam: Present normal rate and rhythm, RRR, +S1 and +S2; Absent JVD GI/Abdominal GI/Abdominal exam: Present normal bowel sounds, soft, distended and tenderness (Very mild upper abdominal tenderness); Absent guarding Extremities Exam Extremities exam: Present full ROM and neurovascular intact; Absent calf tenderness, joint swelling, pedal edema and tenderness Neurological Exam Neurological exam: Present alert, normal gait and oriented X3; Absent motor sensory deficit Psychiatric Psychiatric exam: Present anxious and normal affect Skin Additional comments: Partially confluent erythematous patchy nonraised blanching rash primarily of the posterior trunk and flank regions. There is no pruritic component. A/P Assessment and plan (1) Abscess, hepatic: Status: Acute (2) Recurrent right pleural effusion: Status: Acute (3) Pneumonitis: Status: Acute (4) Acute gallstone pancreatitis: Status: Acute (5) Atelectasis of both lungs: Status: Acute Narrative A/P Narrative: Continue present therapy Scheduled for MRI Eovist study in the morning Time Spent With Patient Time: Total time spent is greater than 50% in coordination of care (as documented) at patient's floor/unit and/or counseling patient:
[2020-10-20] MEDS: SENNOSIDES 1 TABLET PO SCH (20:40)
[2020-10-20] MEDS: MELATONIN 3 MG TABLET PO SCH (20:41)
[2020-10-20] MEDS: BUPRENORPHINE/NALOXONE 4MG/1MG ORAL FILM SL SCH (20:42)
[2020-10-21] MEDS: IPRATROPIUM/ALBUTEROL 3 ML AMPUL.NEB NEB SCH ×3 (00:55→13:23)
[2020-10-21] MEDS: diphenhydrAMINE 50 MG/ML VIAL IV SCH ×2 (01:48→10:50)
[2020-10-21] MEDS: MEROPENEM 1 GM in 0.9 % SODIUM CHLORIDE 50 ML IV SCH ×2 (05:31→14:06)
[2020-10-21] MEDS: 0.9 % SODIUM CHLORIDE 10 ML SYRINGE IV SCH ×2 (05:32→14:06)
[2020-10-21] MEDS ORDERED: GADOXETATE DISODIUM 2.5 MMOL/10 ML VIAL IV ONE (07:38)
[2020-10-21] MEDS: BUDESONIDE 0.5 MG/2 ML AMPUL.NEB NEB SCH (08:10)
[2020-10-21] MEDS ORDERED: diphenhydrAMINE 50 MG/ML VIAL IV SCH (09:15)
[2020-10-21] MEDS: HEPARIN 5,000 UNIT/ML VIAL SQ SCH (10:36)
[2020-10-21] MEDS: methylPREDNISolone SOD SUCC 125 MG/2 ML VIAL IV SCH (10:36)
[2020-10-21] MEDS: PANTOPRAZOLE 40 MG TABLET PO SCH (10:37)
[2020-10-21] MEDS: DULoxetine 30 MG CAPSULE PO SCH (10:37)
[2020-10-21] MEDS: METOPROLOL TARTRATE 25 MG TABLET PO SCH (10:37)
[2020-10-21] MEDS: NICOTINE 14 MG PATCH TOPICAL SCH (10:38)
[2020-10-21] MEDS: HYDROCORTISONE CRM 1% TUBE 30GM TOPICAL SCH (10:38)
[2020-10-21] MEDS: diphenhydrAMINE 12.5 MG/5 ML ORAL.SOL PO SCH ×2 (10:50→18:08)
--- NOTE | 2020-10-21 11:45 | Internal Med Progress Note ---
SUBJECTIVE Subjective Patient information: Note initiated : 10/21/20 at 11:38 am Service Date, if different from initiated Date: [] Patient: Elida Russell 60 y/o F admitted on 10/01/20 for Abdominal Pain. Chief Complaint: [A fib/ A flutter] Principal diagnosis: Acute pancreatitis; right lung atelectasis; right pleural effusion;rash Interval history: Who presented to the ED on the for upper right quadrant and left upper quadrant pain nausea vomiting. Patient was admitted for pancreatitis and concern for gallbladder etiology. On the she had a diagnostic laparoscopy with the findings of severe inflammation of the entire upper abdomen and gallbladder omentum: Stomach liver small bowel inflammation was too severe to do cholecystectomy open or laparoscopically. Is felt that because of the inflammation it was best to allow that to clear and then do a laparoscopic cholecystectomy at a later time. She was noted to have some early pneumonitis. Postprocedural she was anxious and restless in bed. She received 1 mg of Ativan and since then been extremely lethargic and slow to respond temperature is 100.0. He was given Narcan with no response. Chest x-ray was read as atelectasis and mucous plug in the right lobe. Patient noted be wheezy and poor inspiratory effort. Radiology report x-ray shows consolidated atelectasis right middle lobe and to consider mucous plug and that right middle lobe of the bronchus. Report also shows near complete resolution of mild bilateral lower lobe infiltrates. Dis coid atelectasis left midlung. Patient now waking up and clinical bed. She is oriented but appears like she is coming out of anesthesia. Denies cough. She has COPD but does not wear oxygen at home. 10/08: Being transferred to PCU with initiation of BiPAP overnight. Been switched to 2L nasal cannula oxygen tonight. Afebrile overnight. Denies confusion or pain currently. Denies nausea, vomiting, diarrhea, or constipation. Denies fever, chills, or sweating. 10/09: Being transferred back to med surg from PCU last night. Been on 2-3L oxygen via oxymask overnight and this morning. c/o restless leg. c/o anxiety. c/o SOB. c/o RUQ and LUQ abdominal pain. Denies fever or chills. Denies nausea or vomiting. 10/10: Been on 2L oxygen overnight. Tolerating Suboxone SL without overly sedated or dyspnea/respiratory failure. Denies SOB. Denies fever or chills. c/o mild RUQ and LUQ abdominal pain. Denies nausea or vomiting. Denies leg restless. 10/11: Been on between 2-4L/min oxygen overnight. c/o abdominal distention and excessive gas. Denies abdominal pain. Denies nausea/vomiting. Had 2 episode of bowel incontinence this morning. Denies SOB. Denies anxiety. 10/12: Afebrile overnight. Been on between 2-3L/min oxygen overnight. c/o abdominal distention and excessive gas. c/o 8/ RUQ and LUQ abdominal pain, sharp. Denies nausea/vomiting. Good appetite. Denies SOB. Denies anxiety. 10/13: Afebrile overnight. Tolerating room air. Denies abdominal distention and excessive gas. Mild RUQ and LUQ abdominal pain. Denies nausea/vomiting. Good appetite. Denies SOB. Denies anxiety. 10/15 Event Note: pt with persistent tachycardia 140's-150 today. ekg appeared to have some sinus tach complexes but was difficult to read given the rate and there were some suspicious findings on ekg. Pt has thus had several doses of IV lopressor without effect. We then gave adenosine 6mg which appeared to reveal atrial flutter. given the recent timeframe of the tachyarrhythmia and no history of the same we opted to make an attempt at converting her back to sinus since she is within the timeframe. We used conscious sedation with fentanyl and versed and she converted first time at 50 joules with synchronized cardioversion. We moved her back to the pcu for the night for close monitoring. 10/16 Patient is sinus rhythm and feeling fine today. No overnight events. Has occasional productive cough and shortness of breath pt went into afib/flutter rvr, asymptomatic rates 140-170's. She flipped back and forth multiple times between sinus and tachyarrhythmia. Tried lopressor IV x2, then switched to dilt bolus/gtt but converted back before started Mildly low potassium and low magnesium noted on labs today. will replete potassium and magnesium. 10/17 pt do undergo drainage of liver, concern for infection. 10/18 Patient continues to feel better. Had drainage of fluid collection in abdomen yesterday. Bandemia resolved yesterday. Currently on room air. Ambulating in [place] with PT. Pending chemistry. Has cough. Denies shortness of breath. 10/19 States poor sleep last night from to being in drainage bulb, but otherwise no new complaints. Patient on room air intermittently. Sodium stable. 10/20 Patient feeling better today. On room air. Leukocytosis resolved. Chemistry unremarkable today. 10/21: Denies chest pain or palpitation. c/o mild abdominal pain. Denies SOB. Pending MRI abdomen. Constitutional Vitals: Vital Signs Temp Pulse Resp BP Pulse Ox 36.7 C 54 L 18 147/74 95 10/21/20 08:00 10/21/20 08:19 10/21/20 08:19 10/21/20 08:00 10/21/20 08:19 Period Temp Pulse Resp BP Sys/Bryant Pulse Ox Last 24 Hr 36.4 C-36.8 C 53-66 18-80 121-147/69-81 91-95 Intake and Output 10/20/20 10/21/20 10/21/20 21:59 05:59 13:59 Intake Total 50 50 790 Output Total 380 50 Balance -330 0 790 Weight 113.942 kg Intake & Output: Intake & Output 10/20/20 10/21/20 10/21/20 21:59 05:59 13:59 Intake Total 50 50 790 Output Total 380 50 Balance -330 0 790 Weight 113.942 kg Intake: IV 50 50 50 Merrem 1 gm In Sodium Chloride 50 50 50 0.9% 50 ml @ 100 mls/hr IV Q8H [facility] Rx#:[id number] Oral 0 740 Output: Drainage 50 Right Abdomen FARIBA Drain 50 Drainage 30 50 Right Abdomen FARIBA Drain 30 50 Void Amount 300 Other: Meal Breakfast Percent of Meal Consumed 100% Feeding Ability Assist with Tray Set Up Urine Appearance Clear Clear Urine Color Pale Pale Urine Odor Normal Normal Stool Size Moderate Stool Color Brown Stool Consistency Soft Formed # Voids 3 1 # Bowel Movements 1 General appearance: cooperative and no acute distress Head Head exam: Present atraumatic and normocephalic Eye Eye exam: Present EOMI and PERRL ENT ENT exam: Present mucous membranes moist, normal exam and normal external ear exam Neck Neck exam: Present normal inspection; Absent lymphadenopathy, tenderness and thyromegaly Respiratory Respiratory exam: Absent accessory muscle use, respiratory distress and wheezes Cardiovascular Cardiovascular exam: Present bradycardia; Absent JVD GI/Abdominal GI/Abdominal exam: Present normal bowel sounds, soft and tenderness; Absent organomegaly Extremities Exam Extremities exam: Present full ROM, normal capillary refill and normal inspection; Absent tenderness Neurological Exam Neurological exam: Present alert, CN II-XII intact and oriented X3; Absent motor sensory deficit Psychiatric Psychiatric exam: Present normal affect and normal mood; Absent anxious and depressed Skin Skin exam: Present dry and intact OBJ DATA Labs CBC & Chem 7: 10/20/20 05:51 10/20/20 05:51 Labs: Abnormal Lab Results 10/20/20 10/20/20 10/19/20 05:51 05:51 13:35 WBC 16.7 H RBC 3.08 L 3.48 L Hgb 9.4 L 10.6 L Hct 28.2 L 32.0 L RDW 15.4 H 15.4 H MPV 11.5 H 11.3 H Neut % (Auto) 82.0 H 89.7 H Lymph % (Auto) 12.5 L 6.7 L Lymph # (Auto) 1.32 L 1.12 L Absolute Neutrophils 8.69 H 14.95 H Sodium Chloride Creatinine Glucose 111 H Calcium 8.4 L GGT 52 H AST 37 H Lactate Dehydrogenase Albumin 2.7 L Globulin Albumin/Globulin Ratio 0.7 L 10/19/20 06:35 WBC RBC Hgb Hct RDW MPV Neut % (Auto) Lymph % (Auto) Lymph # (Auto) Absolute Neutrophils Sodium 131 L Chloride 95 L Creatinine 0.5 L Glucose 107 H Calcium 8.4 L GGT AST Lactate Dehydrogenase 454 H Albumin 2.5 L Globulin 3.8 H Albumin/Globulin Ratio 0.7 L Meds: Medications Acetaminophen (Acetaminophen 500 Mg Tablet) 1,000 mg PO Q6HP PRN; Protocol PRN Reason: Per Pain Protocol Last Admin: 10/19/20 22:00 Dose: 1,000 mg Documented by: Albuterol/Ipratropium (Ipratropium/Albuterol 3 Ml Ampul.Neb) 3 ml NEB Q4HP PRN PRN Reason: Shortness Of Breath Last Admin: 10/19/20 20:03 Dose: 3 ml Documented by: Albuterol/Ipratropium (Ipratropium/Albuterol 3 Ml Ampul.Neb) 3 ml NEB Q6HRT [facility] Last Admin: 10/21/20 08:10 Dose: 3 ml Documented by: Budesonide (Budesonide 0.5 Mg/2 Ml Ampul.Neb) 0.5 mg NEB Q12 [facility] Last Admin: 10/21/20 08:10 Dose: 0.5 mg Documented by: Buprenorphine HCl (Buprenorphine/Naloxone 4mg/1mg Oral Film) 0.5 each SL HS [facility] Last Admin: 10/20/20 20:42 Dose: 0.5 each Documented by: Diphenhydramine HCl (Diphenhydramine 12.5 Mg/5 Ml Oral.Teresa) 25 mg PO Q6H [facility] Last Admin: 10/21/20 10:50 Dose: 25 mg Documented by: Duloxetine HCl (Duloxetine 30 Mg Capsule) 60 mg PO DAILY [facility] Last Admin: 10/21/20 10:37 Dose: 60 mg Documented by: Heparin Sodium (Porcine) (Heparin 5,000 Unit/Ml Vial) 5,000 unit SQ Q12 [facility] Last Admin: 10/21/20 10:36 Dose: 5,000 unit Documented by: Hydrocortisone (Hydrocortisone Crm 1% Tube 30gm) 1 dose TOPICAL BID [facility] Last Admin: 10/21/20 10:38 Dose: 1 dose Documented by: Magnesium Sulfate (Magnesium Sulfate) 2 gm in 50 mls @ 50 mls/hr IV UD PRN PRN Reason: Magnesium </= 1.6 Meropenem 1 gm/ Sodium (Chloride) 50 mls @ 100 mls/hr IV Q8H [facility]; Protocol Last Infusion: 10/21/20 06:05 Dose: Infused Documented by: Diltiazem HCl 125 mg/ Dextrose 125 mls @ 5 mls/hr IV Q24HP PRN; Protocol PRN Reason: TITRATE TO KEEP HR <110 AND SB Potassium Chloride 40 meq/ (Dextrose) 520 mls @ 130 mls/hr IV UD PRN PRN Reason: Potassium < 3 Melatonin (Melatonin 3 Mg Tablet) 3 mg PO QHS [facility] Last Admin: 10/20/20 20:41 Dose: 3 mg Documented by: Methylprednisolone Sodium Succinate (Methylprednisolone Sod Succ 125 Mg/2 Ml Vial) 40 mg IV Q12 [facility] Last Admin: 10/21/20 10:36 Dose: 40 mg Documented by: Metoprolol Tartrate (Metoprolol Tartrate 25 Mg Tablet) 12.5 mg PO BID [facility] Last Admin: 10/21/20 10:37 Dose: 12.5 mg Documented by: Metoprolol Tartrate (Metoprolol Tartrate 5 Mg/5 Ml Vial) 5 mg IV Q4HP PRN PRN Reason: Tachyarrhythmias Nicotine (Nicotine 14 Mg Patch) 14 mg TOPICAL DAILY@1000 [facility] Last Admin: 10/21/20 10:38 Dose: 14 mg Documented by: Ondansetron HCl (Ondansetron 4 Mg/2 Ml Vial) 4 mg IV Q6HP PRN PRN Reason: Nausea And Vomiting Pantoprazole Sodium (Pantoprazole 40 Mg Tablet) 40 mg PO QAMAC [facility] Last Admin: 10/21/20 10:37 Dose: 40 mg Documented by: Potassium Chloride (Potassium Chloride 20 Meq Tablet) 40 meq PO UD PRN PRN Reason: Potssium is 3-3.5 Senna (Sennosides 1 Tablet) 2 tab PO HS [facility] Last Admin: 10/20/20 20:40 Dose: 2 tab Documented by: Simethicone (Simethicone 80 Mg Tab.Chew) 80 mg CHEWED QIDP PRN PRN Reason: Dyspepsia Sodium Chloride (0.9 % Sodium Chloride 10 Ml Syringe) 10 ml IV Q8 [facility] Last Admin: 10/21/20 05:32 Dose: 10 ml Documented by: A/P Assessment and plan (1) Acute gallstone pancreatitis: Status: Acute (2) Atelectasis of both lungs: Status: Acute (3) Cholelithiasis with cholecystitis: Status: Acute (4) COPD (chronic obstructive pulmonary disease): Status: Chronic (5) Depression: Status: Chronic (6) Anxiety: Status: Chronic (7) Hypokalemia: Status: Acute (8) Atrial fibrillation: Status: Acute Narrative A/P Narrative: Assessment and Plans: 1. Acute respiratory failure with hypercapnia and hypoxemia: RESOLVED Hold sedatives and narcotics for now Now tolerating room air DuoNEB NEB q4hr PRN wheezing or SOB Okay to continue Suboxone from home regimen 2. Biliary pancreatitis: Dr. Casper primary team, managed accordingly Antibiotics: Meropenem for now. MRI abdomen, pending results. Might need surgery soon depending on the results Continue narcotics as needed for pain management 3. h/o COPD, stable: DuoNEB NEB q4hr PRN wheezing or SOB Pulmicort 4. Depression: Continue Cymbalta 5. GERD: Continue oral PPI from home regimen 6. Excessive bowel gas: Simethicone PRN excessive gas 7. Hypokalemia/hypomagnesemia: RESOLVED Potassium replacement as per protocol CMP in the morning to trend serum potassium level, repeat replacement as needed Also check serum Mg level and replace as needed 8. Atrial fibrillation: s/p cardioversion first time with single shock 50J synchronized shock. Metoprolol tartrate 12.5mg PO BID Diltiazam 125mg IV daily Lopressor 5mg IV q4hr PRN tachyarrhythmia No therapeutic anticoagulation at this point GI ppx: Continue oral PPI from home regimen DVT ppx: Heparin Code status: Full Prognosis: guarded Disposition: inpatient med surg Time Spent With Patient Time: Total time spent is greater than 50% in coordination of care (as documented) at patient's floor/unit and/or counseling patient:
--- NOTE | 2020-10-21 13:45 | EKG ---
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 Consider atrial flutter or SVT Prior ECG showed sinus rhythm Electronically Signed On 10-21-2020 13:45:06 PDT by Cecilio Padilla /store/[email or web address]/[id number]/[id number]
--- NOTE | 2020-10-21 13:50 | EKG ---
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
--- NOTE | 2020-10-21 14:03 | EKG ---
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 Measurements Intervals [place] Rate: 158 P: [place]: QRS: 33 QRSD: 78 T: 255 QT: 304 QTc: 493 Interpretive Statements ATRIAL FIBRILLATION WITH RAPID V-RATE NONSPECIFIC T ABNORMALITIES, LATERAL LEADS Electronically Signed On 10-21-2020 14:03:06 PDT by Teofilo Cheema M.D. /store/[email or web address]/[id number]/ecg/[id number]
--- NOTE | 2020-10-21 14:06 | EKG ---
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 Measurements Intervals [place] Rate: 69 P: 49 [place]: 144 QRS: 29 QRSD: 82 T: 8 QT: 420 QTc: 450 Interpretive Statements SINUS RHYTHM Electronically Signed On 10-21-2020 14:06:18 PDT by Teofilo Cheema M.D. /store/[email or web address]/[id number]/ecg/[id number]
--- NOTE | 2020-10-21 14:41 | Magnetic Resonance Report ---
CLINICAL INFORMATION: MRI Eovist study to rule out bile leak; discussed COMPARISON: Abdomen and pelvic CT 10/15/2020 TECHNIQUE: Axial SSFSE, phase-in phase out, pre and dynamic post Eovist contrast images diffusion, ADC and coronal FSPGR FS SMV images were acquired FINDINGS: Moderate right pleural effusion and patchy infiltrate/atelectasis posterior right lower lobe are slightly smaller than on the study less than one week prior. Visualized heart is grossly normal The liver is normal in size, configuration and signal. 2.5 cm abscess in the medial segment left hepatic lobe has decreased from 4.[address] No other hepatic abscesses identified. The gallbladder wall is diffusely thickened with pericholecystic fluid compatible with cholecystitis. Intrahepatic, common hepatic common bile ducts are normally opacified and normal in caliber. There is no evidence of bile leak. Final 20 minute image shows a small amount of contrast extending into the the cystic duct and the nondependent gallbladder region. A 2.5 cm pseudocyst superior to the pancreatic neck is slightly smaller. 14 mm pseudocyst in the proximal pancreatic body is unchanged A small amount of peripancreatic fluid noted in the head region. The pancreatic duct is unremarkable Both kidneys, adrenal glands spleen and aorta are unremarkable. Percutaneous drain extends through the anterior abdominal wall of the right upper quadrant coiled in the subhepatic region. There is only minimal residual fluid appreciated. The stomach and visualized small and large bowel grossly normal. IMPRESSION: 1. No evidence of bile leak. Intrahepatic, common hepatic common bile ducts are normal in caliber. 2. Diffuse wall thickening of the gallbladder with pericholecystic fluid compatible with cholecystitis. 3. Following successful placement of a percutaneous drain in the subhepatic fluid collection, the drain is in stable position with only minimal residual fluid. 4. 2.5 cm abscess medial segment left hepatic lobe decreasing from CT less than six days ago. No additional hepatic abscesses. 5. 2.5 cm pseudocyst superior to the pancreatic neck and a 14 [place] pseudocyst the proximal pancreatic body. There is minimal peripancreatic fluid compatible with resolving acute interstitial pancreatitis. This is improved 6. Moderate right pleural effusion with infiltrate posterior right lower lobe-improving. Interpreted and Authenticated by: Teofilo Watt 10/21/20
--- NOTE | 2020-10-21 16:34 | Discharge Summary ---
Discharge Provider Provider Patient information: Note initiated : 10/21/20 at 4:34 pm Service Date, if different from initiated Date: [] Patient: Elida Russell 60 y/o F admitted on 10/01/20 for Abdominal Pain. Chief Complaint: [] Date of admission: 10/01/20 21:38 Discharge date: 10/21/20 Primary care physician: Soo Mcneill Admitting clinician: Genoveva Casper Attending physician on admission: Genoveva Casper Consults: 10/01/20 Consult to Physician [CONS] Stat Comment: Consulting Provider: Genoveva Casper Reason For Exam: Physician to Consult 10/07/20 06:36 Consult to Physician [CONS] Routine Comment: Consulting Provider: Timbo Weston Reason For Exam: Physician to Consult 10/13/20 15:19 Consult to Physician [CONS] Stat Comment: evaluate for bronchoscopy please;RLL atelectasis Consulting Provider: Saji Alva Reason For Exam: POST OP RESPIRATORY FAILURE Attending physician on discharge: Genoveva Casper Discharging clinician: Genoveva Casper COURSE Hospital Course Hospital course: 60-year-old female who presented to the emergency room with a 3-day history of right upper quadrant and epigastric pain. The pain moved to her left upper quadrant. Evaluation revealed lipase. Of greater than 3000 she was also noted to have thickened gallbladder wall with pericholecystic fluid and 2 stones in the gallbladder. It was felt that she had acute biliary pancreatitis. It was elected to treat her expectantly. She was being monitored however she was extremely sedated during the first week of her hospitalization. She had poor inspiratory effort and developed right lower lobe and right middle lobe atelectasis with subsequent right and left pneumonitis. She also developed respiratory failure and needed to be treated with BiPAP along with increased pulmonary toilet. With this she improved. Because of the probability of mucous plugging pulmonology was consulted but his suggestion was increased pulmonary toilet only and he did not feel that bronchoscopy with bronchial washings would be effective. She remained on BiPAP and her oxygenation improved. She was subsequently placed on humidified oxygen and Mucomyst with some improvement. She eventually cleared up her left sided pneumonitis but continued to have pneumonia in the lower lobe with atelectasis and developed a pleural effusion. The pleural effusion was drained of 1200 cc of fluid. This was a turbid fluid but never grew any organisms. The patient's lipase and amylase gradually returned to normal however she remained febrile and a follow- up CT was done. This showed a 3 cm intrahepatic lesion felt to be compatible with liver abscess and she developed a fluid collection along the anterolateral abdominal wall at the lateral margin of the right lobe of the liver. Both of these were drained and cultured. The liver abscess did not yield much fluid. The fluid that was obtained was cultured and revealed no growth. The peritoneal lateral subhepatic fluid collection revealed a very purulent thick fluid with 360 cc drained. Cultures of this was nonrevealing without any organism cultured. The patient did respond however and her white blood count started to decrease. The patient had significant encephalopathy which was probably due to her Suboxone therapy as well as her combination of Cymbalta gabapentin therapy. These were discontinued and her mental status gradually improved until her mentation became normal. With normalization of her mentation she was more cooperative in her pulmonary care and her pulmonary status improved. She developed supraventricular tachycardia which was treated by the hospitalist. With adenosine therapy it was noted that she had atrial flutter. She was cardioverted back to sinus rhythm and has remained in sinus rhythm since that time. Other problems include severe allergic dermatitis the etiology of which is not known. She did respond to Solu-Medrol and diphenhydramine therapy with clearing of the severe dermatitis though it is not totally cleared at this time. About 36 hours ago it was noted that she had bilious drainage from her percutaneous drain in the right lateral subhepatic space. She had large volumes output suggesting that this was connected to her biliary tree. MRI with Eovist study was done but was nondiagnostic. Her white count is now normal at 10.6. She is tolerating diet without difficulty. The next investigative study will be ERCP to assess the source of the large volume bile leak. Patient is otherwise stable and is afebrile. She will be discharged home and followed up in the office and followed up with Ashley Nickerson so that she can receive ERCP by Dr. Espinoza next week. The drain will be maintained in place however it is best to know the source of the drainage. The gallbladder is still dilated so it is unlikely that perforation of the gallbladder is the source of the bile leak. Discharge diagnosis: Acute biliary pancreatitis Secondary discharge diagnosis: Cholelithiasis with cholecystitis Bilateral pneumonitis with atelectasis and collapse of right lower lobe Acute hypoxic respiratory failure Right pleural effusion Intrahepatic abscess Subhepatic abscess Postprocedural biliary leak Chronic obstructive lung disease with acute exacerbation Atrial flutter with rapid ventricular response Acute allergic dermatitis Chronic lung term narcotic use Reason for admission: Acute biliary pancreatitis; cholelithiasis with cholecystitis Procedures: Diagnostic laparoscopy 06 October Thoracentesis 14 October Cardioversion for atrial flutter Percutaneous drainage of liver abscess and peritoneal subhepatic abscess Pertinent studies/significant findings: CT of abdomen and pelvis with contrast MRCP MRI with Eovist study CTA of lungs Time Spent with Patient Time attestation: Total time spent providing and/or coordinating discharge services: Physical Examination Vital Signs Vital signs: Temp Pulse Resp BP Pulse Ox 98.7 F 62 20 129/73 96 10/21/20 16:00 10/21/20 16:00 10/21/20 16:00 10/21/20 12:00 10/21/20 16:00 General physical appearance General physical exam: well developed, well nourished, no distress, moderate pain and chronically ill Eyes Eye exam: PERRL and normal ocular movement; negative icteric ENT ENT exam: normal mucosa, no congestion and dentures Head Head exam IM: Present atraumatic, normal inspection and normocephalic Neck Neck exam: no masses, no bruits, trachea midline, no lymphadenopathy and no venous distension Cardiovascular Cardiovascular exam IM: Present normal rate and rhythm, RRR, +S1 and +S2; Absent bradycardia, JVD and tachycardia Respiratory Respiratory exam: other (Hypoventilation worse on right base and left) Abdomen Abdomen: Present soft and tender (Minimal epigastric tenderness) Integumentary Integumentary: Present other (Allergic dermatitis with clearing and near complete resolution) Neurologic Neurologic: Present normal coordination and normal sensation Musculoskeletal Musculoskeletal: Present normal gait and normal posture Psychiatric Psychiatric: Present oriented to time, oriented to person, oriented to place, speech is normal, memory intact and other Discharge Plan Patient/Caregiver Discharge Instructions Activity: increase activity as tolerated Diet: Low Fat Instructions: Laparoscopic Cholecystectomy (DC) Prescriptions: New nicotine [Nicoderm CQ] 14 mg/24 hr patch 24 hour 1 patch transdermal QDAY Qty: 28 RF: 1 prednisone 20 mg tablet 10 mg PO BID Qty: 20 RF: 0 diphenhydramine HCl 25 mg capsule 25 mg PO TID PRN (Reason: Allergic dermatitis) Qty: 30 RF: 0 levofloxacin 750 mg tablet 750 mg PO DAILY Qty: 10 RF: 0 Continued gabapentin 600 mg tablet 600 mg PO TID RF: 0 buprenorphine-naloxone 8-2 mg tablet, sublingual 1 tab sublingual BID RF: 0 phentermine 15 mg capsule 15 mg PO QDAY RF: 0 meloxicam 15 mg tablet 15 mg PO DAILY RF: 0 omeprazole 20 mg capsule,delayed release(DR/EC) 20 mg PO DAILY RF: 0 duloxetine [Cymbalta] 60 mg capsule,delayed release(DR/EC) 60 mg PO DAILY RF: 0 Follow Up Plan Follow up with: Soo Mcneill ARNP [Primary Care Provider] - (Make an appointment as needed.) Patient Disposition: Home, Self-Care Prognosis: Fair Rehab Potential: Good I certify that the patient requires SNF services: No Overall status at discharge: patient is not back to baseline Discharge Orders: Discharge Order (Routine); Ordered 10/21/20 Ordered By: Genoveva Casper Pending Pending Pending: Resuscitation Status Resuscitate (Full Code) Diet Full Liquid Diet Start TueOct 21 810 Acetaminophen (Acetaminophen 500 Mg Tablet) 1,000 mg PO Q6HP PRN; Protocol PRN Reason: Per Pain Protocol Last Admin: 10/19/20 22:00 Dose: 1,000 mg Documented by: NORA Albuterol/Ipratropium (Ipratropium/Albuterol 3 Ml Ampul.Neb) 3 ml NEB Q4HP PRN PRN Reason: Shortness Of Breath Last Admin: 10/19/20 20:03 Dose: 3 ml Documented by: Admin: 10/19/20 12:19 Dose: 3 ml Documented by: Admin: 10/18/20 18:36 Dose: 3 ml Documented by: MANE Albuterol/Ipratropium (Ipratropium/Albuterol 3 Ml Ampul.Neb) 3 ml NEB Q6HRT SAVANAH Last Admin: 10/21/20 13:23 Dose: 3 ml Documented by: Admin: 10/21/20 08:10 Dose: 3 ml Documented by: Admin: 10/21/20 00:55 Dose: 3 ml Documented by: Admin: 10/20/20 19:25 Dose: 3 ml Documented by: Admin: 10/20/20 14:04 Dose: 3 ml Documented by: Admin: 10/20/20 07:09 Dose: 3 ml Documented by: Admin: 10/20/20 01:16 Dose: 3 ml Documented by: NORA Budesonide (Budesonide 0.5 Mg/2 Ml Ampul.Neb) 0.5 mg NEB Q12 [facility] Last Admin: 10/21/20 08:10 Dose: 0.5 mg Documented by: Admin: 10/20/20 19:25 Dose: 0.5 mg Documented by: Admin: 10/20/20 07:09 Dose: 0.5 mg Documented by: Admin: 10/19/20 20:03 Dose: 0.5 mg Documented by: Admin: 10/19/20 07:13 Dose: 0.5 mg Documented by: Admin: 10/18/20 18:36 Dose: 0.5 mg Documented by: MANE Buprenorphine HCl (Buprenorphine/Naloxone 4mg/1mg Oral Film) 0.5 each SL HS [facility] Last Admin: 10/20/20 20:42 Dose: 0.5 each Documented by: Admin: 10/19/20 22:06 Dose: 0.5 each Documented by: Admin: 10/18/20 20:57 Dose: 0.5 each Documented by: DAR Diphenhydramine HCl (Diphenhydramine 12.5 Mg/5 Ml Oral.Teresa) 25 mg PO Q6H [facility] Last Admin: 10/21/20 10:50 Dose: 25 mg Documented by: SARAY Duloxetine HCl (Duloxetine 30 Mg Capsule) 60 mg PO DAILY [facility] Last Admin: 10/21/20 10:37 Dose: 60 mg Documented by: Admin: 10/20/20 08:25 Dose: 60 mg Documented by: Admin: 10/19/20 08:13 Dose: 60 mg Documented by: KIRT Heparin Sodium (Porcine) (Heparin 5,000 Unit/Ml Vial) 5,000 unit SQ Q12 [facility] Last Admin: 10/21/20 10:36 Dose: 5,000 unit Documented by: Admin: 10/20/20 20:38 Dose: 5,000 unit Documented by: Admin: 10/20/20 08:25 Dose: 5,000 unit Documented by: Admin: 10/19/20 22:07 Dose: 5,000 unit Documented by: Admin: 10/19/20 08:12 Dose: 5,000 unit Documented by: Admin: 10/18/20 21:00 Dose: 5,000 unit Documented by: DAR Hydrocortisone (Hydrocortisone Crm 1% Tube 30gm) 1 dose TOPICAL BID SAVANAH Last Admin: 10/21/20 10:38 Dose: 1 dose Documented by: Admin: 10/20/20 20:44 Dose: 1 dose Documented by: Admin: 10/20/20 08:26 Dose: 1 dose Documented by: Admin: 10/19/20 22:31 Dose: 1 dose Documented by: Admin: 10/19/20 08:12 Dose: 1 dose Documented by: Admin: 10/18/20 20:54 Dose: 1 dose Documented by: DAR Meropenem 1 gm/ Sodium (Chloride) 50 mls @ 100 mls/hr IV Q8H SAVANAH; Protocol Last Admin: 10/21/20 14:06 Dose: 100 mls/hr Documented by: [email or web address] Infusion: 10/21/20 06:05 Dose: 0 mls/hr Documented by: Admin: 10/21/20 05:31 Dose: 100 mls/hr Documented by: Infusion: 10/20/20 22:05 Dose: 0 mls/hr Documented by: Admin: 10/20/20 21:32 Dose: 100 mls/hr Documented by: Infusion: 10/20/20 15:34 Dose: 0 mls/hr Documented by: Admin: 10/20/20 14:16 Dose: 100 mls/hr Documented by: Infusion: 10/20/20 06:39 Dose: 0 mls/hr Documented by: Admin: 10/20/20 05:42 Dose: 100 mls/hr Documented by: Infusion: 10/19/20 23:59 Dose: 0 mls/hr Documented by: Admin: 10/19/20 22:24 Dose: 100 mls/hr Documented by: Infusion: 10/19/20 15:39 Dose: 0 mls/hr Documented by: Admin: 10/19/20 14:52 Dose: 100 mls/hr Documented by: Infusion: 10/19/20 06:20 Dose: 0 mls/hr Documented by: Admin: 10/19/20 05:31 Dose: 100 mls/hr Documented by: Infusion: 10/18/20 21:56 Dose: 0 mls/hr Documented by: Admin: 10/18/20 21:00 Dose: 100 mls/hr Documented by: DAR Melatonin (Melatonin 3 Mg Tablet) 3 mg PO QHS [facility] Admin: 10/20/20 20:41 Dose: 3 mg Documented by: Admin: 10/19/20 22:09 Dose: 3 mg Documented by: NORA Methylprednisolone Sodium Succinate (Methylprednisolone Sod Succ 125 Mg/2 Ml Vial) 40 mg IV Q12 [facility] Admin: 10/21/20 10:36 Dose: 40 mg Documented by: Admin: 10/20/20 20:39 Dose: 40 mg Documented by: Admin: 10/20/20 08:24 Dose: 40 mg Documented by: Admin: 10/19/20 22:05 Dose: 40 mg Documented by: NORA Metoprolol Tartrate (Metoprolol Tartrate 25 Mg Tablet) 12.5 mg PO BID [facility] Admin: 10/21/20 10:37 Dose: 12.5 mg Documented by: Admin: 10/20/20 20:40 Dose: 12.5 mg Documented by: Admin: 10/20/20 08:25 Dose: 12.5 mg Documented by: Admin: 10/19/20 22:10 Dose: 12.5 mg Documented by: Admin: 10/19/20 08:12 Dose: 12.5 mg Documented by: Admin: 10/18/20 20:59 Dose: 12.5 mg Documented by: DAR Nicotine (Nicotine 14 Mg Patch) 14 mg TOPICAL DAILY@1000 [facility] Last Admin: 10/21/20 10:38 Dose: 14 mg Documented by: Admin: 10/20/20 11:49 Dose: 14 mg Documented by: Admin: 10/19/20 10:27 Dose: 14 mg Documented by: KIRT Pantoprazole Sodium (Pantoprazole 40 Mg Tablet) 40 mg PO QAMAC [facility] Last Admin: 10/21/20 10:37 Dose: 40 mg Documented by: Admin: 10/20/20 08:25 Dose: 40 mg Documented by: Admin: 10/19/20 08:13 Dose: 40 mg Documented by: IKRT Senna (Sennosides 1 Tablet) 2 tab PO HS [facility] Last Admin: 10/20/20 20:40 Dose: 2 tab Documented by: Admin: 10/19/20 22:07 Dose: 2 tab Documented by: Admin: 10/18/20 20:59 Dose: 2 tab Documented by: DAR Sodium Chloride (0.9 % Sodium Chloride 10 Ml Syringe) 10 ml IV Q8 [facility] Admin: 10/21/20 14:06 Dose: 10 ml Documented by: [email or web address] Admin: 10/21/20 05:32 Dose: 10 ml Documented by: Admin: 10/20/20 21:34 Dose: 10 ml Documented by: Admin: 10/20/20 14:17 Dose: 10 ml Documented by: Admin: 10/20/20 05:43 Dose: 10 ml Documented by: Admin: 10/19/20 22:58 Dose: 10 ml Documented by: Admin: 10/19/20 14:52 Dose: 10 ml Documented by: Admin: 10/19/20 05:32 Dose: 10 ml Documented by: Admin: 10/18/20 21:01 Dose: 10 ml Documented by: DAR Shift Summary 10/21/20 04:55 Shift Summary by Alexandrea Prado Primary Diagnosis: Acute Biliary Pancreatitis; right lung atelectasis; right pleural effusion Registration Status: Inpatient Day of Hospitalization: Admitted 10/01 for Cholelithiasis with cholecystitis and pancreatitis. Date of Surgery (if applicable): 10/06 pt was scheduled for cholecystectomy- lap sites were made but pt had severe inflammation so surgery could not be performed. Dr. Casper is waiting for infection/inflammation to be reduce and is going to reschedule surgery in 2-3 weeks (from original) as outpatient possibly? 3 lap sites with wen and Tegaderm, scant serous fluid. FARIBA drain in RUQ. Pertinent Medical Dx/Issues (may be more than one): Hx of alcohol and drug abuse. COPD, Cardioverted on 10/15. Interventions (O2, wounds, diuresis, etc): IS and acapella to help keep lung expanded. Chest physiotherapy QID. Albuterol nebulizer treatment. SCDs and TEDS in place. Rash all over back, arms, chest, up neck, legs, buttock. Pt has Benadryl scheduled Q6, and Hydrocortisone cream, rash is less itchy and has decreased since discontinuing Vital Signs with Trends: CM: sinus rhythm Meds (ABO, pain, BP, etc): Patient received her 2200 and 0600 Merrem IV. Has PRN Tylenol for pain. Lines/Tubes: 20g LAC SL patent. Oxygen needs (home use vs. current use): VSS. <90% on RA Lab/Rad results: Repeat chest X-ray 10/19/20 shows worsening infiltrates, Dr. Casper is not concerned and pt to continue IS and acapella usage. Date of last BM: 10/20/20, loose BM. Recommendations/questions for MD (BRYSON Servin? BRYSON CM? PICC needed?): Expected date of discharge: TBD. Discharge Plan (needs, disposition, etc): Referral sent [facility], pt will be going home with home health if possible. Shift events: Pt has a scheduled Abd MRI Eovist study for this AM 0630. Pt has been NPO since midnight. The screening sheet for the MRI procedure has been completed and is in front of chart. Pt is A/O x4 and able to make needs known. SBA to bathroom without devices. Abd dressings are CDI. FARIBA drain continues to drain green colored bile and total output was 50 mls for this shift. C/o pain to RUQ but refused to take PRN pain meds on this shift. Used IS and acapella with good results on this shift. Initialized on 10/21/20 04:55 - END OF NOTE
--- NOTE | 2020-10-22 14:07 | Non-GYN Cytology Report ---
Non Employment Agency Manager Cytology NG Diagnosis THE PERITONEAL ABSCESS, FINE NEEDLE ASPIRATION: --- INFLAMMATORY CELLS AND ACELLULAR DEBRIS. --- NO ATYPICAL OR MALIGNANT CELLS IDENTIFIED. NG Comments The patient's clinical presentation is noted. The peritoneal abscess shows acellular debris with inflammatory cells. No atypical or malignant cells identified. Correlation with concurrent microbiology studies is suggested. NG Micro Description Cytologic preparations of one ThinPrep slide, one Pap stained cytospin slide, one DifQuik stained cytospin slide and one cell block preparation are reviewed. Preparations show abundant acellular debris with scattered inflammatory cells. No fungal, acid-fast or bacterial organisms identified by GMS, AFB and Gram stains, respectively. All stains show adequate technical controls. NG Gross Description Received 250 mL cloudy yellow fluid. Electronically Signed Sari Wilburn MD, FCAP Electronically Signed 10/22/2020 14:05
--- NOTE | 2020-11-05 14:15 | Operative Note ---
DATE OF OPERATION: 10/06/2020 PREOPERATIVE DIAGNOSIS: Biliary pancreatitis. POSTOPERATIVE DIAGNOSIS: Biliary pancreatitis with acute severe cholecystitis. PROCEDURE: Diagnostic laparoscopy. SURGEON: Genoveva Casper M.D. FINDINGS: Acute severe inflammation of the entire upper abdomen with involvement of the gallbladder and the omentum, stomach, colon, liver and small bowel. DESCRIPTION OF PROCEDURE: Under general anesthesia, the patient's abdomen was prepped and draped in a sterile field. Supraumbilical incision was made. Verres needle was inserted uneventfully. Abdomen was insufflated with 2 liters of CO2. A 12 mm port was placed. Laparoscope was placed. Upon placing the laparoscope, it was noted that the inflammation was extremely severe and the question was whether or not I could complete the procedure laparoscopically. A 12 mm port was placed in the upper midline and a 5 mm port in the lateral subcostal region. After doing some initial dissection, it was felt that it would be too dangerous to try to do her procedure laparoscopically. I considered whether or not I would do her open; however, the patient had marginal respiratory function with pneumonitis. It was my opinion that a large subcostal incision would be needed to do her open because of the large size of her belly and the extensive inflammatory process that was involved. I, therefore, elected to abort the procedure. Irrigation was carried out. The ports were removed. The fascia at the umbilicus was closed with 0 Vicryl. Skin incisions were closed with wen. The patient tolerated the procedure well. She was awakened and taken to the postanesthetic care unit in fair condition. LCS:aurelia Job ID: [id number] Doc ID: [id number] Genoveva Casper M.D.
== END 2020-10-21 18:35 | disposition home or self-care (01) | DRG 420 ==
LOC: MEDSUR 12:59 → ED 12:59 → MEDSUR 21:30 → ICU 10-07 16:28 → MEDSUR 10-09 08:31 → ICU 10-15 23:24 → MEDSUR 10-18 16:00
PROVIDERS: ADMIT Family Medicine Adult Medicine; ATTEND Family Medicine Adult Medicine

== ENCOUNTER 2020-11-26 11:17 | Inpatient (IN) ==
[2020-11-26] MEDS ORDERED: IOPAMIDOL 100 ML BOTTLE IV ONE ×2 (11:18→16:56)
[2020-11-26] MEDS ORDERED: 0.9 % SODIUM CHLORIDE 1,000 ML IV ONE ×3 (11:29→19:10)
[2020-11-26] MEDS ORDERED: ACETAMINOPHEN 1,000 MG/100 ML BAG IV ONE ×2 (11:30→23:33)
--- NOTE | 2020-11-26 11:35 | Emergency Department Note ---
Abdominal Pain HPI General Chief Complaint: Abdominal Pain Stated Complaint: abdominal pain Time Seen by Provider: 11/26/20 11:20 Source: patient Mode of arrival: ambulatory Limitations: no limitations History of Present Illness HPI Narrative: Patient is a 60-year-old lady who arrives emergency department by private vehicle complaining of abdominal pain. History is provided by the patient and review of her medical records and is somewhat limited as the patient is a very poor historian. The patient says she has been having abdominal pain for the past 3 days. The pain is located in her epigastric region and right upper quadrant and does not radiate. The pain is constantly present. She has had some associated nausea and diarrhea this morning is well. She denies any associated fever or chills. She called her gastroenterology team they referred her to the emergency department for imaging and further evaluation. The patient was recently hospitalized for biliary pancreatitis and failed attempted jina cystectomy with hepatic and perihepatic abscesses with a drain placement. The patient notes that she also had a biliary stent placed but cannot remember when the stent was placed. Related Data Home Medications Medication Instructions Recorded Confirmed buprenorphine 8 mg-naloxone 2 mg 1 tab SUBLINGUAL BID 07/01/20 11/18/20 sublingual tablet duloxetine [Cymbalta] 60 mg PO DAILY 10/01/20 11/18/20 meloxicam 15 mg PO DAILY 10/01/20 11/18/20 omeprazole 20 mg PO DAILY 10/01/20 11/18/20 albuterol 90 mcg INHALATION BID 11/18/20 11/18/20 cholecalciferol (vitamin D3) 25 mcg PO QDAY 11/18/20 11/18/20 [Vitamin D3] lactobacillus combination no.8 3 cell PO QDAY 11/18/20 11/18/20 [Adult Probiotic] magnesium 100 mg PO QDAY 11/18/20 11/18/20 potassium 99 mg PO QDAY 11/18/20 11/18/20 Previous Rx's Medication Instructions Recorded nicotine [Nicoderm CQ] 1 patch TRANSDERMAL QDAY #28 ea 10/21/20 ondansetron HCl [Zofran] 4 mg PO Q6H PRN #14 tab 11/03/20 promethazine 25 mg tablet 25 mg PO Q6H PRN #30 tab 11/04/20 Allergies Allergy/AdvReac Type Severity Reaction Status Date / Time acetylcysteine Allergy Intermediate Rash Verified 11/26/20 11:23 [From Mucomyst] sulfamethoxazole AdvReac Intermediate Rash Verified 11/26/20 11:23 [From Bactrim] trimethoprim [From Bactrim] AdvReac Intermediate Rash Verified 11/26/20 11:23 Review of Systems ROS ROS Narrative: Narrative: All systems ED: reviewed and negative except as stated. Cardiovascular: Denies chest pain Respiratory: Denies shortness of breath and cough PFSH Narrative Patient History Narrative: Narrative: Medical/Surgical/Family History All Active Problems (Updated 11/26/20 @ 17:31 by Dixon Frankel DO) Peritoneal abscess (Acute) Postprocedural leakage from bile duct (Acute) Acute biliary pancreatitis (Acute) Atrial fibrillation (Acute) Abscess, hepatic (Acute) Recurrent right pleural effusion (Acute) Hypokalemia (Acute) Pneumonitis (Acute) Acute gallstone pancreatitis (Acute) Atelectasis of both lungs (Acute) Cholelithiasis with cholecystitis (Acute) Acute pancreatitis (Acute) Radiculopathy of lumbar region (Acute) Spondylosis without myelopathy or radiculopathy, lumbosacral region (Acute) Spondylosis without myelopathy or radiculopathy, lumbar region (Acute) Lumbar spondylosis (Chronic) Leg pain, bilateral (Chronic) Chronic pain (Chronic) Hepatitis C (Chronic) Depression (Chronic) Anxiety (Chronic) Difficulty walking (Chronic) Fracture (Chronic) Painful swelling of joint (Chronic) Arthritis (Chronic) Heart burn (Chronic) SOB (shortness of breath) (Chronic) Chronic cough (Chronic) Ringing in ears (Chronic) Acid reflux (Chronic) RLS (restless legs syndrome) (Chronic) COPD (chronic obstructive pulmonary disease) (Chronic) Low back pain (Chronic) Back pain (Chronic) Medical History Acid reflux Anxiety Arthritis Back pain Chronic cough Chronic pain COPD (chronic obstructive pulmonary disease) Depression Difficulty walking Fracture Heart burn Hepatitis C Leg pain, bilateral Low back pain Lumbar spondylosis Painful swelling of joint Ringing in ears RLS (restless legs syndrome) SOB (shortness of breath) Spondylosis without myelopathy or radiculopathy, lumbar region Spondylosis without myelopathy or radiculopathy, lumbosacral region Surgical History History of hysterectomy Family History Mother High blood pressure Father Arthritis Brother Chronic pain Drug abuse Sister Chronic pain Family/Other Alcohol abuse Social History Smoking Status: Former smoker Alcohol Intake Frequency: former alcohol drinker Substance Use: does not use Exam Narrative Narrative: I reviewed the vital signs. Gen -patient is awake and alert and in no acute distress. The patient is well groomed. HEENT -head is atraumatic. There is no conjunctival pallor or scleral icterus. Mucous membranes are dry CV -S1-S2 regular rate and rhythm. Peripheral pulses are palpable. There is no JVD. Resp -breathing is nonlabored. Lungs are clear to auscultation bilaterally. There is no cyanosis. GI - Abdomen is soft and moderately tender to palpation in the right upper quadrant. There is a FARIBA drain in place in the right upper quadrant with purulent drainage present in the reservoir. There is no guarding or rebound tenderness. Derm -skin is warm and dry. There is no visible rash. MSK -present extremities are atraumatic. Psych -patient has a flat affect. The patient does not appear internally stimulated. Neuro -patient provides simple but contextually appropriate answers to questions with fluent speech. There is no facial asymmetry. Patient moves all present extremities equally. General Limitations: no limitations Course Vital Signs Vital signs: Vital Signs Temperature 98.6 F 11/26/20 11:18 Pulse Rate 81 11/26/20 11:18 Respiratory Rate 18 11/26/20 11:18 Blood Pressure 98/70 11/26/20 11:18 Pulse Oximetry (%) 98 11/26/20 11:18 Temperature 98.6 F 11/26/20 11:26 Pulse Rate 87 11/26/20 16:46 Respiratory Rate 18 11/26/20 11:26 Blood Pressure 100/70 11/26/20 16:45 Pulse Oximetry (%) 98 11/26/20 16:46 [facility] Narrative Medical decision making narrative: Patient with complex recent surgical history presents with worsening abdominal pain. Labs remarkable for no significant hematologic or electrolyte derangements. She had some improvement with Tylenol but had recurrent abdominal pain requiring additional treatment with ketorolac. CT scan reveals enlargement of the subhepatic fluid collection despite apparently appropriate catheter placement. I discussed her history examination diagnostic findings with Dr. Casper. He would like the patient admitted to his service and will see her in the family and they are agreeable. Lab Data Lab results reviewed: Yes I reviewed the patient's lab results. Result diagrams: 11/26/20 11:35 11/26/20 11:35 Labs: Lab Results 11/26/20 11/26/20 11/26/20 Range/Units 11:35 11:35 12:35 WBC 11.3 H (4.5-11.0) K/mcL RBC 4.08 (3.59-5.38) M/mcL Hgb 12.4 (11.2-15.7) g/dL Hct 37.5 (34.1-44.9) % MCV 91.9 (80.0-100.0) fL MCH 30.4 (26.0-34.0) pg MCHC 33.1 (31.0-36.0) g/dL RDW 14.6 H (11.5-14.5) % Plt Count 323 (140-440) K/mcL MPV 10.6 H (7.4-10.4) fL Neut % (Auto) 73.4 (38.0-78.0) % Lymph % (Auto) 13.8 L (15.5-49.0) % [place] % (Auto) 11.0 (1.0-12.0) % Eos % (Auto) 1.4 (0.0-7.0) % Baso % (Auto) 0.4 (0.0-2.0) % Lymph # (Auto) 1.56 (1.50-4.80) K/mcL [place] # (Auto) 1.24 H (0.10-0.90) K/mcL Eos # (Auto) 0.16 (0.00-0.70) K/mcL Baso # (Auto) 0.05 (0.00-0.30) K/mcL Absolute Neutrophils 8.30 H (1.80-8.00) K/mcL VBG Lactic Acid 0.7 (0.5-2.0) mmol/L Sodium 131 L (133-145) mmol/L Potassium 3.7 (3.3-5.1) mmol/L Chloride 97 (96-108) mmol/L Carbon Dioxide 23 (22-30) mmol/L Anion Gap 11.0 (8.0-16.0) BUN 6 (6-20) mg/dL Creatinine 0.6 (0.6-1.1) mg/dL POC Creatinine 0.6 (0.6-1.2) mg/dL GFR Calculation 99 Glucose 98 (70-105) mg/dL Calcium 8.9 (8.6-10.4) mg/dL Total Bilirubin 0.5 (0.1-1.0) mg/dL AST 17 (<32) U/L ALT 15 (<40) U/L Alkaline Phosphatase 86 (39-117) U/L Total Protein 6.5 (5.9-8.4) gm/dL Albumin 3.1 L (3.2-5.2) gm/dL Globulin 3.4 (2.2-3.7) gm/dL Albumin/Globulin Ratio 0.9 L (1.0-2.3) Lipase 13 (7-60) U/L ED POC Tests ED POC Tests: HUYEN - SARS Antigen Negative Discharge Plan Patient/Caregiver Discharge Instructions Pt seen by ROD MACHINE OPERATOR/PA only: No Clinical Impression: Peritoneal abscess Patient Disposition: Xfer As Inpt ([facility]) Discharge Date/Time: 11/26/20 16:50
[2020-11-26 11:50] LABS: POC Creatinine 0.6 mg/dL (0.6-1.2)
[2020-11-26 12:20] LABS: Basophils # (Auto) 0.05 K/mcL (0.00-0.30); Basophils % (Auto) 0.4 % (0.0-2.0); Eosinophils # (Auto) 0.16 K/mcL (0.00-0.70); Eosinophils % (Auto) 1.4 % (0.0-7.0); Hematocrit 37.5 % (34.1-44.9); Hemoglobin 12.4 g/dL (11.2-15.7); Lymphocytes # (Auto) 1.56 K/mcL (1.50-4.80); Lymphocytes % (Auto) 13.8 % (15.5-49.0); Mean Cell Volume 91.9 fL (80.0-100.0); Mean Corpuscular HGB Conc 33.1 g/dL (31.0-36.0); Mean Platelet Volume 10.6 fL (7.4-10.4); Monocytes # (Auto) 1.24 K/mcL (0.10-0.90); Neutrophils % (Auto) 73.4 % (38.0-78.0); Platelet Count 323 K/mcL (140-440); RBC 4.08 M/mcL (3.59-5.38); Red Cell Distribution Width 14.6 % (11.5-14.5); WBC 11.3 K/mcL (4.5-11.0)
[2020-11-26 12:37] LABS: ALT/SGPT 15 U/L (<40); AST/SGOT 17 U/L (<32); Albumin 3.1 gm/dL (3.2-5.2); Albumin/Globulin Ratio 0.9 (1.0-2.3); Alkaline Phosphatase 86 U/L (39-117); Bilirubin,Total 0.5 mg/dL (0.1-1.0); Blood Urea Nitrogen 6 mg/dL (6-20); Calcium 8.9 mg/dL (8.6-10.4); Carbon Dioxide 23 mmol/L (22-30); Chloride 97 mmol/L (96-108); Globulin 3.4 gm/dL (2.2-3.7); Glomerular Filtration Rate 99; Glucose 98 mg/dL (70-105)
--- NOTE | 2020-11-26 12:41 | Cat Scan Report ---
History: Right-sided abdominal pain, hepatic abscess TECHNIQUE: Following injection of intravenous nonionic contrast the patient was scanned during the portal venous phase and delayed excretory phase. Sagittal and coronal reformats were created. Radiation exposure was limited using dose reduction technology. FINDINGS: There is a small layering right-sided pleural effusion. There are bands of discoid atelectasis in the right lung base. The atelectasis has improved and the pleural effusion has remained stable since a prior CT done on 11/03/20. Behind the right heart border and just above the diaphragm there is a residual small collection of fluid measuring 1.5 x 1.7 cm. The measure 2.3 x 2.6 cm 11/03/20. On the prior study there is another pocket of fluid present above the diaphragm and adjacent to the distal esophagus and anterior to the aorta. This has nearly completely resolved. There is a residual small intraparenchymal abscess in segment 4A of the left lobe of the liver which measures 1.3 x 1.6 cm. It measured 2.6 x 3.1 cm in the prior exam. There is moderate fatty infiltration in the liver with relative sparing of the superior aspect of the left lobe. A stent has been inserted into the bile duct extending from the common hepatic duct into the duodenum. As result of this there is now air in the intrahepatic ducts. Bile ducts are nondilated. The gallbladder is partially contracted. The wall is mildly thickened and there are some surrounding inflammation or fluid. In the right epigastrium, inferior to the liver there is a abscess pocket. It is irregularly shaped and multilobulated. Along the lateral border of the abscess there is a pigtail catheter. The collection measures 4.5 x 8.2 x 5.9 cm. It measured 2.5 x 4.6 x 9.5 cm the prior exam. It now contains more liquid and bubbles of air. Lies immediately posterior to the rectus abdominis muscle. There are residual small pancreatic pseudocysts. One is located anterior to the neck and the other located adjacent to the tail. They measure up to 1.6 cm. They have decreased in size. There is no acute inflammation of the pancreas. Pancreatic duct is nondilated and there are no calcifications within it. The spleen, adrenals and kidneys are normal. The aorta is normal caliber. There is no ascites or free intraperitoneal air. On the prior CT scan there appeared to be a solid mass in the cecum. This is no longer present and was most likely solid stool. Moderate amount of fluid is present within the small bowel. Some of the loops of jejunum in the left upper quadrant are mildly dilated and contain air-fluid levels. They measure up to 3.7 cm in diameter. There is no transition point. Moderate amount of liquefied stool is present in the large intestine. IMPRESSION: Enlarging abscess in the right epigastrium inferior to the liver and posterior to the rectus abdominis muscle. Shrinking liver abscess Shrinking pancreatic pseudocysts Interpreted and Authenticated by: Maynor Cheema 11/26/20
[2020-11-26] MEDS ORDERED: ONDANSETRON 4 MG/2 ML VIAL IV ONE ×2 (13:29→14:51)
[2020-11-26] MEDS ORDERED: KETOROLAC 15 MG/ML VIAL IV ONE (14:27)
[2020-11-26] MEDS ORDERED: ONDANSETRON 4 MG/2 ML VIAL IV PRN (15:51)
[2020-11-26] MEDS ORDERED: HYDROmorphone 1 MG/ML SYRINGE IV PRN ×2 (15:56→16:56)
[2020-11-26] MEDS ORDERED: ZOLPIDEM 5 MG TABLET PO PRN (15:56)
[2020-11-26] MEDS ORDERED: 0.9 % SODIUM CHLORIDE 1,000 ML IV SCH ×2 (16:00→16:56)
--- NOTE | 2020-11-26 16:21 | General Surg History&Physical ---
HPI History of Present Illness Patient information: Note initiated : 11/26/20 at 4:05 pm Service Date, if different from initiated Date: [] Patient: Elida Russell a 60 y/o F admitted on for abdominal pain. Chief Complaint: [] History of present illness: Ms. Russell is a 60 year old F admitted with persistent subhepatic abscess. The patient has a history of right subhepatic abscess associated with acute biliary pancreatitis and cholecystitis. The patient was hospitalized 10/01/2020 through . During that interval she developed severe biliary pancreatitis and had associated hypoxic respiratory failure. She also had subhepatic and intrahepatic abscesses. These were drained percutaneously. An attempt was made to perform laparoscopic cholecystectomy but the amount of inflammation in the subhepatic area was too severe to complete the procedure. She was treated with long-term antibiotics and underwent percutaneous drainage of a right lateral abdominal peritoneal abscess. I initially she had purulent drainage from the catheter for about 4 days and then the drainage became bilious. She was scheduled for ERCP after which the bilious drainage ceased however she later developed more drainage and subsequently underwent another ERCP on 19 November 2020. A stent was placed and the amount of bilious drainage decreased. Over the last 2 days she is put out sheba purulent drainage and has had a picture suggestive of sepsis. She has been hypotensive and tachycardic but her temperature has been normal.. She was brought to the emergency room today because of continued output of this sheba purulence. Follow-up CT shows the percutaneous catheter along the inferolateral margin of the old abscess cavity. She however is not draining the larger abscess. I discussed the situation with radiology and plans will be made to velma nge the pigtail catheter that she had and place a new catheter more into the central portion of the abscess cavity. Examination of the abdominal wall reveals a tender mass in the epigastrium which appears to be compatible with the new developing abscess. The patient is not having major respiratory difficulty at this time. Constitutional Constitutional: Present chills, excessive sweating, fatigue, fever(s), h eadache(s), malaise, night sweats, weakness and weight loss Cardiovascular Cardiovascular: Present dyspnea on exertion, irregular heart rhythm, orthopnea, palpatations and rapid heart rate; Absent chest pain with activity and claudication Respiratory Respiratory: Present cough, dyspnea and dyspnea on exertion Gastrointestinal Gastrointestinal: Present abdominal pain, bloating, change in stool character and nausea Musculoskeletal Musculoskeletal: Present arthralgias, back pain, joint swelling, muscle weakness and myalgias Integumentary Integumentary: Absent changing lesions Neurological Neurological: Present dizziness and numbness Psychiatric Psychiatric: Present abnormal sleep pattern and confusion Hematologic/Lymphatic Hematologic/Lymphatic: Absent easy bleeding, easy bruising and lymphadenopathy Allergic/Immunologic Allergic/Immunologic: Absent tongue swelling, throat swelling, uticaria and wheezing PFSH PFSH All Active Problems (Updated 11/26/20 @ 17:31 by Dixon Frankel DO) Peritoneal abscess (Acute) Postprocedural leakage from bile duct (Acute) Acute biliary pancreatitis (Acute) Atrial fibrillation (Acute) Abscess, hepatic (Acute) Recurrent right pleural effusion (Acute) Hypokalemia (Acute) Pneumonitis (Acute) Acute gallstone pancreatitis (Acute) Atelectasis of both lungs (Acute) Cholelithiasis with cholecystitis (Acute) Acute pancreatitis (Acute) Radiculopathy of lumbar region (Acute) Spondylosis without myelopathy or radiculopathy, lumbosacral region (Acute) Spondylosis without myelopathy or radiculopathy, lumbar region (Acute) Lumbar spondylosis (Chronic) Leg pain, bilateral (Chronic) Chronic pain (Chronic) Hepatitis C (Chronic) Depression (Chronic) Anxiety (Chronic) Difficulty walking (Chronic) Fracture (Chronic) Painful swelling of joint (Chronic) Arthritis (Chronic) Heart burn (Chronic) SOB (shortness of breath) (Chronic) Chronic cough (Chronic) Ringing in ears (Chronic) Acid reflux (Chronic) RLS (restless legs syndrome) (Chronic) COPD (chronic obstructive pulmonary disease) (Chronic) Low back pain (Chronic) Back pain (Chronic) Medical History Acid reflux Anxiety Arthritis Back pain Chronic cough Chronic pain COPD (chronic obstructive pulmonary disease) Depression Difficulty walking Fracture Heart burn Hepatitis C Leg pain, bilateral Low back pain Lumbar spondylosis Painful swelling of joint Ringing in ears RLS (restless legs syndrome) SOB (shortness of breath) Spondylosis without myelopathy or radiculopathy, lumbar region Spondylosis without myelopathy or radiculopathy, lumbosacral region Surgical History History of hysterectomy Family History Mother High blood pressure Father Arthritis Brother Chronic pain Drug abuse Sister Chronic pain Family/Other Alcohol abuse Social History household members: spouse marital status: education level: high school occupational status: retired smoking status: Current every day smoker tobacco type: cigarettes per day: 20 pack-years: 50 alcohol intake frequency: former alcohol drinker substance use type: does not use MEDS/ALLERGIES Home Medications and Allergies Home Medications Medication Instructions Recorded Confirmed Type buprenorphine 8 mg-naloxone 2 mg 1 tab SUBLINGUAL BID 07/01/20 11/26/20 History sublingual tablet duloxetine [Cymbalta] 60 mg PO DAILY 10/01/20 11/26/20 History meloxicam 15 mg PO DAILY 10/01/20 11/26/20 History omeprazole 20 mg PO DAILY 10/01/20 11/26/20 History nicotine [Nicoderm CQ] 1 patch TRANSDERMAL QDAY #28 ea 10/21/20 11/26/20 Rx promethazine 25 mg tablet 25 mg PO Q6H PRN #30 tab 11/04/20 11/26/20 Rx albuterol 90 mcg INHALATION BID 11/18/20 11/26/20 History cholecalciferol (vitamin D3) 25 mcg PO QDAY 11/18/20 11/26/20 History [Vitamin D3] lactobacillus combination no.8 1 cell PO QDAY 11/18/20 11/26/20 History [Adult Probiotic] magnesium 100 mg PO QDAY 11/18/20 11/26/20 History ondansetron HCl [Zofran] 4 mg PO Q6HP PRN 11/26/20 11/26/20 History Allergies Allergy/AdvReac Type Severity Reaction Status Date / Time acetylcysteine Allergy Intermediate Rash Verified 11/26/20 11:23 [From Mucomyst] sulfamethoxazole AdvReac Intermediate Rash Verified 11/26/20 11:23 [From Bactrim] trimethoprim [From Bactrim] AdvReac Intermediate Rash Verified 11/26/20 11:23 Physical Examination Vital Signs Vital signs: Temp Pulse Resp BP Pulse Ox 98.6 F 96 H 18 77/49 91 11/26/20 11:26 11/26/20 15:31 11/26/20 11:26 11/26/20 15:31 11/26/20 15:31 General physical appearance General physical exam: well developed, well nourished, moderate distress, moderate pain, chronically ill and obese Eyes Eye exam: PERRL and normal ocular movement; negative icteric ENT ENT exam: normal nares, normal mucosa, no hearing loss and no congestion Head Head exam IM: Present atraumatic, normal inspection and normocephalic Neck Neck exam: no masses, no bruits, trachea midline, no lymphadenopathy and no venous distension Cardiovascular Cardiovascular exam IM: Present normal rate and rhythm, RRR, +S1 and +S2; Absent gallop, JVD and tachycardia Respiratory Respiratory exam: normal expansion, normal respiratory effort and clear to auscultation Abdomen Abdomen: Present soft and tender (Midepigastric tenderness; percutaneous drain in right upper quadrant; normal active bowel sounds) Integumentary Integumentary: Present no rash, no growths and no abnormal pigmentation Neurologic Neurologic: Present normal sensation Musculoskeletal Musculoskeletal: Present normal gait and normal posture Psychiatric Psychiatric: Present oriented to time, oriented to person, oriented to place, speech is normal and memory intact Results Labs Result diagrams: 12/01/20 05:31 11/29/20 05:48 Labs: Abnormal lab results 11/26/20 11/26/20 Range/Units 11:35 11:35 WBC 11.3 H (4.5-11.0) K/mcL RDW 14.6 H (11.5-14.5) % MPV 10.6 H (7.4-10.4) fL Lymph % (Auto) 13.8 L (15.5-49.0) % [place] # (Auto) 1.24 H (0.10-0.90) K/mcL Absolute Neutrophils 8.30 H (1.80-8.00) K/mcL Sodium 131 L (133-145) mmol/L Albumin 3.1 L (3.2-5.2) gm/dL Albumin/Globulin Ratio 0.9 L (1.0-2.3) Diabetes panel 11/26/20 Range/Units 11:35 Sodium 131 L (133-145) mmol/L Potassium 3.7 (3.3-5.1) mmol/L Chloride 97 (96-108) mmol/L Carbon Dioxide 23 (22-30) mmol/L BUN 6 (6-20) mg/dL Creatinine 0.6 (0.6-1.1) mg/dL Glucose 98 (70-105) mg/dL Calcium 8.9 (8.6-10.4) mg/dL AST 17 (<32) U/L ALT 15 (<40) U/L Alkaline Phosphatase 86 (39-117) U/L Total Protein 6.5 (5.9-8.4) gm/dL Albumin 3.1 L (3.2-5.2) gm/dL Calcium panel 11/26/20 Range/Units 11:35 Calcium 8.9 (8.6-10.4) mg/dL Albumin 3.1 L (3.2-5.2) gm/dL Pituitary panel 11/26/20 Range/Units 11:35 Sodium 131 L (133-145) mmol/L Potassium 3.7 (3.3-5.1) mmol/L Chloride 97 (96-108) mmol/L Carbon Dioxide 23 (22-30) mmol/L BUN 6 (6-20) mg/dL Creatinine 0.6 (0.6-1.1) mg/dL Glucose 98 (70-105) mg/dL Calcium 8.9 (8.6-10.4) mg/dL Adrenal panel 11/26/20 Range/Units 11:35 Sodium 131 L (133-145) mmol/L Potassium 3.7 (3.3-5.1) mmol/L Chloride 97 (96-108) mmol/L Carbon Dioxide 23 (22-30) mmol/L BUN 6 (6-20) mg/dL Creatinine 0.6 (0.6-1.1) mg/dL Glucose 98 (70-105) mg/dL Calcium 8.9 (8.6-10.4) mg/dL Total Bilirubin 0.5 (0.1-1.0) mg/dL AST 17 (<32) U/L ALT 15 (<40) U/L Alkaline Phosphatase 86 (39-117) U/L Total Protein 6.5 (5.9-8.4) gm/dL Albumin 3.1 L (3.2-5.2) gm/dL All other labs normal. A/P Assessment and plan (1) Abscess, hepatic: Status: Acute (2) Postprocedural leakage from bile duct: Status: Acute (3) Peritoneal abscess: Status: Acute (4) Atrial fibrillation: Status: Acute (5) Cholelithiasis with cholecystitis: Status: Acute (6) Depression: Status: Chronic (7) COPD (chronic obstructive pulmonary disease): Status: Chronic Narrative A/P Narrative: The patient is admitted and is started on antibiotics. I have discussed her situation with radiology and they will remove and replace the percutaneous drainage in the abscess cavity in the subhepatic area. Time Spent With Patient Time: Total time spent is greater than 50% in coordination of care (as documented) at patient's floor/unit and/or counseling patient:
[2020-11-26] MEDS ORDERED: 0.9 % SODIUM CHLORIDE 1,000 ML BAG IV ONE ×2 (18:49→18:59)
[2020-11-26] MEDS: 0.9 % SODIUM CHLORIDE 1,000 ML IV SCH ×2 (19:36→19:59)
[2020-11-26] MEDS ORDERED: DOCUSATE SODIUM 100 MG CAPSULE PO SCH (21:00)
[2020-11-26] MEDS ORDERED: SENNOSIDES 1 TABLET PO SCH (21:00)
[2020-11-26] MEDS: 0.9 % SODIUM CHLORIDE 10 ML SYRINGE IV SCH (21:18)
[2020-11-26] MEDS: SENNOSIDES 1 TABLET PO SCH (21:18)
[2020-11-26] MEDS: DOCUSATE SODIUM 100 MG CAPSULE PO SCH (21:18)
[2020-11-26] MEDS ORDERED: 0.9 % SODIUM CHLORIDE 10 ML SYRINGE IV SCH (22:00)
[2020-11-26 23:24] LABS: Prothrombin Time 13.9 sec (11.9-14.5)
[2020-11-26] MEDS: ACETAMINOPHEN 650 MG/65 ML BAG IV PRN (23:50)
[2020-11-27] MEDS ORDERED: ACETAMINOPHEN 650 MG/65 ML BAG IV PRN (00:27)
[2020-11-27] MEDS ORDERED: FLUCONAZOLE 400 MG/200 ML BAG IV ONE (01:00)
[2020-11-27] MEDS: PIPERACILLIN SODIUM/TAZOBACTAM 3.375 GM in DEXTROSE 5% IN WATER 50 ML IV SCH ×5 (01:02→23:28)
[2020-11-27] MEDS: FLUCONAZOLE 400 MG/200 ML BAG IV SCH ×2 (01:52→22:18)
[2020-11-27] MEDS: 0.9 % SODIUM CHLORIDE 1,000 ML IV SCH ×5 (02:15→22:21)
[2020-11-27] MEDS: 0.9 % SODIUM CHLORIDE 10 ML SYRINGE IV SCH ×3 (05:14→20:29)
[2020-11-27 06:57] LABS: Hemoglobin 11.3 g/dL (11.2-15.7); Mean Corpuscular HGB Conc 29.7 g/dL (31.0-36.0); Mean Platelet Volume 10.2 fL (7.4-10.4); Platelet Count 263 K/mcL (140-440); RBC 3.84 M/mcL (3.59-5.38); WBC 10.7 K/mcL (4.5-11.0)
[2020-11-27] MEDS: PANTOPRAZOLE 40 MG TABLET PO SCH (07:02)
[2020-11-27 07:27] LABS: ALT/SGPT 13 U/L (<40); AST/SGOT 15 U/L (<32); Albumin 2.4 gm/dL (3.2-5.2); Albumin/Globulin Ratio 0.8 (1.0-2.3); Alkaline Phosphatase 74 U/L (39-117); Bilirubin,Direct < 0.2 mg/dL (0-0.3); Bilirubin,Total 0.4 mg/dL (0.1-1.0); Blood Urea Nitrogen 7 mg/dL (6-20); Calcium 7.9 mg/dL (8.6-10.4); Carbon Dioxide 20 mmol/L (22-30); Chloride 104 mmol/L (96-108); Glomerular Filtration Rate 99; Glucose 77 mg/dL (70-105); Lactate Dehydrogenase 221 U/L (135-225); Phosphorous 3.2 mg/dL (2.5-4.5); Triglycerides 90 mg/dL (<150)
[2020-11-27] MEDS ORDERED: PANTOPRAZOLE 40 MG TABLET PO SCH (07:30)
[2020-11-27 08:41] LABS: Anisocytosis 1+ (None Seen); Band Neutrophils % 25 % (0-10); Eosinophils % (Manual) 2 % (0-7); Hypochromasia OCC (None Seen); Lymphocytes % 3 % (15-49); Monocytes % (Manual) 2 % (1-12); Platelet Estimate NORMAL (Normal); RBC Morphology ABNORMAL (Normal); Segmented Neutrophils % 68 % (38-78)
[2020-11-27] MEDS ORDERED: LIDOCAINE 1% 20 ML VIAL SQ ONE (09:24)
--- NOTE | 2020-11-27 09:37 | Cat Scan Report ---
CT-guided intra-abdominal abscess drainage HISTORY: Subhepatic abscess TECHNIQUE: The procedure and risks were explained and the patient consented after patient identification. Unenhanced CT images of the upper abdomen were acquired. There is small amount gas in the gallbladder. This has increased in volume since 11/26/20. This is probably related to the biliary duct stent. There is a complex abscess collection inferior to the left lobe of the liver. There is an indwelling pigtail catheter in the right side of the abscess pocket. The abscess around the into the catheter has collapsed. Most of the abscess is located closer to the midline of the abdomen, behind the rectus abdominis muscle. The indwelling catheter was removed. The skin over the epigastrium was prepped with ChloraPrep then anesthetized with 1% lidocaine. Conscious sedation was not administered due to the patient's hypotension. Using trocar technique a 12 Lithuanian multi sidehole pigtail catheter was inserted into the abscess pocket. Approximate 5 cc of pus was removed and sent to laboratory for culture and sensitivity. The puss is very thick and most of the fluid could not be easily aspirated with a syringe. The catheter was secured to the skin surface and connected to a Daquan-Talbert bulb. Patient continues to ooze pus from the tract where the previously inserted catheter had been placed. This was covered with sterile gauze. IMPRESSION: Successful insertion of a 12 Lithuanian pigtail catheter into an abscess pocket below the left lobe of liver and behind the rectus abdominis muscle Interpreted and Authenticated by: Maynor Cheema 11/27/20
[2020-11-27] MEDS: DOCUSATE SODIUM 100 MG CAPSULE PO SCH ×2 (10:32→19:53)
[2020-11-27] MEDS: MAGNESIUM OXIDE 400 MG TABLET PO SCH (10:32)
[2020-11-27] MEDS: DULoxetine 30 MG CAPSULE PO SCH (10:32)
[2020-11-27] MEDS: ALBUTEROL SULFATE 200 PUFF INHALER INH SCH ×2 (10:32→19:53)
[2020-11-27] MEDS: NICOTINE 14 MG PATCH TOPICAL SCH (10:32)
[2020-11-27] MEDS: ONDANSETRON 4 MG/2 ML VIAL IV PRN ×2 (11:45→19:54)
[2020-11-27] MEDS: SENNOSIDES 1 TABLET PO SCH (19:53)
[2020-11-27] MEDS ORDERED: ACETAMINOPHEN 650 MG/65 ML BAG IV SCH (23:21)
[2020-11-28] MEDS: 0.9 % SODIUM CHLORIDE 1,000 ML IV SCH ×5 (00:43→23:37)
[2020-11-28] MEDS: ONDANSETRON 4 MG/2 ML VIAL IV PRN (03:16)
[2020-11-28] MEDS: 0.9 % SODIUM CHLORIDE 10 ML SYRINGE IV SCH ×3 (04:00→20:05)
[2020-11-28] MEDS: PIPERACILLIN SODIUM/TAZOBACTAM 3.375 GM in DEXTROSE 5% IN WATER 50 ML IV SCH ×4 (05:25→23:30)
[2020-11-28 07:06] LABS: Basophils # (Auto) 0.03 K/mcL (0.00-0.30); Basophils % (Auto) 0.4 % (0.0-2.0); Eosinophils # (Auto) 0.28 K/mcL (0.00-0.70); Eosinophils % (Auto) 3.5 % (0.0-7.0); Hematocrit 34.6 % (34.1-44.9); Hemoglobin 10.9 g/dL (11.2-15.7); Lymphocytes # (Auto) 1.15 K/mcL (1.50-4.80); Lymphocytes % (Auto) 14.2 % (15.5-49.0); Mean Corpuscular HGB Conc 31.5 g/dL (31.0-36.0); Mean Platelet Volume 10.9 fL (7.4-10.4); Monocytes # (Auto) 0.46 K/mcL (0.10-0.90); Monocytes % (Auto) 5.7 % (1.0-12.0); Neutrophils % (Auto) 76.2 % (38.0-78.0); Platelet Count 321 K/mcL (140-440); RBC 3.68 M/mcL (3.59-5.38); Red Cell Distribution Width 14.6 % (11.5-14.5); WBC 8.1 K/mcL (4.5-11.0)
[2020-11-28 07:44] LABS: ALT/SGPT 12 U/L (<40); AST/SGOT 15 U/L (<32); Albumin 2.3 gm/dL (3.2-5.2); Albumin/Globulin Ratio 0.7 (1.0-2.3); Alkaline Phosphatase 65 U/L (39-117); Bilirubin,Direct < 0.2 mg/dL (0-0.3); Bilirubin,Total 0.2 mg/dL (0.1-1.0); Blood Urea Nitrogen 6 mg/dL (6-20); Calcium 7.9 mg/dL (8.6-10.4); Carbon Dioxide 21 mmol/L (22-30); Chloride 102 mmol/L (96-108); Globulin 3.3 gm/dL (2.2-3.7); Glomerular Filtration Rate 99; Glucose 72 mg/dL (70-105); Lactate Dehydrogenase 219 U/L (135-225); Phosphorous 2.3 mg/dL (2.5-4.5); Triglycerides 113 mg/dL (<150); Uric Acid 2.4 mg/dL (2.5-8.0)
[2020-11-28] MEDS: PANTOPRAZOLE 40 MG TABLET PO SCH (09:04)
[2020-11-28] MEDS: DULoxetine 30 MG CAPSULE PO SCH (09:04)
[2020-11-28] MEDS: DOCUSATE SODIUM 100 MG CAPSULE PO SCH ×2 (09:05→19:54)
[2020-11-28] MEDS: MAGNESIUM OXIDE 400 MG TABLET PO SCH (09:05)
[2020-11-28] MEDS: ALBUTEROL SULFATE 200 PUFF INHALER INH SCH ×2 (09:05→20:14)
[2020-11-28] MEDS: NICOTINE 14 MG PATCH TOPICAL SCH (09:08)
--- NOTE | 2020-11-28 15:33 | General Surgery Progress Note ---
SUBJECTIVE Subjective Patient information: Note initiated : 11/28/20 at 3:29 pm Service Date, if different from initiated Date: [] Patient: Elida Russell 60 y/o F admitted on 11/26/20 for abdominal pain. Chief Complaint: [] Principal diagnosis: Intraperitoneal abscess Interval history: Patient is slightly improved. She is still lethargic. Vital signs are stable. White blood count is 8.1, hemoglobin 10.9, hematocrit 34.6, BUN 6, creatinine 0.6. The drainage is still purulent. Peak temperature has been in the 100 degree range. Constitutional Vitals: Vital Signs Temp Pulse Resp BP Pulse Ox 98.3 F 69 20 120/81 93 11/28/20 12:00 11/28/20 12:00 11/28/20 12:00 11/28/20 12:00 11/28/20 12:00 Period Temp Pulse Resp BP Sys/Bryant Pulse Ox Last 24 Hr 96 F-98.3 F 68-78 16-20 99-120/59-81 91-93 Intake and Output 11/28/20 11/28/20 11/28/20 05:59 13:59 21:59 Intake Total 1700 1000 50 Output Total 50 Balance 1650 1000 50 Intake & Output: Intake & Output 11/28/20 11/28/20 11/28/20 05:59 13:59 21:59 Intake Total 1700 1000 50 Output Total 50 Balance 1650 1000 50 Intake: IV 1300 1000 50 Sodium Chloride 0.9% 1,000 ml @ 1000 1000 150 mls/hr IV .[id number] SAVANAH Rx#: [id number] Zosyn 3.375 gm In Dextrose 5% 100 50 in Water 50 ml @ 100 mls/hr IV Q6H SAVANAH Rx#:[id number] Oral 400 Output: Drainage 50 Medial Abdomen FARIBA Drain 50 Other: Stool Color Brown Stool Consistency Loose # Voids 1 # Bowel Movements 1 Eye Eye exam: Present EOMI and PERRL Pupils: Present normal accommodation ENT ENT exam: Present mucous membranes moist and normal oropharynx Neck Neck exam: Present full ROM and normal inspection; Absent lymphadenopathy and tenderness Respiratory Respiratory exam: Present normal respiratory exam and CTAB Cardiovascular Cardiovascular exam: Present normal rate and rhythm, RRR, +S1 and +S2; Absent gallop and JVD GI/Abdominal GI/Abdominal exam: Present normal bowel sounds, soft and tenderness (Mild epigastric tenderness;); Absent distended Additional comments: FARIBA drainage with creamy white purulent drainage Extremities Exam Extremities exam: Present full ROM, normal inspection and neurovascular intact Neurological Exam Neurological exam: Present alert, normal gait and reflexes normal Psychiatric Psychiatric exam: Present depressed A/P Assessment and plan (1) Peritoneal abscess: Status: Acute (2) Acute biliary pancreatitis: Status: Acute (3) Atrial fibrillation: Status: Acute (4) Abscess, hepatic: Status: Acute Narrative A/P Narrative: Continue present antibiotics Continue fluid hydration Close follow-up of culture and sensitivity when available Time Spent With Patient Time: Total time spent is greater than 50% in coordination of care (as documented) at patient's floor/unit and/or counseling patient:
[2020-11-28] MEDS: SENNOSIDES 1 TABLET PO SCH (19:56)
[2020-11-28] MEDS: FLUCONAZOLE 400 MG/200 ML BAG IV SCH (22:16)
[2020-11-29] MEDS: 0.9 % SODIUM CHLORIDE 1,000 ML IV SCH ×5 (02:29→21:31)
[2020-11-29] MEDS: 0.9 % SODIUM CHLORIDE 10 ML SYRINGE IV SCH ×3 (04:29→22:31)
[2020-11-29] MEDS: PIPERACILLIN SODIUM/TAZOBACTAM 3.375 GM in DEXTROSE 5% IN WATER 50 ML IV SCH ×3 (05:15→17:38)
[2020-11-29] MEDS: ALBUTEROL SULFATE 200 PUFF INHALER INH SCH ×2 (07:11→22:31)
[2020-11-29] MEDS: DULoxetine 30 MG CAPSULE PO SCH (08:14)
[2020-11-29] MEDS: PANTOPRAZOLE 40 MG TABLET PO SCH (08:14)
[2020-11-29] MEDS: MAGNESIUM OXIDE 400 MG TABLET PO SCH (08:14)
[2020-11-29] MEDS: DOCUSATE SODIUM 100 MG CAPSULE PO SCH ×2 (08:14→22:30)
[2020-11-29] MEDS: ONDANSETRON 4 MG/2 ML VIAL IV PRN (08:19)
[2020-11-29] MEDS: NICOTINE 14 MG PATCH TOPICAL SCH (08:19)
[2020-11-29 08:38] LABS: Basophils # (Auto) 0.04 K/mcL (0.00-0.30); Basophils % (Auto) 0.6 % (0.0-2.0); Eosinophils # (Auto) 0.23 K/mcL (0.00-0.70); Eosinophils % (Auto) 3.4 % (0.0-7.0); Hematocrit 33.8 % (34.1-44.9); Hemoglobin 10.5 g/dL (11.2-15.7); Lymphocytes # (Auto) 1.48 K/mcL (1.50-4.80); Lymphocytes % (Auto) 21.9 % (15.5-49.0); Mean Cell Volume 93.1 fL (80.0-100.0); Mean Corpuscular HGB Conc 31.1 g/dL (31.0-36.0); Monocytes # (Auto) 0.42 K/mcL (0.10-0.90); Monocytes % (Auto) 6.2 % (1.0-12.0); Neutrophils % (Auto) 67.9 % (38.0-78.0); Platelet Count 298 K/mcL (140-440); RBC 3.63 M/mcL (3.59-5.38); Red Cell Distribution Width 14.6 % (11.5-14.5); WBC 6.8 K/mcL (4.5-11.0)
[2020-11-29 09:14] LABS: ALT/SGPT 11 U/L (<40); AST/SGOT 14 U/L (<32); Albumin 2.2 gm/dL (3.2-5.2); Albumin/Globulin Ratio 0.7 (1.0-2.3); Alkaline Phosphatase 94 U/L (39-117); Bilirubin,Direct < 0.2 mg/dL (0-0.3); Bilirubin,Total < 0.2 mg/dL (0.1-1.0); Blood Urea Nitrogen 3 mg/dL (6-20); Calcium 8.1 mg/dL (8.6-10.4); Carbon Dioxide 24 mmol/L (22-30); Chloride 107 mmol/L (96-108); Globulin 3.1 gm/dL (2.2-3.7); Glomerular Filtration Rate 106; Glucose 90 mg/dL (70-105); Lactate Dehydrogenase 261 U/L (135-225); Phosphorous 2.8 mg/dL (2.5-4.5); Triglycerides 108 mg/dL (<150); Uric Acid 2.1 mg/dL (2.5-8.0)
--- NOTE | 2020-11-29 15:04 | General Surgery Progress Note ---
SUBJECTIVE Subjective Patient information: Note initiated : 11/29/20 at 2:59 pm Service Date, if different from initiated Date: [] Patient: Elida Russell 60 y/o F admitted on 11/26/20 for abdominal pain. Chief Complaint: [] Principal diagnosis: Intraperitoneal abscess Interval history: Patient is clinically improved. Her abdominal pain is improved. She no longer has nausea and requests that her diet be advanced. White blood count 6.8, hemoglobin 10.5,hematocrit 33.8. Culture of the purulent drainage is still not available in the lab. Will probably repeat CT of abdomen on Tuesday to evaluate the abscess. Constitutional Vitals: Vital Signs Temp Pulse Resp BP Pulse Ox 96.8 F L 68 18 104/71 98 11/29/20 11:41 11/29/20 11:41 11/29/20 11:41 11/29/20 11:41 11/29/20 11:41 Period Temp Pulse Resp BP Sys/Bryant Pulse Ox Last 24 Hr 96.8 F-97.5 F 63-68 18-18 104-127/69-86 92-98 Intake and Output 11/29/20 11/29/20 11/29/20 05:59 13:59 21:59 Intake Total 1700 1480 50 Output Total 65 Balance 1635 1480 50 Intake & Output: Intake & Output 11/29/20 11/29/20 11/29/20 05:59 13:59 21:59 Intake Total 1700 1480 50 Output Total 65 Balance 1635 1480 50 Intake: IV 1300 1000 50 Sodium Chloride 0.9% 1,000 ml @ 1000 1000 150 mls/hr IV .[id number] SAVANAH Rx#: [id number] Zosyn 3.375 gm In Dextrose 5% 100 50 in Water 50 ml @ 100 mls/hr IV Q6H SAVANAH Rx#:[id number] Oral 400 480 Output: Drainage 65 Medial Abdomen FARIBA Drain 65 Other: Meal Breakfast Lunch Percent of Meal Consumed 100% 50% Feeding Ability Independent Independent # Voids 1 # Bowel Movements 1 Eye Eye exam: Present EOMI and PERRL Pupils: Present normal accommodation ENT ENT exam: Present mucous membranes moist and normal oropharynx Neck Neck exam: Present full ROM and normal inspection; Absent lymphadenopathy and tenderness Respiratory Respiratory exam: Present normal respiratory exam and CTAB Cardiovascular Cardiovascular exam: Present normal rate and rhythm, RRR, +S1 and +S2; Absent gallop and JVD GI/Abdominal GI/Abdominal exam: Present normal bowel sounds, soft and tenderness (Mild epigastric tenderness;); Absent distended Additional comments: FARIBA drainage with creamy white purulent drainage Extremities Exam Extremities exam: Present full ROM, normal inspection and neurovascular intact Back Exam Back exam: Present full ROM and normal inspection Psychiatric Psychiatric exam: Present depressed A/P Assessment and plan (1) Peritoneal abscess: Status: Acute (2) Postprocedural leakage from bile duct: Status: Acute (3) Abscess, hepatic: Status: Acute Narrative A/P Narrative: Advance to soft diet Recheck culture and sensitivity on drainage CT of abdomen and pelvis with contrast on Tuesday Time Spent With Patient Time: Total time spent is greater than 50% in coordination of care (as documented) at patient's floor/unit and/or counseling patient:
[2020-11-29] MEDS: SENNOSIDES 1 TABLET PO SCH (22:30)
[2020-11-29] MEDS: FLUCONAZOLE 400 MG/200 ML BAG IV SCH (22:32)
[2020-11-30] MEDS: PIPERACILLIN SODIUM/TAZOBACTAM 3.375 GM in DEXTROSE 5% IN WATER 50 ML IV SCH ×5 (00:29→23:37)
[2020-11-30] MEDS: 0.9 % SODIUM CHLORIDE 1,000 ML IV SCH ×3 (04:15→16:33)
[2020-11-30] MEDS: 0.9 % SODIUM CHLORIDE 10 ML SYRINGE IV SCH ×3 (04:15→22:02)
[2020-11-30] MEDS: PANTOPRAZOLE 40 MG TABLET PO SCH (07:34)
[2020-11-30 07:52] LABS: Basophils # (Auto) 0.06 K/mcL (0.00-0.30); Basophils % (Auto) 0.8 % (0.0-2.0); Eosinophils # (Auto) 0.23 K/mcL (0.00-0.70); Eosinophils % (Auto) 3.2 % (0.0-7.0); Hematocrit 35.4 % (34.1-44.9); Hemoglobin 10.9 g/dL (11.2-15.7); Lymphocytes # (Auto) 1.79 K/mcL (1.50-4.80); Lymphocytes % (Auto) 24.7 % (15.5-49.0); Mean Cell Volume 94.7 fL (80.0-100.0); Mean Corpuscular HGB Conc 30.8 g/dL (31.0-36.0); Mean Platelet Volume 10.8 fL (7.4-10.4); Monocytes # (Auto) 0.51 K/mcL (0.10-0.90); Neutrophils % (Auto) 64.3 % (38.0-78.0); Platelet Count 333 K/mcL (140-440); RBC 3.74 M/mcL (3.59-5.38); Red Cell Distribution Width 14.7 % (11.5-14.5); WBC 7.3 K/mcL (4.5-11.0)
[2020-11-30] MEDS: MAGNESIUM OXIDE 400 MG TABLET PO SCH (08:56)
[2020-11-30] MEDS: DULoxetine 30 MG CAPSULE PO SCH (08:56)
[2020-11-30] MEDS: DOCUSATE SODIUM 100 MG CAPSULE PO SCH ×2 (08:56→21:57)
[2020-11-30] MEDS: ALBUTEROL SULFATE 200 PUFF INHALER INH SCH ×2 (08:57→21:57)
[2020-11-30] MEDS: NICOTINE 14 MG PATCH TOPICAL SCH (11:29)
[2020-11-30] MEDS: ZOLPIDEM 5 MG TABLET PO PRN (21:55)
[2020-11-30] MEDS: SENNOSIDES 1 TABLET PO SCH (21:57)
[2020-11-30] MEDS: FLUCONAZOLE 400 MG/200 ML BAG IV SCH (21:58)
[2020-12-01] MEDS: 0.9 % SODIUM CHLORIDE 1,000 ML IV SCH ×2 (05:43→19:21)
[2020-12-01] MEDS: 0.9 % SODIUM CHLORIDE 10 ML SYRINGE IV SCH ×3 (05:43→21:58)
[2020-12-01] MEDS: PIPERACILLIN SODIUM/TAZOBACTAM 3.375 GM in DEXTROSE 5% IN WATER 50 ML IV SCH ×3 (05:43→18:08)
[2020-12-01 06:43] LABS: Basophils # (Auto) 0.04 K/mcL (0.00-0.30); Basophils % (Auto) 0.6 % (0.0-2.0); Eosinophils # (Auto) 0.21 K/mcL (0.00-0.70); Eosinophils % (Auto) 2.9 % (0.0-7.0); Hematocrit 36.1 % (34.1-44.9); Hemoglobin 11.4 g/dL (11.2-15.7); Lymphocytes # (Auto) 1.99 K/mcL (1.50-4.80); Lymphocytes % (Auto) 27.4 % (15.5-49.0); Mean Cell Volume 92.6 fL (80.0-100.0); Mean Corpuscular HGB Conc 31.6 g/dL (31.0-36.0); Mean Platelet Volume 10.5 fL (7.4-10.4); Monocytes # (Auto) 0.52 K/mcL (0.10-0.90); Monocytes % (Auto) 7.2 % (1.0-12.0); Neutrophils % (Auto) 61.9 % (38.0-78.0); Platelet Count 354 K/mcL (140-440); Red Cell Distribution Width 14.6 % (11.5-14.5); WBC 7.3 K/mcL (4.5-11.0)
[2020-12-01] MEDS ORDERED: IOPAMIDOL 100 ML BOTTLE IV ONE (08:10)
[2020-12-01] MEDS: ONDANSETRON 4 MG/2 ML VIAL IV PRN (10:24)
[2020-12-01] MEDS: NICOTINE 14 MG PATCH TOPICAL SCH (10:24)
[2020-12-01] MEDS: HYDROmorphone 0.5 MG/0.5 ML SYRINGE IV PRN (10:24)
[2020-12-01] MEDS: PANTOPRAZOLE 40 MG TABLET PO SCH (10:25)
[2020-12-01] MEDS: ALBUTEROL SULFATE 200 PUFF INHALER INH SCH ×2 (10:25→22:16)
[2020-12-01] MEDS: DULoxetine 30 MG CAPSULE PO SCH (10:25)
[2020-12-01] MEDS: DOCUSATE SODIUM 100 MG CAPSULE PO SCH ×2 (10:25→21:51)
[2020-12-01] MEDS: MAGNESIUM OXIDE 400 MG TABLET PO SCH (10:25)
--- NOTE | 2020-12-01 11:05 | Cat Scan Report ---
CLINICAL INFORMATION: Follow-up abdominal abscess in the right epigastrium COMPARISON: Abdomen and pelvic CT 11/26/2020 TECHNIQUE: Following enteric contrast, 80 cc of Isovue-370 were injected intravenously, and 60 seconds later, 0.625 mm helical slices were obtained from the mid heart through the subtrochanteric regions. Following reconstruction, 2.5 mm sagittal, coronal and axial reformatted images were processed and reviewed at bone, lung and soft tissue windows. Five minutes later, 0.625 mm helical slices were obtained from the mid heart through the kidneys and viewed at soft tissue windows.The exam was performed using radiation dose optimization techniques including, but not limited to, automated exposure control, adjustment of the mA and/or kV according to patient size and use of iterative reconstruction technique. FINDINGS: Small/ moderate right pleural effusion has increased from previous study. Small region of atelectasis or, less likely, infiltrate posterior right lower lobe show slight increase. 16mm loculated pleural fluid collection in the anterior right cardiophrenic angle is unchanged. Tiny left pleural effusion noted with subsegmental atelectasis. The visualized heart is normal. Biliary stent remains in stable satisfactory position with the proximal end within the common hepatic duct and the distal end within the descending duodenal lumen. The duct remains normal in caliber-less than 6 mm compatible with stent functionality. Small amount of air in the nondependent left hepatic ducts is seen as expected. Patchy low-attenuation within the left hepatic lobe has decreased considerably and is presumably resolution in small hepatic abscess. There is now only a 10 mm left hepatic abscess. The gallbladder is normal in size, however there is enhancement of the gallbladder wall mucosa and small amount of pericholecystic fluid-as before. Small fluid collections adjacent to the pancreatic neck have decreased in size. The largest in the anterior superior region decreased from 17 to 15 mm. Two in the anterior-inferior region are each approximately 18 mm. The pancreatic parenchyma is, otherwise, unremarkable without evidence of active pancreatitis. Pancreatic duct is normal. Both kidneys, adrenal glands, spleen, and aorta, including aortic branches, are normal in size, configuration and attenuation without focal lesion. There is no free air or adenopathy. A small amount of free fluid noted in the deep true pelvis. The abscess in the anterior epigastric mesentery has decreased in size from 8 cm to 6 cm. Percutaneous pigtail drain remains in stable satisfactory position within the the abscess cavity. The original drain, in the right upper quadrant region, has been removed. Pelvic images show normal urinary bladder. Uterus is surgically absent. Both ovarian regions grossly normal. The stomach, small bowel, appendix and large bowel are grossly normal. Bone windows show no osseous abnormality IMPRESSION: 1. Interval decrease in abscess in the epigastric region of the superior mesenteric cavity. Percutaneous drain remains in stable satisfactory position. Abscess is now 6 cm in diameter. 2. Small fluid collections at the margin of the pancreatic neck also decrease. Suspect these are small pseudocysts relating to resolving pancreatitis. The largest is 16 mm along superior anterior margin. 3. Left hepatic lobe abscess has decreased-now less than 10 mm. 4. Small/moderate right pleural effusion with atelectasis or less likely infiltrate posterior right lower lobe show slight increase. Small left pleural effusion. 5. Biliary stent remains in stable satisfactory position within the common hepatic and common bile ducts. Bile ducts remain normal in caliber compatible with normal stent function. 6. Mild gallbladder wall thickening and pericholecystic fluid suggesting the possibility of associated cholecystitis Interpreted and Authenticated by: Teofilo Watt 12/01/20
--- NOTE | 2020-12-01 15:34 | General Surgery Progress Note ---
SUBJECTIVE Subjective Patient information: Note initiated : 12/01/20 at 3:31 pm Service Date, if different from initiated Date: [] Patient: Elida Russell 60 y/o F admitted on 11/26/20 for abdominal pain. Chief Complaint: [] Principal diagnosis: Intraperitoneal abscess Interval history: Patient continues to improve. She had a CT of the abdomen earlier today which showed decrease in the size of the intraperitoneal abscess with the percutaneous drain still adequately positioned in the abscess cavity. She has had some nausea vomiting diarrhea. Her white blood count is 7.3. Hemoglobin and hematocrit are unchanged. Constitutional Vitals: Vital Signs Temp Pulse Resp BP Pulse Ox 97.3 F 86 24 H 99/64 95 12/01/20 11:39 12/01/20 11:39 12/01/20 11:39 12/01/20 11:39 12/01/20 11:39 Period Temp Pulse Resp BP Sys/Bryant Pulse Ox Last 24 Hr 97.1 F-98 F 54-86 16-24 99-157/64-87 92-95 Intake and Output 12/01/20 12/01/20 12/01/20 05:59 13:59 21:59 Intake Total 1250 800 Output Total 2210 250 Balance -960 550 Weight 241 lb Patient Weight 12/02/20 05:59 Weight 241 lb Intake & Output: Intake & Output 12/01/20 12/01/20 12/01/20 05:59 13:59 21:59 Intake Total 1250 800 Output Total 2210 250 Balance -960 550 Weight 241 lb Intake: IV 1250 100 Sodium Chloride 0.9% 1,000 ml @ 1000 75 mls/hr IV .[id number] SAVANAH Rx#: [id number] Zosyn 3.375 gm In Dextrose 5% 50 100 in Water 50 ml @ 100 mls/hr IV Q6H SAVANAH Rx#:[id number] Oral 700 Output: Drainage 10 Medial Abdomen FARIBA Drain 10 Void Amount 2200 250 Other: Meal Breakfast Percent of Meal Consumed 100% Feeding Ability Assist with Tray Set Up Urine Appearance Clear Urine Color Pale Straw Urine Odor Normal Stool Size Moderate Stool Color Brown Stool Consistency Soft Neck Neck exam: Present full ROM and normal inspection; Absent lymphadenopathy and tenderness Respiratory Respiratory exam: Present normal respiratory exam and CTAB Cardiovascular Cardiovascular exam: Present normal rate and rhythm, RRR, +S1 and +S2; Absent gallop and JVD GI/Abdominal GI/Abdominal exam: Present normal bowel sounds, soft and tenderness (Mild epigastric tenderness;); Absent distended Additional comments: FARIBA drainage with creamy white purulent drainage Extremities Exam Extremities exam: Present full ROM, normal inspection and neurovascular intact Back Exam Back exam: Present full ROM and normal inspection Neurological Exam Neurological exam: Present alert, normal gait and reflexes normal Psychiatric Psychiatric exam: Present depressed A/P Assessment and plan (1) Peritoneal abscess: Status: Acute (2) Abscess, hepatic: Status: Acute (3) Radiculopathy of lumbar region: Status: Acute (4) Depression: Status: Chronic Narrative A/P Narrative: Continue on present therapy Advance diet as tolerated Check labs daily Time Spent With Patient Time: Total time spent is greater than 50% in coordination of care (as documented) at patient's floor/unit and/or counseling patient:
[2020-12-01] MEDS: SENNOSIDES 1 TABLET PO SCH (21:51)
[2020-12-01] MEDS: BUPRENORPHINE/NALOXONE 4MG/1MG ORAL FILM SL SCH (21:52)
[2020-12-01] MEDS: GABAPENTIN 300 MG CAPSULE PO SCH (21:52)
[2020-12-01] MEDS: ZOLPIDEM 5 MG TABLET PO PRN (21:53)
[2020-12-01] MEDS: ACETAMINOPHEN 650 MG/65 ML BAG IV PRN (21:53)
[2020-12-01] MEDS: FLUCONAZOLE 400 MG/200 ML BAG IV SCH (23:16)
[2020-12-02] MEDS: PIPERACILLIN SODIUM/TAZOBACTAM 3.375 GM in DEXTROSE 5% IN WATER 50 ML IV SCH ×4 (01:13→17:53)
[2020-12-02] MEDS: 0.9 % SODIUM CHLORIDE 10 ML SYRINGE IV SCH ×3 (05:51→21:01)
[2020-12-02] MEDS: PANTOPRAZOLE 40 MG TABLET PO SCH (07:45)
[2020-12-02] MEDS: DULoxetine 30 MG CAPSULE PO SCH (09:31)
[2020-12-02] MEDS: NICOTINE 14 MG PATCH TOPICAL SCH (09:32)
[2020-12-02] MEDS: MAGNESIUM OXIDE 400 MG TABLET PO SCH (09:32)
[2020-12-02] MEDS: GABAPENTIN 300 MG CAPSULE PO SCH ×2 (09:32→20:59)
[2020-12-02] MEDS: BUPRENORPHINE/NALOXONE 4MG/1MG ORAL FILM SL SCH ×2 (09:35→21:00)
[2020-12-02] MEDS: ALBUTEROL SULFATE 200 PUFF INHALER INH SCH ×2 (10:10→21:00)
[2020-12-02] MEDS: DOCUSATE SODIUM 100 MG CAPSULE PO SCH ×2 (10:10→20:59)
[2020-12-02] MEDS: 0.9 % SODIUM CHLORIDE 1,000 ML IV SCH ×3 (11:54→23:16)
--- NOTE | 2020-12-02 15:59 | General Surgery Progress Note ---
SUBJECTIVE Subjective Patient information: Note initiated : 12/02/20 at 3:56 pm Service Date, if different from initiated Date: [] Patient: Elida Russell 60 y/o F admitted on 11/26/20 for abdominal pain. Chief Complaint: [] Principal diagnosis: Intraperitoneal abscess Interval history: Patient states that she feels better. She has some nausea but no vomiting. Her abdominal pain is improved. Her vital signs are stable and her blood pressure is well controlled. She does not have any tachycardia. She continues to have moderate amount of yellow-green purulent drainage in her FARIBA drain. Constitutional Vitals: Vital Signs Temp Pulse Resp BP Pulse Ox 97.5 F 57 L 16 124/71 91 12/02/20 11:52 12/02/20 11:52 12/02/20 11:52 12/02/20 11:52 12/02/20 11:52 Period Temp Pulse Resp BP Sys/Bryant Pulse Ox Last 24 Hr 97 F-98.7 F 56-70 12-18 85-132/49-81 91-95 Intake and Output 12/02/20 12/02/20 12/02/20 05:59 13:59 21:59 Intake Total 1615 1050 Output Total 1410 Balance 205 1050 Intake & Output: Intake & Output 12/02/20 12/02/20 12/02/20 05:59 13:59 21:59 Intake Total 1615 1050 Output Total 1410 Balance 205 1050 Intake: IV 315 1050 Sodium Chloride 0.9% 1,000 ml @ 1000 75 mls/hr IV .[id number] SAVANAH Rx#: [id number] Zosyn 3.375 gm In Dextrose 5% 50 50 in Water 50 ml @ 100 mls/hr IV Q6H SAVANAH Rx#:[id number] Oral 1300 Output: Drainage 10 Medial Abdomen FARIBA Drain 10 Void Amount 1400 Other: Urine Appearance Clear Urine Color Dark Yellow Urine Odor Normal Eye Eye exam: Present EOMI and PERRL Pupils: Present normal accommodation ENT ENT exam: Present mucous membranes moist and normal oropharynx Neck Neck exam: Present full ROM and normal inspection; Absent lymphadenopathy and tenderness Respiratory Respiratory exam: Present normal respiratory exam and CTAB GI/Abdominal GI/Abdominal exam: Present normal bowel sounds, soft and tenderness (Mild epigastric tenderness;); Absent distended Additional comments: FARIBA drainage with creamy white purulent drainage Extremities Exam Extremities exam: Present full ROM, normal inspection and neurovascular intact Neurological Exam Neurological exam: Present alert, normal gait and reflexes normal Psychiatric Psychiatric exam: Present depressed A/P Assessment and plan (1) Peritoneal abscess: Status: Acute (2) Abscess, hepatic: Status: Acute (3) Radiculopathy of lumbar region: Status: Acute (4) Depression: Status: Chronic Narrative A/P Narrative: Follow-up on cultures of peritoneal abscess fluid Check CBC and inpatient panel Follow-up cultures to determine if patient will need outpatient intravenous antibiotics Time Spent With Patient Time: Total time spent is greater than 50% in coordination of care (as documented) at patient's floor/unit and/or counseling patient:
[2020-12-02] MEDS: HYDROmorphone 0.5 MG/0.5 ML SYRINGE IV PRN (20:59)
[2020-12-02] MEDS: SENNOSIDES 1 TABLET PO SCH (20:59)
[2020-12-02] MEDS: ZOLPIDEM 5 MG TABLET PO PRN (20:59)
[2020-12-02] MEDS: ACETAMINOPHEN 650 MG/65 ML BAG IV PRN (21:01)
[2020-12-02] MEDS: FLUCONAZOLE 400 MG/200 ML BAG IV SCH (22:52)
[2020-12-03] MEDS: PIPERACILLIN SODIUM/TAZOBACTAM 3.375 GM in DEXTROSE 5% IN WATER 50 ML IV SCH ×4 (00:18→17:54)
[2020-12-03] MEDS: 0.9 % SODIUM CHLORIDE 1,000 ML IV SCH ×3 (05:08→23:18)
[2020-12-03] MEDS: 0.9 % SODIUM CHLORIDE 10 ML SYRINGE IV SCH ×3 (05:55→20:27)
[2020-12-03 06:58] LABS: Basophils # (Auto) 0.03 K/mcL (0.00-0.30); Basophils % (Auto) 0.5 % (0.0-2.0); Eosinophils # (Auto) 0.18 K/mcL (0.00-0.70); Hematocrit 34.9 % (34.1-44.9); Hemoglobin 11.1 g/dL (11.2-15.7); Lymphocytes # (Auto) 1.81 K/mcL (1.50-4.80); Lymphocytes % (Auto) 29.8 % (15.5-49.0); Mean Cell Volume 93.8 fL (80.0-100.0); Mean Corpuscular HGB Conc 31.8 g/dL (31.0-36.0); Mean Platelet Volume 10.4 fL (7.4-10.4); Monocytes % (Auto) 8.2 % (1.0-12.0); Neutrophils % (Auto) 58.5 % (38.0-78.0); Platelet Count 344 K/mcL (140-440); RBC 3.72 M/mcL (3.59-5.38); WBC 6.1 K/mcL (4.5-11.0)
[2020-12-03] MEDS: PANTOPRAZOLE 40 MG TABLET PO SCH (07:19)
[2020-12-03 07:32] LABS: ALT/SGPT 10 U/L (<40); AST/SGOT 14 U/L (<32); Albumin 2.8 gm/dL (3.2-5.2); Albumin/Globulin Ratio 0.9 (1.0-2.3); Alkaline Phosphatase 45 U/L (39-117); Bilirubin,Direct < 0.2 mg/dL (0-0.3); Bilirubin,Total < 0.2 mg/dL (0.1-1.0); Blood Urea Nitrogen 6 mg/dL (6-20); Calcium 8.4 mg/dL (8.6-10.4); Carbon Dioxide 27 mmol/L (22-30); Chloride 104 mmol/L (96-108); Glomerular Filtration Rate 95; Glucose 84 mg/dL (70-105); Lactate Dehydrogenase 175 U/L (135-225); Phosphorous 3.2 mg/dL (2.5-4.5); Triglycerides 109 mg/dL (<150); Uric Acid 2.4 mg/dL (2.5-8.0)
[2020-12-03] MEDS: MAGNESIUM OXIDE 400 MG TABLET PO SCH (08:38)
[2020-12-03] MEDS: DULoxetine 30 MG CAPSULE PO SCH (08:38)
[2020-12-03] MEDS: DOCUSATE SODIUM 100 MG CAPSULE PO SCH ×2 (08:38→20:27)
[2020-12-03] MEDS: GABAPENTIN 300 MG CAPSULE PO SCH ×2 (08:38→20:26)
[2020-12-03] MEDS: ALBUTEROL SULFATE 200 PUFF INHALER INH SCH ×2 (08:39→20:27)
[2020-12-03] MEDS: BUPRENORPHINE/NALOXONE 4MG/1MG ORAL FILM SL SCH ×2 (08:39→20:26)
[2020-12-03] MEDS: NICOTINE 14 MG PATCH TOPICAL SCH ×2 (09:56→18:06)
--- NOTE | 2020-12-03 13:31 | General Surgery Progress Note ---
SUBJECTIVE Subjective Patient information: Note initiated : 12/03/20 at 1:30 pm Service Date, if different from initiated Date: [] Patient: Elida Russell 60 y/o F admitted on 11/26/20 for abdominal pain. Chief Complaint: [] Principal diagnosis: Intraperitoneal abscess Interval history: Patient feels betterand has less pain. she denies nausea. her pain is better controlled. She still has moderate amount of thick creamy yellow-white drainage. White blood count 6.1, hemoglobin 11.1, hematocrit 34.9, potassium 3.4, BUN 6, creatinine 0.7. Culture and sensitivity finally available and shows Clostridium perfringens, Prevotella species, Streptococcus viridans, Enterococcus species. They are all sensitive to ampicillin. Patient appears to be clinically stable and will make arrangements for discharge tomorrow with oral ampicillin x2 weeks with follow-up CT after 2 weeks. Constitutional Vitals: Vital Signs Temp Pulse Resp BP Pulse Ox 97.8 F 69 22 135/83 95 12/03/20 12:00 12/03/20 12:00 12/03/20 12:00 12/03/20 12:00 12/03/20 12:10 Period Temp Pulse Resp BP Sys/Bryant Pulse Ox Last 24 Hr 96.9 F-98.3 F 58-69 16-22 119-153/69-90 89-95 Intake and Output 12/02/20 12/03/20 12/03/20 21:59 05:59 13:59 Intake Total 1373 1400 530 Output Total 2105 750 650 Balance -732 650 -120 Weight 232 lb Intake & Output: Intake & Output 12/02/20 12/03/20 12/03/20 21:59 05:59 13:59 Intake Total 1373 1400 530 Output Total 2105 750 650 Balance -732 650 -120 Weight 232 lb Intake: IV 115 1300 50 Sodium Chloride 0.9% 1,000 ml @ 1000 75 mls/hr IV .[id number] SAVANAH Rx#: [id number] Zosyn 3.375 gm In Dextrose 5% 50 100 50 in Water 50 ml @ 100 mls/hr IV Q6H SAVANAH Rx#:[id number] Oral 1258 100 480 Output: Drainage 5 100 Medial Abdomen FARIBA Drain 5 100 Void Amount 2100 650 650 Other: Meal Dinner Lunch Percent of Meal Consumed 100% 100% Feeding Ability Independent Assist with Tray Set Up Urine Appearance Clear Clear Urine Color Straw Bright Yellow Straw Urine Odor Normal Normal ENT ENT exam: Present mucous membranes moist and normal oropharynx Neck Neck exam: Present full ROM and normal inspection; Absent lymphadenopathy and tenderness Respiratory Respiratory exam: Present normal respiratory exam and CTAB Cardiovascular Cardiovascular exam: Present normal rate and rhythm, RRR, +S1 and +S2; Absent gallop and JVD GI/Abdominal GI/Abdominal exam: Present normal bowel sounds, soft and tenderness (Mild epigastric tenderness;); Absent distended Additional comments: FARIBA drainage with creamy white purulent drainage Extremities Exam Extremities exam: Present full ROM, normal inspection and neurovascular intact Neurological Exam Neurological exam: Present alert, normal gait and reflexes normal Psychiatric Psychiatric exam: Present depressed A/P Assessment and plan (1) Peritoneal abscess: Status: Acute (2) Abscess, hepatic: Status: Acute Narrative A/P Narrative: Continue present antibiotics Plan for discharge on oral ampicillin x2 weeks with follow-up CT in 2 weeks Time Spent With Patient Time: Total time spent is greater than 50% in coordination of care (as documented) at patient's floor/unit and/or counseling patient:
[2020-12-03] MEDS: SENNOSIDES 1 TABLET PO SCH (20:27)
[2020-12-03] MEDS: FLUCONAZOLE 400 MG/200 ML BAG IV SCH (23:18)
[2020-12-04] MEDS: PIPERACILLIN SODIUM/TAZOBACTAM 3.375 GM in DEXTROSE 5% IN WATER 50 ML IV SCH ×3 (00:59→12:46)
[2020-12-04] MEDS: ZOLPIDEM 5 MG TABLET PO PRN (01:04)
[2020-12-04] MEDS: HYDROmorphone 0.5 MG/0.5 ML SYRINGE IV PRN (01:04)
[2020-12-04] MEDS: 0.9 % SODIUM CHLORIDE 10 ML SYRINGE IV SCH (05:56)
[2020-12-04 08:17] LABS: Basophils # (Auto) 0.05 K/mcL (0.00-0.30); Basophils % (Auto) 0.7 % (0.0-2.0); Hematocrit 35.8 % (34.1-44.9); Hemoglobin 11.2 g/dL (11.2-15.7); Lymphocytes # (Auto) 2.32 K/mcL (1.50-4.80); Lymphocytes % (Auto) 34.7 % (15.5-49.0); Mean Cell Volume 93.7 fL (80.0-100.0); Mean Corpuscular HGB Conc 31.3 g/dL (31.0-36.0); Mean Platelet Volume 10.9 fL (7.4-10.4); Monocytes # (Auto) 0.47 K/mcL (0.10-0.90); Neutrophils % (Auto) 54.6 % (38.0-78.0); Platelet Count 335 K/mcL (140-440); RBC 3.82 M/mcL (3.59-5.38); Red Cell Distribution Width 15.2 % (11.5-14.5); WBC 6.7 K/mcL (4.5-11.0)
[2020-12-04 08:26] LABS: ALT/SGPT 12 U/L (<40); AST/SGOT 20 U/L (<32); Albumin 2.8 gm/dL (3.2-5.2); Albumin/Globulin Ratio 0.9 (1.0-2.3); Alkaline Phosphatase 49 U/L (39-117); Bilirubin,Direct < 0.2 mg/dL (0-0.3); Bilirubin,Total 0.2 mg/dL (0.1-1.0); Blood Urea Nitrogen 5 mg/dL (6-20); Calcium 8.8 mg/dL (8.6-10.4); Carbon Dioxide 29 mmol/L (22-30); Chloride 105 mmol/L (96-108); Glomerular Filtration Rate 99; Glucose 84 mg/dL (70-105); Lactate Dehydrogenase 196 U/L (135-225); Phosphorous 2.5 mg/dL (2.5-4.5); Triglycerides 147 mg/dL (<150); Uric Acid 2.4 mg/dL (2.5-8.0)
[2020-12-04] MEDS: DOCUSATE SODIUM 100 MG CAPSULE PO SCH (08:39)
[2020-12-04] MEDS: PANTOPRAZOLE 40 MG TABLET PO SCH (08:39)
[2020-12-04] MEDS: MAGNESIUM OXIDE 400 MG TABLET PO SCH (08:39)
[2020-12-04] MEDS: GABAPENTIN 300 MG CAPSULE PO SCH (08:39)
[2020-12-04] MEDS: DULoxetine 30 MG CAPSULE PO SCH (08:39)
[2020-12-04] MEDS: ALBUTEROL SULFATE 200 PUFF INHALER INH SCH (08:40)
[2020-12-04] MEDS: NICOTINE 14 MG PATCH TOPICAL SCH (09:27)
[2020-12-04] MEDS: BUPRENORPHINE/NALOXONE 4MG/1MG ORAL FILM SL SCH ×2 (11:07→11:09)
--- NOTE | 2020-12-04 12:36 | Discharge Summary ---
Discharge Provider Provider Patient information: Note initiated : 12/04/20 at 12:20 pm Service Date, if different from initiated Date: [] Patient: Elida Russell 60 y/o F admitted on 11/26/20 for abdominal pain. Chief Complaint: [] Date of admission: 11/26/20 16:51 Discharge date: 12/04/20 Primary care physician: Soo Mcneill Admitting clinician: Genoveva Casper Consults: 11/26/20 Consult to Physician [CONS] Stat Comment: Consulting Provider: Genoveva Casper Reason For Exam: Physician to Attending physician on discharge: Genoveva Casper Discharging clinician: Genoveva Casper COURSE Hospital Course Hospital course: 60-year-old female admitted with subhepatic abscess. This is related to an episode of acute biliary pancreatitis and cholecystitis dating back to October 01. Specifics were given in the edition. Patient had follow-up CT on the day of admission because of increasing abdominal pain hypotension and increasing purulent drainage. The old percutaneous catheter was along the inferior lateral margin of the abscess cavity. She was admitted and a new drain was placed in the central portion and she has been draining well since then. Cultures grew out Clostridium perfringens, Prevotella species, Streptococcus viridans, and Enterococcus species. She was treated with Zosyn. All of the organisms were sensitive to this antibiotic. Follow-up CT showed decrease in the size of the abscess from 8 cm to 6 cm. Patient has gradually become more stable and is now back to baseline. Her present white count is 6.9 and h emoglobin is 11.7 with hematocrit 39.1. Electrolytes and chemistries are normal. Patient is stable and will be discharged home. She will be continued on ciprofloxacin and Augmentin. Discharge diagnosis: peritoneal abscess Secondary discharge diagnosis: sepsis Reason for admission: peritoneal abscess Procedures: percutaneous abscess drainage Pertinent studies/significant findings: C.T. OF ABDOMEN AND PELVIS Complications: NONE Time Spent with Patient Time attestation: Total time spent providing and/or coordinating discharge services: Physical Examination Vital Signs Vital signs: Temp Pulse Resp BP Pulse Ox 97.1 F 60 15 128/73 94 12/04/20 11:53 12/04/20 11:53 12/04/20 11:53 12/04/20 11:53 12/04/20 11:53 General physical appearance General physical exam: well developed, well nourished, no distress and chronically ill Eyes Eye exam: PERRL and normal ocular movement ENT ENT exam: normal mucosa and no hearing loss Head Head exam IM: Present atraumatic, normal inspection and normocephalic Neck Neck exam: no masses, no bruits, trachea midline, no lymphadenopathy and no venous distension Cardiovascular Cardiovascular exam IM: Present normal rate and rhythm, RRR, +S1 and +S2; Absent diastolic murmur, gallop and JVD Respiratory Respiratory exam: normal expansion, normal respiratory effort and clear to auscultation Abdomen Abdomen: Present tender (Mild mid abdominal tenderness in the area of drain) Integumentary Integumentary: Present no rash, no growths and no abnormal pigmentation Neurologic Neurologic: Present normal sensation Musculoskeletal Musculoskeletal: Present normal gait and normal posture Psychiatric Psychiatric: Present oriented to time, oriented to person, oriented to place, speech is normal and memory intact Discharge Plan Patient/Caregiver Discharge Instructions Activity: increase activity as tolerated Diet: Regular Diet Prescriptions: New ciprofloxacin HCl [ciprofloxacin HCl] 500 MG tablet 500 mg PO BID Qty: 40 RF: 0 amoxicillin-pot clavulanate [Augmentin XR] 1,000-62.5 mg tablet extended release 12 hr 1 tab PO BID Qty: 20 RF: 0 Continued promethazine 25 mg tablet 25 mg PO Q6H PRN (Reason: nausea and vomiting) Qty: 30 RF: 0 buprenorphine-naloxone 8-2 mg tablet, sublingual 1 tab sublingual BID RF: 0 meloxicam 15 mg tablet 15 mg PO DAILY RF: 0 omeprazole 20 mg capsule,delayed release(DR/EC) 20 mg PO DAILY RF: 0 duloxetine [Cymbalta] 60 mg capsule,delayed release(DR/EC) 60 mg PO DAILY RF: 0 nicotine [Nicoderm CQ] 14 mg/24 hr patch 24 hour 1 patch transdermal QDAY Qty: 28 RF: 1 albuterol 90 mcg/actuation Aerosol 90 mcg inhalation BID RF: 0 lactobacillus combination no.8 3 billion cell Capsule 1 cell PO QDAY RF: 0 magnesium 100 mg Tablet 100 mg PO QDAY RF: 0 cholecalciferol (vitamin D3) [Vitamin D3] 25 mcg (1,000 unit) Tablet 25 mcg PO QDAY RF: 0 ondansetron HCl [Zofran] 4 mg tablet 4 mg PO Q6HP PRN (Reason: nausea and vomiting) RF: 0 Follow Up Plan Follow up with: Soo Mcneill ARNP [Primary Care Provider] - Genoveva Casper MD [Physician] - (F/U WITH ME IN OFFICE IN 1 WEEK) Patient Disposition: Home, Self-Care Care Plan Goals: CT of abdomen and pelvis with IV contrast on 10 December 2020 Prognosis: Good Rehab Potential: Good I certify that the patient requires SNF services: No Overall status at discharge: patient is progressing back to baseline Discharge Orders: Discharge Order (Routine); Ordered 12/04/20 Ordered By: Genoveva Casper Pending Pending Pending: Resuscitation Status Resuscitate (Full Code) Diet GI Soft/Transitional Start Sun Dec 01 1615 Albuterol Sulfate (Albuterol Sulfate 200 Puff Inhaler) 1 puff INH BID [facility] Last Admin: 12/04/20 08:40 Dose: Not Given Documented by: [email or web address] Admin: 12/03/20 20:27 Dose: Not Given Documented by: Admin: 12/03/20 08:39 Dose: Not Given Documented by: Admin: 12/02/20 21:00 Dose: Not Given Documented by: Admin: 12/02/20 10:10 Dose: Not Given Documented by: Admin: 12/01/20 22:16 Dose: Not Given Documented by: Admin: 12/01/20 10:25 Dose: Not Given Documented by: Admin: 11/30/20 21:57 Dose: Not Given Documented by: Admin: 11/30/20 08:57 Dose: Not Given Documented by: Admin: 11/29/20 22:31 Dose: Not Given Documented by: Admin: 11/29/20 07:11 Dose: Not Given Documented by: Admin: 11/28/20 20:14 Dose: Not Given Documented by: Admin: 11/28/20 09:05 Dose: Not Given Documented by: Admin: 11/27/20 19:53 Dose: Not Given Documented by: Admin: 11/27/20 10:32 Dose: Not Given Documented by: ERIC Buprenorphine HCl (Buprenorphine/Naloxone 4mg/1mg Oral Film) 2 each SL BID [facility] Last Admin: 12/04/20 11:09 Dose: Not Given Documented by: Admin: 12/03/20 20:26 Dose: 2 each Documented by: Admin: 12/03/20 08:39 Dose: Not Given Documented by: Admin: 12/02/20 21:00 Dose: 2 each Documented by: Admin: 12/02/20 09:35 Dose: Not Given Documented by: Admin: 12/01/20 21:52 Dose: Not Given Documented by: GERALDO Docusate Sodium (Docusate Sodium 100 Mg Capsule) 100 mg PO BID [facility] Admin: 12/04/20 08:39 Dose: 100 mg Documented by: Admin: 12/03/20 20:27 Dose: Not Given Documented by: Admin: 12/03/20 08:38 Dose: 100 mg Documented by: Admin: 12/02/20 20:59 Dose: Not Given Documented by: Admin: 12/02/20 10:10 Dose: Not Given Documented by: Admin: 12/01/20 21:51 Dose: Not Given Documented by: Admin: 12/01/20 10:25 Dose: Not Given Documented by: Admin: 11/30/20 21:57 Dose: Not Given Documented by: Admin: 11/30/20 08:56 Dose: 100 mg Documented by: Admin: 11/29/20 22:30 Dose: Not Given Documented by: Admin: 11/29/20 08:14 Dose: Not Given Documented by: Admin: 11/28/20 19:54 Dose: Not Given Documented by: Admin: 11/28/20 09:05 Dose: Not Given Documented by: Admin: 11/27/20 19:53 Dose: Not Given Documented by: Admin: 11/27/20 10:32 Dose: Not Given Documented by: Admin: 11/26/20 21:18 Dose: 100 mg Documented by: NORA Duloxetine HCl (Duloxetine 30 Mg Capsule) 60 mg PO DAILY [facility] Admin: 12/04/20 08:39 Dose: 60 mg Documented by: Admin: 12/03/20 08:38 Dose: 60 mg Documented by: Admin: 12/02/20 09:31 Dose: 60 mg Documented by: Cosigned by: Admin: 12/01/20 10:25 Dose: Not Given Documented by: Admin: 11/30/20 08:56 Dose: 60 mg Documented by: Admin: 11/29/20 08:14 Dose: 60 mg Documented by: Admin: 11/28/20 09:04 Dose: 60 mg Documented by: Admin: 11/27/20 10:32 Dose: 60 mg Documented by: ERIC Gabapentin (Gabapentin 300 Mg Capsule) 300 mg PO BID [facility] Last Admin: 12/04/20 08:39 Dose: 300 mg Documented by: Admin: 12/03/20 20:26 Dose: 300 mg Documented by: Admin: 12/03/20 08:38 Dose: 300 mg Documented by: Admin: 12/02/20 20:59 Dose: 300 mg Documented by: Admin: 12/02/20 09:32 Dose: 300 mg Documented by: Cosigned by: Admin: 12/01/20 21:52 Dose: 300 mg Documented by: GERALDO Hydromorphone HCl (Hydromorphone 0.5 Mg/0.5 Ml Syringe) 0.5 mg IV Q2HP PRN; Protocol PRN Reason: Per Pain Protocol Last Admin: 12/04/20 01:04 Dose: 0.5 mg Documented by: Admin: 12/02/20 20:59 Dose: 0.5 mg Documented by: Admin: 12/01/20 10:24 Dose: 0.5 mg Documented by: ERIC Piperacillin Sod/Tazobactam (Sod 3.375 gm/ Dextrose) 50 mls @ 100 mls/hr IV Q6H [facility]; Protocol Last Infusion: 12/04/20 06:26 Dose: 100 mls/hr Documented by: [email or web address] Admin: 12/04/20 05:56 Dose: 100 mls/hr Documented by: Infusion: 12/04/20 01:29 Dose: 100 mls/hr Documented by: Admin: 12/04/20 00:59 Dose: 100 mls/hr Documented by: Infusion: 12/03/20 18:24 Dose: 100 mls/hr Documented by: [email or web address] Admin: 12/03/20 17:54 Dose: 100 mls/hr Documented by: [email or web address] Infusion: 12/03/20 12:16 Dose: 0 mls/hr Documented by: Admin: 12/03/20 11:41 Dose: 100 mls/hr Documented by: Infusion: 12/03/20 05:40 Dose: 0 mls/hr Documented by: [email or web address] Admin: 12/03/20 05:10 Dose: 100 mls/hr Documented by: [email or web address] Infusion: 12/03/20 00:49 Dose: 0 mls/hr Documented by: [email or web address] Admin: 12/03/20 00:18 Dose: 100 mls/hr Documented by: [email or web address] Infusion: 12/02/20 18:23 Dose: 0 mls/hr Documented by: [email or web address] Admin: 12/02/20 17:53 Dose: 100 mls/hr Documented by: Infusion: 12/02/20 12:10 Dose: 0 mls/hr Documented by: Admin: 12/02/20 11:40 Dose: 100 mls/hr Documented by: Infusion: 12/02/20 06:20 Dose: 0 mls/hr Documented by: Admin: 12/02/20 05:50 Dose: 100 mls/hr Documented by: [email or web address] Infusion: 12/02/20 01:43 Dose: 100 mls/hr Documented by: [email or web address] Admin: 12/02/20 01:13 Dose: 100 mls/hr Documented by: [email or web address] Infusion: 12/01/20 18:40 Dose: 0 mls/hr Documented by: [email or web address] Admin: 12/01/20 18:08 Dose: 100 mls/hr Documented by: Infusion: 12/01/20 13:07 Dose: 0 mls/hr Documented by: Admin: 12/01/20 12:35 Dose: 100 mls/hr Documented by: Infusion: 12/01/20 06:59 Dose: 0 mls/hr Documented by: Admin: 12/01/20 05:43 Dose: 100 mls/hr Documented by: Infusion: 12/01/20 00:07 Dose: 0 mls/hr Documented by: Admin: 11/30/20 23:37 Dose: 100 mls/hr Documented by: Infusion: 11/30/20 17:47 Dose: 0 mls/hr Documented by: Admin: 11/30/20 17:02 Dose: 100 mls/hr Documented by: Infusion: 11/30/20 12:24 Dose: 0 mls/hr Documented by: Admin: 11/30/20 11:37 Dose: 100 mls/hr Documented by: Infusion: 11/30/20 07:14 Dose: 0 mls/hr Documented by: Admin: 11/30/20 05:34 Dose: 100 mls/hr Documented by: Infusion: 11/30/20 00:59 Dose: 0 mls/hr Documented by: Admin: 11/30/20 00:29 Dose: 100 mls/hr Documented by: Infusion: 11/29/20 18:08 Dose: 0 mls/hr Documented by: Admin: 11/29/20 17:38 Dose: 100 mls/hr Documented by: Infusion: 11/29/20 14:25 Dose: 0 mls/hr Documented by: Admin: 11/29/20 12:36 Dose: 100 mls/hr Documented by: Infusion: 11/29/20 05:52 Dose: 100 mls/hr Documented by: Admin: 11/29/20 05:15 Dose: 100 mls/hr Documented by: Infusion: 11/29/20 00:30 Dose: 0 mls/hr Documented by: Admin: 11/28/20 23:30 Dose: 100 mls/hr Documented by: Infusion: 11/28/20 18:57 Dose: 0 mls/hr Documented by: Admin: 11/28/20 17:35 Dose: 100 mls/hr Documented by: Infusion: 11/28/20 14:05 Dose: 0 mls/hr Documented by: Admin: 11/28/20 12:35 Dose: 100 mls/hr Documented by: Infusion: 11/28/20 05:56 Dose: 0 mls/hr Documented by: Admin: 11/28/20 05:25 Dose: 100 mls/hr Documented by: Infusion: 11/28/20 00:25 Dose: 0 mls/hr Documented by: Admin: 11/27/20 23:28 Dose: 100 mls/hr Documented by: Infusion: 11/27/20 18:37 Dose: 0 mls/hr Documented by: Admin: 11/27/20 17:43 Dose: 100 mls/hr Documented by: Infusion: 11/27/20 12:15 Dose: 0 mls/hr Documented by: Admin: 11/27/20 11:43 Dose: 100 mls/hr Documented by: Infusion: 11/27/20 08:20 Dose: 0 mls/hr Documented by: Admin: 11/27/20 07:02 Dose: 100 mls/hr Documented by: Infusion: 11/27/20 01:35 Dose: 0 mls/hr Documented by: Admin: 11/27/20 01:02 Dose: 100 mls/hr Documented by: NORA Fluconazole (Diflucan) 400 mg in 200 mls @ 100 mls/hr IV Q24H [facility] Last Infusion: 12/04/20 01:20 Dose: 0 mls/hr Documented by: Admin: 12/03/20 23:18 Dose: 100 mls/hr Documented by: Infusion: 12/03/20 00:52 Dose: 0 mls/hr Documented by: Admin: 12/02/20 22:52 Dose: 100 mls/hr Documented by: Infusion: 12/02/20 01:20 Dose: 0 mls/hr Documented by: Admin: 12/01/20 23:16 Dose: 100 mls/hr Documented by: Infusion: 11/30/20 23:58 Dose: 0 mls/hr Documented by: Admin: 11/30/20 21:58 Dose: 100 mls/hr Documented by: Infusion: 11/30/20 00:32 Dose: 0 mls/hr Documented by: Admin: 11/29/20 22:32 Dose: 100 mls/hr Documented by: Infusion: 11/29/20 01:00 Dose: 0 mls/hr Documented by: Admin: 11/28/20 22:16 Dose: 100 mls/hr Documented by: Infusion: 11/28/20 00:34 Dose: 100 mls/hr Documented by: Admin: 11/27/20 22:18 Dose: 100 mls/hr Documented by: Infusion: 11/27/20 04:15 Dose: 0 mls/hr Documented by: Admin: 11/27/20 01:52 Dose: 100 mls/hr Documented by: NORA Acetaminophen (Ofirmev) 650 mg in 65 mls @ 130 mls/hr IV Q4HP PRN; Protocol PRN Reason: PAIN/FEVER > 101 Last Infusion: 12/02/20 21:31 Dose: 0 mls/hr Documented by: Admin: 12/02/20 21:01 Dose: 130 mls/hr Documented by: Infusion: 12/01/20 22:30 Dose: 0 mls/hr Documented by: Admin: 12/01/20 21:53 Dose: 130 mls/hr Documented by: Infusion: 11/27/20 00:20 Dose: 0 mls/hr Documented by: Admin: 11/26/20 23:50 Dose: 130 mls/hr Documented by: [email or web address] Sodium Chloride (Sodium Chloride 0.9%) 1,000 mls @ 75 mls/hr IV .[id number] [facility] Last Admin: 12/03/20 23:18 Dose: 75 mls/hr Documented by: Infusion: 12/03/20 18:28 Dose: 75 mls/hr Documented by: Admin: 12/03/20 11:50 Dose: Not Given Documented by: Admin: 12/03/20 05:08 Dose: 75 mls/hr Documented by: Infusion: 12/03/20 05:08 Dose: 0 mls/hr Documented by: Admin: 12/02/20 23:16 Dose: Not Given Documented by: Admin: 12/02/20 13:35 Dose: 75 mls/hr Documented by: Admin: 12/02/20 11:54 Dose: Not Given Documented by: Infusion: 12/02/20 08:41 Dose: 75 mls/hr Documented by: Admin: 12/01/20 19:21 Dose: 75 mls/hr Documented by: Infusion: 12/01/20 19:19 Dose: 0 mls/hr Documented by: Admin: 12/01/20 05:43 Dose: 75 mls/hr Documented by: Infusion: 12/01/20 00:49 Dose: 75 mls/hr Documented by: Admin: 11/30/20 16:33 Dose: Not Given Documented by: Admin: 11/30/20 11:29 Dose: 75 mls/hr Documented by: Infusion: 11/30/20 10:51 Dose: 75 mls/hr Documented by: Admin: 11/30/20 04:15 Dose: Not Given Documented by: Admin: 11/29/20 21:31 Dose: 75 mls/hr Documented by: Admin: 11/29/20 14:27 Dose: Not Given Documented by: ERIC Magnesium Oxide (Magnesium Oxide 400 Mg Tablet) 400 mg PO DAILY [facility] Last Admin: 12/04/20 08:39 Dose: 400 mg Documented by: [email or web address] Admin: 12/03/20 08:38 Dose: 400 mg Documented by: Admin: 12/02/20 09:32 Dose: 400 mg Documented by: Cosigned by: Admin: 12/01/20 10:25 Dose: Not Given Documented by: Admin: 11/30/20 08:56 Dose: 400 mg Documented by: Admin: 11/29/20 08:14 Dose: 400 mg Documented by: Admin: 11/28/20 09:05 Dose: 400 mg Documented by: Admin: 11/27/20 10:32 Dose: 400 mg Documented by: ERIC Nicotine (Nicotine 14 Mg Patch) 14 mg TOPICAL DAILY@1000 [facility] Last Admin: 12/04/20 09:27 Dose: 14 mg Documented by: [email or web address] Admin: 12/03/20 18:06 Dose: 14 mg Documented by: [email or web address] Admin: 12/03/20 09:56 Dose: 14 mg Documented by: Admin: 12/02/20 09:32 Dose: 14 mg Documented by: Cosigned by: Admin: 12/01/20 10:24 Dose: 14 mg Documented by: Admin: 11/30/20 11:29 Dose: 14 mg Documented by: Admin: 11/29/20 08:19 Dose: 14 mg Documented by: Admin: 11/28/20 09:08 Dose: 14 mg Documented by: Admin: 11/27/20 10:32 Dose: 14 mg Documented by: ERIC Ondansetron HCl (Ondansetron 4 Mg/2 Ml Vial) 4 mg IV Q6HP PRN PRN Reason: Nausea And Vomiting Last Admin: 12/01/20 10:24 Dose: 4 mg Documented by: Admin: 11/29/20 08:19 Dose: 4 mg Documented by: Admin: 11/28/20 03:16 Dose: 4 mg Documented by: Admin: 11/27/20 19:54 Dose: 4 mg Documented by: Admin: 11/27/20 11:45 Dose: 4 mg Documented by: ERIC Pantoprazole Sodium (Pantoprazole 40 Mg Tablet) 40 mg PO QAMAC [facility] Last Admin: 12/04/20 08:39 Dose: 40 mg Documented by: [email or web address] Admin: 12/03/20 07:19 Dose: 40 mg Documented by: Admin: 12/02/20 07:45 Dose: 40 mg Documented by: Cosigned by: SIL Admin: 12/01/20 10:25 Dose: Not Given Documented by: Admin: 11/30/20 07:34 Dose: 40 mg Documented by: Admin: 11/29/20 08:14 Dose: 40 mg Documented by: Admin: 11/28/20 09:04 Dose: 40 mg Documented by: Admin: 11/27/20 07:02 Dose: Not Given Documented by: ERIC Paz (Sennosides 1 Tablet) 2 tab PO HS [facility] Last Admin: 12/03/20 20:27 Dose: Not Given Documented by: Admin: 12/02/20 20:59 Dose: Not Given Documented by: Admin: 12/01/20 21:51 Dose: Not Given Documented by: Admin: 11/30/20 21:57 Dose: Not Given Documented by: Admin: 11/29/20 22:30 Dose: Not Given Documented by: Admin: 11/28/20 19:56 Dose: Not Given Documented by: Admin: 11/27/20 19:53 Dose: Not Given Documented by: Admin: 11/26/20 21:18 Dose: 2 tab Documented by: NORA Sodium Chloride (0.9 % Sodium Chloride 10 Ml Syringe) 10 ml IV Q8 [facility] Last Admin: 12/04/20 05:56 Dose: Not Given Documented by: Admin: 12/03/20 20:27 Dose: Not Given Documented by: Admin: 12/03/20 13:36 Dose: Not Given Documented by: Admin: 12/03/20 05:55 Dose: Not Given Documented by: Admin: 12/02/20 21:01 Dose: Not Given Documented by: Admin: 12/02/20 13:35 Dose: Not Given Documented by: Admin: 12/02/20 05:51 Dose: Not Given Documented by: Admin: 12/01/20 21:58 Dose: Not Given Documented by: Admin: 12/01/20 12:17 Dose: Not Given Documented by: Admin: 12/01/20 05:43 Dose: Not Given Documented by: Admin: 11/30/20 22:02 Dose: Not Given Documented by: Admin: 11/30/20 12:24 Dose: Not Given Documented by: Admin: 11/30/20 04:15 Dose: Not Given Documented by: Admin: 11/29/20 22:31 Dose: Not Given Documented by: Admin: 11/29/20 14:25 Dose: Not Given Documented by: Admin: 11/29/20 04:29 Dose: Not Given Documented by: Admin: 11/28/20 20:05 Dose: Not Given Documented by: Admin: 11/28/20 14:05 Dose: Not Given Documented by: Admin: 11/28/20 04:00 Dose: Not Given Documented by: Admin: 11/27/20 20:29 Dose: Not Given Documented by: Admin: 11/27/20 12:15 Dose: Not Given Documented by: Admin: 11/27/20 05:14 Dose: Not Given Documented by: Admin: 11/26/20 21:18 Dose: Not Given Documented by: NORA Zolpidem Tartrate (Zolpidem 5 Mg Tablet) 10 mg PO HSP PRN PRN Reason: Insomnia Last Admin: 12/04/20 01:04 Dose: 10 mg Documented by: Admin: 12/02/20 20:59 Dose: 10 mg Documented by: Admin: 12/01/20 21:53 Dose: 10 mg Documented by: Admin: 11/30/20 21:55 Dose: 10 mg Documented by: DUSTIN Shift Summary 12/04/20 05:21 Shift Summary by Nirali Du Pt admitted for abscess to abdomen. Drained in ED. She has stayed for IV abo. Up ad dandre to [facility], voiding well. FARIBA drain to abdomen putting out scant amounts of white, creamy discharge. She will go home w/drain & does know how to drain & recharge it. c/o itching all over, vj back, but she did have a shower w/chlorhexedine liquid right before our shift. Lotion helped some, but she didn't sleep well until she received a sleeping pill. Plan is for her to d/c home today. Initialized on 12/04/20 05:21 - END OF NOTE
[2020-12-04] MEDS ORDERED: FLU VACC QS2021-22(6MOS UP)/PF 60 MCG/0.5 ML SYRINGE IM ONE (13:15)
== END 2020-12-04 15:30 | disposition home or self-care (01) | DRG 371 ==
LOC: ED 11:17 → MEDSUR 16:50
PROVIDERS: ADMIT Family Medicine Adult Medicine; ATTEND Family Medicine Adult Medicine